=== PATIENT | male | born 1955 | race Two or more races ===

== ENCOUNTER 2017-04-04 12:12 | Inpatient (IN) | payer OTHER ==
[~2017-04-04] VITALS: Ht 177.8 cm; Wt 78.9 kg
[~2017-04-04 12:12] MED LIST: NKM
[2017-04-04] MEDS ORDERED: Morphine Sulfate 2mg/ml Inj IVP ONE (12:15)
[2017-04-04] MEDS ORDERED: Nitroglycerin 2% oint pkt TOPIC ONE (12:15)
[2017-04-04 13:00] LABS: BASOPHILS % (AUTO) 1.5 % (0.0-2.0); EOSINOPHILS % (AUTO) 0.9 % (0.0-3.0); LYMPHOCYTES % (AUTO) 25.6 % (20.0-45.0); MEAN CORPUSCULAR HEMOGLOBIN 25.3 PG (27.0-31.0); MEAN CORPUSCULAR HGB CONC 31.1 G/DL (32.0-36.0); MEAN CORPUSCULAR VOLUME 81 FL (80-99); MEAN PLATELET VOLUME 11.5 FL (6.5-10.1); MONOCYTES % (AUTO) 6.7 % (1.0-10.0); NEUTROPHILS % (AUTO) 65.4 % (45.0-75.0); PLATELET COUNT 225 K/UL (150-450); RED BLOOD COUNT 5.97 M/UL (4.70-6.10); WHITE BLOOD COUNT 7.5 K/UL (4.8-10.8)
[2017-04-04 13:10] LABS: INR 1.3 (0.9-1.1)
[2017-04-04 13:14] LABS: ALANINE AMINOTRANSFERASE 35 U/L (3-41); ANION GAP 23 (5-15); ASPARTATE AMINO TRANSFERASE 44 U/L (5-40); CALCIUM 8.6 mg/dL (8.6-10.2); CARBON DIOXIDE 24 mEQ/L (20-30); CHLORIDE 92 mEQ/L (98-107); CREATININE 1.3 mg/dL (0.7-1.2); GLOMERULAR FILTRATION RATE 55.9 mL/min (>60); HEMOLYSIS 1; POTASSIUM 3.3 mEQ/L (3.4-4.9); SODIUM 139 mEQ/L (135-145); TOTAL PROTEIN 6.2 g/dL (6.6-8.7); TROPONIN I < 0.30 ng/mL (<=0.30)
[2017-04-04 13:35] LABS: BILIRUBIN,DIRECT 0.8 mg/dL (0.1-0.3)
[2017-04-04 13:48] LABS: APPEARANCE,URINE CLEAR; KETONES,URINE NEGATIVE (NEGATIVE); LEUKOCYTE ESTERASE ,URINE NEGATIVE (NEGATIVE); NITRITE,URINE NEGATIVE (NEGATIVE); PH,URINE 6.5 (4.5-8.0); PROTEIN,URINE 3+ (NEGATIVE); UROBILINOGEN,URINE NORMAL MG/DL (0.0-1.0)
--- NOTE | 2017-04-04 13:54 | Diagnostic Imaging Report ---
Indication: Dyspnea Comparison: None A single view chest radiograph was obtained. Findings: Interstitial edema is present. There is a density at the right lung base which may be a subpulmonic effusion or pleural thickening. The heart is enlarged. Bones are osteopenic. Impression: Interstitial edema/CHF. Right basilar pleural thickening versus effusion
[2017-04-04 14:00] LABS: RBC,URINE 0 /HPF (0 - 0); SQUAMOUS EPITHELIAL CELL,UR OCCASIONAL /LPF (NONE/OCC); WBC,URINE 0-2 /HPF (0 - 0)
[2017-04-04 14:20] VITALS: BP 112/77
[2017-04-04 14:37] VITALS: BP 120/80
--- NOTE | 2017-04-04 15:09 | Emergency Room Report ---
History of Present Illness General Chief Complaint: Upper Respiratory Illness Source: Patient, EMS Present Illness HPI Patient is brought in for several complaints. Hx of significant this dyspnea with orthopnea. Also he has increased edema and right upper quadrant pain which is 7/10 pressure, radiating to back and chest. Is not able to eat very well. In the past he is improved with Lasix. He has wounds on his R lower leg which are worsened at this time also. He denies any chest pain but feels pressure and dyspnea when he tries to walk. No fevers, productive cough, sore throat, headache, other joint pain, change in bowels. H/O HTN, DM. Accucheck in field = 141. Frustrated and depressed. NO SI. Allergies: Coded Allergies: No Known Allergies (Unverified , 04/04/17) Patient History Past Medical History: see triage record Social History: Denies: alcohol use, drug use Social History Narrative at home Reviewed Nursing Documentation: PMH: Agreed, PSxH: Agreed Nursing Documentation-PMH Past Medical History: No History, Except For Hx Cardiac Problems: Yes - CHF Review of Systems All Other Systems: negative except mentioned in HPI Physical Exam Vital Signs Date Time Temp Pulse Resp B/P (MAP) Pulse Ox O2 Delivery O2 Flow Rate FiO2 04/04/17 12:02 57 20 110/86 100 04/04/17 14:35 Room Air 04/04/17 14:37 98.0 Sp02 EP Interpretation: reviewed, normal General Appearance: no apparent distress, GCS 15, Chronically Ill Head: normocephalic Eyes: bilateral eye normal inspection, bilateral eye PERRL ENT: moist mucus membranes Neck: supple Respiratory: chest non-tender, rales Cardiovascular #1: regular rate, rhythm, JVD - 2 cm at 45 degrees, edema - bilat 3+, pitting Cardiovascular #2: 2+ radial (R) Gastrointestinal: no guarding, no rebound, abnormal bowel sounds - decreased, distended, tenderness - RUQ, other - possible fluid wave Musculoskeletal: digits/nails normal, normal range of motion, no calf tenderness, swelling Neurologic: alert, oriented x3, motor strength/tone normal, sensory intact, cerebellar normal Psychiatric: depressed affect - frustrated Skin: other - ulcers R LE anteriorly Medical Decision Making Diagnostic Impression: Primary Impression: CHF (congestive heart failure) Qualified Codes: I50.43 - Acute on chronic combined systolic (congestive) and diastolic (congestive) heart failure Additional Impressions: Hepatic congestion Renal insufficiency ER Course Patient presents with dyspnea and edema with abdominal distension. Ddx; AMI, CHF, liver inflammation, cor pulmonale, electrolyte imbalance amongst others. Emergent evaluation for AMI. Exam most c/w CHF with cor pulmonale. EKG, CXR, labs. Treatment with lasix and morphine. EKG with pvc's, no acute injury. CXR CHF with large R effusion. Labs with normal WBC and H/H. Renal insufficiency, some elevated LFTs. Improved with treatment, still feels dyspneic and easy LEMON, feels needs more diuresis. Patient is admitted to telemetry under the care of Dr. Keller. Laboratory Tests Test 04/04/17 12:40 04/04/17 13:10 White Blood Count 7.5 K/UL (4.8-10.8) Red Blood Count 5.97 M/UL (4.70-6.10) Hemoglobin 15.1 G/DL (14.2-18.0) Hematocrit 48.6 % (42.0-52.0) Mean Corpuscular Volume 81 FL (80-99) Mean Corpuscular Hemoglobin 25.3 PG (27.0-31.0) L Mean Corpuscular Hemoglobin Concent 31.1 G/DL (32.0-36.0) L Red Cell Distribution Width 15.0 % (11.6-14.8) H Platelet Count 225 K/UL (150-450) Mean Platelet Volume 11.5 FL (6.5-10.1) H Neutrophils (%) (Auto) 65.4 % (45.0-75.0) Lymphocytes (%) (Auto) 25.6 % (20.0-45.0) Monocytes (%) (Auto) 6.7 % (1.0-10.0) Eosinophils (%) (Auto) 0.9 % (0.0-3.0) Basophils (%) (Auto) 1.5 % (0.0-2.0) Prothrombin Time 14.0 SEC (9.30-11.50) H Prothrombin Time INR 1.3 (0.9-1.1) H PTT 26 SEC (23-33) Sodium Level 139 mEQ/L (135-145) Potassium Level 3.3 mEQ/L (3.4-4.9) L Chloride Level 92 mEQ/L (98-107) L Carbon Dioxide Level 24 mEQ/L (20-30) Anion Gap 23 (5-15) H Blood Urea Nitrogen 25 mg/dL (7-23) H Creatinine 1.3 mg/dL (0.7-1.2) H Estimate Glomerular Filtration Rate 55.9 mL/min (>60) Glucose Level 166 mg/dL (74-106) H Calcium Level 8.6 mg/dL (8.6-10.2) Total Bilirubin 1.3 mg/dL (0.0-1.2) H Direct Bilirubin 0.8 mg/dL (0.1-0.3) H Aspartate Amino Transferase (AST) 44 U/L (5-40) H Alanine Aminotransferase (ALT) 35 U/L (3-41) Alkaline Phosphatase 260 U/L (40-129) H Total Creatine Kinase 196 U/L (38-174) H Troponin I < 0.30 ng/mL (<=0.30) Pro-B-Type Natriuretic Peptide 8526 pg/mL (0-125) H Total Protein 6.2 g/dL (6.6-8.7) L Albumin 3.1 g/dL (3.5-5.2) L Globulin 3.1 g/dL Albumin/Globulin Ratio 1.0 (1.0-2.7) Urine Color Yellow Urine Appearance Clear Urine pH 6.5 (4.5-8.0) Urine Specific [place] 1.010 (1.005-1.035) Urine Protein 3+ (NEGATIVE) H Urine Glucose (UA) Negative (NEGATIVE) Urine Ketones Negative (NEGATIVE) Urine Occult Blood Negative (NEGATIVE) Urine Nitrite Negative (NEGATIVE) Urine Bilirubin Negative (NEGATIVE) Urine Urobilinogen Normal MG/DL (0.0-1.0) Urine Leukocyte Esterase Negative (NEGATIVE) Urine RBC 0 /HPF (0 - 0) Urine WBC 0-2 /HPF (0 - 0) Urine Squamous Epithelial Cells Occasional /LPF Urine Bacteria None /HPF (NONE) Urine Opiates Screen Negative (NEGATIVE) Urine Barbiturates Screen Negative (NEGATIVE) Phencyclidine (PCP) Screen Negative (NEGATIVE) Urine Amphetamines Screen Negative (NEGATIVE) Urine Benzodiazepines Screen Negative (NEGATIVE) Urine Cocaine Screen Negative (NEGATIVE) Urine Marijuana (THC) Screen Negative (NEGATIVE) EKG Diagnostic Results Rate: tachycardiac ST Segments: no acute changes - ST with PVCs Rhythm Strip Diag. Results EP Interpretation: yes Rhythm: other - ST with PVCs, rate 111 Chest X-Ray Diagnostic Results Chest X-Ray Diagnostic Results : Chest X-Ray Ordered: Yes # of Views/Limited/Complete: 1 View Indication: Other EP Interpretation: Yes Interpretation: no pneumothorax, other - Right effusion and congestive heart failure Impression: Other Electronically Signed by: Electronically signed by Maxx Boyd MD Last Vital Signs Date Time Temp Pulse Resp B/P (MAP) Pulse Ox O2 Delivery O2 Flow Rate FiO2 04/04/17 21:00 97.5 100 20 106/65 97 Room Air Status: improved Disposition: ADMITTED INPATIENT Condition: Serious Referrals: [facility],REFERRING (PCP) Maxx Boyd M.D. Apr 04, 2017 15:09
[2017-04-04] MEDS ORDERED: Tetanus/Diptheria/Pertussis Vaccine 0.5ml Syr IM ONE (15:45)
[2017-04-04] MEDS ORDERED: Bacitracin Oint UD TOPIC ONE (15:45)
[2017-04-04 17:20] VITALS: BP 112/77
[2017-04-04 17:41] VITALS: BP 92/49
[2017-04-04] MEDS ORDERED: FUROSEMIDE40 MG/5 ML ORAL (18:15)
[2017-04-04] MEDS ORDERED: HUMULIN R100 UNIT/1 SUBQ (18:15)
[2017-04-04 21:00] VITALS: BP 106/65
[2017-04-04] MEDS: NovoLOG Insulin Flexpen SUBQ SCH (21:00)
[2017-04-04] MEDS: Morphine Sulfate 2mg/ml Inj IVP PRN (23:27)
[2017-04-05] VITALS (7 sets, daily range): BP systolic 94–118; BP diastolic 57–76
[2017-04-05] MEDS: NovoLOG Insulin Flexpen SUBQ SCH ×4 (07:24→20:41)
--- NOTE | 2017-04-05 08:07 | Cardiology Progress Note ---
Assessment/Plan Assessment/Plan The patient is seen and examined, full consult note is dictated. Objective Last 24 Hour Vital Signs Date Time Temp Pulse Resp B/P (MAP) Pulse Ox O2 Delivery O2 Flow Rate FiO2 04/05/17 04:00 97.2 99 20 110/70 96 Room Air 04/05/17 04:00 96 04/05/17 00:00 100 04/05/17 00:00 97.2 62 20 104/70 99 Room Air 04/04/17 21:00 97.5 100 20 106/65 97 Room Air 04/04/17 20:00 105 04/04/17 17:41 97.7 100 20 92/49 95 Room Air 04/04/17 17:20 104 26 112/77 99 Room Air 04/04/17 17:20 97.6 104 26 112/77 99 Room Air 04/04/17 14:37 98.0 98 18 120/80 99 04/04/17 14:35 92 18 Room Air 04/04/17 14:20 98.8 104 26 112/77 99 Room Air 04/04/17 13:26 98.0 04/04/17 12:56 110/86 04/04/17 12:02 57 20 110/86 100 Laboratory Tests Test 04/04/17 12:40 04/04/17 13:10 White Blood Count 7.5 K/UL (4.8-10.8) Red Blood Count 5.97 M/UL (4.70-6.10) Hemoglobin 15.1 G/DL (14.2-18.0) Hematocrit 48.6 % (42.0-52.0) Mean Corpuscular Volume 81 FL (80-99) Mean Corpuscular Hemoglobin 25.3 PG (27.0-31.0) L Mean Corpuscular Hemoglobin Concent 31.1 G/DL (32.0-36.0) L Red Cell Distribution Width 15.0 % (11.6-14.8) H Platelet Count 225 K/UL (150-450) Mean Platelet Volume 11.5 FL (6.5-10.1) H Neutrophils (%) (Auto) 65.4 % (45.0-75.0) Lymphocytes (%) (Auto) 25.6 % (20.0-45.0) Monocytes (%) (Auto) 6.7 % (1.0-10.0) Eosinophils (%) (Auto) 0.9 % (0.0-3.0) Basophils (%) (Auto) 1.5 % (0.0-2.0) Prothrombin Time 14.0 SEC (9.30-11.50) H Prothromb Time International Ratio 1.3 (0.9-1.1) H Activated Partial Thromboplast Time 26 SEC (23-33) Sodium Level 139 mEQ/L (135-145) Potassium Level 3.3 mEQ/L (3.4-4.9) L Chloride Level 92 mEQ/L (98-107) L Carbon Dioxide Level 24 mEQ/L (20-30) Anion Gap 23 (5-15) H Blood Urea Nitrogen 25 mg/dL (7-23) H Creatinine 1.3 mg/dL (0.7-1.2) H Estimat Glomerular Filtration Rate 55.9 mL/min (>60) Glucose Level 166 mg/dL (74-106) H Calcium Level 8.6 mg/dL (8.6-10.2) Total Bilirubin 1.3 mg/dL (0.0-1.2) H Direct Bilirubin 0.8 mg/dL (0.1-0.3) H Aspartate Amino Transf (AST/SGOT) 44 U/L (5-40) H Alanine Aminotransferase (ALT/SGPT) 35 U/L (3-41) Alkaline Phosphatase 260 U/L (40-129) H Total Creatine Kinase 196 U/L (38-174) H Troponin I < 0.30 ng/mL (<=0.30) Pro-B-Type Natriuretic Peptide 8526 pg/mL (0-125) H Total Protein 6.2 g/dL (6.6-8.7) L Albumin 3.1 g/dL (3.5-5.2) L Globulin 3.1 g/dL Albumin/Globulin Ratio 1.0 (1.0-2.7) Urine Color Yellow Urine Appearance Clear Urine pH 6.5 (4.5-8.0) Urine Specific [place] 1.010 (1.005-1.035) Urine Protein 3+ (NEGATIVE) H Urine Glucose (UA) Negative (NEGATIVE) Urine Ketones Negative (NEGATIVE) Urine Occult Blood Negative (NEGATIVE) Urine Nitrite Negative (NEGATIVE) Urine Bilirubin Negative (NEGATIVE) Urine Urobilinogen Normal MG/DL (0.0-1.0) Urine Leukocyte Esterase Negative (NEGATIVE) Urine RBC 0 /HPF (0 - 0) Urine WBC 0-2 /HPF (0 - 0) Urine Squamous Epithelial Cells Occasional /LPF Urine Bacteria None /HPF (NONE) Urine Opiates Screen Negative (NEGATIVE) Urine Barbiturates Screen Negative (NEGATIVE) Phencyclidine (PCP) Screen Negative (NEGATIVE) Urine Amphetamines Screen Negative (NEGATIVE) Urine Benzodiazepines Screen Negative (NEGATIVE) Urine Cocaine Screen Negative (NEGATIVE) Urine Marijuana (THC) Screen Negative (NEGATIVE) EMILY COMBS Apr 05, 2017 08:07
[2017-04-05 08:15] LABS: BASOPHILS % (AUTO) 1.2 % (0.0-2.0); EOSINOPHILS % (AUTO) 0.9 % (0.0-3.0); LYMPHOCYTES % (AUTO) 30.9 % (20.0-45.0); MEAN CORPUSCULAR HEMOGLOBIN 25.6 PG (27.0-31.0); MEAN CORPUSCULAR HGB CONC 31.6 G/DL (32.0-36.0); MEAN CORPUSCULAR VOLUME 81 FL (80-99); MEAN PLATELET VOLUME 10.8 FL (6.5-10.1); MONOCYTES % (AUTO) 8.2 % (1.0-10.0); NEUTROPHILS % (AUTO) 58.8 % (45.0-75.0); PLATELET COUNT 194 K/UL (150-450); RED BLOOD COUNT 5.75 M/UL (4.70-6.10); RED CELL DISTRIBUTION WIDTH 15.1 % (11.6-14.8); WHITE BLOOD COUNT 7.8 K/UL (4.8-10.8)
[2017-04-05 08:32] LABS: CALCIUM 8.7 mg/dL (8.6-10.2); CHOLESTEROL/HDL RATIO 3.6 (3.3-4.4); CREATININE 1.8 mg/dL (0.7-1.2); CRP QUANT 5.3 mg/dL (< 0.5); GLOMERULAR FILTRATION RATE 38.4 mL/min (>60); MAGNESIUM 1.9 mg/dL (1.7-2.5); PHOSPHORUS 4.3 mg/dL (2.5-4.8); POTASSIUM 3.2 mEQ/L (3.4-4.9); TOTAL PROTEIN 5.9 g/dL (6.6-8.7); URIC ACID 15.9 mg/dL (3.0-7.5)
[2017-04-05 08:36] LABS: THYROID STIMULATING HORMONE 1.77 uIU/mL (0.300-4.500)
[2017-04-05] MEDS ORDERED: Furosemide 40mg tab ORAL SCH (09:00)
[2017-04-05 09:12] LABS: HEMOGLOBIN A1C 9.9 % (< 6.0)
--- NOTE | 2017-04-05 10:28 | GI Initial Consult Note ---
History of Present Illness General Date patient seen: Apr 05, 2017 Time patient seen: 10:18 Reason for Hospitalization: Upper Respiratory Illness Referring physician: DELBERT DONG Reason for Consultation: ABNORMAL LFTS Present Illness HPI Patient is brought in for several complaints. Hx of significant this dyspnea with orthopnea. Also he has increased edema and right upper quadrant pain which is 7/10 pressure, radiating to back and chest. Is not able to eat very well. In the past he is improved with Lasix. He has wounds on his R lower leg which are worsened at this time also. He denies any chest pain but feels pressure and dyspnea when he tries to walk. No fevers, productive cough, sore throat, headache, other joint pain, change in bowels. H/O HTN, DM. Accucheck in field = 141. Frustrated and depressed. NO SI. GI Consult. HPI as noted above. GI consulted for abnormal LFTs. Pt c/o of abdominal distention, pain, BLE 3+ edema. He presents today with abnormal LFTs , elevated GGT. Denies any ETOH, tobacco, or IVDA use. Abdominal U/S pending. Denies any history of endoscopic procedures. Home Meds Reported Medications Furosemide (FUROSEMIDE) 40 Mg/5 Ml Solution, 40 MG ORAL DAILY, ML 04/04/17 Insulin Regular, Human (HUMULIN R) 100 Unit/1 Ml Vial, 0 SUBQ, VIAL 04/04/17 No Known Medications* (NKM - No Known Medications*) ., 0 ., 0 Refills 04/04/17 Med list reviewed/reconciled: Yes Allergies: Coded Allergies: No Known Allergies (Unverified , 04/04/17) Patient History History Provided By: Patient, Medical Record PMH Narrative Past Medical History: see triage record Social History: Denies: alcohol use, drug use Social History Narrative at home Reviewed Nursing Documentation: PMH: Agreed, PSxH: Agreed Nursing Documentation-PMH Past Medical History: No History, Except For Hx Cardiac Problems: Yes - CHF Social History: Denies: smoking, alcohol use, drug use, other Review of Systems All Other Systems: negative except mentioned in HPI Physical Exam Vital Signs Date Time Temp Pulse Resp B/P (MAP) Pulse Ox O2 Delivery O2 Flow Rate FiO2 04/04/17 12:02 57 20 110/86 100 04/04/17 13:26 98.0 04/04/17 14:20 Room Air Sp02 EP Interpretation: reviewed Labs Laboratory Tests Test 04/04/17 12:40 04/04/17 13:10 04/05/17 07:20 White Blood Count 7.5 K/UL (4.8-10.8) 7.8 K/UL (4.8-10.8) Red Blood Count 5.97 M/UL (4.70-6.10) 5.75 M/UL (4.70-6.10) Hemoglobin 15.1 G/DL (14.2-18.0) 14.7 G/DL (14.2-18.0) Hematocrit 48.6 % (42.0-52.0) 46.7 % (42.0-52.0) Mean Corpuscular Volume 81 FL (80-99) 81 FL (80-99) Mean Corpuscular Hemoglobin 25.3 PG (27.0-31.0) L 25.6 PG (27.0-31.0) L Mean Corpuscular Hemoglobin Concent 31.1 G/DL (32.0-36.0) L 31.6 G/DL (32.0-36.0) L Red Cell Distribution Width 15.0 % (11.6-14.8) H 15.1 % (11.6-14.8) H Platelet Count 225 K/UL (150-450) 194 K/UL (150-450) Mean Platelet Volume 11.5 FL (6.5-10.1) H 10.8 FL (6.5-10.1) H Neutrophils (%) (Auto) 65.4 % (45.0-75.0) 58.8 % (45.0-75.0) Lymphocytes (%) (Auto) 25.6 % (20.0-45.0) 30.9 % (20.0-45.0) Monocytes (%) (Auto) 6.7 % (1.0-10.0) 8.2 % (1.0-10.0) Eosinophils (%) (Auto) 0.9 % (0.0-3.0) 0.9 % (0.0-3.0) Basophils (%) (Auto) 1.5 % (0.0-2.0) 1.2 % (0.0-2.0) Prothrombin Time 14.0 SEC (9.30-11.50) H Prothromb Time International Ratio 1.3 (0.9-1.1) H Activated Partial Thromboplast Time 26 SEC (23-33) Sodium Level 139 mEQ/L (135-145) 138 mEQ/L (135-145) Potassium Level 3.3 mEQ/L (3.4-4.9) L 3.2 mEQ/L (3.4-4.9) L Chloride Level 92 mEQ/L (98-107) L 91 mEQ/L (98-107) L Carbon Dioxide Level 24 mEQ/L (20-30) 23 mEQ/L (20-30) Anion Gap 23 (5-15) H 24 (5-15) H Blood Urea Nitrogen 25 mg/dL (7-23) H 31 mg/dL (7-23) H Creatinine 1.3 mg/dL (0.7-1.2) H 1.8 mg/dL (0.7-1.2) H Estimat Glomerular Filtration Rate 55.9 mL/min (>60) 38.4 mL/min (>60) Glucose Level 166 mg/dL (74-106) H 117 mg/dL (74-106) H Calcium Level 8.6 mg/dL (8.6-10.2) 8.7 mg/dL (8.6-10.2) Total Bilirubin 1.3 mg/dL (0.0-1.2) H 1.5 mg/dL (0.0-1.2) H Direct Bilirubin 0.8 mg/dL (0.1-0.3) H 1.0 mg/dL (0.1-0.3) H Aspartate Amino Transf (AST/SGOT) 44 U/L (5-40) H 71 U/L (5-40) H Alanine Aminotransferase (ALT/SGPT) 35 U/L (3-41) 56 U/L (3-41) H Alkaline Phosphatase 260 U/L (40-129) H 260 U/L (40-129) H Total Creatine Kinase 196 U/L (38-174) H Troponin I < 0.30 ng/mL (<=0.30) Pro-B-Type Natriuretic Peptide 8526 pg/mL (0-125) H 10416 pg/mL (0-125) H Total Protein 6.2 g/dL (6.6-8.7) L 5.9 g/dL (6.6-8.7) L Albumin 3.1 g/dL (3.5-5.2) L 3.0 g/dL (3.5-5.2) L Globulin 3.1 g/dL 2.9 g/dL Albumin/Globulin Ratio 1.0 (1.0-2.7) 1.0 (1.0-2.7) Urine Color Yellow Urine Appearance Clear Urine pH 6.5 (4.5-8.0) Urine Specific [place] 1.010 (1.005-1.035) Urine Protein 3+ (NEGATIVE) H Urine Glucose (UA) Negative (NEGATIVE) Urine Ketones Negative (NEGATIVE) Urine Occult Blood Negative (NEGATIVE) Urine Nitrite Negative (NEGATIVE) Urine Bilirubin Negative (NEGATIVE) Urine Urobilinogen Normal MG/DL (0.0-1.0) Urine Leukocyte Esterase Negative (NEGATIVE) Urine RBC 0 /HPF (0 - 0) Urine WBC 0-2 /HPF (0 - 0) Urine Squamous Epithelial Cells Occasional /LPF Urine Bacteria None /HPF (NONE) Urine Opiates Screen Negative (NEGATIVE) Urine Barbiturates Screen Negative (NEGATIVE) Phencyclidine (PCP) Screen Negative (NEGATIVE) Urine Amphetamines Screen Negative (NEGATIVE) Urine Benzodiazepines Screen Negative (NEGATIVE) Urine Cocaine Screen Negative (NEGATIVE) Urine Marijuana (THC) Screen Negative (NEGATIVE) Hemoglobin A1c 9.9 % (< 6.0) H Uric Acid 15.9 mg/dL (3.0-7.5) H Phosphorus Level 4.3 mg/dL (2.5-4.8) Magnesium Level 1.9 mg/dL (1.7-2.5) Gamma Glutamyl Transpeptidase 663 U/L (8-61) H Ammonia 47 umol/L (16-60) C-Reactive Protein, Quantitative 5.3 mg/dL (< 0.5) H Triglycerides Level 60 mg/dL (< 150) Cholesterol Level 79 mg/dL (< 200) LDL Cholesterol 45 mg/dL (60-99) L HDL Cholesterol 22 mg/dL (> 60) Cholesterol/HDL Ratio 3.6 (3.3-4.4) Thyroid Stimulating Hormone (TSH) 1.770 uIU/mL (0.300-4.500) General Appearance: well appearing, no apparent distress, alert, thin Head: normocephalic EENT: PERRL/EOMI, normal ENT inspection Neck: supple Respiratory: normal breath sounds, no respiratory distress Cardiovascular: normal rate Gastrointestinal: distended Rectal: deferred Musculoskeletal: back normal Neurologic: normal inspection, alert, oriented x3, responsive Psychiatric: normal inspection, judgement/insight normal, memory normal Skin: normal inspection, normal color, no rash, warm/dry Lymphatic: normal inspection, no adenopathy Current Medications Current Medications Medications (Trade) Dose Ordered Sig/Reuben Route PRN Reason Start Time Stop Time Status Last Admin Dose Admin Carvedilol (Coreg) 3.125 mg BID ONCE ORAL 04/05/17 18:00 04/05/17 18:01 Dextrose (Dextrose 50%) STAT PRN IV Hypoglycemia 04/04/17 18:30 05/04/17 18:29 Furosemide (Lasix) 40 mg EVERY 12 HOURS IV 04/05/17 09:00 05/05/17 08:59 04/05/17 09:18 Insulin Aspart (NovoLOG) BEFORE MEALS AND HS SUBQ 04/04/17 21:00 05/04/17 20:59 04/05/17 07:24 Magnesium Sulfate 100 ml @ 100 mls/hr Q1H IVPB 04/05/17 08:40 04/05/17 10:39 04/05/17 09:17 Morphine Sulfate (Morphine Sulfate) 2 mg Q4H PRN IVP For Pain 04/04/17 23:15 04/11/17 23:14 04/04/17 23:27 Potassium Chloride 100 ml @ 50 mls/hr STAT ONCE IVPB 04/05/17 08:30 04/05/17 10:29 Potassium Chloride (K-Dur) 40 meq TWICE A DAY ORAL 04/04/17 18:00 05/04/17 17:59 04/05/17 09:18 GI: Plan Problems: (1) Abnormal LFTs (2) Elevated serum GGT level (3) Hepatic congestion Plan recommend EGD/colonoscopy >> refused by patient at this time, can be done as outpatient elevated LFTs, GGT >> fu abdominal U/S fu hepatitis panel okay to resume cardiac diet after imaging studies DM mgmt utox negative diuresis fu labs Discussed with Dr. Hinds. Thank you for referring this patient, we will follow. Marissa Schneider N.P. Apr 05, 2017 10:28
--- NOTE | 2017-04-05 11:25 | Consultation ---
Consult Note Consult Note asked to eval for renal failure- Chief Complaint: Upper Respiratory Illness Patient is brought in for several complaints. Hx of significant this dyspnea with orthopnea. Also he has increased edema and right upper quadrant pain which is 7/10 pressure, radiating to back and chest. Is not able to eat very well. In the past he is improved with Lasix. He has wounds on his R lower leg which are worsened at this time also. He denies any chest pain but feels pressure and dyspnea when he tries to walk. No fevers, productive cough, sore throat, headache, other joint pain, change in bowels. H/O HTN, DM. Accucheck in field = 141. Frustrated and depressed. NO SI. No Known Allergies (Unverified , 04/04/17) Past Medical History: No History, Except For Hx Cardiac Problems: Yes - CHF interviewed examined data reviewed Assessment/Plan Renal failure- Acute on Chronic, Cr 1.8 and 3+ Proteinuria Dm, Nephropathy, High A1c HyperUrecemia High LFTs Optimize cardiac status Allopurinol- Echo and Kidney LAZARO K supplement Monitor renal parameters flomax per orders RENNY POWER Apr 05, 2017 11:25
[2017-04-05] MEDS: Allopurinol 100mg Tab ORAL SCH (12:00)
[2017-04-05] MEDS: Morphine Sulfate 2mg/ml Inj IVP PRN ×2 (12:23→20:41)
--- NOTE | 2017-04-05 13:39 | Wound Care Consultation ---
Wound Assessment Wound Assessment : Wound Number: 1 Wound Present on Admission: Yes New Wound: No Status Change of Wound: No Wound Location Body Site Modif: left, right, lower Wound Location Body Site: leg Wound Type: vascular wound - scattered Medardo Test: Does not Medardo Wound Thickness: Full Thickness Percent of Wound Tabor/Red: 100 Wound Drainage Description: Serosanguineous Wound Drainage Amount: Moderate Wound Drainage Odor: None/Absent Tissue Surrounding Wound: Edematous Wound General Appearance: Reddened, Draining Wound Comment #1 Left and right lower legs with open venous stasis ulcers Recommendation -Local wound care as ordered -Keep clean and dry -Turn and reposition -Offload both heels -Elevate both legs -Optimize nutrition -Assess and f/u accordingly for any changes EARLENE MÁRQUEZ RN Apr 05, 2017 13:39
--- NOTE | 2017-04-05 15:04 | Cardiology Report ---
APPROVED REPORT EXAM: Two-dimensional and M-mode echocardiogram with Doppler and color Doppler. INDICATION Congestive Heart Failure M-Mode DIMENSIONS IVSd1.0 (0.7-1.1cm)Left Atrium (MM)5.1 (1.6-4.0cm) LVDd6.3 (3.5-5.6cm)Aortic Root2.5 (2.0-3.7cm) PWd1.3 (0.7-1.1cm)Aortic Cusp Exc.1.8 (1.5-2.0cm) LVDs5.4 (2.5-4.0cm) PWs1.5 cm Severe global left ventricular hypokinesis. Moderate left ventricular enlargement. Left ventricular ejection fraction estimated to be 10-15 %. No evidence of left ventricular hypertrophy. Anterior Echo-free space, may be due to pericardial fat or effusion. Severe bi-atrial enlargement. Severe right ventricular enlargement. Mild focal aortic valve sclerosis with adequate cusp excursion. Mildly thickened mitral valve leaflets with normal excursion. Mild mitral annulus and aortic root calcification. Normal pulmonic valve structure. Normal tricuspid valve structure. IVC dilated at 3.0 cm without physiological collapse, estimated RAP is 20 mmHg. A color flow and spectral Doppler study was performed and revealed: No aortic insufficiency. Severe mitral regurgitation. Left ventricular diastolic function could not be determined due to arrhythmia. Severe tricuspid regurgitation. Tricuspid systolic velocities suggests peak right ventricular systolic pressure of 69 mmHg, consistent with severe pulmonary hypertension. Moderate to severe pulmonic regurgitation present.
[2017-04-05] MEDS: KCl 10% 40mEq/30ml liquid ORAL SCH (17:37)
--- NOTE | 2017-04-05 17:40 | Cardiac Electrophysiology PN ---
Subjective Subjective NSVT up to 12 beats in a patient with EF 10-15%.[id number] Objective Last 24 Hour Vital Signs Date Time Temp Pulse Resp B/P (MAP) Pulse Ox O2 Delivery O2 Flow Rate FiO2 04/05/17 16:00 90 04/05/17 15:40 97.2 96 20 100/69 96 Room Air 04/05/17 12:48 97.0 93 18 107/68 98 Room Air 04/05/17 12:00 97 04/05/17 09:18 98 118/76 04/05/17 08:38 97.0 98 18 118/76 100 Room Air 04/05/17 08:00 100 04/05/17 04:00 97.2 99 20 110/70 96 Room Air 04/05/17 04:00 96 04/05/17 00:00 100 04/05/17 00:00 97.2 62 20 104/70 99 Room Air 04/04/17 21:00 97.5 100 20 106/65 97 Room Air 04/04/17 20:00 105 04/04/17 17:41 97.7 100 20 92/49 95 Room Air Intake and Output 04/05/17 04/06/17 19:00 07:00 Intake Total 120 ml Output Total 150 ml Balance -30 ml Intake Oral 120 ml Output Urine Total 150 ml Laboratory Tests Test 04/05/17 07:20 White Blood Count 7.8 K/UL (4.8-10.8) Red Blood Count 5.75 M/UL (4.70-6.10) Hemoglobin 14.7 G/DL (14.2-18.0) Hematocrit 46.7 % (42.0-52.0) Mean Corpuscular Volume 81 FL (80-99) Mean Corpuscular Hemoglobin 25.6 PG (27.0-31.0) L Mean Corpuscular Hemoglobin Concent 31.6 G/DL (32.0-36.0) L Red Cell Distribution Width 15.1 % (11.6-14.8) H Platelet Count 194 K/UL (150-450) Mean Platelet Volume 10.8 FL (6.5-10.1) H Neutrophils (%) (Auto) 58.8 % (45.0-75.0) Lymphocytes (%) (Auto) 30.9 % (20.0-45.0) Monocytes (%) (Auto) 8.2 % (1.0-10.0) Eosinophils (%) (Auto) 0.9 % (0.0-3.0) Basophils (%) (Auto) 1.2 % (0.0-2.0) Sodium Level 138 mEQ/L (135-145) Potassium Level 3.2 mEQ/L (3.4-4.9) L Chloride Level 91 mEQ/L (98-107) L Carbon Dioxide Level 23 mEQ/L (20-30) Anion Gap 24 (5-15) H Blood Urea Nitrogen 31 mg/dL (7-23) H Creatinine 1.8 mg/dL (0.7-1.2) H Estimat Glomerular Filtration Rate 38.4 mL/min (>60) Glucose Level 117 mg/dL (74-106) H Hemoglobin A1c 9.9 % (< 6.0) H Uric Acid 15.9 mg/dL (3.0-7.5) H Calcium Level 8.7 mg/dL (8.6-10.2) Phosphorus Level 4.3 mg/dL (2.5-4.8) Magnesium Level 1.9 mg/dL (1.7-2.5) Total Bilirubin 1.5 mg/dL (0.0-1.2) H Direct Bilirubin 1.0 mg/dL (0.1-0.3) H Gamma Glutamyl Transpeptidase 663 U/L (8-61) H Aspartate Amino Transf (AST/SGOT) 71 U/L (5-40) H Alanine Aminotransferase (ALT/SGPT) 56 U/L (3-41) H Alkaline Phosphatase 260 U/L (40-129) H Ammonia 47 umol/L (16-60) C-Reactive Protein, Quantitative 5.3 mg/dL (< 0.5) H Pro-B-Type Natriuretic Peptide 77527 pg/mL (0-125) H Total Protein 5.9 g/dL (6.6-8.7) L Albumin 3.0 g/dL (3.5-5.2) L Globulin 2.9 g/dL Albumin/Globulin Ratio 1.0 (1.0-2.7) Triglycerides Level 60 mg/dL (< 150) Cholesterol Level 79 mg/dL (< 200) LDL Cholesterol 45 mg/dL (60-99) L HDL Cholesterol 22 mg/dL (> 60) Cholesterol/HDL Ratio 3.6 (3.3-4.4) Thyroid Stimulating Hormone (TSH) 1.770 uIU/mL (0.300-4.500) MEILY SOLANO Apr 05, 2017 17:40
--- NOTE | 2017-04-05 18:15 | Consultation ---
DATE OF CONSULTATION: 04/05/2017 CARDIOLOGY CONSULTATION REFERRING PHYSICIAN: Joanna Keller M.D. REASON FOR CONSULTATION: Management of heart failure. History Of Present Illness: The patient is a very unfortunate 61-year-old gentleman with a history of cardiomyopathy and heart failure. First time admission to this hospital, brought in by paramedics for dyspnea as well as three to four pillow orthopnea. The patient has also been complaining of increased edema in the lower extremities and increased abdominal girth with associated right upper quadrant pain. The patient states that he has improved with Lasix in the past. His last admission was to [facility]. Cardiology consultation was made at the request of Dr. Keller for management of congestive heart failure as his chest x-ray was concerning for pulmonary edema and cardiomegaly as well as right pleural effusion. PAST MEDICAL HISTORY: 1. History of cardiomyopathy, many hospitalizations in the past, the etiology of which is unknown. 2. Congestive heart failure. 3. A history of diabetes mellitus (presumptive). 4. No other past medical history. PAST SURGICAL HISTORY: None. Review Of Systems: A 12-system review done essentially negative except what mentioned in the history of present illness. ALLERGIES: No known drug allergies. Social History: He denies any tobacco, alcohol, or illicit drug use. He lives at home. Medications: List of medications, furosemide 40 mg p.o. daily, and insulin Humulin subcutaneous. There are some other medications, which are known. PHYSICAL EXAMINATION: Vital Signs: On arrival to emergency department, blood pressure was 110/86, respirations 20, pulse 57, O2 saturation 100% on room air, and temperature 98.0 degrees Fahrenheit. General: The patient is a very unfortunate 61-year-old gentleman, in no apparent respiratory distress. Alert and oriented x4. HEENT: Atraumatic and normocephalic. ENT, pupils are equal, round, and reactive to light and accommodation. Conjunctival pallor is seen. Neck: JVP is elevated at about 15 cm. No carotid bruit. Carotid upstrokes 2+ bilaterally. Cardiovascular: Normal S1, S2. Regular rate and rhythm. A 2/6 mid systolic murmur at the left sternal border. LUNGS: Clear to auscultation bilaterally. Abdomen: Distended. Possible ascites. No hepatosplenomegaly. Positive bowel sounds. Extremities: There is 3+ bilateral lower extremity edema. There is also evidence of right ulceration in the lower extremity in the anterior aspect of the leg. Diagnostic Data: A chest x-ray shows interstitial edema consistent with CHF and right basilar pleural thickening versus effusion. A 12-lead electrocardiogram shows sinus tachycardia at a rate of 111 with single ventricular premature complexes. It appears to be multifocal and there is left atrial enlargement, right atrial enlargement, and nonspecific intraventricular conduction delay. Laboratory Findings: Sodium 139, potassium 3.3, chloride 92, bicarbonate 24, BUN of 25, creatinine 1.3, glucose 166, and calcium is 8.6. Troponin I less than 0.3. ProBNP was 8526. INR is 1.3. WBC 7.5, hemoglobin of 15.1, hematocrit of 48.6, and platelet count is 225,000. Toxicology urine was negative. Assessment And Plan: The patient is a very unfortunate 61-year-old gentleman, was seen in Cardiology consultation at the request of Dr. Keller. 1. Evidence of hypervolemia clinically with chest x-ray suggestive of cardiomegaly and pulmonary edema, right pleural effusion, all in favor of acute heart failure. We will obtain 2D echocardiography for assessment of LV systolic and diastolic function. I will switch to furosemide p.o. to 40 mg intravenous twice daily. We will continue checking creatinine on a daily basis. In view of low potassium, the patient will receive 20 mEq of KCl. I will continue checking potassium on a daily basis as well. 2. It would be better to give him a combination of hydralazine and Isordil until the status of the renal failure is clear. If this appears to be a chronic kidney disease, the patient will be started on YOGESH inhibitors/ARB. 3. Further therapeutic and diagnostic decision will be based on results of the echocardiography. In the meantime, we will obtain a magnesium level as well. 4. Some nonsustained ventricular tachycardia. Dr. Usman Solano to follow in electrophysiology. Magnesium level was checked. Magnesium sulfate has been ordered. 5. History of diabetes mellitus, questionable. The patient requires hemoglobin A1c measurements and insulin sliding scale. Dr. Keller to follow the patient. Possible endocrine consultation. I would like to thank Dr. Keller for the courtesy of this consultation. Usman Clifford M.D. DR: RAMSES JOB#: [id number] CC:
[2017-04-05] MEDS: Tamsulosin 0.4mg cap ORAL SCH (20:40)
--- NOTE | 2017-04-05 21:15 | History and Physical Report ---
DATE OF ADMISSION: 04/04/2017 History Of Present Illness: The patient comes in, admitted for CHF exacerbation. The patient complains of worsening shortness of breath, abdominal pain, and lower extremity weakness, vomiting, difficulty ambulating, and cough nonproductive for the past couple of days. The patient also has poor hygiene of the feet. The patient was admitted for CHF exacerbation and presents with abdominal distension and does complain of abdominal pain. The patient also admitted for low potassium and elevated BNP as well as worsening edema. The patient denies any chest pain and does have worsening orthopnea as well. Denies any wheezing. PAST MEDICAL HISTORY: CHF, NIDDM, and history of hypertension. PAST SURGICAL HISTORY: None. MEDICATIONS: Lasix and insulin. ALLERGIES: No known allergies. Family History: Does have history of diabetes and hypertension in the family. Social History: Smokes. Denies history of drug or alcohol abuse. Lives at home by himself. Review Of Systems: HEENT: Denies headaches. Respiratory: Reports shortness of breath. Reports worsening orthopnea. Reports nonproductive cough for the past couple of days. Cardiovascular: Denies chest pain. Gastrointestinal: Does have vomiting. No diarrhea. Does have worsening abdominal pain and worsening leg edema. Central Nervous System: No change in vision or speech pattern. He feels weak. He has difficulty walking. PHYSICAL EXAMINATION: Vital Signs: Temperature 97.5, pulse 100, and blood pressure is 106/65. HEENT: PERRLA. NECK: Supple. CHEST: Bilateral rales. CARDIOVASCULAR: Regular rate and rhythm. Gastrointestinal: Soft and distended. Positive bowel sounds. Diffuse tenderness, however, no rebound. Extremities: The patient does have pitting edema 1+ in lower extremities. Able to move all four extremities. NEUROLOGIC: Generalized weakness. Reflexes are equal on both sides. Laboratory Data: WBC of 7.5, hemoglobin 15.1, and platelets 225,000. Sodium 139, potassium 3.3, BUN of 25, and creatinine 1.3, glucose of 166. BNP of 8526. ASSESSMENT: 1. Hypokalemia. 2. Congestive heart failure exacerbation. 3. Azotemia. 4. Elevated BNP. Plan: I have asked Dr. Solano, Dr. Clifford, Dr. Solorzano, and Dr. Hinds to see the patient for the vomiting and the CHF exacerbation and fluid management. Ali Cris Keller DR: PRINCESS JOB#: [id number] CC:
--- NOTE | 2017-04-06 02:30 | Consultation ---
DATE OF CONSULTATION: 04/05/2017 CARDIAC ELECTROPHYSIOLOGY CONSULTATION REFERRING PHYSICIAN: Joanna Keller M.D. Reason For Consultation: Recurrent ventricular tachycardia in a patient with ejection fraction of only 10% to 15%. History of Present Illness: The patient is a 61-year-old gentleman with history of severe nonischemic cardiomyopathy confirmed by cardiac catheterization at [facility] per patient. The patient was offered defibrillator implantation at that time, but he refused. The patient was admitted for increasing shortness of breath and orthopnea as well as lower extremity edema as well as abdominal pain. The patient underwent an echocardiogram that showed ejection fraction of 10% to 15% with severe biatrial and right ventricular enlargement as well as severe mitral regurgitation and tricuspid regurgitation. He also has marked severe pulmonic regurgitation and severe pulmonary hypertension with PA pressure of 170. While he was on telemetry, he had multiple runs of ventricular tachycardia up to 12 beats in a row. PAST MEDICAL HISTORY: 1. Hypertension. 2. Diabetes. 3. Congestive heart failure. Social History: He lives at home. Denies smoking, drinking alcohol, or using drugs. FAMILY HISTORY: Noncontributory. Review of Systems: His review of systems was performed and was negative other than what was mentioned in the history of present illness. PHYSICAL EXAMINATION: Vital Signs: Blood pressure is 100/69, pulse is 96, respirations 20, and temperature 97.2 degrees. HEAD AND NECK: Shows positive JVD. LUNGS: Decreased breath sounds. Cardiovascular: Irregular S1 and S2 with no gallop with a 2/6 systolic murmur. ABDOMEN: Distended. EXTREMITIES: There is 2+ pitting edema. Laboratory And Diagnostic Data: Labs show a white count of 7.8, hemoglobin 14.7, hematocrit of 46, and platelet count is 194,000. Sodium 138, potassium 3.2, BUN of 31, creatinine 1.8, and glucose of 117. BNP is 10,171. INR is 1.3. Urine toxicology is negative. ASSESSMENT AND PLAN: 1. Recurrent runs of ventricular tachycardia. This is due to the patient's severe underlying cardiomyopathy, ejection fraction of 10% to 15%. We will try to get a cardiac catheterization report from [facility] where he had it done and see that we can get a prior echo confirmation. In the meantime, the patient will be on Coreg 3.125 mg b.i.d., Lasix 40 mg IV b.i.d., and hold off on lisinopril and Aldactone in view of renal failure, creatinine 1.8. It is confirmed that the patient's cardiomyopathy is more than three months and despite optimized medical therapy he would need prophylactic defibrillator implantation. 2. Nonischemic cardiomyopathy, under heart failure management per Dr. Clifford. 3. Renal failure with creatinine 1.8, under the management of Dr. Solorzano. Thank you very much, Dr. Keller, for allowing me to participate in the care of this patient. Please do not hesitate to contact me if you have any questions regarding my evaluation. Usman Solano M.D. DR: WILDA JOB#: [id number] CC:
[2017-04-06 04:09] VITALS: BP 90/60
[2017-04-06] MEDS: NovoLOG Insulin Flexpen SUBQ SCH ×4 (06:30→21:37)
[2017-04-06 07:14] LABS: BASOPHILS % (AUTO) 1.9 % (0.0-2.0); EOSINOPHILS % (AUTO) 3.3 % (0.0-3.0); LYMPHOCYTES % (AUTO) 31.3 % (20.0-45.0); MEAN CORPUSCULAR HEMOGLOBIN 25.4 PG (27.0-31.0); MEAN CORPUSCULAR HGB CONC 31.2 G/DL (32.0-36.0); MEAN CORPUSCULAR VOLUME 82 FL (80-99); MEAN PLATELET VOLUME 11.7 FL (6.5-10.1); MONOCYTES % (AUTO) 5.9 % (1.0-10.0); NEUTROPHILS % (AUTO) 57.7 % (45.0-75.0); PLATELET COUNT 192 K/UL (150-450); RED BLOOD COUNT 6.13 M/UL (4.70-6.10); RED CELL DISTRIBUTION WIDTH 15.6 % (11.6-14.8); WHITE BLOOD COUNT 6.8 K/UL (4.8-10.8)
[2017-04-06 07:46] LABS: CALCIUM 8.7 mg/dL (8.6-10.2); CREATININE 2.1 mg/dL (0.7-1.2); GLOMERULAR FILTRATION RATE 32.2 mL/min (>60); MAGNESIUM 2.4 mg/dL (1.7-2.5); POTASSIUM 3.9 mEQ/L (3.4-4.9)
[2017-04-06] MEDS: Morphine Sulfate 2mg/ml Inj IVP PRN ×3 (07:51→17:51)
[2017-04-06 08:12] LABS: BILIRUBIN,DIRECT 0.6 mg/dL (0.1-0.3)
[2017-04-06 08:42] VITALS: BP 108/60
--- NOTE | 2017-04-06 09:15 | Consultation ---
DATE OF CONSULTATION: 04/05/2017 HEMATOLOGY/ONCOLOGY CONSULTATION CONSULTING PHYSICIAN: Kevin Benson M.D. REQUESTING PHYSICIAN: Joanna Keller M.D. Reason For Consultation: Evaluation of coagulopathy and failure to thrive. IDENTIFICATION DATA: Dear Dr. Krishna Marshall, The patient is a pleasant 61-year-old male with past medical history significant for cardiomyopathy, history of heart failure, who was brought into the hospital by paramedics for three to four pillow orthopnea, has been complaining of increasing lower extremity swelling . The patient was noted to have coagulopathy, therefore Hematology Service was consulted for further evaluation and treatment. Chest x-ray and BNP are consistent with evidence of CHF overload. Past Medical History: CHF, diabetes mellitus presumptive, history of cardiomyopathy, and many hospitalizations in the past. PAST SURGICAL HISTORY: None known. ALLERGIES: No known drug allergy. MEDICATIONS: Lasix and . SOCIAL HISTORY: No alcohol, tobacco, or illicit drug use. Review Of Systems: A 12-point review of systems is otherwise negative except as noted in the HPI. PHYSICAL EXAMINATION: VITAL SIGNS: Reviewed. GENERAL: No acute distress. Pulmonary: Decreased breath sounds. Some crackles noted at the bilateral bases. CARDIOVASCULAR: Tachycardic. ABDOMEN: Soft, nontender, and nondistended. EXTREMITIES: 2 to 3+ edema. Laboratory Data: BUN 21 and creatinine 1.3. Troponin is less than 0.3. INR is 1.3. WBC 7.5 and hemoglobin 15.1. ASSESSMENT: 1. Coagulopathy, potentially secondary to congestive heart failure overload and hepatic congestion. We will order for an abdominal ultrasound. We will also order a mixing study to see if the patient has deficiency. 2. infection. 3. Acute kidney injury. 4. Nephropathy. 5. Diabetes mellitus. 6. . Management as per primary team. I appreciate the consultation. Kevin Benson M.D. DR: JEANINE JOB#: [id number] CC:
--- NOTE | 2017-04-06 09:51 | Diagnostic Imaging Report ---
Indication: Abdominal pain Technique: Ortiz-scale and duplex images of the upper abdomen were obtained Comparison: None Findings: Gallbladder contains considerable sludge. There are small gallstones. Gallbladder wall is borderline thickened, measuring just over 3 mm in diameter. Sonographic Leary's sign is negative. Common bile duct measures 3 mm in diameter. No intrahepatic biliary ductal dilatation. Liver is enlarged, demonstrates normal echogenicity, no focal abnormality. Portal vein and hepatic veins are patent. Pancreas is unremarkable. Spleen is unremarkable. Left kidney measures 10.9 cm in length. Right kidney measures 10.4 cm length. Both kidneys demonstrate normal echogenicity. There is no hydronephrosis. No focal abnormality . Abdominal aorta is partially obscured by bowel gas, visualized portions are non-aneurysmal . There is a right-sided pleural effusion incidentally noted Impression: Gallbladder sludge and stones. Mildly thickened gallbladder wall, could indicate acute cholecystitis. Correlate with clinical findings, consider nuclear medicine hepatobiliary scan for further evaluation if clinically suspicious Right pleural effusion Hepatomegaly Note inability to visualized portions of the distal abdominal aorta
[2017-04-06] MEDS ORDERED: Tubing IV Secondary IV ONE (10:29)
[2017-04-06] MEDS ORDERED: NS 275ml ONE (10:29)
--- NOTE | 2017-04-06 10:59 | GI Progress Note ---
Assessment/Plan Problems: (1) Elevated serum GGT level ICD Codes: R74.8 - Abnormal levels of other serum enzymes SNOMED: 793800198 (2) Abnormal LFTs ICD Codes: R79.89 - Other specified abnormal findings of blood chemistry SNOMED: 995983868 (3) CHF (congestive heart failure) ICD Codes: I50.9 - Heart failure, unspecified SNOMED: 91953699 Qualifiers: Qualified Codes: I50.43 - Acute on chronic combined systolic (congestive) and diastolic (congestive) heart failure (4) Hepatic congestion ICD Codes: K76.1 - Chronic passive congestion of liver SNOMED: 44990890 Status: unchanged Status Narrative Discussed with Dr. Hinds. Assessment/Plan recommend EGD/colonoscopy >> refused by patient at this time, can be done as outpatient elevated LFTs, GGT >> fu abdominal U/S - Gallbladder sludge and stones. Mildly thickened gallbladder wall, could indicate acute cholecystitis. - Right pleural effusion - Hepatomegaly fu hepatitis panel cardiac diet DM mgmt utox negative fu labs Subjective Gastrointestinal/Abdominal: Reports: no symptoms Subjective abdominal pain Objective Last 24 Hour Vital Signs Date Time Temp Pulse Resp B/P (MAP) Pulse Ox O2 Delivery O2 Flow Rate FiO2 04/06/17 08:42 97.0 83 20 108/60 97 Room Air 04/06/17 04:09 96.3 89 20 90/60 93 Room Air 04/06/17 04:00 96 04/06/17 00:00 89 04/05/17 23:50 96.3 62 20 101/57 100 Room Air 04/05/17 20:07 96.4 97 20 94/70 100 Room Air 04/05/17 19:56 95 04/05/17 17:36 90 100/69 04/05/17 16:00 90 04/05/17 15:40 97.2 96 20 100/69 96 Room Air 04/05/17 12:48 97.0 93 18 107/68 98 Room Air 04/05/17 12:00 97 Laboratory Tests Test 04/06/17 06:30 White Blood Count 6.8 K/UL (4.8-10.8) Red Blood Count 6.13 M/UL (4.70-6.10) H Hemoglobin 15.6 G/DL (14.2-18.0) Hematocrit 50.0 % (42.0-52.0) Mean Corpuscular Volume 82 FL (80-99) Mean Corpuscular Hemoglobin 25.4 PG (27.0-31.0) L Mean Corpuscular Hemoglobin Concent 31.2 G/DL (32.0-36.0) L Red Cell Distribution Width 15.6 % (11.6-14.8) H Platelet Count 192 K/UL (150-450) Mean Platelet Volume 11.7 FL (6.5-10.1) H Neutrophils (%) (Auto) 57.7 % (45.0-75.0) Lymphocytes (%) (Auto) 31.3 % (20.0-45.0) Monocytes (%) (Auto) 5.9 % (1.0-10.0) Eosinophils (%) (Auto) 3.3 % (0.0-3.0) H Basophils (%) (Auto) 1.9 % (0.0-2.0) PT Mixing Study Pending Mix PT Incubation Time Pending Mix PT Patient/Normal 1:1 Pending Sodium Level 134 mEQ/L (135-145) L Potassium Level 3.9 mEQ/L (3.4-4.9) Chloride Level 89 mEQ/L (98-107) L Carbon Dioxide Level 25 mEQ/L (20-30) Anion Gap 20 (5-15) H Blood Urea Nitrogen 42 mg/dL (7-23) H Creatinine 2.1 mg/dL (0.7-1.2) H Estimat Glomerular Filtration Rate 32.2 mL/min (>60) Glucose Level 188 mg/dL (74-106) H Calcium Level 8.7 mg/dL (8.6-10.2) Phosphorus Level 5.0 mg/dL (2.5-4.8) H Magnesium Level 2.4 mg/dL (1.7-2.5) Total Bilirubin 1.2 mg/dL (0.0-1.2) Direct Bilirubin 0.6 mg/dL (0.1-0.3) H Aspartate Amino Transf (AST/SGOT) 90 U/L (5-40) H Alanine Aminotransferase (ALT/SGPT) 81 U/L (3-41) H Alkaline Phosphatase 228 U/L (40-129) H Total Protein 6.0 g/dL (6.6-8.7) L Albumin 3.0 g/dL (3.5-5.2) L Globulin 3.0 g/dL Albumin/Globulin Ratio 1.0 (1.0-2.7) Hepatitis A IgM Antibody Pending Hepatitis B Surface Antigen Pending Hepatitis B Core IgM Antibody Pending Hepatitis C Antibody Pending Height (Feet): 5 Height (Inches): 10.00 Weight (Pounds): 155 General Appearance: no apparent distress, alert Cardiovascular: normal rate Respiratory/Chest: normal breath sounds, no respiratory distress Abdominal Exam: distended Extremities: normal range of motion Marissa Schneider N.P. Apr 06, 2017 10:59
[2017-04-06] MEDS: KCl 10% 40mEq/30ml liquid ORAL SCH ×2 (11:01→17:50)
[2017-04-06] MEDS: Allopurinol 100mg Tab ORAL SCH (11:02)
[2017-04-06 11:58] VITALS: BP 103/56
--- NOTE | 2017-04-06 12:03 | General Progress Note ---
Assessment/Plan Status: unchanged Status Narrative Cr rising Assessment/Plan Renal failure- Acute on Chronic, Cr 1.8 and 3+ Proteinuria, Cr rising Dm, Nephropathy, High A1c HyperUrecemia High LFTs Cardiomyopathy with EjFx of 15% Plan: Optimize cardiac status Allopurinol- Kidney LAZARO; Left kidney measures 10.9 cm in length. Right kidney measures 10.4 cm length. Both kidneys demonstrate normal echogenicity. There is no hydronephrosis. K supplement as needed Monitor renal parameters flomax per orders Subjective ROS Limited/Unobtainable: No Constitutional: Reports: malaise, weakness Allergies: Coded Allergies: No Known Allergies (Unverified , 04/04/17) Objective Last 24 Hour Vital Signs Date Time Temp Pulse Resp B/P (MAP) Pulse Ox O2 Delivery O2 Flow Rate FiO2 04/06/17 08:42 97.0 83 20 108/60 97 Room Air 04/06/17 08:00 87 04/06/17 04:09 96.3 89 20 90/60 93 Room Air 04/06/17 04:00 96 04/06/17 00:00 89 04/05/17 23:50 96.3 62 20 101/57 100 Room Air 04/05/17 20:07 96.4 97 20 94/70 100 Room Air 04/05/17 19:56 95 04/05/17 17:36 90 100/69 04/05/17 16:00 90 04/05/17 15:40 97.2 96 20 100/69 96 Room Air 04/05/17 12:48 97.0 93 18 107/68 98 Room Air Laboratory Tests 04/06/17 06:30: White Blood Count 6.8, Red Blood Count 6.13H, Hemoglobin 15.6, Hematocrit 50.0, Mean Corpuscular Volume 82, Mean Corpuscular Hemoglobin 25.4L, Mean Corpuscular Hemoglobin Concent 31.2L, Red Cell Distribution Width 15.6H, Platelet Count 192 , Mean Platelet Volume 11.7H, Neutrophils (%) (Auto) 57.7, Lymphocytes (%) (Auto ) 31.3, Monocytes (%) (Auto) 5.9, Eosinophils (%) (Auto) 3.3H, Basophils (%) ( Auto) 1.9, PT Mixing Study [Pending], Mix PT Incubation Time [Pending], Mix PT Patient/Normal 1:1 [Pending], Sodium Level 134L, Potassium Level 3.9, Chloride Level 89L, Carbon Dioxide Level 25, Anion Gap 20H, Blood Urea Nitrogen 42H, Creatinine 2.1H, Estimat Glomerular Filtration Rate 32.2, Glucose Level 188H, Calcium Level 8.7, Phosphorus Level 5.0H, Magnesium Level 2.4, Total Bilirubin 1.2, Direct Bilirubin 0.6H, Aspartate Amino Transf (AST/SGOT) 90H, Alanine Aminotransferase (ALT/SGPT) 81H, Alkaline Phosphatase 228H, Total Protein 6.0L, Albumin 3.0L, Globulin 3.0, Albumin/Globulin Ratio 1.0, Hepatitis A IgM Antibody [Pending], Hepatitis B Surface Antigen [Pending], Hepatitis B Core IgM Antibody [Pending], Hepatitis C Antibody [Pending] Height (Feet): 5 Height (Inches): 10.00 Weight (Pounds): 155 General Appearance: lethargic, mild distress Cardiovascular: tachycardia Respiratory/Chest: decreased breath sounds Abdomen: distended Edema: 1+ Arm (L), 1+ Arm (R), 1+ Leg (L), 1+ Leg (R), 1+ Pedal (L), 1+ Pedal ( R), 1+ Generalized Objective symptoms of low perfusion state RENNY POWER Apr 06, 2017 12:03
--- NOTE | 2017-04-06 14:57 | Diagnostic Imaging Report ---
Indication: ABD DIST Technique: Supine and upright views of the abdomen Comparison: none Findings: Bowel gas pattern is unremarkable. No gaseous distention of large small bowel, suspicious air-fluid levels, or evidence of free intraperitoneal air No unusual masses or calcifications. There is suggestion of a right-sided pleural effusion on the upright images. Impression: No acute abdominal process Right pleural effusion
[2017-04-06 16:08] VITALS: BP 100/63
--- NOTE | 2017-04-06 17:30 | Cardiac Electrophysiology PN ---
Assessment/Plan Assessment/Plan 1. Non sustaine ventricular tachycardia. Due to severe underlying cardiomyopathy, ejection fraction of 10% to 15%. Refusing ICD implant. 2. Nonischemic cardiomyopathy, under heart failure management per Dr. Clifford.On Lasix 40 mg IV b.i.d. off lisinopril and Aldactone in view of renal failure 3. Renal failure with creatinine 2.1, under the management of Dr. Solorzano. 4. Abdominal pain and vomiting.Follow up Dr Lizet SCHUSTER RN Subjective Subjective Continues with runs of NSVT. Refusing ICD placement Objective Last 24 Hour Vital Signs Date Time Temp Pulse Resp B/P (MAP) Pulse Ox O2 Delivery O2 Flow Rate FiO2 04/06/17 16:08 97.0 84 18 100/63 98 Room Air 04/06/17 12:00 85 04/06/17 11:58 97.2 84 20 103/56 99 Room Air 04/06/17 08:42 97.0 83 20 108/60 97 Room Air 04/06/17 08:00 87 04/06/17 04:09 96.3 89 20 90/60 93 Room Air 04/06/17 04:00 96 04/06/17 00:00 89 04/05/17 23:50 96.3 62 20 101/57 100 Room Air 04/05/17 20:07 96.4 97 20 94/70 100 Room Air 04/05/17 19:56 95 04/05/17 17:36 90 100/69 Intake and Output 04/06/17 04/07/17 19:00 07:00 Output Total 300 ml Balance -300 ml Output Urine Total 300 ml Laboratory Tests Test 04/06/17 06:30 White Blood Count 6.8 K/UL (4.8-10.8) Red Blood Count 6.13 M/UL (4.70-6.10) H Hemoglobin 15.6 G/DL (14.2-18.0) Hematocrit 50.0 % (42.0-52.0) Mean Corpuscular Volume 82 FL (80-99) Mean Corpuscular Hemoglobin 25.4 PG (27.0-31.0) L Mean Corpuscular Hemoglobin Concent 31.2 G/DL (32.0-36.0) L Red Cell Distribution Width 15.6 % (11.6-14.8) H Platelet Count 192 K/UL (150-450) Mean Platelet Volume 11.7 FL (6.5-10.1) H Neutrophils (%) (Auto) 57.7 % (45.0-75.0) Lymphocytes (%) (Auto) 31.3 % (20.0-45.0) Monocytes (%) (Auto) 5.9 % (1.0-10.0) Eosinophils (%) (Auto) 3.3 % (0.0-3.0) H Basophils (%) (Auto) 1.9 % (0.0-2.0) PT Mixing Study Pending Mix PT Incubation Time Pending Mix PT Patient/Normal 1:1 Pending Sodium Level 134 mEQ/L (135-145) L Potassium Level 3.9 mEQ/L (3.4-4.9) Chloride Level 89 mEQ/L (98-107) L Carbon Dioxide Level 25 mEQ/L (20-30) Anion Gap 20 (5-15) H Blood Urea Nitrogen 42 mg/dL (7-23) H Creatinine 2.1 mg/dL (0.7-1.2) H Estimat Glomerular Filtration Rate 32.2 mL/min (>60) Glucose Level 188 mg/dL (74-106) H Calcium Level 8.7 mg/dL (8.6-10.2) Phosphorus Level 5.0 mg/dL (2.5-4.8) H Magnesium Level 2.4 mg/dL (1.7-2.5) Total Bilirubin 1.2 mg/dL (0.0-1.2) Direct Bilirubin 0.6 mg/dL (0.1-0.3) H Aspartate Amino Transf (AST/SGOT) 90 U/L (5-40) H Alanine Aminotransferase (ALT/SGPT) 81 U/L (3-41) H Alkaline Phosphatase 228 U/L (40-129) H Total Protein 6.0 g/dL (6.6-8.7) L Albumin 3.0 g/dL (3.5-5.2) L Globulin 3.0 g/dL Albumin/Globulin Ratio 1.0 (1.0-2.7) Hepatitis A IgM Antibody Pending Hepatitis B Surface Antigen Pending Hepatitis B Core IgM Antibody Pending Hepatitis C Antibody Pending Objective HEAD AND NECK: Shows positive JVD. LUNGS: Decreased breath sounds. Cardiovascular: Irregular S1 and S2 with no gallop with a 2/6 systolic murmur. ABDOMEN: Distended. EXTREMITIES: There is 2+ pitting edema. EMILY SOLANO Apr 06, 2017 17:30
[2017-04-06 20:00] VITALS: BP 103/64
--- NOTE | 2017-04-06 20:34 | General Progress Note ---
Assessment/Plan Problem List: (1) Renal insufficiency ICD Codes: N28.9 - Disorder of kidney and ureter, unspecified SNOMED: 620045516 (2) Hepatic congestion ICD Codes: K76.1 - Chronic passive congestion of liver SNOMED: 21858061 (3) CHF (congestive heart failure) ICD Codes: I50.9 - Heart failure, unspecified SNOMED: 16230166 Qualifiers: Qualified Codes: I50.43 - Acute on chronic combined systolic (congestive) and diastolic (congestive) heart failure (4) Abnormal LFTs ICD Codes: R79.89 - Other specified abnormal findings of blood chemistry SNOMED: 058428944 Status: progressing Assessment/Plan afebrile azotemia chf afebrile sob is improving reviewed chart and labs clinically improving Subjective ROS Limited/Unobtainable: Yes Allergies: Coded Allergies: No Known Allergies (Unverified , 04/04/17) Objective Last 24 Hour Vital Signs Date Time Temp Pulse Resp B/P (MAP) Pulse Ox O2 Delivery O2 Flow Rate FiO2 04/06/17 16:08 97.0 84 18 100/63 98 Room Air 04/06/17 16:00 85 04/06/17 12:00 85 04/06/17 11:58 97.2 84 20 103/56 99 Room Air 04/06/17 08:42 97.0 83 20 108/60 97 Room Air 04/06/17 08:00 87 04/06/17 04:09 96.3 89 20 90/60 93 Room Air 04/06/17 04:00 96 04/06/17 00:00 89 04/05/17 23:50 96.3 62 20 101/57 100 Room Air Intake and Output 04/06/17 04/07/17 19:00 07:00 Output Total 500 ml Balance -500 ml Output Urine Total 500 ml Laboratory Tests 04/06/17 06:30: White Blood Count 6.8, Red Blood Count 6.13H, Hemoglobin 15.6, Hematocrit 50.0, Mean Corpuscular Volume 82, Mean Corpuscular Hemoglobin 25.4L, Mean Corpuscular Hemoglobin Concent 31.2L, Red Cell Distribution Width 15.6H, Platelet Count 192 , Mean Platelet Volume 11.7H, Neutrophils (%) (Auto) 57.7, Lymphocytes (%) (Auto ) 31.3, Monocytes (%) (Auto) 5.9, Eosinophils (%) (Auto) 3.3H, Basophils (%) ( Auto) 1.9, PT Mixing Study [Pending], Mix PT Incubation Time [Pending], Mix PT Patient/Normal 1:1 [Pending], Sodium Level 134L, Potassium Level 3.9, Chloride Level 89L, Carbon Dioxide Level 25, Anion Gap 20H, Blood Urea Nitrogen 42H, Creatinine 2.1H, Estimat Glomerular Filtration Rate 32.2, Glucose Level 188H, Calcium Level 8.7, Phosphorus Level 5.0H, Magnesium Level 2.4, Total Bilirubin 1.2, Direct Bilirubin 0.6H, Aspartate Amino Transf (AST/SGOT) 90H, Alanine Aminotransferase (ALT/SGPT) 81H, Alkaline Phosphatase 228H, Total Protein 6.0L, Albumin 3.0L, Globulin 3.0, Albumin/Globulin Ratio 1.0, Hepatitis A IgM Antibody [Pending], Hepatitis B Surface Antigen [Pending], Hepatitis B Core IgM Antibody [Pending], Hepatitis C Antibody [Pending] Height (Feet): 5 Height (Inches): 10.00 Weight (Pounds): 174 Respiratory/Chest: lungs clear Abdomen: soft Joanna Keller MD Apr 06, 2017 20:34
--- NOTE | 2017-04-06 20:53 | General Progress Note ---
Assessment/Plan Assessment/Plan ASSESSMENT: 1. Coagulopathy, potentially secondary to congestive heart failure overload and hepatic congestion. We will also order a mixing study to see if the patient has factor deficiency. --> abd US shows hepatomegaly as well as gallbladder sludge and stones --> mixing study pending 2. Cardiomyopathy. Seen be cardiology service. 3. Acute kidney injury. 4. Nephropathy. 5. Diabetes mellitus. Subjective Constitutional: Reports: no symptoms HEENT: Reports: no symptoms Cardiovascular: Reports: no symptoms Respiratory: Reports: no symptoms Gastrointestinal/Abdominal: Reports: abdominal pain Genitourinary: Reports: no symptoms Neurologic/Psychiatric: Reports: no symptoms Endocrine: Reports: no symptoms Allergies: Coded Allergies: No Known Allergies (Unverified , 04/04/17) Subjective having abdominal pain. No f/c Objective Last 24 Hour Vital Signs Date Time Temp Pulse Resp B/P (MAP) Pulse Ox O2 Delivery O2 Flow Rate FiO2 04/06/17 16:08 97.0 84 18 100/63 98 Room Air 04/06/17 16:00 85 04/06/17 12:00 85 04/06/17 11:58 97.2 84 20 103/56 99 Room Air 04/06/17 08:42 97.0 83 20 108/60 97 Room Air 04/06/17 08:00 87 04/06/17 04:09 96.3 89 20 90/60 93 Room Air 04/06/17 04:00 96 04/06/17 00:00 89 04/05/17 23:50 96.3 62 20 101/57 100 Room Air Intake and Output 04/06/17 04/07/17 19:00 07:00 Output Total 500 ml Balance -500 ml Output Urine Total 500 ml Laboratory Tests 04/06/17 06:30: White Blood Count 6.8, Red Blood Count 6.13H, Hemoglobin 15.6, Hematocrit 50.0, Mean Corpuscular Volume 82, Mean Corpuscular Hemoglobin 25.4L, Mean Corpuscular Hemoglobin Concent 31.2L, Red Cell Distribution Width 15.6H, Platelet Count 192 , Mean Platelet Volume 11.7H, Neutrophils (%) (Auto) 57.7, Lymphocytes (%) (Auto ) 31.3, Monocytes (%) (Auto) 5.9, Eosinophils (%) (Auto) 3.3H, Basophils (%) ( Auto) 1.9, PT Mixing Study [Pending], Mix PT Incubation Time [Pending], Mix PT Patient/Normal 1:1 [Pending], Sodium Level 134L, Potassium Level 3.9, Chloride Level 89L, Carbon Dioxide Level 25, Anion Gap 20H, Blood Urea Nitrogen 42H, Creatinine 2.1H, Estimat Glomerular Filtration Rate 32.2, Glucose Level 188H, Calcium Level 8.7, Phosphorus Level 5.0H, Magnesium Level 2.4, Total Bilirubin 1.2, Direct Bilirubin 0.6H, Aspartate Amino Transf (AST/SGOT) 90H, Alanine Aminotransferase (ALT/SGPT) 81H, Alkaline Phosphatase 228H, Total Protein 6.0L, Albumin 3.0L, Globulin 3.0, Albumin/Globulin Ratio 1.0, Hepatitis A IgM Antibody [Pending], Hepatitis B Surface Antigen [Pending], Hepatitis B Core IgM Antibody [Pending], Hepatitis C Antibody [Pending] Height (Feet): 5 Height (Inches): 10.00 Weight (Pounds): 174 General Appearance: no apparent distress EENT: PERRL/EOMI Neck: normal alignment Cardiovascular: normal peripheral pulses Extremities: normal range of motion Edema: mild edema Skin: normal pigmentation, warm/dry Kevin Benson Apr 06, 2017 20:53
[2017-04-06] MEDS: Tamsulosin 0.4mg cap ORAL SCH (21:36)
--- NOTE | 2017-04-06 23:55 | Cardiology Progress Note ---
Assessment/Plan Assessment/Plan 1. Four chamber dilated cardiomyopathy with increased intra-cardiac filling pressure, continue furosemide daily. Will check daily K and Mg and creat. 2. It would be better to give him a combination of hydralazine and Isordil in view of KHURRAM, will hold off on ACEI/ARBs 3. Severe pulmonary HTN due to the left CHF. 4. Nonsustained ventricular tachycardia. Magnesium level at 1.9. 5. History of diabetes mellitus, questionable. Subjective Subjective Sinus rhythm at 86. No complaints about chest pain or SOB. Objective Last 24 Hour Vital Signs Date Time Temp Pulse Resp B/P (MAP) Pulse Ox O2 Delivery O2 Flow Rate FiO2 04/06/17 20:00 78 04/06/17 20:00 97.0 86 20 103/64 100 Room Air 04/06/17 16:08 97.0 84 18 100/63 98 Room Air 04/06/17 16:00 85 04/06/17 12:00 85 04/06/17 11:58 97.2 84 20 103/56 99 Room Air 04/06/17 08:42 97.0 83 20 108/60 97 Room Air 04/06/17 08:00 87 04/06/17 04:09 96.3 89 20 90/60 93 Room Air 04/06/17 04:00 96 04/06/17 00:00 89 04/05/17 23:50 96.3 62 20 101/57 100 Room Air Intake and Output 04/06/17 04/07/17 19:00 07:00 Output Total 500 ml Balance -500 ml Output Urine Total 500 ml 2D Echo: Four chamber DCM, Global LV hypokinesia, LVEF ~10%, Sev MR, RVSP 69 mmHg Laboratory Tests Test 04/06/17 06:30 White Blood Count 6.8 K/UL (4.8-10.8) Red Blood Count 6.13 M/UL (4.70-6.10) H Hemoglobin 15.6 G/DL (14.2-18.0) Hematocrit 50.0 % (42.0-52.0) Mean Corpuscular Volume 82 FL (80-99) Mean Corpuscular Hemoglobin 25.4 PG (27.0-31.0) L Mean Corpuscular Hemoglobin Concent 31.2 G/DL (32.0-36.0) L Red Cell Distribution Width 15.6 % (11.6-14.8) H Platelet Count 192 K/UL (150-450) Mean Platelet Volume 11.7 FL (6.5-10.1) H Neutrophils (%) (Auto) 57.7 % (45.0-75.0) Lymphocytes (%) (Auto) 31.3 % (20.0-45.0) Monocytes (%) (Auto) 5.9 % (1.0-10.0) Eosinophils (%) (Auto) 3.3 % (0.0-3.0) H Basophils (%) (Auto) 1.9 % (0.0-2.0) PT Mixing Study Pending Mix PT Incubation Time Pending Mix PT Patient/Normal 1:1 Pending Sodium Level 134 mEQ/L (135-145) L Potassium Level 3.9 mEQ/L (3.4-4.9) Chloride Level 89 mEQ/L (98-107) L Carbon Dioxide Level 25 mEQ/L (20-30) Anion Gap 20 (5-15) H Blood Urea Nitrogen 42 mg/dL (7-23) H Creatinine 2.1 mg/dL (0.7-1.2) H Estimat Glomerular Filtration Rate 32.2 mL/min (>60) Glucose Level 188 mg/dL (74-106) H Calcium Level 8.7 mg/dL (8.6-10.2) Phosphorus Level 5.0 mg/dL (2.5-4.8) H Magnesium Level 2.4 mg/dL (1.7-2.5) Total Bilirubin 1.2 mg/dL (0.0-1.2) Direct Bilirubin 0.6 mg/dL (0.1-0.3) H Aspartate Amino Transf (AST/SGOT) 90 U/L (5-40) H Alanine Aminotransferase (ALT/SGPT) 81 U/L (3-41) H Alkaline Phosphatase 228 U/L (40-129) H Total Protein 6.0 g/dL (6.6-8.7) L Albumin 3.0 g/dL (3.5-5.2) L Globulin 3.0 g/dL Albumin/Globulin Ratio 1.0 (1.0-2.7) Hepatitis A IgM Antibody Pending Hepatitis B Surface Antigen Pending Hepatitis B Core IgM Antibody Pending Hepatitis C Antibody Pending Objective HEENT: Atraumatic and normocephalic. ENT, pupils are equal, round, and reactive to light and accommodation. Conjunctival pallor is seen. Neck: JVP is elevated at about 15 cm. No carotid bruit. Carotid upstrokes 2+ bilaterally. Cardiovascular: Normal S1, S2. Regular rate and rhythm. A 2/6 mid systolic murmur at the left sternal border. LUNGS: Clear to auscultation bilaterally. Abdomen: Distended. Possible ascites. No hepatosplenomegaly. Positive bowel sounds. Extremities: There is 3+ bilateral lower extremity edema. There is also evidence of right ulceration in the lower extremity in the anterior aspect of the leg. EMILY COMBS Apr 06, 2017 23:55
[2017-04-07 00:31] VITALS: BP 104/62
[2017-04-07 04:00] VITALS: BP 97/47
[2017-04-07] MEDS: NovoLOG Insulin Flexpen SUBQ SCH ×4 (06:29→21:25)
[2017-04-07 07:33] LABS: BASOPHILS % (AUTO) 1.1 % (0.0-2.0); EOSINOPHILS % (AUTO) 1.3 % (0.0-3.0); LYMPHOCYTES % (AUTO) 23.7 % (20.0-45.0); MEAN CORPUSCULAR HEMOGLOBIN 25.6 PG (27.0-31.0); MEAN CORPUSCULAR HGB CONC 31.8 G/DL (32.0-36.0); MEAN CORPUSCULAR VOLUME 81 FL (80-99); MONOCYTES % (AUTO) 7.6 % (1.0-10.0); NEUTROPHILS % (AUTO) 66.3 % (45.0-75.0); PLATELET COUNT 227 K/UL (150-450); RED BLOOD COUNT 5.82 M/UL (4.70-6.10); RED CELL DISTRIBUTION WIDTH 15.3 % (11.6-14.8)
[2017-04-07 07:53] LABS: ALBUMIN/GLOBULIN RATIO 1.1 (1.0-2.7); CALCIUM 8.4 mg/dL (8.6-10.2); CREATININE 1.8 mg/dL (0.7-1.2); GLOMERULAR FILTRATION RATE 38.4 mL/min (>60); POTASSIUM 3.4 mEQ/L (3.4-4.9); TOTAL PROTEIN 5.9 g/dL (6.6-8.7)
[2017-04-07 08:00] VITALS: BP 106/51
[2017-04-07 08:09] LABS: BILIRUBIN,DIRECT 0.7 mg/dL (0.1-0.3)
[2017-04-07] MEDS: KCl 10% 40mEq/30ml liquid ORAL SCH ×2 (08:31→17:23)
[2017-04-07] MEDS: Morphine Sulfate 2mg/ml Inj IVP PRN (08:32)
[2017-04-07] MEDS: Allopurinol 100mg Tab ORAL SCH (08:32)
--- NOTE | 2017-04-07 10:24 | GI Progress Note ---
Assessment/Plan Problems: (1) Elevated serum GGT level ICD Codes: R74.8 - Abnormal levels of other serum enzymes SNOMED: 356900863 (2) Abnormal LFTs ICD Codes: R79.89 - Other specified abnormal findings of blood chemistry SNOMED: 622244061 (3) CHF (congestive heart failure) ICD Codes: I50.9 - Heart failure, unspecified SNOMED: 65871600 Qualifiers: Qualified Codes: I50.43 - Acute on chronic combined systolic (congestive) and diastolic (congestive) heart failure (4) Hepatic congestion ICD Codes: K76.1 - Chronic passive congestion of liver SNOMED: 00233493 Status: unchanged Status Narrative Discussed with Dr. Hinds. Assessment/Plan recommend EGD/colonoscopy >> refused by patient at this time, can be done as outpatient elevated LFTs, GGT >> fu abdominal U/S - Gallbladder sludge and stones. Mildly thickened gallbladder wall, could indicate acute cholecystitis. >> patient refused HIDA scan, will order CTAP. - Right pleural effusion - Hepatomegaly fu hepatitis panel >> negative cardiac diet DM mgmt utox negative fu labs The patient was seen and examined at bedside and all new and available data was reviewed in the patients chart. I agree with the above findings, impression and plan. (Patient seen earlier today. Signature stamp does not reflect patient encounter time.). -Carroll Hinds MD Subjective Subjective abdominal pain, epigastric Objective Last 24 Hour Vital Signs Date Time Temp Pulse Resp B/P (MAP) Pulse Ox O2 Delivery O2 Flow Rate FiO2 04/07/17 08:00 87 04/07/17 08:00 97.0 93 20 106/51 98 Room Air 04/07/17 04:00 97.0 81 22 97/47 99 Room Air 04/07/17 04:00 87 04/07/17 00:31 97.0 88 20 104/62 98 Room Air 04/07/17 00:00 84 04/06/17 20:00 78 04/06/17 20:00 97.0 86 20 103/64 100 Room Air 04/06/17 16:08 97.0 84 18 100/63 98 Room Air 04/06/17 16:00 85 04/06/17 12:00 85 04/06/17 11:58 97.2 84 20 103/56 99 Room Air Laboratory Tests Test 04/07/17 06:20 White Blood Count 7.0 K/UL (4.8-10.8) Red Blood Count 5.82 M/UL (4.70-6.10) Hemoglobin 14.9 G/DL (14.2-18.0) Hematocrit 47.0 % (42.0-52.0) Mean Corpuscular Volume 81 FL (80-99) Mean Corpuscular Hemoglobin 25.6 PG (27.0-31.0) L Mean Corpuscular Hemoglobin Concent 31.8 G/DL (32.0-36.0) L Red Cell Distribution Width 15.3 % (11.6-14.8) H Platelet Count 227 K/UL (150-450) Mean Platelet Volume 12.0 FL (6.5-10.1) H Neutrophils (%) (Auto) 66.3 % (45.0-75.0) Lymphocytes (%) (Auto) 23.7 % (20.0-45.0) Monocytes (%) (Auto) 7.6 % (1.0-10.0) Eosinophils (%) (Auto) 1.3 % (0.0-3.0) Basophils (%) (Auto) 1.1 % (0.0-2.0) Sodium Level 134 mEQ/L (135-145) L Potassium Level 3.4 mEQ/L (3.4-4.9) Chloride Level 91 mEQ/L (98-107) L Carbon Dioxide Level 25 mEQ/L (20-30) Anion Gap 18 (5-15) H Blood Urea Nitrogen 48 mg/dL (7-23) H Creatinine 1.8 mg/dL (0.7-1.2) H Estimat Glomerular Filtration Rate 38.4 mL/min (>60) Glucose Level 182 mg/dL (74-106) H Calcium Level 8.4 mg/dL (8.6-10.2) L Total Bilirubin 1.2 mg/dL (0.0-1.2) Direct Bilirubin 0.7 mg/dL (0.1-0.3) H Aspartate Amino Transf (AST/SGOT) 165 U/L (5-40) H Alanine Aminotransferase (ALT/SGPT) 146 U/L (3-41) H Alkaline Phosphatase 243 U/L (40-129) H Total Protein 5.9 g/dL (6.6-8.7) L Albumin 3.1 g/dL (3.5-5.2) L Globulin 2.8 g/dL Albumin/Globulin Ratio 1.1 (1.0-2.7) Height (Feet): 5 Height (Inches): 10.00 Weight (Pounds): 170 General Appearance: no apparent distress, alert, thin Cardiovascular: normal rate Respiratory/Chest: normal breath sounds, no respiratory distress Abdominal Exam: normal bowel sounds, non tender, soft, distended Extremities: normal range of motion Marissa Schneider N.P. Apr 07, 2017 10:24 CARROLL HINDS Apr 13, 2017 14:39
--- NOTE | 2017-04-07 11:06 | General Progress Note ---
Assessment/Plan Status: unchanged Status Narrative Cr 1.8 Assessment/Plan Renal failure- Acute on Chronic, Cr 1.8 and 3+ Proteinuria, Cr rising Dm, Nephropathy, High A1c HyperUrecemia High LFTs Cardiomyopathy with EjFx of 15% Plan: Optimize cardiac status Allopurinol- add digoxin PO Kidney LAZARO; Left kidney measures 10.9 cm in length. Right kidney measures 10.4 cm length. Both kidneys demonstrate normal echogenicity. There is no hydronephrosis. K supplement as needed Monitor renal parameters flomax per orders Subjective ROS Limited/Unobtainable: No Constitutional: Reports: malaise, weakness Allergies: Coded Allergies: No Known Allergies (Unverified , 04/04/17) Objective Last 24 Hour Vital Signs Date Time Temp Pulse Resp B/P (MAP) Pulse Ox O2 Delivery O2 Flow Rate FiO2 04/07/17 08:00 87 04/07/17 08:00 97.0 93 20 106/51 98 Room Air 04/07/17 04:00 97.0 81 22 97/47 99 Room Air 04/07/17 04:00 87 04/07/17 00:31 97.0 88 20 104/62 98 Room Air 04/07/17 00:00 84 04/06/17 20:00 78 04/06/17 20:00 97.0 86 20 103/64 100 Room Air 04/06/17 16:08 97.0 84 18 100/63 98 Room Air 04/06/17 16:00 85 04/06/17 12:00 85 04/06/17 11:58 97.2 84 20 103/56 99 Room Air Laboratory Tests 04/07/17 06:20: White Blood Count 7.0, Red Blood Count 5.82, Hemoglobin 14.9, Hematocrit 47.0, Mean Corpuscular Volume 81, Mean Corpuscular Hemoglobin 25.6L, Mean Corpuscular Hemoglobin Concent 31.8L, Red Cell Distribution Width 15.3H, Platelet Count 227 , Mean Platelet Volume 12.0H, Neutrophils (%) (Auto) 66.3, Lymphocytes (%) (Auto ) 23.7, Monocytes (%) (Auto) 7.6, Eosinophils (%) (Auto) 1.3, Basophils (%) ( Auto) 1.1, Sodium Level 134L, Potassium Level 3.4, Chloride Level 91L, Carbon Dioxide Level 25, Anion Gap 18H, Blood Urea Nitrogen 48H, Creatinine 1.8H, Estimat Glomerular Filtration Rate 38.4, Glucose Level 182H, Calcium Level 8.4L , Total Bilirubin 1.2, Direct Bilirubin 0.7H, Aspartate Amino Transf (AST/SGOT) 165H, Alanine Aminotransferase (ALT/SGPT) 146H, Alkaline Phosphatase 243H, Total Protein 5.9L, Albumin 3.1L, Globulin 2.8, Albumin/Globulin Ratio 1.1 Height (Feet): 5 Height (Inches): 10.00 Weight (Pounds): 170 General Appearance: no apparent distress, lethargic Cardiovascular: normal rate Respiratory/Chest: decreased breath sounds Abdomen: soft, distended Objective symptoms of low perfusion state RENNY POWER Apr 07, 2017 11:06
[2017-04-07 12:00] VITALS: BP 101/63
--- NOTE | 2017-04-07 15:22 | General Progress Note ---
Assessment/Plan Problem List: (1) Renal insufficiency ICD Codes: N28.9 - Disorder of kidney and ureter, unspecified SNOMED: 244897432 (2) Hepatic congestion ICD Codes: K76.1 - Chronic passive congestion of liver SNOMED: 07433119 (3) CHF (congestive heart failure) ICD Codes: I50.9 - Heart failure, unspecified SNOMED: 87199023 Qualifiers: Qualified Codes: I50.43 - Acute on chronic combined systolic (congestive) and diastolic (congestive) heart failure (4) Abnormal LFTs ICD Codes: R79.89 - Other specified abnormal findings of blood chemistry SNOMED: 057190355 Status: progressing Assessment/Plan azotemia chf improving reviewed meds sob is improving reviewed chart and labs clinically improving Subjective ROS Limited/Unobtainable: Yes Constitutional: Reports: no symptoms Allergies: Coded Allergies: No Known Allergies (Unverified , 04/04/17) Objective Last 24 Hour Vital Signs Date Time Temp Pulse Resp B/P (MAP) Pulse Ox O2 Delivery O2 Flow Rate FiO2 04/07/17 12:43 87 04/07/17 12:00 97.0 80 20 101/63 98 Room Air 04/07/17 08:00 87 04/07/17 08:00 97.0 93 20 106/51 98 Room Air 04/07/17 04:00 97.0 81 22 97/47 99 Room Air 04/07/17 04:00 87 04/07/17 00:31 97.0 88 20 104/62 98 Room Air 04/07/17 00:00 84 04/06/17 20:00 78 04/06/17 20:00 97.0 86 20 103/64 100 Room Air 04/06/17 16:08 97.0 84 18 100/63 98 Room Air 04/06/17 16:00 85 Laboratory Tests 04/07/17 06:20: White Blood Count 7.0, Red Blood Count 5.82, Hemoglobin 14.9, Hematocrit 47.0, Mean Corpuscular Volume 81, Mean Corpuscular Hemoglobin 25.6L, Mean Corpuscular Hemoglobin Concent 31.8L, Red Cell Distribution Width 15.3H, Platelet Count 227 , Mean Platelet Volume 12.0H, Neutrophils (%) (Auto) 66.3, Lymphocytes (%) (Auto ) 23.7, Monocytes (%) (Auto) 7.6, Eosinophils (%) (Auto) 1.3, Basophils (%) ( Auto) 1.1, Sodium Level 134L, Potassium Level 3.4, Chloride Level 91L, Carbon Dioxide Level 25, Anion Gap 18H, Blood Urea Nitrogen 48H, Creatinine 1.8H, Estimat Glomerular Filtration Rate 38.4, Glucose Level 182H, Calcium Level 8.4L , Total Bilirubin 1.2, Direct Bilirubin 0.7H, Aspartate Amino Transf (AST/SGOT) 165H, Alanine Aminotransferase (ALT/SGPT) 146H, Alkaline Phosphatase 243H, Total Protein 5.9L, Albumin 3.1L, Globulin 2.8, Albumin/Globulin Ratio 1.1 Height (Feet): 5 Height (Inches): 10.00 Weight (Pounds): 170 Neck: supple Cardiovascular: normal rate Respiratory/Chest: lungs clear Abdomen: soft Joanna Keller MD Apr 07, 2017 15:22
--- NOTE | 2017-04-07 15:27 | Cardiac Electrophysiology PN ---
Assessment/Plan Assessment/Plan 1. Non sustained ventricular tachycardia. Due to severe underlying cardiomyopathy, ejection fraction of 10%. Refusing ICD implant. 2. Nonischemic cardiomyopathy, under heart failure management per Dr. Clifford.On Lasix 40 mg IV b.i.d. off lisinopril and Aldactone in view of renal failure 3. Renal failure with creatinine 2.1, under the management of Dr. Solorzano. 4. Abdominal pain and vomiting.Follow up Dr Hinds. Refused Ct abdomen DW RN Subjective Subjective Continues with recurrent runs of NSVT longest 11 beats.Still efusing ICD placement Objective Last 24 Hour Vital Signs Date Time Temp Pulse Resp B/P (MAP) Pulse Ox O2 Delivery O2 Flow Rate FiO2 04/07/17 12:43 87 04/07/17 12:00 97.0 80 20 101/63 98 Room Air 04/07/17 08:00 87 04/07/17 08:00 97.0 93 20 106/51 98 Room Air 04/07/17 04:00 97.0 81 22 97/47 99 Room Air 04/07/17 04:00 87 04/07/17 00:31 97.0 88 20 104/62 98 Room Air 04/07/17 00:00 84 04/06/17 20:00 78 04/06/17 20:00 97.0 86 20 103/64 100 Room Air 04/06/17 16:08 97.0 84 18 100/63 98 Room Air 04/06/17 16:00 85 Laboratory Tests Test 04/07/17 06:20 White Blood Count 7.0 K/UL (4.8-10.8) Red Blood Count 5.82 M/UL (4.70-6.10) Hemoglobin 14.9 G/DL (14.2-18.0) Hematocrit 47.0 % (42.0-52.0) Mean Corpuscular Volume 81 FL (80-99) Mean Corpuscular Hemoglobin 25.6 PG (27.0-31.0) L Mean Corpuscular Hemoglobin Concent 31.8 G/DL (32.0-36.0) L Red Cell Distribution Width 15.3 % (11.6-14.8) H Platelet Count 227 K/UL (150-450) Mean Platelet Volume 12.0 FL (6.5-10.1) H Neutrophils (%) (Auto) 66.3 % (45.0-75.0) Lymphocytes (%) (Auto) 23.7 % (20.0-45.0) Monocytes (%) (Auto) 7.6 % (1.0-10.0) Eosinophils (%) (Auto) 1.3 % (0.0-3.0) Basophils (%) (Auto) 1.1 % (0.0-2.0) Sodium Level 134 mEQ/L (135-145) L Potassium Level 3.4 mEQ/L (3.4-4.9) Chloride Level 91 mEQ/L (98-107) L Carbon Dioxide Level 25 mEQ/L (20-30) Anion Gap 18 (5-15) H Blood Urea Nitrogen 48 mg/dL (7-23) H Creatinine 1.8 mg/dL (0.7-1.2) H Estimat Glomerular Filtration Rate 38.4 mL/min (>60) Glucose Level 182 mg/dL (74-106) H Calcium Level 8.4 mg/dL (8.6-10.2) L Total Bilirubin 1.2 mg/dL (0.0-1.2) Direct Bilirubin 0.7 mg/dL (0.1-0.3) H Aspartate Amino Transf (AST/SGOT) 165 U/L (5-40) H Alanine Aminotransferase (ALT/SGPT) 146 U/L (3-41) H Alkaline Phosphatase 243 U/L (40-129) H Total Protein 5.9 g/dL (6.6-8.7) L Albumin 3.1 g/dL (3.5-5.2) L Globulin 2.8 g/dL Albumin/Globulin Ratio 1.1 (1.0-2.7) Objective HEAD AND NECK: Shows positive JVD. LUNGS: Decreased breath sounds. Cardiovascular: RegularS1 and S2 with 2/6 systolic murmur. ABDOMEN: Distended. EXTREMITIES: 2+ pitting edema. EMILY SOLANO Apr 07, 2017 15:27
--- NOTE | 2017-04-07 15:37 | Cardiology Report ---
APPROVED REPORT EKG Measurement Heart [id number] Sinus rhythm with PVCs Abnormal ECG
[2017-04-07 16:00] VITALS: BP 90/56
[2017-04-07] MEDS: Morphine Sulfate 4mg/ml Inj IVP PRN (17:17)
--- NOTE | 2017-04-07 19:26 | General Progress Note ---
Assessment/Plan Assessment/Plan ASSESSMENT: 1. Coagulopathy, potentially secondary to congestive heart failure overload and hepatic congestion. We will also order a mixing study to see if the patient has factor deficiency. --> abd US shows hepatomegaly as well as gallbladder sludge and stones. pt refused hida scan as well as ct abdomen/pelvis --> mixing study pending 2. Cardiomyopathy. Seen be cardiology service. 3. Acute kidney injury. 4. Nephropathy. 5. Diabetes mellitus. Subjective Constitutional: Reports: no symptoms HEENT: Reports: no symptoms Cardiovascular: Reports: no symptoms Respiratory: Reports: no symptoms Gastrointestinal/Abdominal: Reports: no symptoms Genitourinary: Reports: no symptoms Neurologic/Psychiatric: Reports: no symptoms Endocrine: Reports: no symptoms Hematologic/Lymphatic: Reports: no symptoms Allergies: Coded Allergies: No Known Allergies (Unverified , 04/04/17) Subjective no fever/chills, refusing procedures Objective Last 24 Hour Vital Signs Date Time Temp Pulse Resp B/P (MAP) Pulse Ox O2 Delivery O2 Flow Rate FiO2 04/07/17 16:00 73 04/07/17 16:00 97.2 95 21 90/56 95 Room Air 04/07/17 12:43 87 04/07/17 12:00 97.0 80 20 101/63 98 Room Air 04/07/17 12:00 72 04/07/17 08:00 87 04/07/17 08:00 97.0 93 20 106/51 98 Room Air 04/07/17 04:00 97.0 81 22 97/47 99 Room Air 04/07/17 04:00 87 04/07/17 00:31 97.0 88 20 104/62 98 Room Air 04/07/17 00:00 84 04/06/17 20:00 78 04/06/17 20:00 97.0 86 20 103/64 100 Room Air Intake and Output 04/07/17 04/08/17 19:00 07:00 Intake Total 500 ml Output Total 600 ml Balance -100 ml Intake Oral 500 ml Output Urine Total 600 ml Laboratory Tests 04/07/17 06:20: White Blood Count 7.0, Red Blood Count 5.82, Hemoglobin 14.9, Hematocrit 47.0, Mean Corpuscular Volume 81, Mean Corpuscular Hemoglobin 25.6L, Mean Corpuscular Hemoglobin Concent 31.8L, Red Cell Distribution Width 15.3H, Platelet Count 227 , Mean Platelet Volume 12.0H, Neutrophils (%) (Auto) 66.3, Lymphocytes (%) (Auto ) 23.7, Monocytes (%) (Auto) 7.6, Eosinophils (%) (Auto) 1.3, Basophils (%) ( Auto) 1.1, Sodium Level 134L, Potassium Level 3.4, Chloride Level 91L, Carbon Dioxide Level 25, Anion Gap 18H, Blood Urea Nitrogen 48H, Creatinine 1.8H, Estimat Glomerular Filtration Rate 38.4, Glucose Level 182H, Calcium Level 8.4L , Total Bilirubin 1.2, Direct Bilirubin 0.7H, Aspartate Amino Transf (AST/SGOT) 165H, Alanine Aminotransferase (ALT/SGPT) 146H, Alkaline Phosphatase 243H, Total Protein 5.9L, Albumin 3.1L, Globulin 2.8, Albumin/Globulin Ratio 1.1 Height (Feet): 5 Height (Inches): 10.00 Weight (Pounds): 170 General Appearance: no apparent distress EENT: normal ENT inspection Neck: normal alignment Cardiovascular: no gallop/murmur Neurologic: redeye gunner II-XII grossly normal Skin: warm/dry Kevin Benson Apr 07, 2017 19:26
[2017-04-07 20:00] VITALS: BP 104/58
[2017-04-07] MEDS: Tamsulosin 0.4mg cap ORAL SCH (21:19)
--- NOTE | 2017-04-07 21:59 | Cardiology Progress Note ---
Assessment/Plan Assessment/Plan 1. Four chamber dilated cardiomyopathy with increased intra-cardiac filling pressure, continue furosemide and digoxin daily. Not on guideline directed medical therapy for heart failure. Will check daily K and Mg and creat. 2. It would be better to give him a combination of hydralazine and Isordil in view of KHURRAM, will hold off on ACEI/ARBs 3. Severe pulmonary HTN due to the left CHF. 4. Nonsustained ventricular tachycardia. Magnesium level at 2.4. 5. Diabetes mellitus with extremely high HbA1C. 6. KHURRAM on CKD, switch to every other day digoxin, dig level in 3 days Subjective Subjective Sinus rhythm at 84. Denies chest pain or SOB. Objective Last 24 Hour Vital Signs Date Time Temp Pulse Resp B/P (MAP) Pulse Ox O2 Delivery O2 Flow Rate FiO2 04/07/17 20:00 97.0 84 21 104/58 93 Room Air 04/07/17 16:00 73 04/07/17 16:00 97.2 95 21 90/56 95 Room Air 04/07/17 12:43 87 04/07/17 12:00 97.0 80 20 101/63 98 Room Air 04/07/17 12:00 72 04/07/17 08:00 87 04/07/17 08:00 97.0 93 20 106/51 98 Room Air 04/07/17 04:00 97.0 81 22 97/47 99 Room Air 04/07/17 04:00 87 04/07/17 00:31 97.0 88 20 104/62 98 Room Air 04/07/17 00:00 84 Intake and Output 04/07/17 04/08/17 19:00 07:00 Intake Total 500 ml Output Total 600 ml Balance -100 ml Intake Oral 500 ml Output Urine Total 600 ml 2D Echo: Four chamber DCM, Global LV hypokinesia, LVEF ~10%, Sev MR, RVSP 69 mmHg Laboratory Tests Test 04/07/17 06:20 White Blood Count 7.0 K/UL (4.8-10.8) Red Blood Count 5.82 M/UL (4.70-6.10) Hemoglobin 14.9 G/DL (14.2-18.0) Hematocrit 47.0 % (42.0-52.0) Mean Corpuscular Volume 81 FL (80-99) Mean Corpuscular Hemoglobin 25.6 PG (27.0-31.0) L Mean Corpuscular Hemoglobin Concent 31.8 G/DL (32.0-36.0) L Red Cell Distribution Width 15.3 % (11.6-14.8) H Platelet Count 227 K/UL (150-450) Mean Platelet Volume 12.0 FL (6.5-10.1) H Neutrophils (%) (Auto) 66.3 % (45.0-75.0) Lymphocytes (%) (Auto) 23.7 % (20.0-45.0) Monocytes (%) (Auto) 7.6 % (1.0-10.0) Eosinophils (%) (Auto) 1.3 % (0.0-3.0) Basophils (%) (Auto) 1.1 % (0.0-2.0) Sodium Level 134 mEQ/L (135-145) L Potassium Level 3.4 mEQ/L (3.4-4.9) Chloride Level 91 mEQ/L (98-107) L Carbon Dioxide Level 25 mEQ/L (20-30) Anion Gap 18 (5-15) H Blood Urea Nitrogen 48 mg/dL (7-23) H Creatinine 1.8 mg/dL (0.7-1.2) H Estimat Glomerular Filtration Rate 38.4 mL/min (>60) Glucose Level 182 mg/dL (74-106) H Calcium Level 8.4 mg/dL (8.6-10.2) L Total Bilirubin 1.2 mg/dL (0.0-1.2) Direct Bilirubin 0.7 mg/dL (0.1-0.3) H Aspartate Amino Transf (AST/SGOT) 165 U/L (5-40) H Alanine Aminotransferase (ALT/SGPT) 146 U/L (3-41) H Alkaline Phosphatase 243 U/L (40-129) H Total Protein 5.9 g/dL (6.6-8.7) L Albumin 3.1 g/dL (3.5-5.2) L Globulin 2.8 g/dL Albumin/Globulin Ratio 1.1 (1.0-2.7) Objective HEENT: Atraumatic and normocephalic. ENT, pupils are equal, round, and reactive to light and accommodation. Conjunctival pallor is seen. Neck: JVP is elevated at about 15 cm. No carotid bruit. Carotid upstrokes 2+ bilaterally. Cardiovascular: Normal S1, S2. Regular rate and rhythm. A 2/6 mid systolic murmur at the left sternal border. LUNGS: Clear to auscultation bilaterally. Abdomen: Distended. Possible ascites. No hepatosplenomegaly. Positive bowel sounds. Extremities: There is 2+ bilateral lower extremity edema. There is also evidence of right ulceration in the lower extremity in the anterior aspect of the leg. EMILY COMBS Apr 07, 2017 21:59
[2017-04-08] VITALS: BP 96/46
[2017-04-08 04:00] VITALS: BP 96/70
[2017-04-08] MEDS: NovoLOG Insulin Flexpen SUBQ SCH ×4 (05:02→21:56)
[2017-04-08 08:00] VITALS: BP 113/81
--- NOTE | 2017-04-08 08:56 | General Progress Note ---
Assessment/Plan Problem List: (1) Renal insufficiency ICD Codes: N28.9 - Disorder of kidney and ureter, unspecified SNOMED: 320024120 (2) Hepatic congestion ICD Codes: K76.1 - Chronic passive congestion of liver SNOMED: 18166452 (3) CHF (congestive heart failure) ICD Codes: I50.9 - Heart failure, unspecified SNOMED: 30270754 Qualifiers: Qualified Codes: I50.43 - Acute on chronic combined systolic (congestive) and diastolic (congestive) heart failure (4) Abnormal LFTs ICD Codes: R79.89 - Other specified abnormal findings of blood chemistry SNOMED: 642774786 Status: progressing Assessment/Plan azotemia is improving elev lft most likely from chf/liver congestion chf improving borderline k.treatment per renal Subjective HEENT: Reports: no symptoms Cardiovascular: Reports: no symptoms Respiratory: Reports: shortness of breath Allergies: Coded Allergies: No Known Allergies (Unverified , 04/04/17) Objective Last 24 Hour Vital Signs Date Time Temp Pulse Resp B/P (MAP) Pulse Ox O2 Delivery O2 Flow Rate FiO2 04/08/17 04:00 75 04/08/17 04:00 97.0 89 21 96/70 100 Room Air 04/08/17 00:00 84 04/08/17 00:00 97.0 69 23 96/46 100 Room Air 04/07/17 20:00 97.0 84 21 104/58 93 Room Air 04/07/17 20:00 87 04/07/17 16:00 73 04/07/17 16:00 97.2 95 21 90/56 95 Room Air 04/07/17 12:43 87 04/07/17 12:00 97.0 80 20 101/63 98 Room Air 04/07/17 12:00 72 Height (Feet): 5 Height (Inches): 10.00 Weight (Pounds): 170 Respiratory/Chest: lungs clear Abdomen: soft Joanna Keller MD Apr 08, 2017 08:56
--- NOTE | 2017-04-08 08:59 | General Progress Note ---
Assessment/Plan Status: stable Assessment/Plan Renal failure- Acute on Chronic, Cr 1.8 and 3+ Proteinuria, Cr rising Dm, Nephropathy, High A1c HyperUrecemia High LFTs Cardiomyopathy with EjFx of 15% Plan: no labs today Optimize cardiac status Allopurinol- add digoxin PO K supplement as needed Monitor renal parameters flomax per orders Kidney LAZARO; Left kidney measures 10.9 cm in length. Right kidney measures 10.4 cm length. Both kidneys demonstrate normal echogenicity. There is no hydronephrosis. Subjective ROS Limited/Unobtainable: No Constitutional: Reports: malaise, weakness Allergies: Coded Allergies: No Known Allergies (Unverified , 04/04/17) Objective Last 24 Hour Vital Signs Date Time Temp Pulse Resp B/P (MAP) Pulse Ox O2 Delivery O2 Flow Rate FiO2 04/08/17 04:00 75 04/08/17 04:00 97.0 89 21 96/70 100 Room Air 04/08/17 00:00 84 04/08/17 00:00 97.0 69 23 96/46 100 Room Air 04/07/17 20:00 97.0 84 21 104/58 93 Room Air 04/07/17 20:00 87 04/07/17 16:00 73 04/07/17 16:00 97.2 95 21 90/56 95 Room Air 04/07/17 12:43 87 04/07/17 12:00 97.0 80 20 101/63 98 Room Air 04/07/17 12:00 72 Height (Feet): 5 Height (Inches): 10.00 Weight (Pounds): 170 General Appearance: no apparent distress Objective symptoms of low perfusion state RENNY POWER Apr 08, 2017 08:59
[2017-04-08] MEDS ORDERED: Allopurinol 100mg Tab ORAL SCH (09:00)
[2017-04-08] MEDS: Morphine Sulfate 4mg/ml Inj IVP PRN ×2 (09:22→22:15)
[2017-04-08] MEDS: KCl 10% 40mEq/30ml liquid ORAL SCH ×2 (09:22→18:00)
[2017-04-08] MEDS: Digoxin 0.125mg tab ORAL SCH (09:26)
[2017-04-08 10:06] LABS: BASOPHILS % (AUTO) 0.9 % (0.0-2.0); EOSINOPHILS % (AUTO) 1.2 % (0.0-3.0); LYMPHOCYTES % (AUTO) 19.6 % (20.0-45.0); MEAN CORPUSCULAR HEMOGLOBIN 25.5 PG (27.0-31.0); MEAN CORPUSCULAR HGB CONC 31.5 G/DL (32.0-36.0); MEAN CORPUSCULAR VOLUME 81 FL (80-99); MEAN PLATELET VOLUME 11.3 FL (6.5-10.1); MONOCYTES % (AUTO) 7.5 % (1.0-10.0); NEUTROPHILS % (AUTO) 70.9 % (45.0-75.0); PLATELET COUNT 226 K/UL (150-450); RED BLOOD COUNT 5.85 M/UL (4.70-6.10); RED CELL DISTRIBUTION WIDTH 15.5 % (11.6-14.8); WHITE BLOOD COUNT 7.9 K/UL (4.8-10.8)
[2017-04-08 10:21] LABS: PHOSPHORUS 3.1 mg/dL (2.5-4.8); URIC ACID 18.8 mg/dL (3.0-7.5)
[2017-04-08 10:23] LABS: ALBUMIN/GLOBULIN RATIO 0.9 (1.0-2.7); CALCIUM 8.6 mg/dL (8.6-10.2); CREATININE 1.5 mg/dL (0.7-1.2); GLOMERULAR FILTRATION RATE 47.4 mL/min (>60); TOTAL PROTEIN 6.2 g/dL (6.6-8.7)
[2017-04-08 10:53] LABS: BILIRUBIN,DIRECT 0.7 mg/dL (0.1-0.3)
[2017-04-08] MEDS ORDERED: KCl 10% 40mEq/30ml liquid ORAL ONE (13:00)
--- NOTE | 2017-04-08 15:04 | Cardiac Electrophysiology PN ---
Assessment/Plan Assessment/Plan 1. Non sustained ventricular tachycardia up to 14 beats. Due to severe underlying cardiomyopathy, ejection fraction of 10%. Refusing ICD implant. 2. Nonischemic cardiomyopathy, under heart failure management per Dr. Clifford. On Lasix 40 mg IV b.i.d. off lisinopril and Aldactone in view of renal failure 3. Renal failure with creatinine 2.1, under the management of Dr. Solorzano. 4. Abdominal pain and vomiting.Follow up Dr Hinds. Refused Ct abdomen DW RN Subjective Subjective Continues with recurrent runs of NSVT 5-11 beats. No events overnight. Objective Last 24 Hour Vital Signs Date Time Temp Pulse Resp B/P (MAP) Pulse Ox O2 Delivery O2 Flow Rate FiO2 04/08/17 09:26 92 04/08/17 08:00 97.2 79 18 113/81 95 Room Air 04/08/17 08:00 84 04/08/17 04:00 75 04/08/17 04:00 97.0 89 21 96/70 100 Room Air 04/08/17 00:00 84 04/08/17 00:00 97.0 69 23 96/46 100 Room Air 04/07/17 20:00 97.0 84 21 104/58 93 Room Air 04/07/17 20:00 87 04/07/17 16:00 73 04/07/17 16:00 97.2 95 21 90/56 95 Room Air Intake and Output 04/08/17 04/09/17 19:00 07:00 Intake Total 3960 ml Output Total 1000 ml Balance 2960 ml Intake Oral 3960 ml Output Urine Total 1000 ml Laboratory Tests Test 04/08/17 09:25 White Blood Count 7.9 K/UL (4.8-10.8) Red Blood Count 5.85 M/UL (4.70-6.10) Hemoglobin 14.9 G/DL (14.2-18.0) Hematocrit 47.3 % (42.0-52.0) Mean Corpuscular Volume 81 FL (80-99) Mean Corpuscular Hemoglobin 25.5 PG (27.0-31.0) L Mean Corpuscular Hemoglobin Concent 31.5 G/DL (32.0-36.0) L Red Cell Distribution Width 15.5 % (11.6-14.8) H Platelet Count 226 K/UL (150-450) Mean Platelet Volume 11.3 FL (6.5-10.1) H Neutrophils (%) (Auto) 70.9 % (45.0-75.0) Lymphocytes (%) (Auto) 19.6 % (20.0-45.0) L Monocytes (%) (Auto) 7.5 % (1.0-10.0) Eosinophils (%) (Auto) 1.2 % (0.0-3.0) Basophils (%) (Auto) 0.9 % (0.0-2.0) Sodium Level 136 mEQ/L (135-145) Potassium Level 3.0 mEQ/L (3.4-4.9) L Chloride Level 88 mEQ/L (98-107) L Carbon Dioxide Level 32 mEQ/L (20-30) H Anion Gap 16 (5-15) H Blood Urea Nitrogen 43 mg/dL (7-23) H Creatinine 1.5 mg/dL (0.7-1.2) H Estimat Glomerular Filtration Rate 47.4 mL/min (>60) Glucose Level 153 mg/dL (74-106) H Uric Acid 18.8 mg/dL (3.0-7.5) H Calcium Level 8.6 mg/dL (8.6-10.2) Phosphorus Level 3.1 mg/dL (2.5-4.8) Magnesium Level 2.0 mg/dL (1.7-2.5) Total Bilirubin 1.4 mg/dL (0.0-1.2) H Direct Bilirubin 0.7 mg/dL (0.1-0.3) H Aspartate Amino Transf (AST/SGOT) 174 U/L (5-40) H Alanine Aminotransferase (ALT/SGPT) 183 U/L (3-41) H Alkaline Phosphatase 267 U/L (40-129) H Total Protein 6.2 g/dL (6.6-8.7) L Albumin 3.0 g/dL (3.5-5.2) L Globulin 3.2 g/dL Albumin/Globulin Ratio 0.9 (1.0-2.7) L Objective HEAD AND NECK: Shows positive JVD. LUNGS: Decreased breath sounds. Cardiovascular: RegularS1 and S2 with 2/6 systolic murmur. ABDOMEN: Distended. EXTREMITIES: 2+ pitting edema. EMILY SOLANO Apr 08, 2017 15:04
[2017-04-08 16:46] VITALS: BP 96/68
--- NOTE | 2017-04-08 17:19 | General Progress Note ---
Assessment/Plan Assessment/Plan ASSESSMENT: 1. Coagulopathy, potentially secondary to congestive heart failure overload and hepatic congestion. We will also order a mixing study to see if the patient has factor deficiency. --> abd US shows hepatomegaly as well as gallbladder sludge and stones. pt refused hida scan as well as ct abdomen/pelvis --> mixing study pending 2. Cardiomyopathy. Seen be cardiology service. 3. Acute kidney injury. 4. Nephropathy. 5. Diabetes mellitus. Subjective Constitutional: Reports: no symptoms HEENT: Reports: no symptoms Cardiovascular: Reports: no symptoms Respiratory: Reports: no symptoms Gastrointestinal/Abdominal: Reports: no symptoms Genitourinary: Reports: no symptoms Neurologic/Psychiatric: Reports: no symptoms Endocrine: Reports: no symptoms Hematologic/Lymphatic: Reports: no symptoms Allergies: Coded Allergies: No Known Allergies (Unverified , 04/04/17) Subjective no events overnight Objective Last 24 Hour Vital Signs Date Time Temp Pulse Resp B/P (MAP) Pulse Ox O2 Delivery O2 Flow Rate FiO2 04/08/17 16:46 97.9 90 18 96/68 92 Room Air 04/08/17 09:26 92 04/08/17 08:00 97.2 79 18 113/81 95 Room Air 04/08/17 08:00 84 04/08/17 04:00 75 04/08/17 04:00 97.0 89 21 96/70 100 Room Air 04/08/17 00:00 84 04/08/17 00:00 97.0 69 23 96/46 100 Room Air 04/07/17 20:00 97.0 84 21 104/58 93 Room Air 04/07/17 20:00 87 Intake and Output 04/08/17 04/09/17 19:00 07:00 Intake Total 3960 ml Output Total 1200 ml Balance 2760 ml Intake Oral 3960 ml Output Urine Total 1200 ml Laboratory Tests 04/08/17 09:25: White Blood Count 7.9, Red Blood Count 5.85, Hemoglobin 14.9, Hematocrit 47.3, Mean Corpuscular Volume 81, Mean Corpuscular Hemoglobin 25.5L, Mean Corpuscular Hemoglobin Concent 31.5L, Red Cell Distribution Width 15.5H, Platelet Count 226 , Mean Platelet Volume 11.3H, Neutrophils (%) (Auto) 70.9, Lymphocytes (%) (Auto ) 19.6L, Monocytes (%) (Auto) 7.5, Eosinophils (%) (Auto) 1.2, Basophils (%) ( Auto) 0.9, Sodium Level 136, Potassium Level 3.0L, Chloride Level 88L, Carbon Dioxide Level 32H, Anion Gap 16H, Blood Urea Nitrogen 43H, Creatinine 1.5H, Estimat Glomerular Filtration Rate 47.4, Glucose Level 153H, Uric Acid 18.8H, Calcium Level 8.6, Phosphorus Level 3.1, Magnesium Level 2.0, Total Bilirubin 1.4H, Direct Bilirubin 0.7H, Aspartate Amino Transf (AST/SGOT) 174H, Alanine Aminotransferase (ALT/SGPT) 183H, Alkaline Phosphatase 267H, Total Protein 6.2L , Albumin 3.0L, Globulin 3.2, Albumin/Globulin Ratio 0.9L Height (Feet): 5 Height (Inches): 10.00 Weight (Pounds): 170 General Appearance: no apparent distress EENT: normal ENT inspection, TMs normal Neck: normal alignment, supple Cardiovascular: regularly irregular Respiratory/Chest: normal breath sounds Abdomen: no organomegaly Neurologic: alert Skin: warm/dry Kevin Benson Apr 08, 2017 17:19
[2017-04-08 20:00] VITALS: BP 117/65
[2017-04-08] MEDS: Tamsulosin 0.4mg cap ORAL SCH (20:32)
--- NOTE | 2017-04-08 20:41 | General Progress Note ---
Assessment/Plan Assessment/Plan Assessment - abnormal LFT - CHF - hepatic congestion - Edema - gallstones with thickened GB wall Recommendations - continue current Rx - follow labs - consider HIDA when patient agreeable Subjective Allergies: Coded Allergies: No Known Allergies (Unverified , 04/04/17) Subjective Feels well no abdominal pain tolerating PO Objective Last 24 Hour Vital Signs Date Time Temp Pulse Resp B/P (MAP) Pulse Ox O2 Delivery O2 Flow Rate FiO2 04/08/17 16:46 97.9 90 18 96/68 92 Room Air 04/08/17 16:00 91 04/08/17 12:00 80 04/08/17 09:26 92 04/08/17 08:00 97.2 79 18 113/81 95 Room Air 04/08/17 08:00 84 04/08/17 04:00 75 04/08/17 04:00 97.0 89 21 96/70 100 Room Air 04/08/17 00:00 84 04/08/17 00:00 97.0 69 23 96/46 100 Room Air Intake and Output 04/08/17 04/09/17 19:00 07:00 Intake Total 4320 ml Output Total 1500 ml Balance 2820 ml Intake Oral 4320 ml Output Urine Total 1500 ml Laboratory Tests 04/08/17 09:25: White Blood Count 7.9, Red Blood Count 5.85, Hemoglobin 14.9, Hematocrit 47.3, Mean Corpuscular Volume 81, Mean Corpuscular Hemoglobin 25.5L, Mean Corpuscular Hemoglobin Concent 31.5L, Red Cell Distribution Width 15.5H, Platelet Count 226 , Mean Platelet Volume 11.3H, Neutrophils (%) (Auto) 70.9, Lymphocytes (%) (Auto ) 19.6L, Monocytes (%) (Auto) 7.5, Eosinophils (%) (Auto) 1.2, Basophils (%) ( Auto) 0.9, Sodium Level 136, Potassium Level 3.0L, Chloride Level 88L, Carbon Dioxide Level 32H, Anion Gap 16H, Blood Urea Nitrogen 43H, Creatinine 1.5H, Estimat Glomerular Filtration Rate 47.4, Glucose Level 153H, Uric Acid 18.8H, Calcium Level 8.6, Phosphorus Level 3.1, Magnesium Level 2.0, Total Bilirubin 1.4H, Direct Bilirubin 0.7H, Aspartate Amino Transf (AST/SGOT) 174H, Alanine Aminotransferase (ALT/SGPT) 183H, Alkaline Phosphatase 267H, Total Protein 6.2L , Albumin 3.0L, Globulin 3.2, Albumin/Globulin Ratio 0.9L Height (Feet): 5 Height (Inches): 10.00 Weight (Pounds): 170 Objective WDWN AA man NCAT supple CTA RRR Soft NT ND (+) b/l venous stasis non focal FITZ RIVAS Apr 08, 2017 20:41
--- NOTE | 2017-04-08 20:50 | Cardiology Progress Note ---
Assessment/Plan Assessment/Plan 1. Four chamber dilated cardiomyopathy with increased intra-cardiac filling pressure, decrease furosemide dose so we can add small dose of ACEI, continue digoxin daily. 2. Acute systolic and diastolic CHF, decrease furosemide and start low dose ACEI , will check creat closely. 3. Severe pulmonary HTN due to the left CHF. 4. Nonsustained ventricular tachycardia. Magnesium level at 2.4. 5. Diabetes mellitus with extremely high HbA1C. 6. KHURRAM on CKD, creat better. Subjective Subjective Sinus rhythm at 91. I/Os: - 900 Objective Last 24 Hour Vital Signs Date Time Temp Pulse Resp B/P (MAP) Pulse Ox O2 Delivery O2 Flow Rate FiO2 04/08/17 20:00 97.7 97 20 117/65 98 Room Air 04/08/17 16:46 97.9 90 18 96/68 92 Room Air 04/08/17 16:00 91 04/08/17 12:00 80 04/08/17 09:26 92 04/08/17 08:00 97.2 79 18 113/81 95 Room Air 04/08/17 08:00 84 04/08/17 04:00 75 04/08/17 04:00 97.0 89 21 96/70 100 Room Air 04/08/17 00:00 84 04/08/17 00:00 97.0 69 23 96/46 100 Room Air Intake and Output 04/08/17 04/09/17 19:00 07:00 Intake Total 4320 ml Output Total 1500 ml Balance 2820 ml Intake Oral 4320 ml Output Urine Total 1500 ml 2D Echo: Four chamber DCM, Global LV hypokinesia, LVEF ~10%, Sev MR, RVSP 69 mmHg Laboratory Tests Test 04/08/17 09:25 White Blood Count 7.9 K/UL (4.8-10.8) Red Blood Count 5.85 M/UL (4.70-6.10) Hemoglobin 14.9 G/DL (14.2-18.0) Hematocrit 47.3 % (42.0-52.0) Mean Corpuscular Volume 81 FL (80-99) Mean Corpuscular Hemoglobin 25.5 PG (27.0-31.0) L Mean Corpuscular Hemoglobin Concent 31.5 G/DL (32.0-36.0) L Red Cell Distribution Width 15.5 % (11.6-14.8) H Platelet Count 226 K/UL (150-450) Mean Platelet Volume 11.3 FL (6.5-10.1) H Neutrophils (%) (Auto) 70.9 % (45.0-75.0) Lymphocytes (%) (Auto) 19.6 % (20.0-45.0) L Monocytes (%) (Auto) 7.5 % (1.0-10.0) Eosinophils (%) (Auto) 1.2 % (0.0-3.0) Basophils (%) (Auto) 0.9 % (0.0-2.0) Sodium Level 136 mEQ/L (135-145) Potassium Level 3.0 mEQ/L (3.4-4.9) L Chloride Level 88 mEQ/L (98-107) L Carbon Dioxide Level 32 mEQ/L (20-30) H Anion Gap 16 (5-15) H Blood Urea Nitrogen 43 mg/dL (7-23) H Creatinine 1.5 mg/dL (0.7-1.2) H Estimat Glomerular Filtration Rate 47.4 mL/min (>60) Glucose Level 153 mg/dL (74-106) H Uric Acid 18.8 mg/dL (3.0-7.5) H Calcium Level 8.6 mg/dL (8.6-10.2) Phosphorus Level 3.1 mg/dL (2.5-4.8) Magnesium Level 2.0 mg/dL (1.7-2.5) Total Bilirubin 1.4 mg/dL (0.0-1.2) H Direct Bilirubin 0.7 mg/dL (0.1-0.3) H Aspartate Amino Transf (AST/SGOT) 174 U/L (5-40) H Alanine Aminotransferase (ALT/SGPT) 183 U/L (3-41) H Alkaline Phosphatase 267 U/L (40-129) H Total Protein 6.2 g/dL (6.6-8.7) L Albumin 3.0 g/dL (3.5-5.2) L Globulin 3.2 g/dL Albumin/Globulin Ratio 0.9 (1.0-2.7) L Objective HEENT: Atraumatic and normocephalic. ENT, pupils are equal, round, and reactive to light and accommodation. Conjunctival pallor is seen. Neck: JVP is elevated at about 15 cm. No carotid bruit. Carotid upstrokes 2+ bilaterally. Cardiovascular: Normal S1, S2. Regular rate and rhythm. A 2/6 mid systolic murmur at the left sternal border. LUNGS: Clear to auscultation bilaterally. Abdomen: Distended. Possible ascites. No hepatosplenomegaly. Positive bowel sounds. Extremities: There is 2+ bilateral lower extremity edema. There is also evidence of right ulceration in the lower extremity in the anterior aspect of the leg. EMILY COMBS Apr 08, 2017 20:50
[2017-04-09] VITALS (7 sets, daily range): BP systolic 92–142; BP diastolic 50–75
[2017-04-09] MEDS: NovoLOG Insulin Flexpen SUBQ SCH ×4 (06:30→21:33)
[2017-04-09 08:12] LABS: BASOPHILS % (AUTO) 0.8 % (0.0-2.0); EOSINOPHILS % (AUTO) 2.3 % (0.0-3.0); LYMPHOCYTES % (AUTO) 19.1 % (20.0-45.0); MEAN CORPUSCULAR HEMOGLOBIN 25.4 PG (27.0-31.0); MEAN CORPUSCULAR HGB CONC 31.2 G/DL (32.0-36.0); MEAN CORPUSCULAR VOLUME 81 FL (80-99); MEAN PLATELET VOLUME 11.1 FL (6.5-10.1); MONOCYTES % (AUTO) 7.9 % (1.0-10.0); NEUTROPHILS % (AUTO) 69.8 % (45.0-75.0); PLATELET COUNT 175 K/UL (150-450); RED BLOOD COUNT 5.78 M/UL (4.70-6.10); RED CELL DISTRIBUTION WIDTH 15.7 % (11.6-14.8); WHITE BLOOD COUNT 6.9 K/UL (4.8-10.8)
[2017-04-09 08:53] LABS: ALANINE AMINOTRANSFERASE 126 U/L (3-41); ALBUMIN/GLOBULIN RATIO 0.8 (1.0-2.7); ANION GAP 14 (5-15); ASPARTATE AMINO TRANSFERASE 89 U/L (5-40); CALCIUM 8.5 mg/dL (8.6-10.2); CARBON DIOXIDE 30 mEQ/L (20-30); CHLORIDE 92 mEQ/L (98-107); CREATININE 1.2 mg/dL (0.7-1.2); CRP QUANT 2.6 mg/dL (< 0.5); GLOMERULAR FILTRATION RATE > 60 mL/min (>60); HEMOLYSIS 23; MAGNESIUM 1.8 mg/dL (1.7-2.5); PHOSPHORUS 2.5 mg/dL (2.5-4.8); POTASSIUM 3.9 mEQ/L (3.4-4.9); SODIUM 136 mEQ/L (135-145); TOTAL PROTEIN 5.5 g/dL (6.6-8.7); URIC ACID 15.8 mg/dL (3.0-7.5)
[2017-04-09 09:14] LABS: BILIRUBIN,DIRECT 0.4 mg/dL (0.1-0.3)
[2017-04-09] MEDS: KCl 10% 40mEq/30ml liquid ORAL SCH ×2 (09:34→18:27)
[2017-04-09] MEDS: Lisinopril 2.5mg tab ORAL SCH (09:35)
[2017-04-09] MEDS: Morphine Sulfate 4mg/ml Inj IVP PRN ×2 (09:37→20:27)
[2017-04-09] MEDS: Digoxin 0.125mg tab ORAL SCH (09:38)
--- NOTE | 2017-04-09 13:09 | General Progress Note ---
Assessment/Plan Status: stable Assessment/Plan Renal failure- Acute on Chronic, Cr 1.8 and 3+ Proteinuria, Cr rising Dm, Nephropathy, High A1c HyperUrecemia High LFTs Cardiomyopathy with EjFx of 15% Plan: added vasotec Optimize cardiac status Allopurinol- add digoxin PO K supplement as needed Monitor renal parameters flomax per orders Kidney LAZARO; Left kidney measures 10.9 cm in length. Right kidney measures 10.4 cm length. Both kidneys demonstrate normal echogenicity. There is no hydronephrosis. Subjective ROS Limited/Unobtainable: Yes Allergies: Coded Allergies: No Known Allergies (Unverified , 04/04/17) Objective Last 24 Hour Vital Signs Date Time Temp Pulse Resp B/P (MAP) Pulse Ox O2 Delivery O2 Flow Rate FiO2 04/09/17 12:00 97.0 91 20 124/74 95 Room Air 04/09/17 09:38 101 04/09/17 09:35 101/75 04/09/17 08:00 90 04/09/17 08:00 97.8 101 21 101/75 93 Room Air 04/09/17 04:00 97.1 76 20 121/75 96 Room Air 04/09/17 03:48 78 04/09/17 00:00 96.3 66 20 92/50 97 04/08/17 23:51 86 04/08/17 20:00 97.7 97 20 117/65 98 Room Air 04/08/17 19:05 89 04/08/17 16:46 97.9 90 18 96/68 92 Room Air 04/08/17 16:00 91 Laboratory Tests 04/09/17 06:30: White Blood Count 6.9, Red Blood Count 5.78, Hemoglobin 14.7, Hematocrit 47.0, Mean Corpuscular Volume 81, Mean Corpuscular Hemoglobin 25.4L, Mean Corpuscular Hemoglobin Concent 31.2L, Red Cell Distribution Width 15.7H, Platelet Count 175 , Mean Platelet Volume 11.1H, Neutrophils (%) (Auto) 69.8, Lymphocytes (%) (Auto ) 19.1L, Monocytes (%) (Auto) 7.9, Eosinophils (%) (Auto) 2.3, Basophils (%) ( Auto) 0.8, Sodium Level 136, Potassium Level 3.9, Chloride Level 92L, Carbon Dioxide Level 30, Anion Gap 14, Blood Urea Nitrogen 31H, Creatinine 1.2, Estimat Glomerular Filtration Rate > 60, Glucose Level 97, Uric Acid 15.8H, Calcium Level 8.5L, Phosphorus Level 2.5, Magnesium Level 1.8, Total Bilirubin 1.3H, Direct Bilirubin 0.4H, Aspartate Amino Transf (AST/SGOT) 89H, Alanine Aminotransferase (ALT/SGPT) 126H, Alkaline Phosphatase 219H, C-Reactive Protein , Quantitative 2.6H, Pro-B-Type Natriuretic Peptide 5467H, Total Protein 5.5L, Albumin 2.6L, Globulin 2.9, Albumin/Globulin Ratio 0.8L, Digoxin Level [Pending] Height (Feet): 5 Height (Inches): 10.00 Weight (Pounds): 163 General Appearance: no apparent distress, lethargic Cardiovascular: tachycardia Respiratory/Chest: decreased breath sounds Abdomen: distended Objective symptoms of low perfusion state RENNY POWER Apr 09, 2017 13:09
[2017-04-09 16:07] LABS: DIGOXIN 0.6 ng/mL (0.5-2.0)
--- NOTE | 2017-04-09 20:05 | General Progress Note ---
Assessment/Plan Assessment/Plan ASSESSMENT: 1. Coagulopathy, potentially secondary to congestive heart failure overload and hepatic congestion. We will also order a mixing study to see if the patient has factor deficiency. --> abd US shows hepatomegaly as well as gallbladder sludge and stones. pt refused hida scan as well as ct abdomen/pelvis. --> mixing study pending 2. Cardiomyopathy. Seen be cardiology service. 3. Acute kidney injury on CKD. --> Cr improving 4. Nephropathy. 5. Diabetes mellitus. Continue to monitor blood glucose. Subjective Constitutional: Reports: no symptoms HEENT: Reports: no symptoms Cardiovascular: Reports: no symptoms Respiratory: Reports: no symptoms Gastrointestinal/Abdominal: Reports: no symptoms Genitourinary: Reports: no symptoms Neurologic/Psychiatric: Reports: no symptoms Endocrine: Reports: no symptoms Hematologic/Lymphatic: Reports: no symptoms Allergies: Coded Allergies: No Known Allergies (Unverified , 04/04/17) Subjective NAD Objective Last 24 Hour Vital Signs Date Time Temp Pulse Resp B/P (MAP) Pulse Ox O2 Delivery O2 Flow Rate FiO2 04/09/17 16:00 93 04/09/17 16:00 97.6 96 20 142/60 96 Room Air 04/09/17 12:00 92 04/09/17 12:00 97.0 91 20 124/74 95 Room Air 04/09/17 09:38 101 04/09/17 09:35 101/75 04/09/17 08:00 90 04/09/17 08:00 97.8 101 21 101/75 93 Room Air 04/09/17 04:00 97.1 76 20 121/75 96 Room Air 04/09/17 03:48 78 04/09/17 00:00 96.3 66 20 92/50 97 04/08/17 23:51 86 Intake and Output 04/09/17 04/10/17 19:00 07:00 Intake Total 600 ml Output Total 800 ml Balance -200 ml Intake Oral 600 ml Output Urine Total 800 ml Laboratory Tests 04/09/17 06:30: White Blood Count 6.9, Red Blood Count 5.78, Hemoglobin 14.7, Hematocrit 47.0, Mean Corpuscular Volume 81, Mean Corpuscular Hemoglobin 25.4L, Mean Corpuscular Hemoglobin Concent 31.2L, Red Cell Distribution Width 15.7H, Platelet Count 175 , Mean Platelet Volume 11.1H, Neutrophils (%) (Auto) 69.8, Lymphocytes (%) (Auto ) 19.1L, Monocytes (%) (Auto) 7.9, Eosinophils (%) (Auto) 2.3, Basophils (%) ( Auto) 0.8, Sodium Level 136, Potassium Level 3.9, Chloride Level 92L, Carbon Dioxide Level 30, Anion Gap 14, Blood Urea Nitrogen 31H, Creatinine 1.2, Estimat Glomerular Filtration Rate > 60, Glucose Level 97, Uric Acid 15.8H, Calcium Level 8.5L, Phosphorus Level 2.5, Magnesium Level 1.8, Total Bilirubin 1.3H, Direct Bilirubin 0.4H, Aspartate Amino Transf (AST/SGOT) 89H, Alanine Aminotransferase (ALT/SGPT) 126H, Alkaline Phosphatase 219H, C-Reactive Protein , Quantitative 2.6H, Pro-B-Type Natriuretic Peptide 5467H, Total Protein 5.5L, Albumin 2.6L, Globulin 2.9, Albumin/Globulin Ratio 0.8L, Digoxin Level 0.6 Height (Feet): 5 Height (Inches): 10.00 Weight (Pounds): 163 General Appearance: no apparent distress EENT: normal ENT inspection Neck: normal alignment Cardiovascular: no JVD Respiratory/Chest: no accessory muscle use Skin: normal pigmentation, warm/dry Kevin Benson Apr 09, 2017 20:05
[2017-04-09] MEDS: Tamsulosin 0.4mg cap ORAL SCH (20:18)
--- NOTE | 2017-04-09 20:32 | General Progress Note ---
Assessment/Plan Problem List: (1) Renal insufficiency ICD Codes: N28.9 - Disorder of kidney and ureter, unspecified SNOMED: 661316567 (2) Hepatic congestion ICD Codes: K76.1 - Chronic passive congestion of liver SNOMED: 75025888 (3) CHF (congestive heart failure) ICD Codes: I50.9 - Heart failure, unspecified SNOMED: 94240862 Qualifiers: Qualified Codes: I50.43 - Acute on chronic combined systolic (congestive) and diastolic (congestive) heart failure (4) Abnormal LFTs ICD Codes: R79.89 - Other specified abnormal findings of blood chemistry SNOMED: 509660990 Status: progressing Assessment/Plan azotemia is improving chf improving afebrile reviewed chart and labs lft improving Subjective ROS Limited/Unobtainable: Yes Constitutional: Reports: no symptoms Allergies: Coded Allergies: No Known Allergies (Unverified , 04/04/17) Objective Last 24 Hour Vital Signs Date Time Temp Pulse Resp B/P (MAP) Pulse Ox O2 Delivery O2 Flow Rate FiO2 04/09/17 16:00 93 04/09/17 16:00 97.6 96 20 142/60 96 Room Air 04/09/17 12:00 92 04/09/17 12:00 97.0 91 20 124/74 95 Room Air 04/09/17 09:38 101 04/09/17 09:35 101/75 04/09/17 08:00 90 04/09/17 08:00 97.8 101 21 101/75 93 Room Air 04/09/17 04:00 97.1 76 20 121/75 96 Room Air 04/09/17 03:48 78 04/09/17 00:00 96.3 66 20 92/50 97 04/08/17 23:51 86 Intake and Output 04/09/17 04/10/17 19:00 07:00 Intake Total 600 ml Output Total 800 ml Balance -200 ml Intake Oral 600 ml Output Urine Total 800 ml Laboratory Tests 04/09/17 06:30: White Blood Count 6.9, Red Blood Count 5.78, Hemoglobin 14.7, Hematocrit 47.0, Mean Corpuscular Volume 81, Mean Corpuscular Hemoglobin 25.4L, Mean Corpuscular Hemoglobin Concent 31.2L, Red Cell Distribution Width 15.7H, Platelet Count 175 , Mean Platelet Volume 11.1H, Neutrophils (%) (Auto) 69.8, Lymphocytes (%) (Auto ) 19.1L, Monocytes (%) (Auto) 7.9, Eosinophils (%) (Auto) 2.3, Basophils (%) ( Auto) 0.8, Sodium Level 136, Potassium Level 3.9, Chloride Level 92L, Carbon Dioxide Level 30, Anion Gap 14, Blood Urea Nitrogen 31H, Creatinine 1.2, Estimat Glomerular Filtration Rate > 60, Glucose Level 97, Uric Acid 15.8H, Calcium Level 8.5L, Phosphorus Level 2.5, Magnesium Level 1.8, Total Bilirubin 1.3H, Direct Bilirubin 0.4H, Aspartate Amino Transf (AST/SGOT) 89H, Alanine Aminotransferase (ALT/SGPT) 126H, Alkaline Phosphatase 219H, C-Reactive Protein , Quantitative 2.6H, Pro-B-Type Natriuretic Peptide 5467H, Total Protein 5.5L, Albumin 2.6L, Globulin 2.9, Albumin/Globulin Ratio 0.8L, Digoxin Level 0.6 Height (Feet): 5 Height (Inches): 10.00 Weight (Pounds): 163 Neck: supple Cardiovascular: normal rate Respiratory/Chest: lungs clear Joanna Keller MD Apr 09, 2017 20:31
[2017-04-10 04:30] VITALS: BP 112/66
[2017-04-10] MEDS: Morphine Sulfate 4mg/ml Inj IVP PRN (05:58)
[2017-04-10] MEDS: NovoLOG Insulin Flexpen SUBQ SCH ×2 (06:18→11:41)
--- NOTE | 2017-04-10 06:33 | General Progress Note ---
Assessment/Plan Assessment/Plan Assessment - abnormal LFT - CHF - hepatic congestion - Edema - gallstones with thickened GB wall Recommendations - continue current Rx - follow labs - consider HIDA when patient agreeable (Delayed entry - patient seen 04/09/17) Subjective Allergies: Coded Allergies: No Known Allergies (Unverified , 04/04/17) Subjective Feels well no abdominal pain tolerating PO Objective Last 24 Hour Vital Signs Date Time Temp Pulse Resp B/P (MAP) Pulse Ox O2 Delivery O2 Flow Rate FiO2 04/10/17 04:30 96.7 65 20 112/66 99 Room Air 04/10/17 04:13 85 04/09/17 23:39 93 04/09/17 23:10 97.7 91 20 95/60 97 Room Air 04/09/17 20:00 97.9 64 20 103/74 97 Room Air 04/09/17 19:25 102 04/09/17 16:00 93 04/09/17 16:00 97.6 96 20 142/60 96 Room Air 04/09/17 12:00 92 04/09/17 12:00 97.0 91 20 124/74 95 Room Air 04/09/17 09:38 101 04/09/17 09:35 101/75 04/09/17 08:00 90 04/09/17 08:00 97.8 101 21 101/75 93 Room Air Height (Feet): 5 Height (Inches): 10.00 Weight (Pounds): 163 Objective WDWN AA man NCAT supple CTA RRR Soft NT ND (+) b/l venous stasis non focal FITZ RIVAS Apr 10, 2017 06:33
[2017-04-10 08:00] VITALS: BP 101/72
[2017-04-10] MEDS: KCl 10% 40mEq/30ml liquid ORAL SCH (08:52)
[2017-04-10] MEDS: Lisinopril 2.5mg tab ORAL SCH (08:53)
[2017-04-10] MEDS ORDERED: Digoxin 0.125mg tab ORAL SCH (09:00)
[2017-04-10] MEDS ORDERED: NS Irrig 1000ml ONE (10:13)
--- NOTE | 2017-04-10 10:44 | General Progress Note ---
Assessment/Plan Status: stable Assessment/Plan Renal failure- Acute on Chronic, Cr 1.8 and 3+ Proteinuria, Cr rising Dm, Nephropathy, High A1c HyperUrecemia High LFTs Cardiomyopathy with EjFx of 15% Plan: change lasix to po added zestril Optimize cardiac status Allopurinol- add digoxin PO K supplement as needed Monitor renal parameters flomax per orders Kidney LAZARO; Left kidney measures 10.9 cm in length. Right kidney measures 10.4 cm length. Both kidneys demonstrate normal echogenicity. There is no hydronephrosis. Subjective ROS Limited/Unobtainable: No Constitutional: Reports: malaise, weakness Allergies: Coded Allergies: No Known Allergies (Unverified , 04/04/17) Objective Last 24 Hour Vital Signs Date Time Temp Pulse Resp B/P (MAP) Pulse Ox O2 Delivery O2 Flow Rate FiO2 04/10/17 08:58 99 04/10/17 08:53 101/72 04/10/17 08:00 98.9 56 19 101/72 98 Room Air 04/10/17 08:00 88 04/10/17 04:30 96.7 65 20 112/66 99 Room Air 04/10/17 04:13 85 04/09/17 23:39 93 04/09/17 23:10 97.7 91 20 95/60 97 Room Air 04/09/17 20:00 97.9 64 20 103/74 97 Room Air 04/09/17 19:25 102 04/09/17 16:00 93 04/09/17 16:00 97.6 96 20 142/60 96 Room Air 04/09/17 12:00 92 04/09/17 12:00 97.0 91 20 124/74 95 Room Air Height (Feet): 5 Height (Inches): 10.00 Weight (Pounds): 174 General Appearance: no apparent distress Cardiovascular: normal rate Respiratory/Chest: decreased breath sounds Abdomen: soft, distended Objective symptoms of low perfusion state RENNY POWER Apr 10, 2017 10:44
--- NOTE | 2017-04-10 10:50 | GI Progress Note ---
Assessment/Plan Problems: (1) Elevated serum GGT level ICD Codes: R74.8 - Abnormal levels of other serum enzymes SNOMED: 457297064 (2) Abnormal LFTs ICD Codes: R79.89 - Other specified abnormal findings of blood chemistry SNOMED: 526568210 (3) CHF (congestive heart failure) ICD Codes: I50.9 - Heart failure, unspecified SNOMED: 89723589 Qualifiers: Qualified Codes: I50.43 - Acute on chronic combined systolic (congestive) and diastolic (congestive) heart failure (4) Hepatic congestion ICD Codes: K76.1 - Chronic passive congestion of liver SNOMED: 30974411 Status: stable Status Narrative Discussed with Dr. Hinds. Assessment/Plan recommend EGD/colonoscopy >> refused, can be done as outpatient fu hepatitis panel >> negative patient refused HIDA scan patient refused CT AP utox negative elevated LFTs, GGT >> fu abdominal U/S - Gallbladder sludge and stones. Mildly thickened gallbladder wall, could indicate acute cholecystitis. >> - Right pleural effusion - Hepatomegaly ok for DC per GI standpoint cardiac diet DM mgmt monitor LFTs fu labs Subjective Subjective abdominal pain improved Objective Last 24 Hour Vital Signs Date Time Temp Pulse Resp B/P (MAP) Pulse Ox O2 Delivery O2 Flow Rate FiO2 04/10/17 08:58 99 04/10/17 08:53 101/72 04/10/17 08:00 98.9 56 19 101/72 98 Room Air 04/10/17 08:00 88 04/10/17 04:30 96.7 65 20 112/66 99 Room Air 04/10/17 04:13 85 04/09/17 23:39 93 04/09/17 23:10 97.7 91 20 95/60 97 Room Air 04/09/17 20:00 97.9 64 20 103/74 97 Room Air 04/09/17 19:25 102 04/09/17 16:00 93 04/09/17 16:00 97.6 96 20 142/60 96 Room Air 04/09/17 12:00 92 04/09/17 12:00 97.0 91 20 124/74 95 Room Air Height (Feet): 5 Height (Inches): 10.00 Weight (Pounds): 174 General Appearance: no apparent distress, alert, thin Cardiovascular: normal rate Respiratory/Chest: normal breath sounds, no respiratory distress Abdominal Exam: normal bowel sounds, non tender, soft, distended Extremities: normal range of motion Marissa Schneider N.P. Apr 10, 2017 10:50
[2017-04-10 12:00] VITALS: BP 102/64
--- NOTE | 2017-04-10 13:29 | Cardiac Electrophysiology PN ---
Assessment/Plan Assessment/Plan 1. Non sustained ventricular tachycardia up to 14 beats. Due to severe underlying cardiomyopathy, ejection fraction of 10%. Still refusing ICD implant. 2. Nonischemic cardiomyopathy, under heart failure management per Dr. Clifford. On Lasix 40 mg IV b.i.d. off lisinopril and Aldactone in view of renal failure 3. Renal failure with creatinine 2.1, under the management of Dr. Solorzano. 4. Abdominal pain and vomiting.Resolved Follow up Dr Hinds. MARIELY RN and Dr Keller Subjective Subjective Again had runs of NSVT 11 beats today. Objective Last 24 Hour Vital Signs Date Time Temp Pulse Resp B/P (MAP) Pulse Ox O2 Delivery O2 Flow Rate FiO2 04/10/17 12:00 93 04/10/17 12:00 97.2 93 19 102/64 98 Room Air 04/10/17 08:58 99 04/10/17 08:53 101/72 04/10/17 08:00 98.9 56 19 101/72 98 Room Air 04/10/17 08:00 88 04/10/17 04:30 96.7 65 20 112/66 99 Room Air 04/10/17 04:13 85 04/09/17 23:39 93 04/09/17 23:10 97.7 91 20 95/60 97 Room Air 04/09/17 20:00 97.9 64 20 103/74 97 Room Air 04/09/17 19:25 102 04/09/17 16:00 93 04/09/17 16:00 97.6 96 20 142/60 96 Room Air Intake and Output 04/10/17 04/11/17 19:00 07:00 Intake Total 240 ml Balance 240 ml Intake Oral 240 ml # Voids 1 Current Medications Medications (Trade) Dose Ordered Sig/Reuben Route PRN Reason Start Time Stop Time Status Last Admin Dose Admin Allopurinol (Allopurinol) 300 mg DAILY ORAL 04/09/17 09:00 05/09/17 08:59 04/10/17 08:52 Dextrose (Dextrose 50%) STAT PRN IV Hypoglycemia 04/04/17 18:30 05/04/17 18:29 Digoxin (Lanoxin) 0.25 mg DAILY ORAL 04/10/17 09:00 05/10/17 08:59 04/10/17 08:58 Furosemide (Lasix) 40 mg DAILY ORAL 04/11/17 09:00 05/11/17 08:59 Insulin Aspart (NovoLOG) BEFORE MEALS AND HS SUBQ 04/04/17 21:00 05/04/17 20:59 04/10/17 11:41 Lisinopril (Zestril) 2.5 mg DAILY ORAL 04/09/17 09:00 05/09/17 08:59 04/10/17 08:53 Morphine Sulfate (Morphine Sulfate) 3 mg Q4H PRN IVP For Pain 04/07/17 11:00 04/14/17 10:59 04/10/17 05:58 Ondansetron HCl (Zofran) 4 mg Q6H PRN IVP Nausea & Vomiting 04/05/17 11:00 05/05/17 10:59 04/06/17 21:35 Pantoprazole (Protonix) 40 mg EVERY 12 HOURS ORAL 04/05/17 12:00 05/05/17 11:59 04/10/17 08:58 Potassium Chloride (KCl 10% 40mEq Oral solution) 40 meq DAILY ORAL 04/11/17 09:00 05/05/17 17:59 Tamsulosin HCl (Flomax) 0.4 mg BEDTIME ORAL 04/05/17 21:00 05/05/17 20:59 04/09/17 20:18 Objective HEAD AND NECK: Shows positive JVD. LUNGS: Decreased breath sounds. Cardiovascular: RegularS1 and S2 with 2/6 systolic murmur. ABDOMEN: Distended. EXTREMITIES: 2+ pitting edema. EMILY SOLANO Apr 10, 2017 13:29
--- NOTE | 2017-04-10 14:20 | Cardiology Progress Note ---
Assessment/Plan Assessment/Plan 1. Four chamber dilated cardiomyopathy with increased intra-cardiac filling pressure. Continue low dose diuretics. Afterload treatment with ACEI is ongoing and should be optimized. 2. Acute systolic and diastolic CHF, continue furosemide, increase lisinopril to 5mg daily, creat is better. Will continue with heart failure medication optimization. 3. Severe pulmonary HTN due to the left CHF. 4. Nonsustained ventricular tachycardia. Magnesium level at 2.4. 5. Diabetes mellitus with extremely high HbA1C. Subjective Subjective Sinus rhythm at 93. Refusing the sole leveling machine operator. I/Os: - 650 Objective Last 24 Hour Vital Signs Date Time Temp Pulse Resp B/P (MAP) Pulse Ox O2 Delivery O2 Flow Rate FiO2 04/10/17 12:00 93 04/10/17 12:00 97.2 93 19 102/64 98 Room Air 04/10/17 08:58 99 04/10/17 08:53 101/72 04/10/17 08:00 98.9 56 19 101/72 98 Room Air 04/10/17 08:00 88 04/10/17 04:30 96.7 65 20 112/66 99 Room Air 04/10/17 04:13 85 04/09/17 23:39 93 04/09/17 23:10 97.7 91 20 95/60 97 Room Air 04/09/17 20:00 97.9 64 20 103/74 97 Room Air 04/09/17 19:25 102 04/09/17 16:00 93 04/09/17 16:00 97.6 96 20 142/60 96 Room Air Intake and Output 04/10/17 04/11/17 19:00 07:00 Intake Total 240 ml Balance 240 ml Intake Oral 240 ml # Voids 1 2D Echo: Four chamber DCM, Global LV hypokinesia, LVEF ~10%, Sev MR, RVSP 69 mmHg Objective HEENT: Atraumatic and normocephalic. ENT, pupils are equal, round, and reactive to light and accommodation. Conjunctival pallor is seen. Neck: JVP is elevated at about 15 cm. No carotid bruit. Carotid upstrokes 2+ bilaterally. Cardiovascular: Normal S1, S2. Regular rate and rhythm. A 2/6 mid systolic murmur at the left sternal border. LUNGS: Clear to auscultation bilaterally. Abdomen: Distended. Possible ascites. No hepatosplenomegaly. Positive bowel sounds. Extremities: There is 2+ bilateral lower extremity edema. There is also evidence of right ulceration in the lower extremity in the anterior aspect of the leg. EMILY COMBS Apr 10, 2017 14:19
[2017-04-10 15:01] VITALS: BP 102/64
--- NOTE | 2017-04-11 08:54 | General Progress Note ---
Assessment/Plan Assessment/Plan ASSESSMENT: 1. Coagulopathy, potentially secondary to congestive heart failure overload and hepatic congestion. We will also order a mixing study to see if the patient has factor deficiency. --> abd US shows hepatomegaly as well as gallbladder sludge and stones. pt refused hida scan as well as ct abdomen/pelvis. Refused egd/colo as well. --> mixing study pending, followup as op 2. Cardiomyopathy. Seen be cardiology service. 3. Acute kidney injury on CKD. --> Cr improving 4. Nephropathy. 5. Diabetes mellitus. Continue to monitor blood glucose. Subjective Date patient seen: Apr 10, 2017 Allergies: Coded Allergies: No Known Allergies (Unverified , 04/04/17) All Systems: reviewed and negative except above Subjective no fevers, no bleeding Objective Last 24 Hour Vital Signs Date Time Temp Pulse Resp B/P (MAP) Pulse Ox O2 Delivery O2 Flow Rate FiO2 04/10/17 15:01 93 102/64 04/10/17 12:00 93 04/10/17 12:00 97.2 93 19 102/64 98 Room Air 04/10/17 08:58 99 04/10/17 08:53 101/72 Height (Feet): 5 Height (Inches): 10.00 Weight (Pounds): 174 General Appearance: no apparent distress EENT: normal ENT inspection Neck: normal alignment Cardiovascular: normal rate Respiratory/Chest: normal breath sounds Extremities: non-tender Edema: mild edema Skin: warm/dry Kevin Benson Apr 11, 2017 08:54
[2017-04-11] MEDS ORDERED: Furosemide 40mg tab ORAL SCH (09:00)
[2017-04-11] MEDS ORDERED: KCl 10% 40mEq/30ml liquid ORAL SCH (09:00)
[2017-04-11] MEDS ORDERED: Lisinopril 2.5mg tab ORAL SCH (09:00)
[2017-04-11] MEDS ORDERED: Digoxin 0.125mg tab ORAL SCH (09:00)
[2017-04-11] MEDS ORDERED: DIGOXIN125 MCG ORAL (10:19)
[2017-04-11] MEDS ORDERED: ALLOPURINOL300 M1 ORAL (10:19)
[2017-04-11] MEDS ORDERED: COREG3.125 MG ORAL (10:20)
[2017-04-11] MEDS ORDERED: LISINOPRIL2.5 MG ORAL (10:20)
[2017-04-11] MEDS ORDERED: FUROSEMIDE40 MG ORAL (10:20)
[2017-04-11] MEDS ORDERED: POTASSIUM CHLO20 ME3 PO (10:20)
--- NOTE | 2017-04-11 10:21 | Discharge Summary ---
Discharge Summary Hospital Course Date of Admission Apr 04, 2017 at 14:32 Date of Discharge Apr 10, 2017 at 15:27 Admitting Diagnosis CHF HPI Mansih Baker is a 61 year old male who was admitted on Apr 04, 2017 at 14:32 for Congestive Heart Failure Hospital Course dc summary #[id number] Discharge Medications New Medications: Allopurinol* (Allopurinol*) 300 Mg Tablet 300 MG ORAL DAILY, #30 TAB Carvedilol (Coreg) 3.125 Mg Tablet 3.125 MG ORAL EVERY 12 HOURS, #60 TAB Digoxin* (Digoxin*) 125 Mcg Tablet 125 MCG ORAL DAILY, #30 TAB Furosemide* (Lasix*) 40 Mg Tablet 40 MG ORAL DAILY, #30 TAB Lisinopril* (Lisinopril*) 2.5 Mg Tablet 5 MG ORAL DAILY, #30 TAB 0 Refills Potassium Chloride (Potassium Chloride) 20 Meq Tablet.er 20 MEQ PO DAILY, #30 TAB Continued Medications: Insulin Regular, Human (Humulin R) 100 Unit/1 Ml Vial 0 SUBQ, VIAL No Known Medications* (NKM - No Known Medications*) . 0 ., 0 Refills Discharge Condition Upon Discharge: stable Discharge Disposition Patient was discharged to Home (01) Discharge Diagnoses: Discharge Instructions Discharge Instructions Special Instructions I have been assigned to complete a D/C Summary on this account. I was not involved in the patient management Wendy Mott NP (Vanchtein) Apr 11, 2017 10:21
--- NOTE | 2017-04-12 02:15 | Discharge Summary ---
DATE OF ADMISSION: 04/04/2017 DATE OF DISCHARGE: 04/10/2017 Reason For Admission: 61-year-old male with history of hypertension, diabetes, and congestive heart failure, presented with dyspnea and orthopnea. He also reported increased edema of bilateral lower extremities and right upper quadrant pain 7/10 with radiation to the back and chest. The patient stated that in the past he had similar symptoms, which improved with Lasix. He had a wound on the right lower extremity which worsened at this time. He denied chest pain, but felt chest pressure and dyspnea when he tried to walk. Accu-Chek at the field was 141. Denied fever, chills, productive cough, sore throat, headache, joint pain, and change in bowels. The patient was frustrated and depressed, but no suicidal ideation. Workup in the emergency room revealed potassium-3.2, BUN -25, creatinine-1.3. AST -44. Total bilirubin -1.3. Direct bilirubin - 0.8. Ammonia was within normal limits. Troponin was negative. Pro BNP-8526. Urine toxicology screen was negative. Chest x-ray revealed interstitial edema consistent with congestive heart failure and right base pleural effusion. The patient was admitted for further management. ADMITTING DIAGNOSES: 1. Congestive heart failure. 2. Hepatic congestion. 3. Renal insufficiency. Hospital Stay: The patient was admitted to telemetry floor. Cardiology, nephrology, GI, and hematology consults were requested. Cardiac Cath Technologist had seen and evaluated the patient and optimized cardiac status. Echocardiogram revealed ejection fraction of 10% to 15%, right ventricular systolic pressure of 69 consistent with severe pulmonary hypertension. ECHO also revealed evidence of severe mitral and tricuspid regurgitation. The patient was on the low dose of diuretic. Afterload treatment with YOGESH was initiated, and dose of YOGESH inhibitor was gradually increased. The patient was continued on beta-nicky. The patient needs to follow up with motor vehicle operator road supervisor as an outpatient and recheck echocardiogram. Medical management of congestive heart failure was optimized with beta-nicky, YOGESH inhibitor, and diuretic. Renal parameters were closely monitored. Management Lecturer followed. Per principal systems architect, the patient was started on allopurinol due to elevated uric acid and Flomax. Abdominal ultrasound revealed normal echogenicity of bilateral kidneys and no hydronephrosis. Renal parameters and electrolytes were closely monitored. Electrolyte imbalance was addressed. Nephrotoxics were avoided. Prior to discharge, creatinine- 1.2, BUN- 31. The patient also noted to have abnormal LFT with high elevation on 04/08/2017, AST -174, ALT -183, and GGT -663. Abdominal ultrasound subsequently was done and GI followed closely. Abdominal ultrasound revealed gallbladder sludge and stones, mildly thickened gallbladder wall which could indicate acute cholecystitis, hepatomegaly, and right pleural effusion. Hepatitis panel was negative. The patient declined HIDA scan. The patient declined CT of the abdomen and pelvis. The patient was recommended to have EGD and colonoscopy which he declined as well. The patient can follow up with GI for GI workup as an outpatient. Diabetes was managed with sliding scale of insulin. Hemoglobin A1c -9.9, not at goal. The patient needs to follow up with primary medical doctor with further optimization of anti-glycemic regimen. Per nephrology, the patient has diabetic nephropathy and blood sugar control is crucial in management of renal insufficiency. The patient with evidence of the venous stasis in the right lower extremity, present on admission. Wound care nurse had seen and evaluated the patient. Wound care provided as per wound care nurse recommendation. The patient was noted to have nonsustained ventricular tachycardia. Magnesium level was stable, 1.9 and 2.4. The patient was stable for discharge home since he declined all tests LFTs started to trend down. Prior to discharge, AST down to 89 from initial 174 and ALT down to 126 from initial 183. Pro BNP was trending down from 8526 to 5467. The patient was afebrile. No leukocytosis. The patient was stable for discharge. FINAL DIAGNOSES: 1. Acute systolic and diastolic congestive heart failure. 2. Dilated cardiomyopathy. 3. Severe pulmonary hypertension. 4. Nonsustained ventricular tachycardia. 5. Severe mitral regurgitation and severe tricuspid regurgitation. 6. Diabetes mellitus, out of control. 7. Acute on chronic renal failure. 8. Diabetic nephropathy. 9. Hyperuricemia. 10. Venous stasis ulcer of right lower extremity, present on admission. DISCHARGE MEDICATIONS: See medication reconciliation list. Discharge Instructions: The patient was discharged home. Follow up with primary medical doctor. Reinforced compliance with medication regimen. Joanna Keller M.D. I have been assigned to dictate discharge summary on this account and I was not involved in the patient's management. Wendy Mott N.P. (Vanchtein) DR: Stefano JOB#: [id number] CC: [id number]
[2017-04-17 00:39] LABS: 1HR INCUBATION PT 1:1NP 11.9 sec (9.6-11.5); PROTHROMBIN TIME MIXING STUDY 16.3 sec (9.6-11.5); PT 1:1NP 11.3 sec (9.6-11.5)
== END 2017-04-10 15:27 | disposition home or self-care (01) | DRG 194 ==
LOC: EDBD 12:12 → EDBEDREQ 13:37 → EMR 14:05 → 2E 14:32 → EDBEDREQ 14:58
DX: I50.43 Acute on chronic combined systolic (congestive) and diastolic (congestive) heart failure (principal); I47.2 Ventricular tachycardia; N17.9 Acute kidney failure, unspecified; E11.21 Type 2 diabetes mellitus with diabetic nephropathy; D68.9 Coagulation defect, unspecified; E11.65 Type 2 diabetes mellitus with hyperglycemia; E11.22 Type 2 diabetes mellitus with diabetic chronic kidney disease; I42.0 Dilated cardiomyopathy; N18.9 Chronic kidney disease, unspecified; E87.6 Hypokalemia; I27.20 Pulmonary hypertension, unspecified; I34.0 Nonrheumatic mitral (valve) insufficiency; I36.1 Nonrheumatic tricuspid (valve) insufficiency; I87.8 Other specified disorders of veins; I12.9 Hypertensive chronic kidney disease with stage 1 through stage 4 chronic kidney disease, or unspecified chronic kidney disease; Z72.0 Tobacco use; E79.0 Hyperuricemia without signs of inflammatory arthritis and tophaceous disease; K76.1 Chronic passive congestion of liver; K80.10 Calculus of gallbladder with chronic cholecystitis without obstruction
CPT/HCPCS: 36415; 71010; 74000; 76700; 80053; 80061; 80162; 80300; 81003; 82140; 82248; 82550; 82962; 82977; 83036; 83735; 83880; 84100; 84443; 84484; 84550; 85025; 85610; 85611; 85730; 86140; 86705; 86709; 86803; 87340; 90471; 90715; 93005; 93306; 99284; 99285; J1815; J2405; J8499

== ENCOUNTER 2017-04-11 23:56 | Inpatient (IN) | payer OTHER ==
[~2017-04-11] VITALS: Ht 170.2 cm; Wt 82.6 kg
[~2017-04-11 23:56] MED LIST changes: +ALLOPURINOL300 M1 ORAL; +COREG3.125 MG ORAL; +DIGOXIN125 MCG ORAL; +FUROSEMIDE40 MG ORAL; +FUROSEMIDE40 MG/5 ML ORAL; +HUMULIN R100 UNIT/1 SUBQ; +LISINOPRIL2.5 MG ORAL; +POTASSIUM CHLO20 ME3 PO
[2017-04-12] VITALS (9 sets, daily range): BP systolic 104–122; BP diastolic 59–88
[2017-04-12 01:06] LABS: BASOPHILS % (AUTO) 0.4 % (0.0-2.0); EOSINOPHILS % (AUTO) 1.9 % (0.0-3.0); LYMPHOCYTES % (AUTO) 17.1 % (20.0-45.0); MEAN CORPUSCULAR HGB CONC 31.5 G/DL (32.0-36.0); MEAN CORPUSCULAR VOLUME 80 FL (80-99); MEAN PLATELET VOLUME 10.5 FL (6.5-10.1); MONOCYTES % (AUTO) 7.5 % (1.0-10.0); NEUTROPHILS % (AUTO) 73.1 % (45.0-75.0); PLATELET COUNT 209 K/UL (150-450); RED BLOOD COUNT 5.78 M/UL (4.70-6.10); RED CELL DISTRIBUTION WIDTH 15.6 % (11.6-14.8); WHITE BLOOD COUNT 9.6 K/UL (4.8-10.8)
[2017-04-12 01:20] LABS: TROPONIN I < 0.30 ng/mL (<=0.30)
[2017-04-12 01:23] LABS: CALCIUM 8.3 mg/dL (8.6-10.2); CREATININE 1.3 mg/dL (0.7-1.2); GLOMERULAR FILTRATION RATE 55.9 mL/min (>60); POTASSIUM 2.9 mEQ/L (3.4-4.9); TOTAL PROTEIN 5.7 g/dL (6.6-8.7)
[2017-04-12 01:34] LABS: CKMB 2.2 ng/mL (< 6.7)
[2017-04-12 03:11] LABS: APPEARANCE,URINE CLEAR; KETONES,URINE NEGATIVE (NEGATIVE); LEUKOCYTE ESTERASE ,URINE 2+ (NEGATIVE); NITRITE,URINE NEGATIVE (NEGATIVE); PH,URINE 7 (4.5-8.0); PROTEIN,URINE 3+ (NEGATIVE); UROBILINOGEN,URINE 4 MG/DL (0.0-1.0)
[2017-04-12 03:25] LABS: BACTERIA,URINE OCCASIONAL /HPF; RBC,URINE 0-2 /HPF (0 - 0); SQUAMOUS EPITHELIAL CELL,UR OCCASIONAL /LPF (NONE/OCC)
--- NOTE | 2017-04-12 04:16 | Emergency Room Report ---
History of Present Illness General Chief Complaint: Dyspnea/Respdistress Source: Patient, Medical Record Present Illness HPI Is a 61-year-old male with a history of severe cardiomyopathy with ejection fraction around 10-15%. He was just admitted and discharged home on it 2 days ago. Patient came back because he said he felt weak with pain. No nausea no vomiting. No fever or chills. Worse with exertion. Said he has no energy. Denies any chest pain. Has not been taking his medication. No other complaint. Allergies: Coded Allergies: No Known Allergies (Unverified , 04/04/17) Patient History Past Medical History: see triage record, old chart reviewed, HTN, CHF Past Surgical History: other Pertinent Family History: none Social History: Denies: smoking Immunizations: other Reviewed Nursing Documentation: PMH: Agreed, PSxH: Agreed Nursing Documentation-PMH Hx Cardiac Problems: Yes - CHF Hx Hypertension: Yes Hx Diabetes: Yes Hx Gastrointestinal Problems: Yes - stomach pain Review of Systems Eye: Denies: eye pain, blurred vision ENT: Denies: ear pain, nose congestion, throat swelling Respiratory: Reports: shortness of breath, Denies: cough Cardiovascular: Denies: chest pain, palpitations Gastrointestinal: Denies: abdominal pain, diarrhea, nausea, vomiting Musculoskeletal: Denies: back pain, joint pain Skin: Denies: rash Neurological: Denies: headache, numbness Endocrine: Denies: increased thirst, increased urine Hematologic/Lymphatic: Denies: easy bruising All Other Systems: negative except mentioned in HPI Physical Exam Vital Signs Date Time Temp Pulse Resp B/P (MAP) Pulse Ox O2 Delivery O2 Flow Rate FiO2 04/12/17 00:16 98.2 100 26 118/82 97 Room Air vitals unremarkable Sp02 EP Interpretation: reviewed, normal General Appearance: mild distress, Chronically Ill Head: normocephalic, atraumatic Eyes: bilateral eye PERRL, bilateral eye EOMI ENT: hearing grossly normal, normal pharynx Neck: full range of motion, supple, no meningismus Respiratory: chest non-tender, rales Cardiovascular #1: regular rate, rhythm, no murmur Gastrointestinal: normal bowel sounds, non tender, no mass, no organomegaly, no bruit, non-distended Musculoskeletal: back normal, normal range of motion, swelling - 1+ edema Neurologic: alert, oriented x3 Psychiatric: mood/affect normal Skin: warm/dry Medical Decision Making Diagnostic Impression: Primary Impression: Cardiomyopathy Qualified Codes: I42.9 - Cardiomyopathy, unspecified Additional Impressions: CHF exacerbation Qualified Codes: I50.9 - Heart failure, unspecified Failure to thrive in adult Hypokalemia Proteinuria Qualified Codes: R80.9 - Proteinuria, unspecified ER Course Patient presents with severe cardiomyopathy and CHF. I suspect that he is very noncompliant with his medication and also very educated about his disease process. Is unable to care for himself as an outpatient. Will admit for probable senior care placement. No evidence of ACS, PE, dissection to name a few. Laboratory Tests Test 04/12/17 00:45 04/12/17 02:45 White Blood Count 9.6 K/UL (4.8-10.8) Red Blood Count 5.78 M/UL (4.70-6.10) Hemoglobin 14.5 G/DL (14.2-18.0) Hematocrit 46.0 % (42.0-52.0) Mean Corpuscular Volume 80 FL (80-99) Mean Corpuscular Hemoglobin 25.0 PG (27.0-31.0) L Mean Corpuscular Hemoglobin Concent 31.5 G/DL (32.0-36.0) L Red Cell Distribution Width 15.6 % (11.6-14.8) H Platelet Count 209 K/UL (150-450) Mean Platelet Volume 10.5 FL (6.5-10.1) H Neutrophils (%) (Auto) 73.1 % (45.0-75.0) Lymphocytes (%) (Auto) 17.1 % (20.0-45.0) L Monocytes (%) (Auto) 7.5 % (1.0-10.0) Eosinophils (%) (Auto) 1.9 % (0.0-3.0) Basophils (%) (Auto) 0.4 % (0.0-2.0) Sodium Level 136 mEQ/L (135-145) Potassium Level 2.9 mEQ/L (3.4-4.9) L Chloride Level 93 mEQ/L (98-107) L Carbon Dioxide Level 32 mEQ/L (20-30) H Anion Gap 11 (5-15) Blood Urea Nitrogen 17 mg/dL (7-23) Creatinine 1.3 mg/dL (0.7-1.2) H Estimat Glomerular Filtration Rate 55.9 mL/min (>60) Glucose Level 212 mg/dL (74-106) H Calcium Level 8.3 mg/dL (8.6-10.2) L Total Bilirubin 0.9 mg/dL (0.0-1.2) Aspartate Amino Transf (AST/SGOT) 34 U/L (5-40) Alanine Aminotransferase (ALT/SGPT) 69 U/L (3-41) H Alkaline Phosphatase 172 U/L (40-129) H Total Creatine Kinase 146 U/L (38-174) Creatine Kinase MB 2.2 ng/mL (< 6.7) Creatine Kinase MB Relative Index 1.5 Troponin I < 0.30 ng/mL (<=0.30) Pro-B-Type Natriuretic Peptide 37407 pg/mL (0-125) H Total Protein 5.7 g/dL (6.6-8.7) L Albumin 2.9 g/dL (3.5-5.2) L Globulin 2.8 g/dL Albumin/Globulin Ratio 1.0 (1.0-2.7) Urine Color Yellow Urine Appearance Clear Urine pH 7 (4.5-8.0) Urine Specific [place] 1.005 (1.005-1.035) Urine Protein 3+ (NEGATIVE) H Urine Glucose (UA) 2+ (NEGATIVE) H Urine Ketones Negative (NEGATIVE) Urine Occult Blood Negative (NEGATIVE) Urine Nitrite Negative (NEGATIVE) Urine Bilirubin Negative (NEGATIVE) Urine Urobilinogen 4 MG/DL (0.0-1.0) H Urine Leukocyte Esterase 2+ (NEGATIVE) H Urine RBC 0-2 /HPF (0 - 0) H Urine WBC 2-4 /HPF (0 - 0) Urine Squamous Epithelial Cells Occasional /LPF Urine Bacteria Occasional /HPF (NONE) Lab Results Impression labs with elevated BNP EKG Diagnostic Results Rate: normal Rhythm: NSR ST Segments: other - NSST changes Rhythm Strip Diag. Results Rhythm Strip Time: 04:15 EP Interpretation: yes Rate: 98 Rhythm: NSR, no PVC's, no ectopy Chest X-Ray Diagnostic Results Chest X-Ray Diagnostic Results : Chest X-Ray Ordered: Yes # of Views/Limited/Complete: 1 View Indication: Shortness of Breath EP Interpretation: Yes Interpretation: no consolidation, no pneumothorax, other - CM with vasc congestion Impression: Other - CM with chf Electronically Signed by: Electronically signed by Santos Schneider MD Last Vital Signs Date Time Temp Pulse Resp B/P (MAP) Pulse Ox O2 Delivery O2 Flow Rate FiO2 04/12/17 02:39 98.2 92 24 105/74 98 Room Air Status: improved Disposition: ADMITTED INPATIENT Condition: Serious Referrals: [facility],REFERRING (PCP) SANTOS SCHNEIDER M.D. Apr 12, 2017 04:16
[2017-04-12] MEDS: Furosemide 40mg tab ORAL SCH (09:34)
[2017-04-12] MEDS: Digoxin 0.125mg tab ORAL SCH (09:35)
--- NOTE | 2017-04-12 10:16 | Consultation ---
Consult Note Consult Note discharged yesterday readmitted with weakness Assessment/Plan Renal failure- Acute on Chronic, Cr 1.3 now 3+ Proteinuria, Cr rising K low Dm, Nephropathy, High A1c HyperUrecemia High LFTs Cardiomyopathy with EjFx of 15% Plan: lasix to po zestril Optimize cardiac status Allopurinol- add digoxin PO K supplement as needed Monitor renal parameters flomax per orders Kidney LAZARO; Left kidney measures 10.9 cm in length. Right kidney measures 10.4 cm length. Both kidneys demonstrate normal echogenicity. There is no hydronephrosis. RENNY POWER Apr 12, 2017 10:16
--- NOTE | 2017-04-12 10:47 | Diagnostic Imaging Report ---
Indication: Dyspnea Comparison: 04/04/70 A single view chest radiograph was obtained. Findings: Heart is enlarged. There is a right pleural effusion blunting of the costophrenic angle. Mild interstitial edema suspected. Impression: Mild interstitial edema suspected. This appears slightly better than on the prior occasion
[2017-04-12] MEDS: NovoLOG Insulin Flexpen SUBQ SCH ×3 (11:54→22:43)
[2017-04-12] MEDS: Morphine Sulfate 4mg/ml Inj IVP PRN ×2 (12:49→17:31)
--- NOTE | 2017-04-12 14:41 | GI Initial Consult Note ---
JennieMarissa Zeng N.P. 04/12/17 1441: History of Present Illness General Date patient seen: Apr 12, 2017 Time patient seen: 14:39 Reason for Hospitalization: Dyspnea/Respdistress Referring physician: MINDI MCKEON Reason for Consultation: ABDOMINAL PAIN Present Illness HPI Patient is a 61-year-old male with a history of severe cardiomyopathy with ejection fraction around 10-15%. He was just admitted and discharged home on it 2 days ago. Patient came back because he said he felt weak with pain. No nausea no vomiting. No fever or chills. Worse with exertion. Said he has no energy. Denies any chest pain. Has not been taking his medication. No other complaint. GI consulted for abdominal pain. HPI as noted above. Pt seen on floor, awake A&Ox4 NAD with no active s/sx of N/V/D. Abdomen distended and soft. During the prior admission, the patient presented with elevated LFTs raising concerns of possible cholecystitis in which he had refused to have a HIDA scan and CT AP performed at the time. However, he presents today with normal total bilirubin levels. In addition labs show patient normal H&H levels with microcytic hypochromic RBCs, elevated alkaline phosphatase and hypoalbuminemia. No known history of endoscopic procedures. Home Meds Active Scripts Potassium Chloride (Potassium Chloride) 20 Meq Tablet.er, 20 MEQ PO DAILY, #30 TAB Prov:Pantera (Aretha)Wendy NP 04/11/17 Furosemide* (LASIX*) 40 Mg Tablet, 40 MG ORAL DAILY, #30 TAB Prov:Pantera ([facility])Wendy NP 04/11/17 Lisinopril* (LISINOPRIL*) 2.5 Mg Tablet, 5 MG ORAL DAILY, #30 TAB 0 Refills Prov:[facility] [place]Wendy NP 04/11/17 Carvedilol (Coreg) 3.125 Mg Tablet, 3.125 MG ORAL EVERY 12 HOURS, #60 TAB Prov:Pantera ([facility])Wendy NP 04/11/17 Allopurinol* (ALLOPURINOL*) 300 Mg Tablet, 300 MG ORAL DAILY, #30 TAB [facility]Pantera [facility] Jean-Baptiste NP 04/11/17 Digoxin* (DIGOXIN*) 125 Mcg Tablet, 125 MCG ORAL DAILY, #30 TAB Prov:Mott (KristenWendy hewitt MECHANICAL ENGINEERING DIRECTOR 04/11/17 Reported Medications Insulin Regular, Human (HUMULIN R) 100 Unit/1 Ml Vial, 0 SUBQ, VIAL 04/04/17 No Known Medications* (NKM - No Known Medications*) ., 0 ., 0 Refills 04/04/17 Med list reviewed/reconciled: Yes Allergies: Coded Allergies: No Known Allergies (Unverified , 04/04/17) Patient History PMH Narrative Past Medical History: see triage record, old chart reviewed, HTN, CHF Past Surgical History: other Pertinent Family History: none Social History: Denies: smoking Immunizations: other Reviewed Nursing Documentation: PMH: Agreed, PSxH: Agreed Nursing Documentation-PMH Hx Cardiac Problems: Yes - CHF Hx Hypertension: Yes Hx Diabetes: Yes Hx Gastrointestinal Problems: Yes - stomach pain Social History: Denies: smoking, alcohol use, drug use, other Review of Systems All Other Systems: negative except mentioned in HPI Physical Exam Vital Signs Date Time Temp Pulse Resp B/P (MAP) Pulse Ox O2 Delivery O2 Flow Rate FiO2 04/12/17 00:16 98.2 100 26 118/82 97 Room Air 04/12/17 06:15 2.0 Sp02 EP Interpretation: reviewed Labs Laboratory Tests Test 04/12/17 00:45 04/12/17 02:45 White Blood Count 9.6 K/UL (4.8-10.8) Red Blood Count 5.78 M/UL (4.70-6.10) Hemoglobin 14.5 G/DL (14.2-18.0) Hematocrit 46.0 % (42.0-52.0) Mean Corpuscular Volume 80 FL (80-99) Mean Corpuscular Hemoglobin 25.0 PG (27.0-31.0) L Mean Corpuscular Hemoglobin Concent 31.5 G/DL (32.0-36.0) L Red Cell Distribution Width 15.6 % (11.6-14.8) H Platelet Count 209 K/UL (150-450) Mean Platelet Volume 10.5 FL (6.5-10.1) H Neutrophils (%) (Auto) 73.1 % (45.0-75.0) Lymphocytes (%) (Auto) 17.1 % (20.0-45.0) L Monocytes (%) (Auto) 7.5 % (1.0-10.0) Eosinophils (%) (Auto) 1.9 % (0.0-3.0) Basophils (%) (Auto) 0.4 % (0.0-2.0) Sodium Level 136 mEQ/L (135-145) Potassium Level 2.9 mEQ/L (3.4-4.9) L Chloride Level 93 mEQ/L (98-107) L Carbon Dioxide Level 32 mEQ/L (20-30) H Anion Gap 11 (5-15) Blood Urea Nitrogen 17 mg/dL (7-23) Creatinine 1.3 mg/dL (0.7-1.2) H Estimat Glomerular Filtration Rate 55.9 mL/min (>60) Glucose Level 212 mg/dL (74-106) H Calcium Level 8.3 mg/dL (8.6-10.2) L Total Bilirubin 0.9 mg/dL (0.0-1.2) Aspartate Amino Transf (AST/SGOT) 34 U/L (5-40) Alanine Aminotransferase (ALT/SGPT) 69 U/L (3-41) H Alkaline Phosphatase 172 U/L (40-129) H Total Creatine Kinase 146 U/L (38-174) Creatine Kinase MB 2.2 ng/mL (< 6.7) Creatine Kinase MB Relative Index 1.5 Troponin I < 0.30 ng/mL (<=0.30) Pro-B-Type Natriuretic Peptide 28182 pg/mL (0-125) H Total Protein 5.7 g/dL (6.6-8.7) L Albumin 2.9 g/dL (3.5-5.2) L Globulin 2.8 g/dL Albumin/Globulin Ratio 1.0 (1.0-2.7) Urine Color Yellow Urine Appearance Clear Urine pH 7 (4.5-8.0) Urine Specific [place] 1.005 (1.005-1.035) Urine Protein 3+ (NEGATIVE) H Urine Glucose (UA) 2+ (NEGATIVE) H Urine Ketones Negative (NEGATIVE) Urine Occult Blood Negative (NEGATIVE) Urine Nitrite Negative (NEGATIVE) Urine Bilirubin Negative (NEGATIVE) Urine Urobilinogen 4 MG/DL (0.0-1.0) H Urine Leukocyte Esterase 2+ (NEGATIVE) H Urine RBC 0-2 /HPF (0 - 0) H Urine WBC 2-4 /HPF (0 - 0) Urine Squamous Epithelial Cells Occasional /LPF Urine Bacteria Occasional /HPF (NONE) General Appearance: no apparent distress Head: normocephalic EENT: normal ENT inspection Neck: full range of motion, supple Respiratory: no respiratory distress Cardiovascular: normal rate Gastrointestinal: soft, distended Rectal: deferred Musculoskeletal: back normal Neurologic: normal inspection, alert, oriented x3, responsive Psychiatric: normal inspection, judgement/insight normal, memory normal Skin: normal inspection, normal color, no rash, warm/dry Lymphatic: normal inspection, no adenopathy Current Medications Current Medications Medications (Trade) Dose Ordered Sig/Reuben Route PRN Reason Start Time Stop Time Status Last Admin Dose Admin Allopurinol (Allopurinol) 300 mg DAILY ORAL 04/12/17 09:30 05/12/17 09:29 04/12/17 09:35 Carvedilol (Coreg) 3.125 mg DAILY ORAL 04/12/17 09:30 05/12/17 09:29 04/12/17 09:39 Dextrose (Dextrose 50%) STAT PRN IV Hypoglycemia 04/12/17 09:30 05/12/17 09:29 Digoxin (Lanoxin) 0.125 mg DAILY ORAL 04/12/17 09:30 05/12/17 09:29 04/12/17 09:35 Furosemide (Lasix) 40 mg DAILY ORAL 04/12/17 09:30 05/12/17 09:29 04/12/17 09:34 Insulin Aspart (NovoLOG) BEFORE MEALS AND HS SUBQ 04/12/17 11:30 05/12/17 11:29 04/12/17 11:54 Morphine Sulfate (Morphine Sulfate) 3 mg Q4H PRN IVP For Pain 04/12/17 12:45 04/19/17 12:44 04/12/17 12:49 Ondansetron HCl (Zofran) 4 mg Q6H PRN IVP Nausea & Vomiting 04/12/17 09:30 05/12/17 09:29 04/12/17 11:22 Pantoprazole (Protonix) 40 mg ACBREAKFAST ORAL 04/12/17 09:30 05/12/17 09:29 04/12/17 09:35 GI: Plan Problems: (1) Hypoalbuminemia (2) Abnormal LFTs (3) Elevated serum GGT level (4) Failure to thrive in adult (5) CHF exacerbation Plan recommend EGD/colonoscopy >> refused, can be done as outpatient hepatitis panel >> negative abdominal U/S reviewed - Gallbladder sludge and stones. Mildly thickened gallbladder wall, could indicate acute cholecystitis. >> patient refused HIDA scan and CT AP - Right pleural effusion - Hepatomegaly fu CT AP symptomatic treatment ordered iron panel, CEA cardiac diet DM mgmt pain mgmt monitor LFTs electrolyte correction fu labs Discussed with Dr. Hanna. Thank you for referring this patient, we will follow. YUDI HANNA 04/13/17 1452: History of Present Illness General Reason for Hospitalization: Dyspnea/Respdistress Present Illness Home Meds Active Scripts Potassium Chloride (Potassium Chloride) 20 Meq Tablet.er, 20 MEQ PO DAILY, #30 TAB Prov:Mott (Vanchtein),Wendy MECHANICAL ENGINEERING DIRECTOR 04/11/17 Furosemide* (LASIX*) 40 Mg Tablet, 40 MG ORAL DAILY, #30 TAB Prov:Mott ([facility]),Wendy MECHANICAL ENGINEERING DIRECTOR 04/11/17 Lisinopril* (LISINOPRIL*) 2.5 Mg Tablet, 5 MG ORAL DAILY, #30 TAB 0 Refills Prov:Mott (Vanchtein),Wendy MECHANICAL ENGINEERING DIRECTOR 04/11/17 Carvedilol (Coreg) 3.125 Mg Tablet, 3.125 MG ORAL EVERY 12 HOURS, #60 TAB Prov:Mott (Vancein),Wendy MECHANICAL ENGINEERING DIRECTOR 04/11/17 Allopurinol* (ALLOPURINOL*) 300 Mg Tablet, 300 MG ORAL DAILY, #30 TAB Prov:Mott ([facility]),Wendy MECHANICAL ENGINEERING DIRECTOR 04/11/17 Digoxin* (DIGOXIN*) 125 Mcg Tablet, 125 MCG ORAL DAILY, #30 TAB Prov:Mott ([facility]),Wendy MECHANICAL ENGINEERING DIRECTOR 04/11/17 Reported Medications Insulin Regular, Human (HUMULIN R) 100 Unit/1 Ml Vial, 0 SUBQ, VIAL 04/04/17 No Known Medications* (NKM - No Known Medications*) ., 0 ., 0 Refills 04/04/17 Allergies: Coded Allergies: No Known Allergies (Unverified , 04/04/17) Patient History Social History Narrative The patient was seen and examined at bedside and all new and available data was reviewed in the patients chart. I agree with the above findings, impression and plan. (Patient seen earlier today. Signature stamp does not reflect patient encounter time.). -Marissa Rosa MD, N.P. Apr 12, 2017 14:41 YUDI HANNA Apr 13, 2017 14:52
--- NOTE | 2017-04-12 20:00 | Cardiology Progress Note ---
Assessment/Plan Assessment/Plan The patient is seen and examined, full consult note will be dictated. Objective Last 24 Hour Vital Signs Date Time Temp Pulse Resp B/P (MAP) Pulse Ox O2 Delivery O2 Flow Rate FiO2 04/12/17 19:55 97.5 87 24 122/74 98 Nasal Cannula 2.0 04/12/17 16:00 97.9 73 20 104/59 95 Room Air 04/12/17 15:47 89 04/12/17 12:00 97.6 93 20 120/65 92 04/12/17 11:39 96 04/12/17 09:39 98 114/66 04/12/17 09:35 96 04/12/17 08:41 97.4 50 20 111/81 100 Room Air 04/12/17 08:00 96 04/12/17 06:15 97.1 94 20 110/80 95 2.0 04/12/17 06:05 97.0 99 21 110/88 97 Room Air 04/12/17 05:33 99 21 110/88 97 Room Air 04/12/17 04:13 97.0 100 24 117/80 96 Room Air 04/12/17 02:39 98.2 92 24 105/74 98 Room Air 04/12/17 00:35 100 26 Room Air 04/12/17 00:16 98.2 100 26 118/82 97 Room Air Intake and Output 04/12/17 04/13/17 19:00 07:00 Intake Total 350 ml Balance 350 ml Intake Oral 350 ml # Voids 3 # Bowel Movements 3 Laboratory Tests Test 04/12/17 00:45 04/12/17 02:45 White Blood Count 9.6 K/UL (4.8-10.8) Red Blood Count 5.78 M/UL (4.70-6.10) Hemoglobin 14.5 G/DL (14.2-18.0) Hematocrit 46.0 % (42.0-52.0) Mean Corpuscular Volume 80 FL (80-99) Mean Corpuscular Hemoglobin 25.0 PG (27.0-31.0) L Mean Corpuscular Hemoglobin Concent 31.5 G/DL (32.0-36.0) L Red Cell Distribution Width 15.6 % (11.6-14.8) H Platelet Count 209 K/UL (150-450) Mean Platelet Volume 10.5 FL (6.5-10.1) H Neutrophils (%) (Auto) 73.1 % (45.0-75.0) Lymphocytes (%) (Auto) 17.1 % (20.0-45.0) L Monocytes (%) (Auto) 7.5 % (1.0-10.0) Eosinophils (%) (Auto) 1.9 % (0.0-3.0) Basophils (%) (Auto) 0.4 % (0.0-2.0) Sodium Level 136 mEQ/L (135-145) Potassium Level 2.9 mEQ/L (3.4-4.9) L Chloride Level 93 mEQ/L (98-107) L Carbon Dioxide Level 32 mEQ/L (20-30) H Anion Gap 11 (5-15) Blood Urea Nitrogen 17 mg/dL (7-23) Creatinine 1.3 mg/dL (0.7-1.2) H Estimat Glomerular Filtration Rate 55.9 mL/min (>60) Glucose Level 212 mg/dL (74-106) H Calcium Level 8.3 mg/dL (8.6-10.2) L Total Bilirubin 0.9 mg/dL (0.0-1.2) Aspartate Amino Transf (AST/SGOT) 34 U/L (5-40) Alanine Aminotransferase (ALT/SGPT) 69 U/L (3-41) H Alkaline Phosphatase 172 U/L (40-129) H Total Creatine Kinase 146 U/L (38-174) Creatine Kinase MB 2.2 ng/mL (< 6.7) Creatine Kinase MB Relative Index 1.5 Troponin I < 0.30 ng/mL (<=0.30) Pro-B-Type Natriuretic Peptide 90386 pg/mL (0-125) H Total Protein 5.7 g/dL (6.6-8.7) L Albumin 2.9 g/dL (3.5-5.2) L Globulin 2.8 g/dL Albumin/Globulin Ratio 1.0 (1.0-2.7) Urine Color Yellow Urine Appearance Clear Urine pH 7 (4.5-8.0) Urine Specific [place] 1.005 (1.005-1.035) Urine Protein 3+ (NEGATIVE) H Urine Glucose (UA) 2+ (NEGATIVE) H Urine Ketones Negative (NEGATIVE) Urine Occult Blood Negative (NEGATIVE) Urine Nitrite Negative (NEGATIVE) Urine Bilirubin Negative (NEGATIVE) Urine Urobilinogen 4 MG/DL (0.0-1.0) H Urine Leukocyte Esterase 2+ (NEGATIVE) H Urine RBC 0-2 /HPF (0 - 0) H Urine WBC 2-4 /HPF (0 - 0) Urine Squamous Epithelial Cells Occasional /LPF Urine Bacteria Occasional /HPF (NONE) EMILY COMBS Apr 12, 2017 20:00
[2017-04-13] VITALS: BP 119/71
--- NOTE | 2017-04-13 02:00 | History and Physical Report ---
DATE OF ADMISSION: 04/12/2017 History Of Present Illness: The patient comes in, was recently discharged, came back with same symptoms of abdominal pain and shortness of breath. The patient also has a poor hygiene of the lower extremity. The patient complained of leg pain and difficulty walking status post fall yesterday and the patient has abdominal pain, does have shortness of breath. Denies cough. Denies chest pain. Denies palpitations. Denies nausea, vomiting, or diarrhea. Denies rectal bleeding. Past Medical History: CHF, NIDDM, hypertension, arrhythmia, history of gout, and syncope. PAST SURGICAL HISTORY: None. MEDICATIONS: Digoxin, Coreg, lisinopril, and potassium. ALLERGIES: No known allergies. Social History: The patient has history of smoking. Denies drugs or alcohol abuse. Review Of Systems: HEENT: Denies headaches. Respiratory: Denies shortness of breath. Denies cough. Cardiovascular: Denies chest pain. Denies orthopnea. Gastrointestinal: Denies nausea, vomiting, or diarrhea. Extremities: Does have leg pain. Central Nervous System: No change in vision or speech pattern. PHYSICAL EXAMINATION: Vital Signs: Temperature is 97.4 degrees, pulse 96, and blood pressure 111/81. HEENT: PERRLA. NECK: Supple. No lymphadenopathy. CHEST: Clear to auscultation. CARDIOVASCULAR: Regular rate and rhythm. Abdomen: Distended. No significant tenderness. Abdomen is soft. No organomegaly. Extremities: There is 1+ edema. Reflexes are equal on both sides. Able to move his all four extremities. NEUROLOGIC: Oriented x2. Laboratory Data: WBC of 9.6, hemoglobin of 14.5, and platelets of 209,000. Sodium 136, potassium 2.9, BUN of 17, creatinine 1.3, and glucose of 212. BNP of 11,487. ASSESSMENT: 1. Congestive heart failure exacerbation. 2. Hypokalemia. 3. Elevated BNP. 4. Shortness of breath. 5. Abdominal pain. Plan: I have asked Dr. Clifford, Dr. Solorzano, as well as Dr. Hinds to see the patient for the above-mentioned diagnoses and treatment. Joanna Keller M.D. DR: PRINCESS JOB#: [id number] CC:
[2017-04-13 04:00] VITALS: BP 126/93
[2017-04-13 06:22] LABS: EOSINOPHILS % (AUTO) 1.9 % (0.0-3.0); LYMPHOCYTES % (AUTO) 24.6 % (20.0-45.0); MEAN CORPUSCULAR HEMOGLOBIN 24.9 PG (27.0-31.0); MEAN CORPUSCULAR HGB CONC 31.1 G/DL (32.0-36.0); MEAN CORPUSCULAR VOLUME 80 FL (80-99); MEAN PLATELET VOLUME 10.2 FL (6.5-10.1); MONOCYTES % (AUTO) 7.1 % (1.0-10.0); NEUTROPHILS % (AUTO) 65.3 % (45.0-75.0); PLATELET COUNT 189 K/UL (150-450); RED BLOOD COUNT 5.93 M/UL (4.70-6.10); RED CELL DISTRIBUTION WIDTH 15.8 % (11.6-14.8); WHITE BLOOD COUNT 8.5 K/UL (4.8-10.8)
[2017-04-13] MEDS: NovoLOG Insulin Flexpen SUBQ SCH ×4 (06:22→21:18)
[2017-04-13 06:51] LABS: ALANINE AMINOTRANSFERASE 59 U/L (3-41); ALBUMIN/GLOBULIN RATIO 0.9 (1.0-2.7); ANION GAP 14 (5-15); ASPARTATE AMINO TRANSFERASE 30 U/L (5-40); CALCIUM 8.5 mg/dL (8.6-10.2); CARBON DIOXIDE 29 mEQ/L (20-30); CHLORIDE 93 mEQ/L (98-107); CHOLESTEROL 78 mg/dL (< 200); CHOLESTEROL/HDL RATIO 2.6 (3.3-4.4); CREATININE 1.3 mg/dL (0.7-1.2); CRP QUANT 2.9 mg/dL (< 0.5); GLOMERULAR FILTRATION RATE 55.9 mL/min (>60); HEMOLYSIS 6; LDL CHOLESTEROL CALC 34 mg/dL (60-99); MAGNESIUM 2.3 mg/dL (1.7-2.5); PHOSPHORUS 2.8 mg/dL (2.5-4.8); POTASSIUM 3.4 mEQ/L (3.4-4.9); SODIUM 136 mEQ/L (135-145); TOTAL PROTEIN 5.8 g/dL (6.6-8.7); URIC ACID 8.6 mg/dL (3.0-7.5)
--- NOTE | 2017-04-13 07:22 | Wound Care Consultation ---
Wound Assessment Wound Assessment : Wound Number: 1 Wound Present on Admission: Yes New Wound: No Status Change of Wound: No Wound Location Body Site Modif: left, right, lower Wound Location Body Site: leg Wound Type: vascular wound - scattered Medardo Test: Does not Medardo Wound Thickness: Full Thickness Percent of Wound [place]/Red: 100 Wound Drainage Description: Serosanguineous Wound Drainage Amount: Moderate Wound Drainage Odor: None/Absent Tissue Surrounding Wound: Denuded - and dry Wound General Appearance: Reddened, Draining Wound Comment #1 Left and right lower legs with scattered open venous stasis ulcers Recommendation -Cleanse with saline, pat dry, apply Adaptic, cover with 4x4, wrap with Kerlix daily and PRN soiled/dislodged -Keep clean and dry -Turn and reposition -Offload both heels -Elevate both legs -Optimize nutrition -Assess and f/u accordingly for any changes EARLENE MÁRQUEZ RN Apr 13, 2017 07:22
[2017-04-13 07:35] LABS: BILIRUBIN,DIRECT 0.6 mg/dL (0.1-0.3); HEMOLYSIS 72; IRON 40 ug/dL (59-158); TOTAL IRON BINDING CAPACITY 305 ug/dL (250-400)
[2017-04-13 08:06] VITALS: BP 125/74
[2017-04-13] MEDS: Furosemide 40mg tab ORAL SCH (08:55)
[2017-04-13] MEDS ORDERED: Digoxin 0.125mg tab ORAL SCH (09:00)
[2017-04-13] MEDS: Morphine Sulfate 4mg/ml Inj IVP PRN ×2 (09:41→17:15)
--- NOTE | 2017-04-13 10:31 | GI Progress Note ---
Assessment/Plan Problems: (1) Elevated serum GGT level ICD Codes: R74.8 - Abnormal levels of other serum enzymes SNOMED: 630373418 (2) CHF exacerbation ICD Codes: I50.9 - Heart failure, unspecified SNOMED: 28962566 Qualifiers: Qualified Codes: I50.9 - Heart failure, unspecified (3) Failure to thrive in adult ICD Codes: R62.7 - Adult failure to thrive SNOMED: 828612165 (4) Hypoalbuminemia ICD Codes: E88.09 - Other disorders of plasma-protein metabolism, not elsewhere classified SNOMED: 067159868 Status: stable Status Narrative Discussed with Dr. Hinds. Assessment/Plan recommend EGD/colonoscopy >> refused, can be done as outpatient hepatitis panel >> negative abdominal U/S reviewed - Gallbladder sludge and stones. Mildly thickened gallbladder wall, could indicate acute cholecystitis. >> patient refused HIDA scan and CT AP - Right pleural effusion - Hepatomegaly fu CT AP >> refusing symptomatic treatment iron deficiency >> venofer x 1 cardiac diet DM mgmt pain mgmt monitor LFTs electrolyte correction fu labs Subjective Subjective abdominal pain Objective Last 24 Hour Vital Signs Date Time Temp Pulse Resp B/P (MAP) Pulse Ox O2 Delivery O2 Flow Rate FiO2 04/13/17 08:55 76 132/74 04/13/17 08:06 97.1 86 20 125/74 96 Room Air 04/13/17 08:00 85 04/13/17 04:00 97.3 93 24 126/93 96 Room Air 04/13/17 04:00 92 04/13/17 00:00 87 04/13/17 00:00 96.3 93 24 119/71 98 Room Air 04/12/17 20:00 90 04/12/17 19:55 97.5 87 24 122/74 98 Nasal Cannula 2.0 04/12/17 16:00 97.9 73 20 104/59 95 Room Air 04/12/17 15:47 89 04/12/17 12:00 97.6 93 20 120/65 92 04/12/17 11:39 96 Intake and Output 04/13/17 04/14/17 18:59 06:59 Intake Total 120 ml Balance 120 ml Intake Oral 120 ml # Bowel Movements 1 Laboratory Tests Test 04/13/17 06:00 White Blood Count 8.5 K/UL (4.8-10.8) Red Blood Count 5.93 M/UL (4.70-6.10) Hemoglobin 14.8 G/DL (14.2-18.0) Hematocrit 47.5 % (42.0-52.0) Mean Corpuscular Volume 80 FL (80-99) Mean Corpuscular Hemoglobin 24.9 PG (27.0-31.0) L Mean Corpuscular Hemoglobin Concent 31.1 G/DL (32.0-36.0) L Red Cell Distribution Width 15.8 % (11.6-14.8) H Platelet Count 189 K/UL (150-450) Mean Platelet Volume 10.2 FL (6.5-10.1) H Neutrophils (%) (Auto) 65.3 % (45.0-75.0) Lymphocytes (%) (Auto) 24.6 % (20.0-45.0) Monocytes (%) (Auto) 7.1 % (1.0-10.0) Eosinophils (%) (Auto) 1.9 % (0.0-3.0) Basophils (%) (Auto) 1.0 % (0.0-2.0) Sodium Level 136 mEQ/L (135-145) Potassium Level 3.4 mEQ/L (3.4-4.9) Chloride Level 93 mEQ/L (98-107) L Carbon Dioxide Level 29 mEQ/L (20-30) Anion Gap 14 (5-15) Blood Urea Nitrogen 22 mg/dL (7-23) Creatinine 1.3 mg/dL (0.7-1.2) H Estimat Glomerular Filtration Rate 55.9 mL/min (>60) Glucose Level 124 mg/dL (74-106) H Uric Acid 8.6 mg/dL (3.0-7.5) H Calcium Level 8.5 mg/dL (8.6-10.2) L Phosphorus Level 2.8 mg/dL (2.5-4.8) Magnesium Level 2.3 mg/dL (1.7-2.5) Iron Level 40 ug/dL (59-158) L Total Iron Binding Capacity 305 ug/dL (250-400) Percent Iron Saturation 13 % (15-50) L Unsaturated Iron Binding 265 ug/dL (112-346) Total Bilirubin 1.1 mg/dL (0.0-1.2) Direct Bilirubin 0.6 mg/dL (0.1-0.3) H Gamma Glutamyl Transpeptidase 427 U/L (8-61) H Aspartate Amino Transf (AST/SGOT) 30 U/L (5-40) Alanine Aminotransferase (ALT/SGPT) 59 U/L (3-41) H Alkaline Phosphatase 158 U/L (40-129) H Total Creatine Kinase 85 U/L (38-174) C-Reactive Protein, Quantitative 2.9 mg/dL (< 0.5) H Pro-B-Type Natriuretic Peptide 19120 pg/mL (0-125) H Total Protein 5.8 g/dL (6.6-8.7) L Albumin 2.8 g/dL (3.5-5.2) L Globulin 3.0 g/dL Albumin/Globulin Ratio 0.9 (1.0-2.7) L Triglycerides Level 68 mg/dL (< 150) Cholesterol Level 78 mg/dL (< 200) LDL Cholesterol 34 mg/dL (60-99) L HDL Cholesterol 30 mg/dL (> 60) Cholesterol/HDL Ratio 2.6 (3.3-4.4) L Carcinoembryonic Antigen 1.8 ng/mL Thyroid Stimulating Hormone (TSH) 3.270 uIU/mL (0.300-4.500) Digoxin Level Pending Height (Feet): 5 Height (Inches): 7.00 Weight (Pounds): 178 General Appearance: no apparent distress, alert, thin Cardiovascular: normal rate Respiratory/Chest: lungs clear Abdominal Exam: soft, distended Extremities: normal range of motion Marissa Schneider N.P. Apr 13, 2017 10:31
[2017-04-13 11:46] VITALS: BP 116/75
--- NOTE | 2017-04-13 11:48 | General Progress Note ---
Assessment/Plan Assessment/Plan status; Renal failure- Acute on Chronic, Cr 1.3 now 3+ Proteinuria, Cr rising K low Dm, Nephropathy, High A1c HyperUrecemia High LFTs Cardiomyopathy with EjFx of 15% Plan: lasix to po zestril Optimize cardiac status Allopurinol- add digoxin PO K supplement as needed Monitor renal parameters flomax per orders Kidney LAZARO; Left kidney measures 10.9 cm in length. Right kidney measures 10.4 cm length. Both kidneys demonstrate normal echogenicity. There is no hydronephrosis. Subjective ROS Limited/Unobtainable: No Constitutional: Reports: malaise, weakness Allergies: Coded Allergies: No Known Allergies (Unverified , 04/04/17) Objective Last 24 Hour Vital Signs Date Time Temp Pulse Resp B/P (MAP) Pulse Ox O2 Delivery O2 Flow Rate FiO2 04/13/17 08:55 76 132/74 04/13/17 08:06 97.1 86 20 125/74 96 Room Air 04/13/17 08:00 85 04/13/17 04:00 97.3 93 24 126/93 96 Room Air 04/13/17 04:00 92 04/13/17 00:00 87 04/13/17 00:00 96.3 93 24 119/71 98 Room Air 04/12/17 20:00 90 04/12/17 19:55 97.5 87 24 122/74 98 Nasal Cannula 2.0 04/12/17 16:00 97.9 73 20 104/59 95 Room Air 04/12/17 15:47 89 04/12/17 12:00 97.6 93 20 120/65 92 Intake and Output 04/13/17 04/14/17 19:00 07:00 Intake Total 120 ml Balance 120 ml Intake Oral 120 ml # Bowel Movements 1 Laboratory Tests 04/13/17 06:00: White Blood Count 8.5, Red Blood Count 5.93, Hemoglobin 14.8, Hematocrit 47.5, Mean Corpuscular Volume 80, Mean Corpuscular Hemoglobin 24.9L, Mean Corpuscular Hemoglobin Concent 31.1L, Red Cell Distribution Width 15.8H, Platelet Count 189 , Mean Platelet Volume 10.2H, Neutrophils (%) (Auto) 65.3, Lymphocytes (%) (Auto ) 24.6, Monocytes (%) (Auto) 7.1, Eosinophils (%) (Auto) 1.9, Basophils (%) ( Auto) 1.0, Sodium Level 136, Potassium Level 3.4, Chloride Level 93L, Carbon Dioxide Level 29, Anion Gap 14, Blood Urea Nitrogen 22, Creatinine 1.3H, Estimat Glomerular Filtration Rate 55.9, Glucose Level 124H, Uric Acid 8.6H, Calcium Level 8.5L, Phosphorus Level 2.8, Magnesium Level 2.3, Iron Level 40L, Total Iron Binding Capacity 305, Percent Iron Saturation 13L, Unsaturated Iron Binding 265, Total Bilirubin 1.1, Direct Bilirubin 0.6H, Gamma Glutamyl Transpeptidase 427H, Aspartate Amino Transf (AST/SGOT) 30, Alanine Aminotransferase (ALT/SGPT) 59H, Alkaline Phosphatase 158H, Total Creatine Kinase 85, C-Reactive Protein, Quantitative 2.9H, Pro-B-Type Natriuretic Peptide 32797R, Total Protein 5.8L, Albumin 2.8L, Globulin 3.0, Albumin/ Globulin Ratio 0.9L, Triglycerides Level 68, Cholesterol Level 78, LDL Cholesterol 34L, HDL Cholesterol 30, Cholesterol/HDL Ratio 2.6L, Carcinoembryonic Antigen 1.8, Thyroid Stimulating Hormone (TSH) 3.270, Digoxin Level [Pending] Height (Feet): 5 Height (Inches): 7.00 Weight (Pounds): 178 General Appearance: no apparent distress Objective no signs of overt CHF RENNY POWER Apr 13, 2017 11:48
[2017-04-13] MEDS ORDERED: Iron Sucrose 100 MG in NS 55 ML IV ONE (12:00)
[2017-04-13] MEDS: Digoxin 0.125mg tab ORAL SCH (14:31)
[2017-04-13] MEDS ORDERED: Tubing IV Secondary IV ONE (15:19)
[2017-04-13] MEDS ORDERED: NS 275ml ONE (15:19)
[2017-04-13 15:47] VITALS: BP 113/53
--- NOTE | 2017-04-13 18:11 | General Progress Note ---
Assessment/Plan Problem List: (1) Cardiomyopathy ICD Codes: I42.9 - Cardiomyopathy, unspecified SNOMED: 54250382 Qualifiers: Qualified Codes: I42.9 - Cardiomyopathy, unspecified (2) Hypoalbuminemia ICD Codes: E88.09 - Other disorders of plasma-protein metabolism, not elsewhere classified SNOMED: 202630631 (3) CHF exacerbation ICD Codes: I50.9 - Heart failure, unspecified SNOMED: 32419998 Qualifiers: Qualified Codes: I50.9 - Heart failure, unspecified (4) Abnormal LFTs ICD Codes: R79.89 - Other specified abnormal findings of blood chemistry SNOMED: 834843365 (5) Proteinuria ICD Codes: R80.9 - Proteinuria, unspecified SNOMED: 62911031 Qualifiers: Qualified Codes: R80.9 - Proteinuria, unspecified Status: progressing Assessment/Plan need pt/ot weak s/p fall le weakness ataxia needs snf for pt/ot chf exacerbation no sob Subjective ROS Limited/Unobtainable: Yes Constitutional: Reports: no symptoms Allergies: Coded Allergies: No Known Allergies (Unverified , 04/04/17) Objective Last 24 Hour Vital Signs Date Time Temp Pulse Resp B/P (MAP) Pulse Ox O2 Delivery O2 Flow Rate FiO2 04/13/17 15:47 96.8 90 20 113/53 99 Room Air 04/13/17 14:31 88 04/13/17 12:00 86 04/13/17 11:46 96.9 91 20 116/75 94 Room Air 04/13/17 08:55 76 132/74 04/13/17 08:06 97.1 86 20 125/74 96 Room Air 04/13/17 08:00 85 04/13/17 04:00 97.3 93 24 126/93 96 Room Air 04/13/17 04:00 92 04/13/17 00:00 87 04/13/17 00:00 96.3 93 24 119/71 98 Room Air 04/12/17 20:00 90 04/12/17 19:55 97.5 87 24 122/74 98 Nasal Cannula 2.0 Intake and Output 04/13/17 04/14/17 19:00 07:00 Intake Total 390 ml Balance 390 ml Intake Oral 390 ml # Bowel Movements 1 Laboratory Tests 04/13/17 06:00: White Blood Count 8.5, Red Blood Count 5.93, Hemoglobin 14.8, Hematocrit 47.5, Mean Corpuscular Volume 80, Mean Corpuscular Hemoglobin 24.9L, Mean Corpuscular Hemoglobin Concent 31.1L, Red Cell Distribution Width 15.8H, Platelet Count 189 , Mean Platelet Volume 10.2H, Neutrophils (%) (Auto) 65.3, Lymphocytes (%) (Auto ) 24.6, Monocytes (%) (Auto) 7.1, Eosinophils (%) (Auto) 1.9, Basophils (%) ( Auto) 1.0, Sodium Level 136, Potassium Level 3.4, Chloride Level 93L, Carbon Dioxide Level 29, Anion Gap 14, Blood Urea Nitrogen 22, Creatinine 1.3H, Estimat Glomerular Filtration Rate 55.9, Glucose Level 124H, Uric Acid 8.6H, Calcium Level 8.5L, Phosphorus Level 2.8, Magnesium Level 2.3, Iron Level 40L, Total Iron Binding Capacity 305, Percent Iron Saturation 13L, Unsaturated Iron Binding 265, Total Bilirubin 1.1, Direct Bilirubin 0.6H, Gamma Glutamyl Transpeptidase 427H, Aspartate Amino Transf (AST/SGOT) 30, Alanine Aminotransferase (ALT/SGPT) 59H, Alkaline Phosphatase 158H, Total Creatine Kinase 85, C-Reactive Protein, Quantitative 2.9H, Pro-B-Type Natriuretic Peptide 01574N, Total Protein 5.8L, Albumin 2.8L, Globulin 3.0, Albumin/ Globulin Ratio 0.9L, Triglycerides Level 68, Cholesterol Level 78, LDL Cholesterol 34L, HDL Cholesterol 30, Cholesterol/HDL Ratio 2.6L, Carcinoembryonic Antigen 1.8, Thyroid Stimulating Hormone (TSH) 3.270, Digoxin Level 1.0 Height (Feet): 5 Height (Inches): 7.00 Weight (Pounds): 178 Cardiovascular: normal rate Respiratory/Chest: lungs clear Abdomen: non tender Joanna Keller MD Apr 13, 2017 18:11
[2017-04-13 20:43] VITALS: BP 117/48
[2017-04-13] MEDS: Carvedilol 6.25mg Tab ORAL SCH (21:14)
--- NOTE | 2017-04-13 21:26 | Cardiology Progress Note ---
Assessment/Plan Assessment/Plan 1. Four chamber dilated cardiomyopathy, resume lisinopril 5mg daily and coreg 6.25mg, will up-titrate slowly. 2. Acute systolic and diastolic CHF, continue furosemide. 3. Severe pulmonary HTN due to the left CHF. 4. Nonsustained ventricular tachycardia. Keep K >4.0 5. Diabetes mellitus with extremely high HbA1C. Subjective Subjective Sinus rhythm at 84. Objective Last 24 Hour Vital Signs Date Time Temp Pulse Resp B/P (MAP) Pulse Ox O2 Delivery O2 Flow Rate FiO2 04/13/17 20:43 96.8 84 20 117/48 98 Room Air 04/13/17 17:45 96.8 04/13/17 16:00 84 04/13/17 15:47 96.8 90 20 113/53 99 Room Air 04/13/17 14:31 88 04/13/17 12:00 86 04/13/17 11:46 96.9 91 20 116/75 94 Room Air 04/13/17 08:55 76 132/74 04/13/17 08:06 97.1 86 20 125/74 96 Room Air 04/13/17 08:00 85 04/13/17 04:00 97.3 93 24 126/93 96 Room Air 04/13/17 04:00 92 04/13/17 00:00 87 04/13/17 00:00 96.3 93 24 119/71 98 Room Air Intake and Output 04/13/17 04/14/17 19:00 07:00 Intake Total 630 ml Output Total 200 ml Balance 430 ml Intake Oral 630 ml Output Urine Total 200 ml # Bowel Movements 1 2D Echo: Four chamber DCM, Global LV hypokinesia, LVEF ~10%, Sev MR, RVSP 69 mmHg Laboratory Tests Test 04/13/17 06:00 White Blood Count 8.5 K/UL (4.8-10.8) Red Blood Count 5.93 M/UL (4.70-6.10) Hemoglobin 14.8 G/DL (14.2-18.0) Hematocrit 47.5 % (42.0-52.0) Mean Corpuscular Volume 80 FL (80-99) Mean Corpuscular Hemoglobin 24.9 PG (27.0-31.0) L Mean Corpuscular Hemoglobin Concent 31.1 G/DL (32.0-36.0) L Red Cell Distribution Width 15.8 % (11.6-14.8) H Platelet Count 189 K/UL (150-450) Mean Platelet Volume 10.2 FL (6.5-10.1) H Neutrophils (%) (Auto) 65.3 % (45.0-75.0) Lymphocytes (%) (Auto) 24.6 % (20.0-45.0) Monocytes (%) (Auto) 7.1 % (1.0-10.0) Eosinophils (%) (Auto) 1.9 % (0.0-3.0) Basophils (%) (Auto) 1.0 % (0.0-2.0) Sodium Level 136 mEQ/L (135-145) Potassium Level 3.4 mEQ/L (3.4-4.9) Chloride Level 93 mEQ/L (98-107) L Carbon Dioxide Level 29 mEQ/L (20-30) Anion Gap 14 (5-15) Blood Urea Nitrogen 22 mg/dL (7-23) Creatinine 1.3 mg/dL (0.7-1.2) H Estimat Glomerular Filtration Rate 55.9 mL/min (>60) Glucose Level 124 mg/dL (74-106) H Uric Acid 8.6 mg/dL (3.0-7.5) H Calcium Level 8.5 mg/dL (8.6-10.2) L Phosphorus Level 2.8 mg/dL (2.5-4.8) Magnesium Level 2.3 mg/dL (1.7-2.5) Iron Level 40 ug/dL (59-158) L Total Iron Binding Capacity 305 ug/dL (250-400) Percent Iron Saturation 13 % (15-50) L Unsaturated Iron Binding 265 ug/dL (112-346) Total Bilirubin 1.1 mg/dL (0.0-1.2) Direct Bilirubin 0.6 mg/dL (0.1-0.3) H Gamma Glutamyl Transpeptidase 427 U/L (8-61) H Aspartate Amino Transf (AST/SGOT) 30 U/L (5-40) Alanine Aminotransferase (ALT/SGPT) 59 U/L (3-41) H Alkaline Phosphatase 158 U/L (40-129) H Total Creatine Kinase 85 U/L (38-174) C-Reactive Protein, Quantitative 2.9 mg/dL (< 0.5) H Pro-B-Type Natriuretic Peptide 99686 pg/mL (0-125) H Total Protein 5.8 g/dL (6.6-8.7) L Albumin 2.8 g/dL (3.5-5.2) L Globulin 3.0 g/dL Albumin/Globulin Ratio 0.9 (1.0-2.7) L Triglycerides Level 68 mg/dL (< 150) Cholesterol Level 78 mg/dL (< 200) LDL Cholesterol 34 mg/dL (60-99) L HDL Cholesterol 30 mg/dL (> 60) Cholesterol/HDL Ratio 2.6 (3.3-4.4) L Carcinoembryonic Antigen 1.8 ng/mL Thyroid Stimulating Hormone (TSH) 3.270 uIU/mL (0.300-4.500) Digoxin Level 1.0 ng/mL (0.5-2.0) Objective HEENT: Atraumatic and normocephalic. ENT, pupils are equal, round, and reactive to light and accommodation. Conjunctival pallor is seen. Neck: JVP is elevated at about 15 cm. No carotid bruit. Carotid upstrokes 2+ bilaterally. Cardiovascular: Normal S1, S2. Regular rate and rhythm. A 2/6 midsystolic murmur at the left sternal border. LUNGS: Clear to auscultation bilaterally. Abdomen: Distended. Possible ascites. No hepatosplenomegaly. Positive bowel sounds. Extremities: 2+ bilateral lower extremity edema. EMILY COMBS Apr 13, 2017 21:26
[2017-04-14] VITALS (8 sets, daily range): BP systolic 90–114; BP diastolic 50–57
[2017-04-14] MEDS: Morphine Sulfate 4mg/ml Inj IVP PRN ×3 (01:34→21:47)
[2017-04-14] MEDS: NovoLOG Insulin Flexpen SUBQ SCH ×4 (06:15→21:25)
[2017-04-14 08:29] LABS: BASOPHILS % (AUTO) 2.1 % (0.0-2.0); EOSINOPHILS % (AUTO) 2.8 % (0.0-3.0); MEAN CORPUSCULAR HEMOGLOBIN 24.5 PG (27.0-31.0); MEAN CORPUSCULAR HGB CONC 30.4 G/DL (32.0-36.0); MEAN CORPUSCULAR VOLUME 81 FL (80-99); MEAN PLATELET VOLUME 11.4 FL (6.5-10.1); MONOCYTES % (AUTO) 5.7 % (1.0-10.0); NEUTROPHILS % (AUTO) 62.4 % (45.0-75.0); PLATELET COUNT 208 K/UL (150-450); RED BLOOD COUNT 5.99 M/UL (4.70-6.10); RED CELL DISTRIBUTION WIDTH 15.7 % (11.6-14.8)
[2017-04-14 08:31] LABS: CREATININE 1.4 mg/dL (0.7-1.2); GLOMERULAR FILTRATION RATE 51.4 mL/min (>60); POTASSIUM 3.8 mEQ/L (3.4-4.9)
[2017-04-14] MEDS: Lisinopril 2.5mg tab ORAL SCH (09:13)
[2017-04-14] MEDS: Furosemide 40mg tab ORAL SCH (09:14)
[2017-04-14] MEDS: Carvedilol 6.25mg Tab ORAL SCH ×2 (09:14→21:26)
[2017-04-14] MEDS: Digoxin 0.125mg tab ORAL SCH (09:18)
--- NOTE | 2017-04-14 10:38 | GI Progress Note ---
Assessment/Plan Problems: (1) Elevated serum GGT level ICD Codes: R74.8 - Abnormal levels of other serum enzymes SNOMED: 882511800 (2) CHF exacerbation ICD Codes: I50.9 - Heart failure, unspecified SNOMED: 19942023 Qualifiers: Qualified Codes: I50.9 - Heart failure, unspecified (3) Failure to thrive in adult ICD Codes: R62.7 - Adult failure to thrive SNOMED: 578943519 (4) Hypoalbuminemia ICD Codes: E88.09 - Other disorders of plasma-protein metabolism, not elsewhere classified SNOMED: 889259736 Status: unchanged Status Narrative Discussed with Dr. Hinds. Assessment/Plan recommend EGD/colonoscopy >> refused, can be done as outpatient hepatitis panel >> negative abdominal U/S reviewed - Gallbladder sludge and stones. Mildly thickened gallbladder wall, could indicate acute cholecystitis. >> patient refused HIDA scan and CT AP - Right pleural effusion - Hepatomegaly iron deficiency fu CT AP noncon >> patient refused symptomatic treatment cardiac diet DM mgmt pain mgmt monitor LFTs electrolyte correction fu labs The patient was seen and examined at bedside and all new and available data was reviewed in the patients chart. I agree with the above findings, impression and plan. (Patient seen earlier today. Signature stamp does not reflect patient encounter time.). Subjective Subjective abdominal pain Objective Last 24 Hour Vital Signs Date Time Temp Pulse Resp B/P (MAP) Pulse Ox O2 Delivery O2 Flow Rate FiO2 04/14/17 09:18 82 04/14/17 09:14 90 103/48 04/14/17 09:13 103/48 04/14/17 08:39 96.1 82 20 94/55 95 Room Air 04/14/17 04:41 96.1 75 20 94/51 100 Room Air 04/14/17 04:00 70 04/14/17 00:44 96.3 78 20 108/53 97 Room Air 04/14/17 00:00 80 04/13/17 21:14 84 117/48 04/13/17 20:43 96.8 84 20 117/48 98 Room Air 04/13/17 20:00 82 04/13/17 17:45 96.8 04/13/17 16:00 84 04/13/17 15:47 96.8 90 20 113/53 99 Room Air 04/13/17 14:31 88 04/13/17 12:00 86 04/13/17 11:46 96.9 91 20 116/75 94 Room Air Intake and Output 04/14/17 04/15/17 19:00 07:00 Intake Total 240 ml Output Total 200 ml Balance 40 ml Intake Oral 240 ml Output Urine Total 200 ml Laboratory Tests Test 04/14/17 07:35 White Blood Count 8.0 K/UL (4.8-10.8) Red Blood Count 5.99 M/UL (4.70-6.10) Hemoglobin 14.6 G/DL (14.2-18.0) Hematocrit 48.2 % (42.0-52.0) Mean Corpuscular Volume 81 FL (80-99) Mean Corpuscular Hemoglobin 24.5 PG (27.0-31.0) L Mean Corpuscular Hemoglobin Concent 30.4 G/DL (32.0-36.0) L Red Cell Distribution Width 15.7 % (11.6-14.8) H Platelet Count 208 K/UL (150-450) Mean Platelet Volume 11.4 FL (6.5-10.1) H Neutrophils (%) (Auto) 62.4 % (45.0-75.0) Lymphocytes (%) (Auto) 27.0 % (20.0-45.0) Monocytes (%) (Auto) 5.7 % (1.0-10.0) Eosinophils (%) (Auto) 2.8 % (0.0-3.0) Basophils (%) (Auto) 2.1 % (0.0-2.0) H Sodium Level 136 mEQ/L (135-145) Potassium Level 3.8 mEQ/L (3.4-4.9) Chloride Level 94 mEQ/L (98-107) L Carbon Dioxide Level 33 mEQ/L (20-30) H Anion Gap 9 (5-15) Blood Urea Nitrogen 28 mg/dL (7-23) H Creatinine 1.4 mg/dL (0.7-1.2) H Estimat Glomerular Filtration Rate 51.4 mL/min (>60) Glucose Level 147 mg/dL (74-106) H Calcium Level 9.0 mg/dL (8.6-10.2) Height (Feet): 5 Height (Inches): 7.00 Weight (Pounds): 174 General Appearance: no apparent distress, alert, thin Cardiovascular: normal rate Respiratory/Chest: normal breath sounds, no respiratory distress Abdominal Exam: distended Extremities: normal range of motion Marissa Schneider N.P. Apr 14, 2017 10:38 YUDI HINDS Apr 17, 2017 10:58
--- NOTE | 2017-04-14 13:24 | General Progress Note ---
Assessment/Plan Problem List: (1) Cardiomyopathy ICD Codes: I42.9 - Cardiomyopathy, unspecified SNOMED: 55778498 Qualifiers: Qualified Codes: I42.9 - Cardiomyopathy, unspecified (2) Hypoalbuminemia ICD Codes: E88.09 - Other disorders of plasma-protein metabolism, not elsewhere classified SNOMED: 035207697 (3) CHF exacerbation ICD Codes: I50.9 - Heart failure, unspecified SNOMED: 58937621 Qualifiers: Qualified Codes: I50.9 - Heart failure, unspecified (4) Abnormal LFTs ICD Codes: R79.89 - Other specified abnormal findings of blood chemistry SNOMED: 916875163 (5) Proteinuria ICD Codes: R80.9 - Proteinuria, unspecified SNOMED: 10709595 Qualifiers: Qualified Codes: R80.9 - Proteinuria, unspecified Status: progressing Assessment/Plan need pt/ot weak s/p fall nsvt.consulted dr gibbons for that once cleared by dr gibbons can go to snf Subjective ROS Limited/Unobtainable: Yes Constitutional: Reports: no symptoms Allergies: Coded Allergies: No Known Allergies (Unverified , 04/04/17) Objective Last 24 Hour Vital Signs Date Time Temp Pulse Resp B/P (MAP) Pulse Ox O2 Delivery O2 Flow Rate FiO2 04/14/17 11:55 96.6 81 20 105/57 94 Room Air 04/14/17 09:18 82 04/14/17 09:14 90 103/48 04/14/17 09:13 103/48 04/14/17 08:39 96.1 82 20 94/55 95 Room Air 04/14/17 08:00 85 04/14/17 04:41 96.1 75 20 94/51 100 Room Air 04/14/17 04:00 70 04/14/17 00:44 96.3 78 20 108/53 97 Room Air 04/14/17 00:00 80 04/13/17 21:14 84 117/48 04/13/17 20:43 96.8 84 20 117/48 98 Room Air 04/13/17 20:00 82 04/13/17 17:45 96.8 04/13/17 16:00 84 04/13/17 15:47 96.8 90 20 113/53 99 Room Air 04/13/17 14:31 88 Intake and Output 04/14/17 04/15/17 19:00 07:00 Intake Total 240 ml Output Total 200 ml Balance 40 ml Intake Oral 240 ml Output Urine Total 200 ml Laboratory Tests 04/14/17 07:35: White Blood Count 8.0, Red Blood Count 5.99, Hemoglobin 14.6, Hematocrit 48.2, Mean Corpuscular Volume 81, Mean Corpuscular Hemoglobin 24.5L, Mean Corpuscular Hemoglobin Concent 30.4L, Red Cell Distribution Width 15.7H, Platelet Count 208 , Mean Platelet Volume 11.4H, Neutrophils (%) (Auto) 62.4, Lymphocytes (%) (Auto ) 27.0, Monocytes (%) (Auto) 5.7, Eosinophils (%) (Auto) 2.8, Basophils (%) ( Auto) 2.1H, Sodium Level 136, Potassium Level 3.8, Chloride Level 94L, Carbon Dioxide Level 33H, Anion Gap 9, Blood Urea Nitrogen 28H, Creatinine 1.4H, Estimat Glomerular Filtration Rate 51.4, Glucose Level 147H, Calcium Level 9.0 Height (Feet): 5 Height (Inches): 7.00 Weight (Pounds): 174 Neck: supple Cardiovascular: normal rate Respiratory/Chest: lungs clear Abdomen: soft Joanna Keller MD Apr 14, 2017 13:24
--- NOTE | 2017-04-14 13:41 | General Progress Note ---
Assessment/Plan Status: stable Status Narrative stable- Assessment/Plan status; Renal failure- Acute on Chronic, Cr 1.3 now 3+ Proteinuria, Cr rising K low Dm, Nephropathy, High A1c HyperUrecemia High LFTs Cardiomyopathy with EjFx of 15% Plan: lasix to po zestril Optimize cardiac status Allopurinol- add digoxin PO K supplement as needed Monitor renal parameters flomax per orders Kidney LAZARO; Left kidney measures 10.9 cm in length. Right kidney measures 10.4 cm length. Both kidneys demonstrate normal echogenicity. There is no hydronephrosis. Subjective ROS Limited/Unobtainable: No Constitutional: Reports: malaise Allergies: Coded Allergies: No Known Allergies (Unverified , 04/04/17) Objective Last 24 Hour Vital Signs Date Time Temp Pulse Resp B/P (MAP) Pulse Ox O2 Delivery O2 Flow Rate FiO2 04/14/17 11:55 96.6 81 20 105/57 94 Room Air 04/14/17 09:18 82 04/14/17 09:14 90 103/48 04/14/17 09:13 103/48 04/14/17 08:39 96.1 82 20 94/55 95 Room Air 04/14/17 08:00 85 04/14/17 04:41 96.1 75 20 94/51 100 Room Air 04/14/17 04:00 70 04/14/17 00:44 96.3 78 20 108/53 97 Room Air 04/14/17 00:00 80 04/13/17 21:14 84 117/48 04/13/17 20:43 96.8 84 20 117/48 98 Room Air 04/13/17 20:00 82 04/13/17 17:45 96.8 04/13/17 16:00 84 04/13/17 15:47 96.8 90 20 113/53 99 Room Air 04/13/17 14:31 88 Intake and Output 04/14/17 04/15/17 19:00 07:00 Intake Total 240 ml Output Total 200 ml Balance 40 ml Intake Oral 240 ml Output Urine Total 200 ml Laboratory Tests 04/14/17 07:35: White Blood Count 8.0, Red Blood Count 5.99, Hemoglobin 14.6, Hematocrit 48.2, Mean Corpuscular Volume 81, Mean Corpuscular Hemoglobin 24.5L, Mean Corpuscular Hemoglobin Concent 30.4L, Red Cell Distribution Width 15.7H, Platelet Count 208 , Mean Platelet Volume 11.4H, Neutrophils (%) (Auto) 62.4, Lymphocytes (%) (Auto ) 27.0, Monocytes (%) (Auto) 5.7, Eosinophils (%) (Auto) 2.8, Basophils (%) ( Auto) 2.1H, Sodium Level 136, Potassium Level 3.8, Chloride Level 94L, Carbon Dioxide Level 33H, Anion Gap 9, Blood Urea Nitrogen 28H, Creatinine 1.4H, Estimat Glomerular Filtration Rate 51.4, Glucose Level 147H, Calcium Level 9.0 Height (Feet): 5 Height (Inches): 7.00 Weight (Pounds): 174 General Appearance: no apparent distress Objective no signs of overt CHF RENNY POWER Apr 14, 2017 13:41
--- NOTE | 2017-04-14 14:43 | Cardiac Electrophysiology PN ---
Assessment/Plan Assessment/Plan 1. Recurrent long non sustained ventricular tachycardia up to 20 beats. Due to severe underlying cardiomyopathy, ejection fraction of 10%. Still refusing ICD implant. 2. Nonischemic cardiomyopathy, under heart failure management of Dr. Clifford. On Dig,Coreg, Lisinopril and Lasix 3. Renal failure with creatinine 2.1, under the management of Dr. Solorzano. 4. Abdominal pain and vomiting.Resolved Subjective Subjective The patient was recently discharged and came back with same symptoms of abdominal pain and shortness of breath. Denies chest pain. Denies palpitations. Denies nausea, vomiting or diarrhea. On telemetry had recurrent runs of up to 20 beats of VT. Denies syncope. Offered ICD prior admission and refused. Objective Last 24 Hour Vital Signs Date Time Temp Pulse Resp B/P (MAP) Pulse Ox O2 Delivery O2 Flow Rate FiO2 04/14/17 11:55 96.6 81 20 105/57 94 Room Air 04/14/17 09:18 82 04/14/17 09:14 90 103/48 04/14/17 09:13 103/48 04/14/17 08:39 96.1 82 20 94/55 95 Room Air 04/14/17 08:00 85 04/14/17 04:41 96.1 75 20 94/51 100 Room Air 04/14/17 04:00 70 04/14/17 00:44 96.3 78 20 108/53 97 Room Air 04/14/17 00:00 80 04/13/17 21:14 84 117/48 04/13/17 20:43 96.8 84 20 117/48 98 Room Air 04/13/17 20:00 82 04/13/17 17:45 96.8 04/13/17 16:00 84 04/13/17 15:47 96.8 90 20 113/53 99 Room Air Intake and Output 04/14/17 04/15/17 19:00 07:00 Intake Total 480 ml Output Total 200 ml Balance 280 ml Intake Oral 480 ml Output Urine Total 200 ml Laboratory Tests Test 04/14/17 07:35 White Blood Count 8.0 K/UL (4.8-10.8) Red Blood Count 5.99 M/UL (4.70-6.10) Hemoglobin 14.6 G/DL (14.2-18.0) Hematocrit 48.2 % (42.0-52.0) Mean Corpuscular Volume 81 FL (80-99) Mean Corpuscular Hemoglobin 24.5 PG (27.0-31.0) L Mean Corpuscular Hemoglobin Concent 30.4 G/DL (32.0-36.0) L Red Cell Distribution Width 15.7 % (11.6-14.8) H Platelet Count 208 K/UL (150-450) Mean Platelet Volume 11.4 FL (6.5-10.1) H Neutrophils (%) (Auto) 62.4 % (45.0-75.0) Lymphocytes (%) (Auto) 27.0 % (20.0-45.0) Monocytes (%) (Auto) 5.7 % (1.0-10.0) Eosinophils (%) (Auto) 2.8 % (0.0-3.0) Basophils (%) (Auto) 2.1 % (0.0-2.0) H Sodium Level 136 mEQ/L (135-145) Potassium Level 3.8 mEQ/L (3.4-4.9) Chloride Level 94 mEQ/L (98-107) L Carbon Dioxide Level 33 mEQ/L (20-30) H Anion Gap 9 (5-15) Blood Urea Nitrogen 28 mg/dL (7-23) H Creatinine 1.4 mg/dL (0.7-1.2) H Estimat Glomerular Filtration Rate 51.4 mL/min (>60) Glucose Level 147 mg/dL (74-106) H Calcium Level 9.0 mg/dL (8.6-10.2) Microbiology Date/Time Source Procedure Growth Status 04/12/17 05:50 Rectum VRE Culture - Final NO VANCOMYCIN RESISTANT ENTEROCOCCUS ... Complete Objective HEAD AND NECK: Shows positive JVD. LUNGS: Decreased breath sounds. Cardiovascular: RegularS1 and S2 with 2/6 systolic murmur. ABDOMEN: Distended. EXTREMITIES: 2+ pitting edema. EMILY SOLANO Apr 14, 2017 14:43
--- NOTE | 2017-04-14 23:59 | Cardiology Progress Note ---
Assessment/Plan Assessment/Plan 1. Four chamber dilated cardiomyopathy, continue lisinopril and coreg. 2. Acute systolic and diastolic CHF, continue furosemide. 3. Severe pulmonary HTN due to the left CHF. 4. Nonsustained ventricular tachycardia. Keep K >4.0 5. Diabetes mellitus with extremely high HbA1C. Subjective Subjective Sinus rhythm at 74. Objective Last 24 Hour Vital Signs Date Time Temp Pulse Resp B/P (MAP) Pulse Ox O2 Delivery O2 Flow Rate FiO2 04/14/17 21:26 74 99/47 04/14/17 20:00 97.2 78 16 90/50 99 Room Air 04/14/17 16:00 82 04/14/17 15:33 96.3 73 20 114/52 94 Room Air 04/14/17 12:00 81 04/14/17 11:55 96.6 81 20 105/57 94 Room Air 04/14/17 09:18 82 04/14/17 09:14 90 103/48 04/14/17 09:13 103/48 04/14/17 08:39 96.1 82 20 94/55 95 Room Air 04/14/17 08:00 85 04/14/17 04:41 96.1 75 20 94/51 100 Room Air 04/14/17 04:00 70 04/14/17 00:44 96.3 78 20 108/53 97 Room Air 04/14/17 00:00 80 Intake and Output 04/14/17 04/15/17 19:00 07:00 Intake Total 730 ml Output Total 500 ml Balance 230 ml Intake Oral 730 ml Output Urine Total 500 ml 2D Echo: Four chamber DCM, Global LV hypokinesia, LVEF ~10%, Sev MR, RVSP 69 mmHg Laboratory Tests Test 04/14/17 07:35 White Blood Count 8.0 K/UL (4.8-10.8) Red Blood Count 5.99 M/UL (4.70-6.10) Hemoglobin 14.6 G/DL (14.2-18.0) Hematocrit 48.2 % (42.0-52.0) Mean Corpuscular Volume 81 FL (80-99) Mean Corpuscular Hemoglobin 24.5 PG (27.0-31.0) L Mean Corpuscular Hemoglobin Concent 30.4 G/DL (32.0-36.0) L Red Cell Distribution Width 15.7 % (11.6-14.8) H Platelet Count 208 K/UL (150-450) Mean Platelet Volume 11.4 FL (6.5-10.1) H Neutrophils (%) (Auto) 62.4 % (45.0-75.0) Lymphocytes (%) (Auto) 27.0 % (20.0-45.0) Monocytes (%) (Auto) 5.7 % (1.0-10.0) Eosinophils (%) (Auto) 2.8 % (0.0-3.0) Basophils (%) (Auto) 2.1 % (0.0-2.0) H Sodium Level 136 mEQ/L (135-145) Potassium Level 3.8 mEQ/L (3.4-4.9) Chloride Level 94 mEQ/L (98-107) L Carbon Dioxide Level 33 mEQ/L (20-30) H Anion Gap 9 (5-15) Blood Urea Nitrogen 28 mg/dL (7-23) H Creatinine 1.4 mg/dL (0.7-1.2) H Estimat Glomerular Filtration Rate 51.4 mL/min (>60) Glucose Level 147 mg/dL (74-106) H Calcium Level 9.0 mg/dL (8.6-10.2) Microbiology Date/Time Source Procedure Growth Status 04/12/17 05:50 Rectum VRE Culture - Final NO VANCOMYCIN RESISTANT ENTEROCOCCUS ... Complete Objective HEENT: Atraumatic and normocephalic. ENT, pupils are equal, round, and reactive to light and accommodation. Conjunctival pallor is seen. Neck: JVP is elevated at about 15 cm. No carotid bruit. Carotid upstrokes 2+ bilaterally. Cardiovascular: Normal S1, S2. Regular rate and rhythm. A 2/6 midsystolic murmur at the left sternal border. LUNGS: Clear to auscultation bilaterally. Abdomen: Distended. Possible ascites. No hepatosplenomegaly. Positive bowel sounds. Extremities: 2+ bilateral lower extremity edema. EMILY COMBS Apr 14, 2017 23:59
[2017-04-15 00:44] VITALS: BP 85/50
[2017-04-15 04:00] VITALS: BP 87/57
[2017-04-15 06:25] LABS: BASOPHILS % (AUTO) 2.3 % (0.0-2.0); LYMPHOCYTES % (AUTO) 20.4 % (20.0-45.0); MEAN CORPUSCULAR HEMOGLOBIN 25.7 PG (27.0-31.0); MEAN CORPUSCULAR HGB CONC 31.9 G/DL (32.0-36.0); MEAN CORPUSCULAR VOLUME 81 FL (80-99); MONOCYTES % (AUTO) 6.8 % (1.0-10.0); NEUTROPHILS % (AUTO) 67.6 % (45.0-75.0); PLATELET COUNT 205 K/UL (150-450); RED BLOOD COUNT 5.53 M/UL (4.70-6.10); RED CELL DISTRIBUTION WIDTH 16.2 % (11.6-14.8); WHITE BLOOD COUNT 8.1 K/UL (4.8-10.8)
[2017-04-15] MEDS: NovoLOG Insulin Flexpen SUBQ SCH ×4 (06:38→22:15)
[2017-04-15 06:41] LABS: ALBUMIN/GLOBULIN RATIO 0.9 (1.0-2.7); CALCIUM 8.6 mg/dL (8.6-10.2); CREATININE 1.3 mg/dL (0.7-1.2); GLOMERULAR FILTRATION RATE 55.9 mL/min (>60); TOTAL PROTEIN 5.9 g/dL (6.6-8.7)
[2017-04-15 08:06] VITALS: BP 97/59
[2017-04-15] MEDS: Digoxin 0.125mg tab ORAL SCH (08:31)
[2017-04-15] MEDS: Furosemide 40mg tab ORAL SCH (08:31)
[2017-04-15] MEDS: Carvedilol 6.25mg Tab ORAL SCH ×2 (09:00→21:00)
[2017-04-15] MEDS: Lisinopril 2.5mg tab ORAL SCH (09:00)
--- NOTE | 2017-04-15 10:06 | General Progress Note ---
Assessment/Plan Status: stable - from renal stand Assessment/Plan status; Renal failure- Acute on Chronic, Cr 1.3 now 3+ Proteinuria, Cr rising K low Dm, Nephropathy, High A1c HyperUrecemia High LFTs Cardiomyopathy with EjFx of 15% Plan: lasix to po zestril Optimize cardiac status Allopurinol- add digoxin PO K supplement as needed Monitor renal parameters flomax per orders Kidney LAZARO; Left kidney measures 10.9 cm in length. Right kidney measures 10.4 cm length. Both kidneys demonstrate normal echogenicity. There is no hydronephrosis. Subjective ROS Limited/Unobtainable: No Constitutional: Reports: malaise Allergies: Coded Allergies: No Known Allergies (Unverified , 04/04/17) Objective Last 24 Hour Vital Signs Date Time Temp Pulse Resp B/P (MAP) Pulse Ox O2 Delivery O2 Flow Rate FiO2 04/15/17 09:00 92/70 04/15/17 09:00 82 92/70 04/15/17 08:31 71 04/15/17 08:06 96.6 71 20 97/59 97 Room Air 04/15/17 08:00 77 04/15/17 04:00 70 04/15/17 04:00 96.8 68 20 87/57 99 Room Air 2.0 04/15/17 00:44 96.8 67 16 85/50 95 Room Air 04/15/17 00:00 71 04/14/17 21:26 74 99/47 04/14/17 20:00 97.2 78 16 90/50 99 Room Air 04/14/17 20:00 78 04/14/17 16:00 82 04/14/17 15:33 96.3 73 20 114/52 94 Room Air 04/14/17 12:00 81 04/14/17 11:55 96.6 81 20 105/57 94 Room Air Intake and Output 04/15/17 04/16/17 19:00 07:00 Intake Total 240 ml Balance 240 ml Intake Oral 240 ml # Voids 1 Laboratory Tests 04/15/17 05:10: White Blood Count 8.1, Red Blood Count 5.53, Hemoglobin 14.2, Hematocrit 44.6, Mean Corpuscular Volume 81, Mean Corpuscular Hemoglobin 25.7L, Mean Corpuscular Hemoglobin Concent 31.9L, Red Cell Distribution Width 16.2H, Platelet Count 205 , Mean Platelet Volume 10.0, Neutrophils (%) (Auto) 67.6, Lymphocytes (%) (Auto ) 20.4, Monocytes (%) (Auto) 6.8, Eosinophils (%) (Auto) 3.0, Basophils (%) ( Auto) 2.3H, Sodium Level 140, Potassium Level 4.0, Chloride Level 97L, Carbon Dioxide Level 30, Anion Gap 13, Blood Urea Nitrogen 36H, Creatinine 1.3H, Estimat Glomerular Filtration Rate 55.9, Glucose Level 164H, Calcium Level 8.6, Total Bilirubin 0.8, Aspartate Amino Transf (AST/SGOT) 24, Alanine Aminotransferase (ALT/SGPT) 46H, Alkaline Phosphatase 168H, Total Protein 5.9L, Albumin 2.9L, Globulin 3.0, Albumin/Globulin Ratio 0.9L Height (Feet): 5 Height (Inches): 7.00 Weight (Pounds): 179 General Appearance: no apparent distress Objective no signs of overt CHF RENNY POWER Apr 15, 2017 10:06
[2017-04-15] MEDS: KCl 10% 20 mEq/15ml liquid ORAL SCH ×2 (10:09→17:25)
[2017-04-15 11:54] VITALS: BP 129/92
--- NOTE | 2017-04-15 15:03 | Cardiac Electrophysiology PN ---
Assessment/Plan Assessment/Plan 1. Recurrent long non sustained ventricular tachycardia up to 20 beats in a patient with ejection fraction of 10%. Still refusing ICD implant. 2. Nonischemic cardiomyopathy, under heart failure management of Dr. Clifford. On Dig,Coreg, Lisinopril and Lasix 3. Renal failure with creatinine 2.1, under the management of Dr. Solorzano. 4. Abdominal pain and vomiting. Resolved DC planning Subjective Subjective Continues with runs of VT. Denies chest pain. Denies palpitations. Denies nausea, vomiting or diarrhea. Denies syncope. Still refusing ICD or repeat cardiac cath. Objective Last 24 Hour Vital Signs Date Time Temp Pulse Resp B/P (MAP) Pulse Ox O2 Delivery O2 Flow Rate FiO2 04/15/17 12:00 81 04/15/17 11:54 96.9 76 20 129/92 100 Room Air 04/15/17 09:00 92/70 04/15/17 09:00 82 92/70 04/15/17 08:31 71 04/15/17 08:06 96.6 71 20 97/59 97 Room Air 04/15/17 08:00 77 04/15/17 04:00 70 04/15/17 04:00 96.8 68 20 87/57 99 Room Air 2.0 04/15/17 00:44 96.8 67 16 85/50 95 Room Air 04/15/17 00:00 71 04/14/17 21:26 74 99/47 04/14/17 20:00 97.2 78 16 90/50 99 Room Air 04/14/17 20:00 78 04/14/17 16:00 82 04/14/17 15:33 96.3 73 20 114/52 94 Room Air Intake and Output 04/15/17 04/16/17 19:00 07:00 Intake Total 490 ml Balance 490 ml Intake Oral 490 ml # Voids 2 Laboratory Tests Test 04/15/17 05:10 White Blood Count 8.1 K/UL (4.8-10.8) Red Blood Count 5.53 M/UL (4.70-6.10) Hemoglobin 14.2 G/DL (14.2-18.0) Hematocrit 44.6 % (42.0-52.0) Mean Corpuscular Volume 81 FL (80-99) Mean Corpuscular Hemoglobin 25.7 PG (27.0-31.0) L Mean Corpuscular Hemoglobin Concent 31.9 G/DL (32.0-36.0) L Red Cell Distribution Width 16.2 % (11.6-14.8) H Platelet Count 205 K/UL (150-450) Mean Platelet Volume 10.0 FL (6.5-10.1) Neutrophils (%) (Auto) 67.6 % (45.0-75.0) Lymphocytes (%) (Auto) 20.4 % (20.0-45.0) Monocytes (%) (Auto) 6.8 % (1.0-10.0) Eosinophils (%) (Auto) 3.0 % (0.0-3.0) Basophils (%) (Auto) 2.3 % (0.0-2.0) H Sodium Level 140 mEQ/L (135-145) Potassium Level 4.0 mEQ/L (3.4-4.9) Chloride Level 97 mEQ/L (98-107) L Carbon Dioxide Level 30 mEQ/L (20-30) Anion Gap 13 (5-15) Blood Urea Nitrogen 36 mg/dL (7-23) H Creatinine 1.3 mg/dL (0.7-1.2) H Estimat Glomerular Filtration Rate 55.9 mL/min (>60) Glucose Level 164 mg/dL (74-106) H Calcium Level 8.6 mg/dL (8.6-10.2) Total Bilirubin 0.8 mg/dL (0.0-1.2) Aspartate Amino Transf (AST/SGOT) 24 U/L (5-40) Alanine Aminotransferase (ALT/SGPT) 46 U/L (3-41) H Alkaline Phosphatase 168 U/L (40-129) H Total Protein 5.9 g/dL (6.6-8.7) L Albumin 2.9 g/dL (3.5-5.2) L Globulin 3.0 g/dL Albumin/Globulin Ratio 0.9 (1.0-2.7) L Objective HEAD AND NECK: Mild JVD. LUNGS: Decreased breath sounds. Cardiovascular: RegularS1 and S2 with 2/6 systolic murmur. ABDOMEN: Distended. EXTREMITIES: 1+ pitting edema. EMILY SOLANO Apr 15, 2017 15:03
[2017-04-15] MEDS: Morphine Sulfate 4mg/ml Inj IVP PRN ×2 (15:05→22:48)
[2017-04-15 15:47] VITALS: BP 108/54
[2017-04-15] MEDS ORDERED: 1/2 NS 1000ml IV ONE (18:40)
--- NOTE | 2017-04-15 19:31 | General Progress Note ---
Assessment/Plan Problem List: (1) Elevated serum GGT level ICD Codes: R74.8 - Abnormal levels of other serum enzymes SNOMED: 476130403 (2) Abnormal LFTs ICD Codes: R79.89 - Other specified abnormal findings of blood chemistry SNOMED: 121221087 (3) CHF exacerbation ICD Codes: I50.9 - Heart failure, unspecified SNOMED: 81231008 Qualifiers: Qualified Codes: I50.9 - Heart failure, unspecified (4) Failure to thrive in adult ICD Codes: R62.7 - Adult failure to thrive SNOMED: 693281303 (5) Hypoalbuminemia ICD Codes: E88.09 - Other disorders of plasma-protein metabolism, not elsewhere classified SNOMED: 869557004 (6) Cardiomyopathy ICD Codes: I42.9 - Cardiomyopathy, unspecified SNOMED: 13756171 Qualifiers: Qualified Codes: I42.9 - Cardiomyopathy, unspecified Assessment/Plan recommend EGD/colonoscopy >> refused, can be done as outpatient hepatitis panel >> negative abdominal U/S reviewed - Gallbladder sludge and stones. Mildly thickened gallbladder wall, could indicate acute cholecystitis. >> patient refused HIDA scan and CT AP - Right pleural effusion - Hepatomegaly iron deficiency fu CT AP noncon >> patient refused symptomatic treatment cardiac diet DM mgmt pain mgmt monitor LFTs electrolyte correction fu labs Subjective ROS Limited/Unobtainable: Yes Allergies: Coded Allergies: No Known Allergies (Unverified , 04/04/17) Subjective no event Objective Last 24 Hour Vital Signs Date Time Temp Pulse Resp B/P (MAP) Pulse Ox O2 Delivery O2 Flow Rate FiO2 04/15/17 16:00 81 04/15/17 15:47 96.3 86 20 108/54 96 Room Air 04/15/17 12:00 81 04/15/17 11:54 96.9 76 20 129/92 100 Room Air 04/15/17 09:00 92/70 04/15/17 09:00 82 92/70 04/15/17 08:31 71 04/15/17 08:06 96.6 71 20 97/59 97 Room Air 04/15/17 08:00 77 04/15/17 04:00 70 04/15/17 04:00 96.8 68 20 87/57 99 Room Air 2.0 04/15/17 00:44 96.8 67 16 85/50 95 Room Air 04/15/17 00:00 71 04/14/17 21:26 74 99/47 04/14/17 20:00 97.2 78 16 90/50 99 Room Air 04/14/17 20:00 78 Intake and Output 04/15/17 04/16/17 19:00 07:00 Intake Total 810 ml Balance 810 ml Intake Oral 810 ml # Voids 3 Laboratory Tests 04/15/17 05:10: White Blood Count 8.1, Red Blood Count 5.53, Hemoglobin 14.2, Hematocrit 44.6, Mean Corpuscular Volume 81, Mean Corpuscular Hemoglobin 25.7L, Mean Corpuscular Hemoglobin Concent 31.9L, Red Cell Distribution Width 16.2H, Platelet Count 205 , Mean Platelet Volume 10.0, Neutrophils (%) (Auto) 67.6, Lymphocytes (%) (Auto ) 20.4, Monocytes (%) (Auto) 6.8, Eosinophils (%) (Auto) 3.0, Basophils (%) ( Auto) 2.3H, Sodium Level 140, Potassium Level 4.0, Chloride Level 97L, Carbon Dioxide Level 30, Anion Gap 13, Blood Urea Nitrogen 36H, Creatinine 1.3H, Estimat Glomerular Filtration Rate 55.9, Glucose Level 164H, Calcium Level 8.6, Total Bilirubin 0.8, Aspartate Amino Transf (AST/SGOT) 24, Alanine Aminotransferase (ALT/SGPT) 46H, Alkaline Phosphatase 168H, Total Protein 5.9L, Albumin 2.9L, Globulin 3.0, Albumin/Globulin Ratio 0.9L Height (Feet): 5 Height (Inches): 7.00 Weight (Pounds): 179 General Appearance: no apparent distress EENT: normal ENT inspection Neck: supple Cardiovascular: normal rate Respiratory/Chest: decreased breath sounds Abdomen: normal bowel sounds, non tender, soft Extremities: non-tender YUDI HANNA Apr 15, 2017 19:31
[2017-04-15 20:00] VITALS: BP 109/75
[2017-04-16] VITALS (7 sets, daily range): BP systolic 90–128; BP diastolic 49–77
[2017-04-16] MEDS: NovoLOG Insulin Flexpen SUBQ SCH ×4 (06:30→21:00)
--- NOTE | 2017-04-16 07:35 | General Progress Note ---
Assessment/Plan Problem List: (1) Acute kidney injury Assessment & Plan: Cr still trending up. Renal follow-up. ICD Codes: N17.9 - Acute kidney failure, unspecified SNOMED: 54305281 (2) Cardiomyopathy Assessment & Plan: Has long NSVT. ICD indicated but refusing so far. Cardiology and Electrophysiology follow-up. ICD Codes: I42.9 - Cardiomyopathy, unspecified SNOMED: 32517801 Qualifiers: Qualified Codes: I42.9 - Cardiomyopathy, unspecified Subjective Allergies: Coded Allergies: No Known Allergies (Unverified , 04/04/17) Objective Last 24 Hour Vital Signs Date Time Temp Pulse Resp B/P (MAP) Pulse Ox O2 Delivery O2 Flow Rate FiO2 04/16/17 04:00 97.0 74 22 90/64 100 Room Air 04/16/17 03:53 72 04/16/17 01:12 88 04/16/17 00:00 97.0 78 18 117/66 96 Room Air 2.0 04/15/17 23:35 80 04/15/17 21:00 109/75 04/15/17 20:05 85 04/15/17 20:00 97.0 84 18 109/75 96 Room Air 2.0 04/15/17 16:00 81 04/15/17 15:47 96.3 86 20 108/54 96 Room Air 04/15/17 12:00 81 04/15/17 11:54 96.9 76 20 129/92 100 Room Air 04/15/17 09:00 92/70 04/15/17 09:00 82 92/70 04/15/17 08:31 71 04/15/17 08:06 96.6 71 20 97/59 97 Room Air 04/15/17 08:00 77 Height (Feet): 5 Height (Inches): 7.00 Weight (Pounds): 179 JAQUELINEKEIRADINHSAM Apr 16, 2017 07:35
--- NOTE | 2017-04-16 09:45 | General Progress Note ---
Assessment/Plan Status: stable Status Narrative last Cr 1.3 Assessment/Plan status; Renal failure- Acute on Chronic, Cr 1.3 now 3+ Proteinuria, Cr rising K low Dm, Nephropathy, High A1c HyperUrecemia High LFTs Cardiomyopathy with EjFx of 15% Plan: lasix to po zestril Optimize cardiac status Allopurinol- add digoxin PO K supplement as needed Monitor renal parameters flomax per orders ? DC Kidney LAZARO; Left kidney measures 10.9 cm in length. Right kidney measures 10.4 cm length. Both kidneys demonstrate normal echogenicity. There is no hydronephrosis. Subjective ROS Limited/Unobtainable: No Allergies: Coded Allergies: No Known Allergies (Unverified , 04/04/17) Objective Last 24 Hour Vital Signs Date Time Temp Pulse Resp B/P (MAP) Pulse Ox O2 Delivery O2 Flow Rate FiO2 04/16/17 07:53 96.3 83 20 106/49 100 Room Air 04/16/17 04:00 97.0 74 22 90/64 100 Room Air 04/16/17 03:53 72 04/16/17 01:12 88 04/16/17 00:00 97.0 78 18 117/66 96 Room Air 2.0 04/15/17 23:35 80 04/15/17 21:00 109/75 04/15/17 20:05 85 04/15/17 20:00 97.0 84 18 109/75 96 Room Air 2.0 04/15/17 16:00 81 04/15/17 15:47 96.3 86 20 108/54 96 Room Air 04/15/17 12:00 81 04/15/17 11:54 96.9 76 20 129/92 100 Room Air Intake and Output 04/16/17 04/17/17 19:00 07:00 Intake Total 240 ml Balance 240 ml Intake Oral 240 ml # Voids 1 Height (Feet): 5 Height (Inches): 7.00 Weight (Pounds): 179 General Appearance: no apparent distress Objective no signs of overt CHF RENNY POWER Apr 16, 2017 09:45
[2017-04-16] MEDS: KCl 10% 20 mEq/15ml liquid ORAL SCH ×2 (10:10→17:28)
[2017-04-16] MEDS: Carvedilol 6.25mg Tab ORAL SCH ×2 (10:10→21:00)
[2017-04-16] MEDS: Furosemide 40mg tab ORAL SCH (10:11)
[2017-04-16] MEDS: Digoxin 0.125mg tab ORAL SCH (10:11)
[2017-04-16] MEDS: Lisinopril 2.5mg tab ORAL SCH (10:12)
--- NOTE | 2017-04-16 13:40 | General Progress Note ---
Assessment/Plan Problem List: (1) Elevated serum GGT level ICD Codes: R74.8 - Abnormal levels of other serum enzymes SNOMED: 001790203 (2) Abnormal LFTs ICD Codes: R79.89 - Other specified abnormal findings of blood chemistry SNOMED: 796403479 (3) CHF exacerbation ICD Codes: I50.9 - Heart failure, unspecified SNOMED: 07966310 Qualifiers: Qualified Codes: I50.9 - Heart failure, unspecified (4) Failure to thrive in adult ICD Codes: R62.7 - Adult failure to thrive SNOMED: 724913167 (5) Hypoalbuminemia ICD Codes: E88.09 - Other disorders of plasma-protein metabolism, not elsewhere classified SNOMED: 562632222 (6) Cardiomyopathy ICD Codes: I42.9 - Cardiomyopathy, unspecified SNOMED: 16677156 Qualifiers: Qualified Codes: I42.9 - Cardiomyopathy, unspecified Assessment/Plan recommend EGD/colonoscopy >> refused, can be done as outpatient hepatitis panel >> negative abdominal U/S reviewed - Gallbladder sludge and stones. Mildly thickened gallbladder wall, could indicate acute cholecystitis. >> patient refused HIDA scan and CT AP - Right pleural effusion - Hepatomegaly iron deficiency fu CT AP noncon >> patient refused symptomatic treatment cardiac diet DM mgmt pain mgmt monitor LFTs electrolyte correction fu labs Subjective ROS Limited/Unobtainable: Yes Allergies: Coded Allergies: No Known Allergies (Unverified , 04/04/17) Subjective no event Objective Last 24 Hour Vital Signs Date Time Temp Pulse Resp B/P (MAP) Pulse Ox O2 Delivery O2 Flow Rate FiO2 04/16/17 11:26 96.8 78 20 128/77 96 Room Air 04/16/17 10:12 106/49 04/16/17 10:11 83 04/16/17 10:10 83 106/49 04/16/17 07:53 96.3 83 20 106/49 100 Room Air 04/16/17 04:00 97.0 74 22 90/64 100 Room Air 04/16/17 03:53 72 04/16/17 01:12 88 04/16/17 00:00 97.0 78 18 117/66 96 Room Air 2.0 04/15/17 23:35 80 04/15/17 21:00 109/75 04/15/17 20:05 85 04/15/17 20:00 97.0 84 18 109/75 96 Room Air 2.0 04/15/17 16:00 81 04/15/17 15:47 96.3 86 20 108/54 96 Room Air Intake and Output 04/16/17 04/17/17 19:00 07:00 Intake Total 490 ml Balance 490 ml Intake Oral 490 ml # Voids 2 Height (Feet): 5 Height (Inches): 7.00 Weight (Pounds): 179 General Appearance: no apparent distress EENT: normal ENT inspection Neck: supple Cardiovascular: normal rate Respiratory/Chest: decreased breath sounds Abdomen: normal bowel sounds, non tender, soft Extremities: non-tender YUDI HANNA Apr 16, 2017 13:40
[2017-04-16] MEDS: Morphine Sulfate 4mg/ml Inj IVP PRN (16:03)
--- NOTE | 2017-04-16 23:15 | Cardiology Progress Note ---
Assessment/Plan Assessment/Plan 1. Four chamber dilated cardiomyopathy, continue lisinopril and coreg. Creatinine stable. 2. Acute systolic and diastolic CHF, continue furosemide, BNP in am. 3. Severe pulmonary HTN due to the left CHF. 4. Nonsustained ventricular tachycardia. Keep K >4.0. 5. Diabetes mellitus, consider ASA and statins. Subjective Subjective Sinus rhythm at 80. Objective Last 24 Hour Vital Signs Date Time Temp Pulse Resp B/P (MAP) Pulse Ox O2 Delivery O2 Flow Rate FiO2 04/16/17 21:00 108/68 04/16/17 20:20 96.6 59 20 108/68 96 Room Air 04/16/17 20:11 80 04/16/17 16:00 89 04/16/17 15:26 96.6 3 20 114/70 98 Room Air 04/16/17 12:00 93 04/16/17 11:26 96.8 78 20 128/77 96 Room Air 04/16/17 10:12 106/49 04/16/17 10:11 83 04/16/17 10:10 83 106/49 04/16/17 08:00 80 04/16/17 07:53 96.3 83 20 106/49 100 Room Air 04/16/17 04:00 97.0 74 22 90/64 100 Room Air 04/16/17 03:53 72 04/16/17 01:12 88 04/16/17 00:00 97.0 78 18 117/66 96 Room Air 2.0 04/15/17 23:35 80 Intake and Output 04/16/17 04/17/17 19:00 07:00 Intake Total 850 ml Balance 850 ml Intake Oral 850 ml # Voids 3 2D Echo: Four chamber DCM, Global LV hypokinesia, LVEF ~10%, Sev MR, RVSP 69 mmHg Objective HEENT: Atraumatic and normocephalic. ENT, pupils are equal, round, and reactive to light and accommodation. Conjunctival pallor is seen. Neck: JVP is elevated at about 15 cm. No carotid bruit. Carotid upstrokes 2+ bilaterally. Cardiovascular: Normal S1, S2. Regular rate and rhythm. A 2/6 midsystolic murmur at the left sternal border. LUNGS: Clear to auscultation bilaterally. Abdomen: Distended. Possible ascites. No hepatosplenomegaly. Positive bowel sounds. Extremities: 2+ bilateral lower extremity edema. EMILY COMBS Apr 16, 2017 23:15
[2017-04-17 04:00] VITALS: BP 115/71
[2017-04-17] MEDS: NovoLOG Insulin Flexpen SUBQ SCH ×2 (06:28→11:30)
[2017-04-17] MEDS: Morphine Sulfate 4mg/ml Inj IVP PRN ×2 (06:38→10:16)
[2017-04-17 08:01] VITALS: BP 121/77
[2017-04-17] MEDS: KCl 10% 20 mEq/15ml liquid ORAL SCH (09:19)
[2017-04-17] MEDS: Lisinopril 2.5mg tab ORAL SCH (09:20)
[2017-04-17] MEDS: Digoxin 0.125mg tab ORAL SCH (09:21)
[2017-04-17] MEDS: Carvedilol 6.25mg Tab ORAL SCH (09:21)
[2017-04-17] MEDS: Furosemide 40mg tab ORAL SCH (09:22)
--- NOTE | 2017-04-17 10:55 | GI Progress Note ---
Assessment/Plan Problems: (1) Elevated serum GGT level ICD Codes: R74.8 - Abnormal levels of other serum enzymes SNOMED: 714835266 (2) CHF exacerbation ICD Codes: I50.9 - Heart failure, unspecified SNOMED: 55336258 Qualifiers: Qualified Codes: I50.9 - Heart failure, unspecified (3) Failure to thrive in adult ICD Codes: R62.7 - Adult failure to thrive SNOMED: 864029128 (4) Hypoalbuminemia ICD Codes: E88.09 - Other disorders of plasma-protein metabolism, not elsewhere classified SNOMED: 523333889 Status: unchanged Status Narrative Discussed with Dr. Hinds. Assessment/Plan recommend EGD/colonoscopy >> refused, can be done as outpatient hepatitis panel >> negative abdominal U/S reviewed - Gallbladder sludge and stones. Mildly thickened gallbladder wall, could indicate acute cholecystitis. >> patient refused HIDA scan and CT AP - Right pleural effusion - Hepatomegaly iron deficiency ok for DC per GI standpoint symptomatic treatment cardiac diet DM mgmt pain mgmt monitor LFTs electrolyte correction fu labs Subjective Subjective abdominal pain Objective Last 24 Hour Vital Signs Date Time Temp Pulse Resp B/P (MAP) Pulse Ox O2 Delivery O2 Flow Rate FiO2 04/17/17 09:21 88 121/77 04/17/17 09:21 88 04/17/17 09:20 121/77 04/17/17 08:01 97.2 58 20 121/77 96 Room Air 04/17/17 04:00 98.1 89 20 115/71 98 Room Air 04/17/17 03:42 107 04/16/17 23:50 94 04/16/17 23:34 96.7 90 20 103/69 96 Room Air 04/16/17 21:00 108/68 04/16/17 20:20 96.6 59 20 108/68 96 Room Air 04/16/17 20:11 80 04/16/17 16:00 89 04/16/17 15:26 96.6 3 20 114/70 98 Room Air 04/16/17 12:00 93 04/16/17 11:26 96.8 78 20 128/77 96 Room Air Intake and Output 04/17/17 04/18/17 19:00 07:00 Intake Total 360 ml Balance 360 ml Intake Oral 360 ml # Voids 1 Laboratory Tests Test 04/17/17 06:50 Pro-B-Type Natriuretic Peptide 6182 (0-125) H Height (Feet): 5 Height (Inches): 7.00 Weight (Pounds): 182 General Appearance: no apparent distress, alert Cardiovascular: normal rate Respiratory/Chest: normal breath sounds, no respiratory distress Abdominal Exam: normal bowel sounds, non tender, soft, distended Extremities: normal range of motion Marissa Schneider N.P. Apr 17, 2017 10:55
[2017-04-17 11:49] VITALS: BP 119/91
--- NOTE | 2017-04-17 12:18 | General Progress Note ---
Assessment/Plan Status: stable Assessment/Plan status; Renal failure- Acute on Chronic, Cr 1.3 now 3+ Proteinuria, Cr rising K low Dm, Nephropathy, High A1c HyperUrecemia High LFTs Cardiomyopathy with EjFx of 15% Plan: lasix to po zestril Optimize cardiac status Allopurinol- add digoxin PO K supplement as needed Monitor renal parameters flomax per orders ? DC Kidney LAZARO; Left kidney measures 10.9 cm in length. Right kidney measures 10.4 cm length. Both kidneys demonstrate normal echogenicity. There is no hydronephrosis. Subjective ROS Limited/Unobtainable: No Allergies: Coded Allergies: No Known Allergies (Unverified , 04/04/17) Objective Last 24 Hour Vital Signs Date Time Temp Pulse Resp B/P (MAP) Pulse Ox O2 Delivery O2 Flow Rate FiO2 04/17/17 11:49 96.8 97 20 119/91 95 Room Air 04/17/17 09:21 88 121/77 04/17/17 09:21 88 04/17/17 09:20 121/77 04/17/17 08:01 97.2 58 20 121/77 96 Room Air 04/17/17 04:00 98.1 89 20 115/71 98 Room Air 04/17/17 03:42 107 04/16/17 23:50 94 04/16/17 23:34 96.7 90 20 103/69 96 Room Air 04/16/17 21:00 108/68 04/16/17 20:20 96.6 59 20 108/68 96 Room Air 04/16/17 20:11 80 04/16/17 16:00 89 04/16/17 15:26 96.6 3 20 114/70 98 Room Air Intake and Output 04/17/17 04/18/17 19:00 07:00 Intake Total 360 ml Balance 360 ml Intake Oral 360 ml # Voids 1 Laboratory Tests 04/17/17 06:50: Pro-B-Type Natriuretic Peptide 6182H Height (Feet): 5 Height (Inches): 7.00 Weight (Pounds): 182 General Appearance: no apparent distress, lethargic Objective no signs of overt CHF RENNY POWER Apr 17, 2017 12:18
--- NOTE | 2017-04-17 15:49 | Cardiac Electrophysiology PN ---
Assessment/Plan Assessment/Plan 1. Recurrent long non sustained ventricular tachycardia up to 20 beats in a patient with ejection fraction of 10%. Still refusing ICD implant. 2. Nonischemic cardiomyopathy, under heart failure management of Dr. Clifford. On Dig,Coreg, Lisinopril and Lasix 3. Renal failure with creatinine 2.1, under the management of Dr. Solorzano. 4. Abdominal pain and vomiting. Resolved DC planning today MARIELY RN Subjective Subjective Continues with runs of asymptomatic VT. Denies chest pain, shortness of breath or palpitations. Denies nausea, vomiting or diarrhea. Denies syncope. Still refusing ICD or repeat cardiac cath. Objective Last 24 Hour Vital Signs Date Time Temp Pulse Resp B/P (MAP) Pulse Ox O2 Delivery O2 Flow Rate FiO2 04/17/17 12:00 89 04/17/17 11:49 96.8 97 20 119/91 95 Room Air 04/17/17 09:21 88 121/77 04/17/17 09:21 88 04/17/17 09:20 121/77 04/17/17 08:01 97.2 58 20 121/77 96 Room Air 04/17/17 08:00 94 04/17/17 04:00 98.1 89 20 115/71 98 Room Air 04/17/17 03:42 107 04/16/17 23:50 94 04/16/17 23:34 96.7 90 20 103/69 96 Room Air 04/16/17 21:00 108/68 04/16/17 20:20 96.6 59 20 108/68 96 Room Air 04/16/17 20:11 80 04/16/17 16:00 89 Intake and Output 04/17/17 04/18/17 19:00 07:00 Intake Total 960 ml Balance 960 ml Intake Oral 960 ml # Voids 3 Laboratory Tests Test 04/17/17 06:50 Pro-B-Type Natriuretic Peptide 6182 (0-125) H Objective HEAD AND NECK: Mild JVD. LUNGS: Decreased breath sounds. Cardiovascular: RegularS1 and S2 with 2/6 systolic murmur. ABDOMEN: Distended. EXTREMITIES: 1+ pitting edema. EMILY SOLANO Apr 17, 2017 15:49
[2017-04-17 16:00] VITALS: BP 119/70
[2017-04-17] MEDS ORDERED: KCl 10% 40mEq/30ml liquid ORAL SCH (18:00)
--- NOTE | 2017-04-19 07:52 | Discharge Summary ---
Discharge Summary Hospital Course Date of Admission Apr 12, 2017 at 01:10 Date of Discharge Apr 17, 2017 at 16:30 Admitting Diagnosis failure to thrive, chf HPI Manish Baker is a 61 year old male who was admitted on Apr 12, 2017 at 01:10 for Failure To Thrive,Congestive Heart Failure Hospital Course dc summary #[id number] Discharge Condition Upon Discharge: stable Discharge Disposition Patient was discharged to SNF/Subacute Facility(03) Discharge Diagnoses: Discharge Instructions Discharge Instructions Special Instructions I have been assigned to complete a D/C Summary on this account. I was not involved in the patient management Wendy Mott NP ([place]) Apr 19, 2017 07:52
--- NOTE | 2017-04-19 23:46 | Discharge Summary ---
DATE OF ADMISSION: 04/12/2017 DATE OF DISCHARGE: 04/17/2017 REASON FOR ADMISSION: 61-year-old male with history of severe cardiomyopathy, congestive heart failure, diabetes mellitus, chronic kidney disease, hypertension, pulmonary hypertension, presented with generalized weakness and abdominal pain . He denied chest pain, fever, or chills. He was not taking his medication as prescribed. His symptoms were worse with exertion. The patient was unable to care for himself and was noncompliant with medication regimen. Potassium -2.9. No leukocytosis. Troponin negative. Pro BNP- 11,487. The patient was admitted for further management and placement to the senior living facility. ADMITTING DIAGNOSES: 1. Congestive heart failure exacerbation. 2. Severe cardiomyopathy. 3. Failure to thrive. 4. Hypokalemia. HOSPITAL STAY: The patient was admitted to telemetry floor. Cardiology consult was requested. Echocardiogram done on previous admission revealed ejection fraction 10% to 15%. The patient had a severe 4-chamber dilated nonischemic cardiomyopathy, but was still refusing AICD. Eeg Tech was involved in the care of this patient . Medical management of severe cardiomyopathy consisted of digoxin, beta-nicky, YOGESH inhibitor, and Lasix was continued at the hospital. Digoxin level was stable. Lipid panel was within normal limits. The patient with a history of chronic kidney disease. Art Editor followed. Creatinine without change. Chest x-ray revealed mild interstitial edema. Pr oBNP was trending down from initial 11,487 down to 6182. Blood sugar was managed with sliding scale of insulin. Last hemoglobin A1c high. The patient will need optimization of anti-glycemic regimen as outpatient. GI specialist followed the patient due to abdominal pain. The patient was seen by GI specialist on previous admission. At that time he was recommended EGD and colonoscopy, which the patient declined. It could be done as outpatient as per GI recommendations. Hepatitis panel was negative. The patient had abnormal LFT. Abdominal ultrasound on previous admission revealed hepatomegaly, gallbladder sludge and stones, mildly thickened gallbladder wall. The patient refused HIDA at that time as well as a CT of the abdomen and pelvis. LFTs were closely monitored, trending down, possibly congested liver due to the CHF exacerbation. Symptomatic treatment was provided. Antiemetic administered as needed. Pain management was addressed. Cardiac diet provided. Creatinine remained at the baseline. Continue medical management of congestive heart failure. Wound care nurse seen and evaluated the patient. Wound care for venous stasis ulcers bilateral lower extremities provided as per wound care nurse recommendation. Transfer was arranged to senior living facility. The patient was stable for transfer. FINAL DIAGNOSES: 1. Acute systolic and diastolic congestive heart failure. 2. Fourth-chamber dilated cardiomyopathy. 3. Severe pulmonary hypertension secondary to left congestive heart failure. 4. Recurrent long nonsustained ventricular tachycardia up to 20 beats. 5. Diabetes mellitus out of control. 6. Diabetic nephropathy. 7. Acute on chronic renal failure. 8. Noncompliance. 9. Proteinuria. 10. Venous stasis ulcers of bilateral lower extremities. 11. Abdominal pain. 12. Abnormal liver function test. 13. Hypoalbuminemia. 14. Elevated serum GGT. DISCHARGE MEDICATIONS: List of medication was sent with the patient to admitting facility. DISCHARGE INSTRUCTIONS: The patient was discharged to senior living facility. FOLLOWUP: Follow up with medical doctor at the facility. Joanna Keller M.D. Wendy DrakeMadison Avenue Hospitalmarcelina N.PAsa K[facility] JOB#: [id number] CC: ANAHY
--- NOTE | 2017-04-20 23:23 | Cardiology Report ---
APPROVED REPORT EKG Measurement Heart [id number] Sinus arrhythmia with frequent PAC's and with occasional premature ventricular complexes Anterior infarct, age undetermined Abnormal ECG
--- NOTE | 2017-04-20 23:30 | Cardiology Report ---
APPROVED REPORT EKG Measurement Heart [id number] ID [id number] Poor data quality, interpretation may be adversely affected Sinus rhythm with frequent, and consecutive premature ventricular complexes Pulmonary disease pattern Septal infarct, age undetermined Abnormal ECG
== END 2017-04-17 16:30 | DRG 194 ==
LOC: EMR 04-12 00:30 → 2W 04-12 01:10 → EDBEDREQ 04-12 02:01 → EDBEDREQSVC 04-12 02:01 → EDBEDREQTM 04-12 02:01 → EDBEDREQ 04-12 04:39 → 2W 04-12 06:20 → 2E 04-13 07:52
DX: I50.43 Acute on chronic combined systolic (congestive) and diastolic (congestive) heart failure (principal); I47.2 Ventricular tachycardia; N17.9 Acute kidney failure, unspecified; E11.21 Type 2 diabetes mellitus with diabetic nephropathy; E88.09 Other disorders of plasma-protein metabolism, not elsewhere classified; I27.22 Pulmonary hypertension due to left heart disease; I42.0 Dilated cardiomyopathy; E11.65 Type 2 diabetes mellitus with hyperglycemia; N18.9 Chronic kidney disease, unspecified; R62.7 Adult failure to thrive; E87.6 Hypokalemia; E11.22 Type 2 diabetes mellitus with diabetic chronic kidney disease; Z91.19 Patient's noncompliance with other medical treatment and regimen; R10.9 Unspecified abdominal pain; R79.89 Other specified abnormal findings of blood chemistry; Z79.4 Long term (current) use of insulin; I83.018 Varicose veins of right lower extremity with ulcer other part of lower leg; I83.028 Varicose veins of left lower extremity with ulcer other part of lower leg
CPT/HCPCS: 36415; 71010; 80048; 80053; 80061; 80162; 81003; 82248; 82378; 82550; 82553; 82962; 82977; 83540; 83550; 83735; 83880; 84100; 84443; 84484; 84550; 85025; 86140; 87081; 93005; 99285; J1815; J2405; J8499

== ENCOUNTER 2017-05-01 11:29 | Emergency (ER) | payer OTHER ==
[~2017-05-01] VITALS: Ht 175.3 cm; Wt 86.2 kg
[2017-05-01] MEDS ORDERED: NORCO 5-325 TA1 EAC1 ORAL (11:40)
[2017-05-01] MEDS ORDERED: PANTOPRAZOLE SO40 MG ORAL (11:40)
[2017-05-01] MEDS ORDERED: NOVOLOG100 UNIT/3 SUBQ (11:40)
[2017-05-01] MEDS ORDERED: GABAPENTIN100 MG ORAL (11:40)
[2017-05-01] MEDS ORDERED: POTASSIUM20 MEQ/15 PO (11:40)
[2017-05-01] MEDS ORDERED: ZOFRAN4 M3 ORAL (11:40)
[2017-05-01 11:45] VITALS: BP 114/82
--- NOTE | 2017-05-01 12:02 | Emergency Room Report ---
History of Present Illness General Chief Complaint: Abdominal Pain Source: Patient Present Illness HPI 61-year-old male with history of severe cardiomyopathy, congestive heart failure EF ~10% (refused AICD), diabetes mellitus, chronic kidney disease, hypertension, pulmonary hypertension, presenting with abdominal distention. Patient states that he takes Lasix, has been compliant, states that the 60 mg is not working for him and wants 80 mg. Denies any fever or chills. Increasing abdominal distention and bilateral lower extremity edema. Has chronic shortness of breath. Patient last admitted and discharged April 18 for abdominal distention, CHF exacerbation Allergies: Coded Allergies: No Known Allergies (Unverified , 04/04/17) Patient History Past Medical History: see triage record Past Surgical History: none Pertinent Family History: none Reviewed Nursing Documentation: PMH: Agreed, PSxH: Agreed Nursing Documentation-PMH Hx Cardiac Problems: Yes - chf, ckd Hx Hypertension: Yes Hx Diabetes: Yes Hx Cancer: No Hx Gastrointestinal Problems: Yes - stomach pain Hx Neurological Problems: No Review of Systems All Other Systems: negative except mentioned in HPI Physical Exam Vital Signs Date Time Temp Pulse Resp B/P (MAP) Pulse Ox O2 Delivery O2 Flow Rate FiO2 05/01/17 11:21 103 18 113/82 97 Room Air 05/01/17 11:45 97.9 Sp02 EP Interpretation: reviewed, normal General Appearance: alert, GCS 15, non-toxic, other - Mildly short of breath however speaking complete sentences not in pain Head: normocephalic, atraumatic Eyes: bilateral eye normal inspection, bilateral eye PERRL, bilateral eye EOMI ENT: normal ENT inspection, normal pharynx, normal voice, moist mucus membranes Neck: normal inspection, full range of motion, supple Respiratory: normal inspection, lungs clear, normal breath sounds, no respiratory distress, no retraction, no wheezing, speaking full sentences, chest symmetrical Cardiovascular #1: normal inspection, regular rate, rhythm, no edema, normal capillary refill Cardiovascular #2: 2+ radial (R), 2+ radial (L) Gastrointestinal: soft, no guarding, other - Ascites and abdominal distention, nontender throughout, no guarding or rigidity Genitourinary: no CVA tenderness Musculoskeletal: back normal, normal range of motion, other - 2+ pitting edema bilateral lower extremity, chronic venous stasis ulcers Neurologic: normal inspection, alert, oriented x3, responsive, motor strength/ tone normal, sensory intact, normal gait, speech normal Psychiatric: normal inspection, judgement/insight normal, memory normal Skin: warm/dry, well hydrated, normal turgor Medical Decision Making Diagnostic Impression: Primary Impression: Ascites Additional Impressions: CHF (congestive heart failure) Edema ER Course 61-year-old male with history of cardiomyopathy, CHF, ascites, presenting with weight gain, abdominal distention DDX: Fluid overload from CHF/CHF exacerbation At this time I am not concerned with spontaneous bacterial peritonitis patient' s abdomen is soft nontender Plan: IV access, diagnostic cardiac sonographer, obtain labs including BNP Consider Lasix ER course: Patient has remained stable during ED stay. Not hypoxic not tachypnea Lasix given 60mg Disposition: Patient is to be discharged to retirement Patient is instructed to follow up with their primary care doctor within 5 days. Strict return precautions discussed with patient such as fever, chills, worsening/severe pain, nausea, vomiting, which may indicate severe illness. Patient verbalizes understanding and agrees with plan. Please note that this Emergency Department Report was dictated using [employer] loader technology software, occasionally this can lead to erroneous entry secondary to interpretation by the dictation equipment Rhythm Strip EP Interpretation: Yes Rate: 99 Rhythm: NSR, no PVCs, no ectopy Laboratory Tests Test 05/01/17 12:30 White Blood Count 8.1 K/UL (4.8-10.8) Red Blood Count 5.52 M/UL (4.70-6.10) Hemoglobin 13.5 G/DL (14.2-18.0) L Hematocrit 44.2 % (42.0-52.0) Mean Corpuscular Volume 80 FL (80-99) Mean Corpuscular Hemoglobin 24.5 PG (27.0-31.0) L Mean Corpuscular Hemoglobin Concent 30.6 G/DL (32.0-36.0) L Red Cell Distribution Width 16.7 % (11.6-14.8) H Platelet Count 219 K/UL (150-450) Mean Platelet Volume 11.2 FL (6.5-10.1) H Neutrophils (%) (Auto) 68.1 % (45.0-75.0) Lymphocytes (%) (Auto) 26.3 % (20.0-45.0) Monocytes (%) (Auto) 2.9 % (1.0-10.0) Eosinophils (%) (Auto) 1.9 % (0.0-3.0) Basophils (%) (Auto) 0.8 % (0.0-2.0) Prothrombin Time 11.2 SEC (9.30-11.50) Prothrombin Time INR 1.1 (0.9-1.1) PTT 24 SEC (23-33) Sodium Level 141 MMOL/L (136-145) Potassium Level 4.6 MMOL/L (3.5-5.1) Chloride Level 107 MMOL/L (98-107) Carbon Dioxide Level 24 MMOL/L (21-32) Anion Gap 10 mmol/L (5-15) Blood Urea Nitrogen 16 mg/dL (7-18) Creatinine 1.1 MG/DL (0.55-1.30) Estimate Glomerular Filtration Rate > 60 mL/min (>60) Glucose Level 173 MG/DL (74-106) H Calcium Level 8.7 MG/DL (8.5-10.1) Total Bilirubin 0.8 MG/DL (0.2-1.0) Aspartate Amino Transferase (AST) 19 U/L (15-37) Alanine Aminotransferase (ALT) 18 U/L (12-78) Alkaline Phosphatase 109 U/L (46-116) Pro-B-Type Natriuretic Peptide 6450 pg/mL (0-125) H Total Protein 6.3 G/DL (6.4-8.2) L Albumin 2.6 G/DL (3.4-5.0) L Globulin 3.7 g/dL Albumin/Globulin Ratio 0.7 (1.0-2.7) L Last Vital Signs Date Time Temp Pulse Resp B/P (MAP) Pulse Ox O2 Delivery O2 Flow Rate FiO2 05/01/17 11:45 97.9 100 22 114/82 100 Room Air Disposition: XFER SNF Condition: Improved Referrals: Joanna Keller MD (PCP) Thomas Mariee M.D. May 01, 2017 12:02
[2017-05-01 12:58] LABS: BASOPHILS % (AUTO) 0.8 % (0.0-2.0); EOSINOPHILS % (AUTO) 1.9 % (0.0-3.0); LYMPHOCYTES % (AUTO) 26.3 % (20.0-45.0); MEAN CORPUSCULAR HEMOGLOBIN 24.5 PG (27.0-31.0); MEAN CORPUSCULAR HGB CONC 30.6 G/DL (32.0-36.0); MEAN CORPUSCULAR VOLUME 80 FL (80-99); MEAN PLATELET VOLUME 11.2 FL (6.5-10.1); MONOCYTES % (AUTO) 2.9 % (1.0-10.0); NEUTROPHILS % (AUTO) 68.1 % (45.0-75.0); PLATELET COUNT 219 K/UL (150-450); RED BLOOD COUNT 5.52 M/UL (4.70-6.10); RED CELL DISTRIBUTION WIDTH 16.7 % (11.6-14.8); WHITE BLOOD COUNT 8.1 K/UL (4.8-10.8)
[2017-05-01 13:08] LABS: INR 1.1 (0.9-1.1); PROTHROMBIN TIME 11.2 SEC (9.30-11.50)
[2017-05-01 13:19] LABS: ALANINE AMINOTRANSFERASE 18 U/L (12-78); ALBUMIN/GLOBULIN RATIO 0.7 (1.0-2.7); ANION GAP 10 mmol/L (5-15); ASPARTATE AMINO TRANSFERASE 19 U/L (15-37); CALCIUM 8.7 MG/DL (8.5-10.1); CARBON DIOXIDE 24 MMOL/L (21-32); CHLORIDE 107 MMOL/L (98-107); CREATININE 1.1 MG/DL (0.55-1.30); GLOMERULAR FILTRATION RATE > 60 mL/min (>60); POTASSIUM 4.6 MMOL/L (3.5-5.1); SODIUM 141 MMOL/L (136-145); TOTAL PROTEIN 6.3 G/DL (6.4-8.2)
[2017-05-01 14:01] VITALS: BP 117/83
[2017-05-01 14:46] VITALS: BP 115/82
== END 2017-05-01 16:36 ==
LOC: EDBD 11:29 → EMR 13:17
DX: R18.8 Other ascites (principal); I50.9 Heart failure, unspecified; E11.9 Type 2 diabetes mellitus without complications; I12.9 Hypertensive chronic kidney disease with stage 1 through stage 4 chronic kidney disease, or unspecified chronic kidney disease; N18.9 Chronic kidney disease, unspecified
CPT/HCPCS: 36415; 80053; 83880; 85025; 85610; 85730; 96374; 99284; J1940

== ENCOUNTER 2017-06-11 12:18 | Inpatient (IN) | payer OTHER ==
[~2017-06-11] VITALS: Ht 170.2 cm; Wt 79.4 kg
[~2017-06-11 12:18] MED LIST changes: +GABAPENTIN100 MG ORAL; +NORCO 5-325 TA1 EAC1 ORAL; +NOVOLOG100 UNIT/3 SUBQ; +PANTOPRAZOLE SO40 MG ORAL; +POTASSIUM20 MEQ/15 PO; +ZOFRAN4 M3 ORAL
--- NOTE | 2017-06-11 12:52 | Emergency Room Report ---
History of Present Illness General Chief Complaint: Dyspnea/Respdistress Source: Patient Present Illness HPI 61YOM Brought in from home by EMS with complaint of unable to walk due to lack of strength. was discharged from outside facility last night, states hasn't had any of his medications including Lasix and [place] Complaining of increased scrotal swelling Denies chest pain, shortness of breath, fever or chills PMHX: severe cardiomyopathy, congestive heart failure EF ~10% (refused AICD), diabetes mellitus, chronic kidney disease, hypertension, pulmonary hypertension , hypoalbuminemia, abnormal LFTs Allergies: Coded Allergies: No Known Allergies (Unverified , 04/04/17) Patient History Past Medical History: other - the history of present illness Past Surgical History: none Pertinent Family History: none Social History: Denies: smoking, alcohol use, drug use Immunizations: UTD Reviewed Nursing Documentation: PMH: Agreed, PSxH: Agreed Nursing Documentation-PMH Hx Cardiac Problems: Yes - CHF Hx Hypertension: Yes Hx Diabetes: Yes Hx Cancer: No Hx Gastrointestinal Problems: Yes - stomach pain Hx Dialysis: No - CKD Hx Neurological Problems: No Review of Systems All Other Systems: negative except mentioned in HPI Physical Exam Vital Signs Date Time Temp Pulse Resp B/P (MAP) Pulse Ox O2 Delivery O2 Flow Rate FiO2 06/11/17 12:34 97.2 99 28 109/73 98 Room Air Sp02 EP Interpretation: reviewed, normal General Appearance: normal inspection, well appearing, no apparent distress, alert, GCS 15, non-toxic Head: normocephalic, atraumatic Eyes: bilateral eye PERRL, bilateral eye EOMI ENT: normal ENT inspection, hearing grossly normal, normal voice Neck: normal inspection, full range of motion, supple, no bony tend Respiratory: normal inspection, lungs clear, normal breath sounds, no respiratory distress, no retraction, no wheezing Cardiovascular #1: regular rate, rhythm, no edema Gastrointestinal: normal inspection, normal bowel sounds, non tender, soft, no guarding, no hernia, other - Ascitic abdomen. Non-focal. Genitourinary: no CVA tenderness, other - Mild scrotal swelling. No fourniers. No ttp Musculoskeletal: normal inspection, back normal, normal range of motion, Lane' s Sign negative Neurologic: normal inspection, alert, oriented x3, responsive, spring inspector III-XII nml as tested, speech normal Psychiatric: normal inspection, judgement/insight normal, mood/affect normal Skin: normal inspection, normal color, no rash Medical Decision Making Diagnostic Impression: Primary Impression: Weakness Additional Impressions: Hypokalemia Elevated troponin CHF (congestive heart failure) Qualified Codes: I50.9 - Heart failure, unspecified ER Course 61-year-old male with weakness to lower extremities Patient able to ambulate next a stretcher, is not unsteady on feet, however walks with wide gait No focal neurological deficits on neurologic exam Unlikely CVA or TIA Was given a dose of Lasix IV in ER however lungs are clear to auscultation O2 sat 98% on room air and patient not tachypneic Unlikely in acute pulmonary heart failure elevated troponin 0.2 however his EKG is unchanged from previous one in April- shows sinus rhythm with PACs versus PVCs. No acute ischemia noted. Gave aspirin in er. However low suspicion for ACS at this point mild hypokalemia 3.2 repleted in the ER elevated BNP, 10,000, setting of normal kidney function, possibly acute on chronic CHF Issue will need admission for rule out ACS, serial troponins Remains stable on room air, not require BiPAP for additional intervention for hypoxia, tachypnea Endorse to Dr. Bonilla at 1:53 PM for telemetry admission as the doctor/ hospitalist who previously admitted patient last 2 times. EKG Diagnostic Results Rate: normal, other - PVCs Rhythm: NSR ST Segments: no acute changes ASA given to the pt in ED: Yes Rhythm Strip Diag. Results EP Interpretation: yes Rate: 97 Rhythm: NSR, no PVC's, no ectopy Chest X-Ray Diagnostic Results Chest X-Ray Diagnostic Results : Chest X-Ray Ordered: Yes # of Views/Limited/Complete: 1 View Indication: Other - Admit EP Interpretation: Yes Interpretation: no effusion, no pneumothorax, no acute cardiopulmonary disease Impression: Other - Cardiomegaly, unchanged from previous April study, mild pulm congestion Electronically Signed by: Dr Owen Bowman MD Last Vital Signs Date Time Temp Pulse Resp B/P (MAP) Pulse Ox O2 Delivery O2 Flow Rate FiO2 06/11/17 12:34 97.2 99 28 109/73 98 Room Air Status: improved Disposition: ADMITTED INPATIENT Condition: Serious OWEN BOWMAN M.D. Jun 11, 2017 12:52
[2017-06-11 12:55] VITALS: BP 116/92
[2017-06-11 13:15] LABS: APPEARANCE,URINE CLEAR; BASOPHILS % (AUTO) 1.2 % (0.0-2.0); KETONES,URINE NEGATIVE (NEGATIVE); LEUKOCYTE ESTERASE ,URINE 1+ (NEGATIVE); LYMPHOCYTES % (AUTO) 25.5 % (20.0-45.0); MEAN CORPUSCULAR HEMOGLOBIN 23.9 PG (27.0-31.0); MEAN CORPUSCULAR HGB CONC 30.2 G/DL (32.0-36.0); MEAN CORPUSCULAR VOLUME 79 FL (80-99); MEAN PLATELET VOLUME 10.4 FL (6.5-10.1); MONOCYTES % (AUTO) 8.2 % (1.0-10.0); NEUTROPHILS % (AUTO) 64.2 % (45.0-75.0); NITRITE,URINE NEGATIVE (NEGATIVE); PH,URINE 7 (4.5-8.0); PLATELET COUNT 254 K/UL (150-450); PROTEIN,URINE 3+ (NEGATIVE); RED BLOOD COUNT 6.23 M/UL (4.70-6.10); RED CELL DISTRIBUTION WIDTH 20.8 % (11.6-14.8); UROBILINOGEN,URINE 12 MG/DL (0.0-1.0); WHITE BLOOD COUNT 6.8 K/UL (4.8-10.8)
[2017-06-11 13:27] LABS: ANION GAP 7 mmol/L (5-15); CALCIUM 8.4 MG/DL (8.5-10.1); CARBON DIOXIDE 30 MMOL/L (21-32); CHLORIDE 107 MMOL/L (98-107); CREATININE 1.2 MG/DL (0.55-1.30); GLOMERULAR FILTRATION RATE > 60 mL/min (>60); POTASSIUM 3.2 MMOL/L (3.5-5.1); SODIUM 144 MMOL/L (136-145)
[2017-06-11 13:31] LABS: BACTERIA,URINE OCCASIONAL /HPF; ICTOTEST NEGATIVE; RBC,URINE 0-2 /HPF (0 - 0); SQUAMOUS EPITHELIAL CELL,UR OCCASIONAL /LPF (NONE/OCC); WBC,URINE 0-2 /HPF (0 - 0)
[2017-06-11 13:40] LABS: ALANINE AMINOTRANSFERASE 12 U/L (12-78); ALBUMIN/GLOBULIN RATIO 0.6 (1.0-2.7); ASPARTATE AMINO TRANSFERASE 19 U/L (15-37); CKMB 1.7 NG/ML (0.0-3.6); TOTAL PROTEIN 6.6 G/DL (6.4-8.2)
[2017-06-11 13:53] LABS: BILIRUBIN,DIRECT 1.3 MG/DL (0.0-0.3)
[2017-06-11 14:00] VITALS: BP 116/92
[2017-06-11 15:00] VITALS: BP 123/99
[2017-06-11 15:45] VITALS: BP 119/87
[2017-06-11 16:27] VITALS: BP 137/108
[2017-06-11] MEDS ORDERED: Norco 5mg/325mg tab ORAL ONE (18:00)
[2017-06-11] MEDS: KCl 10% 20 mEq/15ml liquid ORAL SCH ×2 (18:29→21:04)
[2017-06-11] MEDS: Digoxin 0.125mg tab ORAL SCH (18:30)
[2017-06-11] MEDS: Lisinopril 2.5mg tab ORAL SCH (18:30)
[2017-06-11 20:14] VITALS: BP 121/78
[2017-06-11] MEDS: Norco 5mg/325mg tab ORAL PRN (20:34)
[2017-06-11] MEDS: NovoLOG Insulin Flexpen SUBQ SCH (21:05)
[2017-06-12] VITALS: BP 126/82
[2017-06-12] MEDS: Norco 5mg/325mg tab ORAL PRN ×3 (03:42→16:00)
[2017-06-12 04:00] VITALS: BP 122/84
[2017-06-12] MEDS: NovoLOG Insulin Flexpen SUBQ SCH ×4 (06:30→20:59)
[2017-06-12 08:04] VITALS: BP 119/74
--- NOTE | 2017-06-12 08:31 | Diagnostic Imaging Report ---
Indication: SOB Technique: One view of the chest Comparison: 04/12/2017 Findings: There is a moderate right-sided pleural effusion, which appears similar in size to the previous study. Bilateral interstitial congestive changes persists, appearing similar to the previous exam. There is some airspace consolidation at the right lung base which was not evident previously. The heart is markedly enlarged Impression: Interstitial congestion, right-sided pleural effusion, right basilar airspace consolidation, as described. Findings most likely represent congestive heart failure, right-sided pneumonia also a possibility
[2017-06-12] MEDS ORDERED: Furosemide 40mg tab ORAL SCH (09:00)
[2017-06-12] MEDS: Digoxin 0.125mg tab ORAL SCH (09:08)
[2017-06-12] MEDS: Lisinopril 2.5mg tab ORAL SCH (09:08)
[2017-06-12] MEDS: ceFAZolin sod 1 GM in D5W 55 ML IVPB SCH ×2 (10:30→19:00)
--- NOTE | 2017-06-12 11:22 | Consultation ---
Consult Note Consult Note Chief Complaint: Dyspnea/Respdistress 61YOM Brought in from home by EMS with complaint of unable to walk due to lack of strength. was discharged from outside facility last night, states hasn't had any of his medications including Lasix and [place] Complaining of increased scrotal swelling Denies chest pain, shortness of breath, fever or chills PMHX: severe cardiomyopathy, congestive heart failure EF ~10% (refused AICD), diabetes mellitus, chronic kidney disease, hypertension, pulmonary hypertension , hypoalbuminemia, abnormal LFTs Hx Cardiac Problems: Yes - CHF Hx Hypertension: Yes Hx Diabetes: Yes Hx Gastrointestinal Problems: Yes - stomach pain Hx Dialysis: No - CKD interviewed examined- data reviewed Assessment/Plan Nephropathy 3+ Proteinuria, K low Dm, Nephropathy, High A1c h/o HyperUrecemia h/o High LFTs Cardiomyopathy with EjFx of 15% Plan: Optimize cardiac status Allopurinol- dig , [place] I , Lasix as needed K supplement as needed Monitor renal parameters flomax per orders RENNY POWER Jun 12, 2017 11:22
[2017-06-12 11:31] VITALS: BP 124/74
--- NOTE | 2017-06-12 12:10 | GI Initial Consult Note ---
History of Present Illness General Date patient seen: Jun 12, 2017 Time patient seen: 12:03 Reason for Hospitalization: Dyspnea/Respdistress Referring physician: MINDI MCKEON Reason for Consultation: ABDOMINAL DISTENTION Present Illness HPI [id number] Brought in from home by EMS with complaint of unable to walk due to lack of strength. was discharged from outside facility last night, states hasn't had any of his medications including Lasix and [place] Complaining of increased scrotal swelling Denies chest pain, shortness of breath, fever or chills GI consulted for abdominal pain. HPI as noted above. Pt seen on floor, awake A&Ox4 NAD with no active s/sx of N/V/D. C/o of abdominal pain, distended and soft. During a prior admission, the patient presented with elevated LFTs raising concerns of possible cholecystitis in which he had refused to have a HIDA scan and CT AP performed at the time. He presents today elevated total bilirubin and elevated troponin levels. No leukocytosis. Unknown history of endoscopic / colonoscopies. Home Meds Active Scripts Potassium Chloride (Potassium Chloride) 20 Meq Tablet.er, 20 MEQ PO DAILY, #30 TAB Prov:Pantera DrakeUniversity [facility] CenterWendy Jean-Baptiste NP 04/11/17 Furosemide* (LASIX*) 40 Mg Tablet, 40 MG ORAL DAILY, #30 TAB Prov:Pantera DrakeUniversity [facility] CenterWendy Jean-Baptiste NP 04/11/17 Lisinopril* (LISINOPRIL*) 2.5 Mg Tablet, 5 MG ORAL DAILY, #30 TAB 0 Refills Prov:Pantera DrakeUniversity [facility] CenterWendy Jean-Baptiste NP 04/11/17 Carvedilol (Coreg) 3.125 Mg Tablet, 3.125 MG ORAL EVERY 12 HOURS, #60 TAB Prov:Pantera DrakeUniversity [facility] CenterWendy Jean-Baptiste NP 04/11/17 Allopurinol* (ALLOPURINOL*) 300 Mg Tablet, 300 MG ORAL DAILY, #30 TAB Prov:Pantera DrakeUniversity [facility] CenterWendy Jean-Baptiste NP 04/11/17 Digoxin* (DIGOXIN*) 125 Mcg Tablet, 125 MCG ORAL DAILY, #30 TAB Prov:Pantera DrakeUniversity [facility] CenterWendy Jean-Baptiste NP 04/11/17 Reported Medications Ondansetron* (ZOFRAN*) 4 Mg Tablet, 4 MG ORAL Q8HR Y for Nausea & Vomiting, TAB 05/01/17 Potassium Chloride (Potassium Chloride) 20 Meq/15 Ml Liquid, 40 MEQ PO BID, ML 05/01/17 Pantoprazole* (PANTOPRAZOLE*) 40 Mg Tablet.dr, 40 MG ORAL DAILY, TAB 05/01/17 Insulin Aspart* (NOVOLOG*) 100 Unit/1 Ml Insuln.pen, 0 SUBQ, #1 EA 0 Refills 05/01/17 Hydrocodone Bit/Acetaminophen 5-325* (NORCO 5-325 TABLET*) 1 Each Tablet, 1 TAB ORAL Q6H Y for Severe Pain (Pain Scale 7-10), TAB 05/01/17 Gabapentin* (GABAPENTIN*) 100 Mg Capsule, 100 MG ORAL BID, CAP 05/01/17 Insulin Regular, Human (HUMULIN R) 100 Unit/1 Ml Vial, 0 SUBQ, VIAL 04/04/17 No Known Medications* (NKM - No Known Medications*) ., 0 ., 0 Refills 04/04/17 Allergies: Coded Allergies: No Known Allergies (Unverified , 04/04/17) Patient History PMH Narrative PMHX: severe cardiomyopathy, congestive heart failure EF ~10% (refused AICD), diabetes mellitus, chronic kidney disease, hypertension, pulmonary hypertension , hypoalbuminemia, abnormal LFTs Hx Cardiac Problems: Yes - CHF Hx Hypertension: Yes Hx Diabetes: Yes Hx Cancer: No Hx Gastrointestinal Problems: Yes - stomach pain Hx Dialysis: No - CKD Hx Neurological Problems: No Review of Systems All Other Systems: negative except mentioned in HPI Physical Exam Vital Signs Date Time Temp Pulse Resp B/P (MAP) Pulse Ox O2 Delivery O2 Flow Rate FiO2 06/11/17 12:34 97.2 99 28 109/73 98 Room Air 06/11/17 12:55 94 06/11/17 15:00 2.0 Sp02 EP Interpretation: reviewed, normal Labs Laboratory Tests Test 06/11/17 12:50 White Blood Count 6.8 K/UL (4.8-10.8) Red Blood Count 6.23 M/UL (4.70-6.10) H Hemoglobin 14.9 G/DL (14.2-18.0) Hematocrit 49.5 % (42.0-52.0) Mean Corpuscular Volume 79 FL (80-99) L Mean Corpuscular Hemoglobin 23.9 PG (27.0-31.0) L Mean Corpuscular Hemoglobin Concent 30.2 G/DL (32.0-36.0) L Red Cell Distribution Width 20.8 % (11.6-14.8) H Platelet Count 254 K/UL (150-450) Mean Platelet Volume 10.4 FL (6.5-10.1) H Neutrophils (%) (Auto) 64.2 % (45.0-75.0) Lymphocytes (%) (Auto) 25.5 % (20.0-45.0) Monocytes (%) (Auto) 8.2 % (1.0-10.0) Eosinophils (%) (Auto) 1.0 % (0.0-3.0) Basophils (%) (Auto) 1.2 % (0.0-2.0) Urine Color Yellow Urine Appearance Clear Urine pH 7 (4.5-8.0) Urine Specific [place] 1.015 (1.005-1.035) Urine Protein 3+ (NEGATIVE) H Urine Glucose (UA) Negative (NEGATIVE) Urine Ketones Negative (NEGATIVE) Urine Occult Blood Negative (NEGATIVE) Urine Nitrite Negative (NEGATIVE) Urine Bilirubin 1+ (NEGATIVE) H Urine Ictotest Negative Urine Urobilinogen 12 MG/DL (0.0-1.0) H Urine Leukocyte Esterase 1+ (NEGATIVE) H Urine RBC 0-2 /HPF (0 - 0) H Urine WBC 0-2 /HPF (0 - 0) Urine Squamous Epithelial Cells Occasional /LPF Urine Bacteria Occasional /HPF (NONE) Sodium Level 144 MMOL/L (136-145) Potassium Level 3.2 MMOL/L (3.5-5.1) L Chloride Level 107 MMOL/L (98-107) Carbon Dioxide Level 30 MMOL/L (21-32) Anion Gap 7 mmol/L (5-15) Blood Urea Nitrogen 12 mg/dL (7-18) Creatinine 1.2 MG/DL (0.55-1.30) Estimat Glomerular Filtration Rate > 60 mL/min (>60) Glucose Level 140 MG/DL (74-106) H Calcium Level 8.4 MG/DL (8.5-10.1) L Total Bilirubin 2.0 MG/DL (0.2-1.0) H Direct Bilirubin 1.3 MG/DL (0.0-0.3) H Aspartate Amino Transf (AST/SGOT) 19 U/L (15-37) Alanine Aminotransferase (ALT/SGPT) 12 U/L (12-78) Alkaline Phosphatase 129 U/L (46-116) H Total Creatine Kinase 71 U/L (26-308) Creatine Kinase MB 1.7 NG/ML (0.0-3.6) Creatine Kinase MB Relative Index 2.3 Troponin I 0.243 ng/mL (0.000-0.056) Pro-B-Type Natriuretic Peptide 69237 pg/mL (0-125) H Total Protein 6.6 G/DL (6.4-8.2) Albumin 2.6 G/DL (3.4-5.0) L Globulin 4.0 g/dL Albumin/Globulin Ratio 0.6 (1.0-2.7) L Urine Opiates Screen Positive (NEGATIVE) H Urine Barbiturates Screen Negative (NEGATIVE) Phencyclidine (PCP) Screen Negative (NEGATIVE) Urine Amphetamines Screen Negative (NEGATIVE) Urine Benzodiazepines Screen Negative (NEGATIVE) Urine Cocaine Screen Negative (NEGATIVE) Urine Marijuana (THC) Screen Negative (NEGATIVE) General Appearance: well appearing, no apparent distress, alert Head: normocephalic EENT: PERRL/EOMI, normal ENT inspection Neck: supple Respiratory: normal breath sounds, no respiratory distress Cardiovascular: normal rate Gastrointestinal: normal inspection, non tender, soft, normal bowel sounds, distended Rectal: deferred Genitourinary: deferred Musculoskeletal: normal inspection, back normal Neurologic: normal inspection, alert, oriented x3, responsive Psychiatric: normal inspection, judgement/insight normal, memory normal Skin: normal inspection, normal color, no rash, warm/dry, palpation normal, well hydrated Lymphatic: normal inspection, no adenopathy Current Medications Current Medications Medications (Trade) Dose Ordered Sig/Reuben Route PRN Reason Start Time Stop Time Status Last Admin Dose Admin Acetaminophen/ Hydrocodone Bitart ([place] 5/325) 1 tab Q6H PRN ORAL For Pain 06/11/17 17:45 06/18/17 17:44 06/12/17 09:53 Allopurinol (Allopurinol) 300 mg DAILY ORAL 06/12/17 09:00 07/12/17 08:59 06/12/17 09:10 Carvedilol (Coreg) 3.125 mg EVERY 12 HOURS ORAL 06/11/17 21:00 07/11/17 20:59 06/12/17 09:09 Cefazolin Sodium 1 gm/Dextrose 55 ml @ 110 mls/hr Q8H IVPB 06/12/17 10:30 06/19/17 10:29 Dextrose (Dextrose 50%) STAT PRN IV Hypoglycemia 06/11/17 17:00 07/11/17 16:59 Digoxin (Lanoxin) 0.125 mg DAILY ORAL 06/11/17 18:00 07/11/17 17:59 06/12/17 09:08 Furosemide (Lasix) 40 mg DAILY ORAL 06/12/17 09:00 07/12/17 08:59 06/12/17 09:07 Gabapentin (Neurontin) 100 mg BID ORAL 06/11/17 18:00 07/11/17 17:59 06/12/17 09:09 Insulin Aspart (NovoLOG) BEFORE MEALS AND HS SUBQ 06/11/17 21:00 07/11/17 20:59 06/11/17 21:05 Lisinopril (Zestril) 5 mg DAILY ORAL 06/11/17 18:00 07/11/17 17:59 06/12/17 09:08 Ondansetron HCl (Zofran) 4 mg Q6H PRN IVP Nausea & Vomiting 06/11/17 17:00 07/11/17 16:59 Pantoprazole (Protonix) 40 mg DAILY ORAL 06/12/17 09:00 07/12/17 08:59 06/12/17 09:07 Potassium Chloride (KCl 10% 20 mEq oral solution) 40 meq TWICE A DAY ORAL 06/11/17 18:00 07/11/17 17:59 06/11/17 21:04 GI: Plan Problems: (1) Elevated troponin (2) Edema (3) Ascites (4) Abnormal LFTs (5) Hypoalbuminemia (6) CHF (congestive heart failure) (7) Weakness (8) Non-compliance with treatment Plan defer GI procedures given elevated troponin levels >> patient refuses EGD/ colonoscopy hepatitis panel >> negative fu abdominal U/S >> ok to adv cardiac diet after imaging study symptomatic treatment DM mgmt pain mgmt monitor LFTs electrolyte correction fu labs, iron panel given hx of deficiency Discussed with Dr. Hinds. Thank you for this patient referral, we will follow. Marissa Schneider N.P. Jun 12, 2017 12:10
--- NOTE | 2017-06-12 13:01 | Consultation ---
Consult Note Assessment/Plan dict will follow OWEN MCDANIEL Jun 12, 2017 13:01
--- NOTE | 2017-06-12 13:16 | Wound Care Consultation ---
Wound Assessment Wound Assessment #1: Wound Number: 1 Wound Present on Admission: Yes New Wound: No Status Change of Wound: No Wound Location Body Site Modif: left, right, lower Wound Location Body Site: leg Wound Type: lesion-etiology unknown Medardo Test: Does not Medardo Wound Thickness: Full Thickness Percent of Wound [place]/Red: 100 Wound Drainage Description: Serosanguineous Wound Drainage Amount: Scant Wound Drainage Odor: None/Absent Tissue Surrounding Wound: Denuded Wound General Appearance: Reddened, Draining Wound Assessment #2: Wound Number: 2 Wound Present on Admission: Yes New Wound: No Status Change of Wound: No Wound Location Body Site: perineal area Wound Type: lesion-etiology unknown Medardo Test: Does not Medardo Wound Thickness: Full Thickness Wound Length: 0.5 Wound Width: 3.0 Wound Depth: utd Percent of Wound Bed Yellow/Wh: 100 Wound Drainage Description: Serosanguineous Wound Drainage Amount: Moderate Wound Drainage Odor: None/Absent Tissue Surrounding Wound: Intact Wound General Appearance: Draining Wound Comment #1 Left and right lower legs with full and partial thickness open scattered wounds. etiology unknown #2 Perineal open wound etiology unknown -Recommendation -Local wound care per protocol -Keep clean and dry -Turn and reposition -Optimize nutrition -Low air loss SPR mattress -Offload both heels -Heel protector on both heels -Assess and f/u accordingly for any changes EARLENE MÁRQUEZ RN Jun 12, 2017 13:16
--- NOTE | 2017-06-12 13:55 | Cardiology Progress Note ---
Assessment/Plan Assessment/Plan The patient is seen and examined, full consult note will be dictated. Objective Last 24 Hour Vital Signs Date Time Temp Pulse Resp B/P (MAP) Pulse Ox O2 Delivery O2 Flow Rate FiO2 06/12/17 11:31 96.7 85 20 124/74 100 06/12/17 10:52 96.7 06/12/17 09:09 65 119/74 06/12/17 09:08 119/74 06/12/17 09:08 65 06/12/17 08:04 96.6 65 20 119/74 98 06/12/17 07:50 90 06/12/17 04:00 98.0 83 22 122/84 100 Nasal Cannula 2.0 83 06/12/17 03:41 88 06/12/17 00:10 85 06/12/17 00:00 97.2 85 20 126/82 100 Room Air 85 06/11/17 20:51 94 121/78 06/11/17 20:14 97.3 94 20 121/78 99 Nasal Cannula 1.0 94 06/11/17 18:30 137/108 06/11/17 18:30 95 06/11/17 16:30 96 Nasal Cannula 2.0 06/11/17 16:27 97.7 95 22 137/108 96 06/11/17 16:00 96 06/11/17 15:45 98.0 90 23 119/87 100 Nasal Cannula 2.0 94 06/11/17 15:45 97.6 90 23 119/87 100 Nasal Cannula 2.0 94 06/11/17 15:00 88 22 123/99 100 Nasal Cannula 2.0 06/11/17 14:00 91 23 116/92 98 Room Air 94 Intake and Output 06/12/17 06/13/17 19:00 07:00 Intake Total 200 ml Balance 200 ml Intake Oral 200 ml Microbiology Date/Time Source Procedure Growth Status 06/11/17 19:00 Leg Left Gram Stain - Final Resulted 06/11/17 19:00 Leg Left Wound Culture Pending Resulted EMILY COMBS Jun 12, 2017 13:55
[2017-06-12] MEDS: Spironolactone 25mg tab ORAL SCH (14:37)
--- NOTE | 2017-06-12 16:00 | Consultation ---
DATE OF CONSULTATION: 06/12/2017 INFECTIOUS DISEASE CONSULTATION CONSULTING PHYSICIAN: Jarad Sandoval M.D. PRIMARY ATTENDING PHYSICIAN: Joanna Keller M.D. REASON FOR CONSULT: Leg wound cellulitis. HISTORY OF PRESENT ILLNESS: This is a 61-year-old male, admitted yesterday from home. The patient has history of CHF, cardiomyopathy, and [facility] a [facility]. [facility] the night before admission complaining of increased swelling. The patient denies any fever or chills. He has wounds in the form of open superficial blisters in the lower extremity and has a wound in the scrotum area. PAST MEDICAL HISTORY: Diabetes mellitus, on insulin; hypertension; CHF secondary to nonischemic cardiomyopathy; chronic kidney disease; and pulmonary hypertension. ALLERGIES: No known drug allergy. MEDICATIONS: Lasix, Protonix, allopurinol, carvedilol, insulin, gabapentin, lisinopril, [place], and Zofran. SOCIAL HISTORY: Single. Has a history of smoking in young age. Denies alcohol or drug abuse. REVIEW OF SYSTEMS: No fever. No chills. Has shortness of breath on exertion. The belly became bigger. Has swelling of the legs and has ulcers on legs that are painful. PHYSICAL EXAMINATION: VITAL SIGNS: Temperature 96.6, pulse 65, and blood pressure is 119/74. GENERAL APPEARANCE: No acute distress. HEAD AND NECK: [place] conjunctivae. The patient has no teeth, has no oral lesion. HEART: S1, S2. Normal rate. Regular. LUNGS: Clear bilaterally. ABDOMEN: Distended with ascites. EXTREMITIES: Severe edema of lower extremities. SKIN: Couple of ulcers that seems as open blisters in the lower extremity more on the left side. There is also a scrotal ulcer. GENITOURINARY: Has edema of the genital area and scrotum. LABORATORY AND DIAGNOSTIC DATA: WBC 6.8, hemoglobin 14.9, hematocrit 49.5, and platelets 254,000. Sodium 144, potassium 3.2, BUN 12, creatinine 1.2, glucose 140, and bilirubin is 2. AST and ALT are normal, alkaline phosphatase is 129. BNP is 1849. Chest x-ray, interstitial congestion, right pleural effusion, right basilar airspace consolidation, right-sided pneumonia also is possibility. IMPRESSION: Superficial ulcer on the lower extremity, more on the left side, may have cellulitis. The patient has congestive heart failure and less likely pneumonia in chest x-ray. He has exacerbation of congestive heart failure because of noncompliance with medication. He has diabetes mellitus. He has elevated bilirubin. Previous test for hepatitis was negative. The patient likely has ascites. Also had hepatomegaly in the previous abdominal ultrasound. Has elevated troponin. RECOMMENDATION: We will start the patient on Ancef for cellulitis. We will repeat chest x-ray in one to two days. We will follow up clinically. At the end of my exam, I thank Dr. Keller for involving me in the care of this patient. Jarad Sandoval M.D. DR: CASSIE JOB#: [id number] CC:
[2017-06-12 16:15] VITALS: BP 124/76
--- NOTE | 2017-06-12 16:45 | Consultation ---
DATE OF CONSULTATION: 06/12/2017 PULMONARY CONSULTATION CONSULTING PHYSICIAN: Rajinder Chan M.D. CHIEF COMPLAINT: Short of breath. HISTORY OF PRESENT ILLNESS: This 61-year-old man was brought into the emergency room by paramedics because of shortness of breath and weakness. He states he was unable to walk. He was recently discharged from another hospital, but stated that he did not have any of his medications. He is complaining of abdominal pain and wants to see a pain specialist. The patient was found to have pulmonary interstitial edema and possible pneumonia. He is known to have congestive heart failure. He has been a past cigarette smoker. He does not have any history of chronic lung disease to his knowledge. PAST MEDICAL HISTORY: Congestive heart failure with ejection fraction about 10%, diabetes, chronic kidney disease, hypertension, pulmonary hypertension, hypoalbuminemia, significant proteinuria, morbid obesity, and chronic abdominal pain. MEDICATIONS: Reviewed. HABITS: Past smoker. He denies alcohol or drug use. Toxicology screen is positive for narcotics. REVIEW OF SYSTEMS: He has ulcers on his legs. He has abdominal pain, but no nausea, vomiting, or diarrhea. PHYSICAL EXAMINATION: GENERAL: The patient is alert, demanding pain medication. He is obese. VITAL SIGNS: Stable. HEENT: Head is normocephalic. NECK: No jugular vein distention. CHEST: Clear. CARDIAC: Rhythm is regular. ABDOMEN: Soft, obese, and nontender. There is no liver or spleen enlargement. No mass. EXTREMITIES: No clubbing, cyanosis, or edema. LABORATORY AND DIAGNOSTIC STUDIES: Laboratory studies reviewed. Troponin is slightly elevated. X-rays show congestive heart failure. Potassium is low. IMPRESSIONS: 1. Congestive heart failure with pulmonary interstitial edema. 2. Morbid obesity. 3. Diabetes. 4. Hypertension. 5. Pulmonary hypertension. 6. Consider sleep apnea in view of his morbid obesity and pulmonary hypertension. 7. Gout. 8. Pneumonia. PLAN: The patient will be seen by Cardiology and appropriate management will be undertaken. I note that he had an echo about 3 months ago that showed severe global left ventricular hypokinesis and ejection fraction of 10% to 15%. There was severe right ventricular enlargement as well and pulmonary artery pressure of 69 mmHg. I will be happy to follow him with you in the hospital. Rajinder Chan M.D. DR: RAVEN JOB#: [id number] CC: Joanna Keller M.D.; Fax#: [phone]
[2017-06-12] MEDS: Morphine Sulfate 2mg/ml Inj IVP PRN (18:03)
[2017-06-12] MEDS: KCl 10% 20 mEq/15ml liquid ORAL SCH (18:03)
--- NOTE | 2017-06-12 18:37 | Cardiology Report ---
APPROVED REPORT EKG Measurement Heart [id number] Sinus rhythm with premature supraventricular complexes and with occasional premature ventricular complexes Low voltage QRS Cannot rule out Anterior infarct, age undetermined Abnormal ECG
[2017-06-12 20:00] VITALS: BP 126/87
[2017-06-12] MEDS: Carvedilol 6.25mg Tab ORAL SCH (20:56)
[2017-06-12] MEDS ORDERED: Norco 5mg/325mg tab ORAL PRN (22:00)
--- NOTE | 2017-06-12 22:15 | History and Physical Report ---
DATE OF ADMISSION: 06/11/2017 HISTORY OF PRESENT ILLNESS: The patient is being admitted for weakness and shortness of breath. The patient does have some dementia. Also comes with exertional dyspnea. Has history of ascites and CHF. The patient also has mildly elevated troponin. EKG did not show any ischemia. The patient admitted also for hypokalemia. The patient also has abdominal pain and chronic pain syndrome. The patient does have some orthopnea. Denies cough. Denies fever or chills. PAST MEDICAL HISTORY: Significant for CHF, significant for weakness, ho ascites, history of anemia, history of NIDDM, hypertension, history of gout, and . ALLERGIES: No known allergies. MEDICATIONS: 1. Coreg. 2. Digoxin. 3. Furosemide. 4. Gabapentin. 5. Insulin. 6. Lisinopril. 7. Protonix. SOCIAL HISTORY: Does have history of smoking history. FAMILY HISTORY: Noncontributory. REVIEW OF SYSTEMS: HEENT: Denies headaches. RESPIRATORY: Denies shortness of breath. Does have orthopnea. Denies cough. CARDIOVASCULAR: Denies chest pain. GASTROINTESTINAL: Does have abdominal pain. Denies any vomiting or diarrhea. EXTREMITIES: Denies pain in the lower extremities. CENTRAL NERVOUS SYSTEM: No change in vision or speech pattern, feels weak. PHYSICAL EXAMINATION: VITAL SIGNS: Temperature is 96.3, pulse 83, and blood pressure 124/76. HEENT: PERRLA. NECK: Supple. No lymphadenopathy. CHEST: Clear to auscultation. GASTROINTESTINAL: Soft and nontender. Abdomen is distended. Positive bowel sounds. Mild epigastric tenderness. No rebound. No organomegaly. EXTREMITIES: 1+ edema. Reflexes are equal on both sides. Able to moves all four extremities, has generalized weakness. LABORATORY DATA: WBC 6.8, hemoglobin 14.9, platelets 254. Sodium 142, potassium 3.3, BUN of 12, creatinine 1.2. of 2. Troponin of 0.243. ASSESSMENT: 1. Elevated troponin. 2. Possible congestive heart failure and dyspnea. 3. Ascites. The patient needs diuresis. 4. Also has chronic pain syndrome. 5. Also has hypokalemia. 6. For those reasons, Dr. Garrido, Dr. Wei, Dr. Solorzano, Dr. Clifford, Dr. Hinds, and Dr. Chan have been consulted for the above-mentioned diagnoses and treatment Joanna Keller M.D. DR: Kia JOB#: [id number] CC:
--- NOTE | 2017-06-12 23:30 | Consultation ---
DATE OF CONSULTATION: 06/12/2017 HEMATOLOGY/ONCOLOGY CONSULTATION CONSULTING PHYSICIAN: Kevin Benson M.D. REQUESTING PHYSICIAN: Joanna Keller M.D. REASON FOR CONSULTATION: Evaluation of protein-albumin dissociation. IDENTIFICATION DATA: Dear Dr. Keller: The patient is a pleasant 61-year-old male with past medical history significant for hypokalemia, hypertension, nausea, vomiting, and due to loss of strength. He was discharged from an outside facility. States he has not been on his medications of Lasix and [place], otherwise denies any fevers, chills, or night sweats. He is without any other distention or abdominal pain. He had in the past transaminitis, possible cholecystitis, refused to have HIDA scan, and a CAT scan was performed at that time of the abdomen and pelvis. He had elevated total bilirubin and noted to have protein-albumin dissociation. Hematology Service was consulted. PAST MEDICAL HISTORY: As noted above. PAST SURGICAL HISTORY: None noted. MEDICATIONS: Digoxin, allopurinol, Coreg, lisinopril, insulin, and Neurontin. ALLERGIES: There are no known drug allergies. REVIEW OF SYSTEMS: A 12-point review of systems is otherwise negative.CONSTITUTIONAL: No fevers, chills, or night sweats. SKIN: No rashes, bumps, or itching. HEENT: No headache, hearing or vision changes. BREASTS: No lumps, pain, or discharge. PULMONARY: No cough, sputum, or shortness of breath. GASTROINTESTINAL: No nausea, vomiting, or diarrhea. GENITOURINARY: No dysuria, frequency, or urgency. MUSCULOSKELETAL: No joint swelling, muscle pain, or trauma. PHYSICAL EXAMINATION: VITAL SIGNS: Reviewed. GENERAL: No acute distress. PULMONARY: Decreased breath sounds. CARDIOVASCULAR: Regular rate. No S3, S4. ABDOMEN: Soft, nontender, and nondistended. EXTREMITIES: He has 1+ edema. LABORATORY DATA: WBC 6.8, hemoglobin 14.9, hematocrit 50, and platelet count 254,000. BUN of 12 and creatinine 1.2. ASSESSMENT AND RECOMMENDATIONS: 1. Failure to thrive, likely secondary to decreased p.o. intake. Gastrointestinal Service evaluated the patient. Continue to closely monitor. No evidence of malignancy. Prior imaging has been reviewed. 2. Protein-albumin dissociation. Obtain serum protein electrophoresis as well as urine protein electrophoresis and evaluate for multiple myeloma. 3. Shortness of breath, potentially secondary to congestive heart failure and pulmonary congestion. 4. Morbid obesity. 5. Pulmonary hypertension. 6. Pneumonia, on antibiotics as needed. A 2D echo is pending. 7. Gout. I appreciate the consultation. Kevin Benson M.D. DR: ARABELLA JOB#: [id number] CC:
[2017-06-13] VITALS: BP 121/59
[2017-06-13] MEDS: ceFAZolin sod 1 GM in D5W 55 ML IVPB SCH ×2 (02:24→10:27)
[2017-06-13] MEDS: Morphine Sulfate 2mg/ml Inj IVP PRN ×4 (03:00→19:47)
[2017-06-13 04:00] VITALS: BP 125/106
[2017-06-13] MEDS: NovoLOG Insulin Flexpen SUBQ SCH ×4 (06:29→21:28)
[2017-06-13] MEDS: Lisinopril 2.5mg tab ORAL SCH (08:10)
[2017-06-13] MEDS: Digoxin 0.125mg tab ORAL SCH (08:11)
[2017-06-13] MEDS: Spironolactone 25mg tab ORAL SCH (08:11)
[2017-06-13] MEDS: Carvedilol 6.25mg Tab ORAL SCH ×2 (08:12→21:30)
[2017-06-13 08:20] VITALS: BP 121/86
--- NOTE | 2017-06-13 08:42 | Consultation ---
History of Present Illness General Date patient seen: Jun 13, 2017 Referring physician: MINDI MCKEON Present Illness Allergies: Coded Allergies: No Known Allergies (Unverified , 04/04/17) Medication History Scheduled Allopurinol* (Allopurinol*), 300 MG ORAL DAILY Carvedilol (Coreg), 3.125 MG ORAL EVERY 12 HOURS Digoxin* (Digoxin*), 125 MCG ORAL DAILY Furosemide* (Lasix*), 40 MG ORAL DAILY Gabapentin* (Gabapentin*), 100 MG ORAL BID, (Reported) Lisinopril* (Lisinopril*), 5 MG ORAL DAILY No Known Medications* (NKM - No Known Medications*), 0 ., (Reported) Pantoprazole* (Pantoprazole*), 40 MG ORAL DAILY, (Reported) Potassium Chloride (Potassium Chloride), 20 MEQ PO DAILY Potassium Chloride (Potassium Chloride), 40 MEQ PO BID, (Reported) Scheduled PRN Hydrocodone Bit/Acetaminophen 5-325* ([place] 5-325 Tablet*), 1 TAB ORAL Q6H PRN for Severe Pain (Pain Scale 7-10), (Reported) Ondansetron* (Zofran*), 4 MG ORAL Q8HR PRN for Nausea & Vomiting, (Reported) Miscellaneous Medications Insulin Aspart* (Novolog*), 0 SUBQ, (Reported) Insulin Regular, Human (Humulin R), 0 SUBQ, (Reported) Patient History Healthcare decision maker Resuscitation status Full Code Advanced Directive on File Physical Exam Last 24 Hour Vital Signs Date Time Temp Pulse Resp B/P (MAP) Pulse Ox O2 Delivery O2 Flow Rate FiO2 06/13/17 08:20 98.2 96 20 121/86 93 06/13/17 08:12 94 121/86 06/13/17 08:11 94 06/13/17 08:10 121/86 06/13/17 04:00 84 06/13/17 04:00 97.0 87 21 125/106 95 Room Air 06/13/17 00:00 85 06/13/17 00:00 97.3 70 21 121/59 96 Room Air 06/12/17 20:56 92 119/89 06/12/17 20:00 97.0 87 20 126/87 99 Room Air 2.0 94 20 06/12/17 20:00 97.0 87 20 126/87 Room Air 20 06/12/17 20:00 84 06/12/17 18:33 96.3 06/12/17 16:15 96.3 94 20 124/76 99 06/12/17 16:03 150 06/12/17 15:51 99 06/12/17 11:37 87 06/12/17 11:31 96.7 85 20 124/74 100 06/12/17 10:52 96.7 06/12/17 09:09 65 119/74 06/12/17 09:08 119/74 06/12/17 09:08 65 Intake and Output 06/13/17 06/14/17 19:00 07:00 Intake Total 120 ml Balance 120 ml Intake Oral 120 ml Laboratory Tests Test 06/12/17 14:20 06/12/17 14:50 06/13/17 01:15 06/13/17 07:30 Troponin I 0.222 ng/mL (0.000-0.056) Pending Total Protein (PEP) Pending Albumin (PEP) Pending Globulin (PEP) Pending Albumin/Globulin Ratio Pending Dldnx-3-Plhrjhyrq Pending Cazrk-1-Qsawjhnkk Pending Beta Globulins Pending Beta Gamma Globulin Pending PEP Abnormal Protein Bands Pending Protein Electrophoresis Interpret Pending Urine Total Protein Pending Urine Albumin (%) Pending Urine Yupha-0-Uravvbouk (%) Pending Urine Huomp-3-Gxtgahnno (%) Pending Urine Beta-Globulin (%) Pending Urine Gamma Globulin (%) Pending Ur Protein Electrophoresis M-Mono Pending Urine Protein Electrophoresis Intrp Pending White Blood Count Pending Red Blood Count Pending Hemoglobin Pending Hematocrit Pending Mean Corpuscular Volume Pending Mean Corpuscular Hemoglobin Pending Mean Corpuscular Hemoglobin Concent Pending Red Cell Distribution Width Pending Platelet Count Pending Mean Platelet Volume Pending Neutrophils (%) (Auto) Pending Lymphocytes (%) (Auto) Pending Monocytes (%) (Auto) Pending Eosinophils (%) (Auto) Pending Basophils (%) (Auto) Pending Sodium Level Pending Potassium Level Pending Chloride Level Pending Carbon Dioxide Level Pending Blood Urea Nitrogen Pending Creatinine Pending Estimat Glomerular Filtration Rate Pending Glucose Level Pending Hemoglobin A1c Pending Uric Acid Pending Calcium Level Pending Phosphorus Level Pending Magnesium Level Pending Iron Level Pending Unsaturated Iron Binding Pending Ferritin Pending Total Bilirubin Pending Gamma Glutamyl Transpeptidase Pending Aspartate Amino Transf (AST/SGOT) Pending Alanine Aminotransferase (ALT/SGPT) Pending Alkaline Phosphatase Pending Ammonia Pending C-Reactive Protein, Quantitative Pending Pro-B-Type Natriuretic Peptide Pending Total Protein Pending Albumin Pending Globulin Pending Triglycerides Level Pending Cholesterol Level Pending LDL Cholesterol Pending HDL Cholesterol Pending Cholesterol/HDL Ratio Pending Vitamin B12 Level Pending Folate Pending Height (Feet): 5 Height (Inches): 7.00 Weight (Pounds): 198 Medications Current Medications Medications (Trade) Dose Ordered Sig/Reuben Route PRN Reason Start Time Stop Time Status Last Admin Dose Admin Acetaminophen/ Hydrocodone Bitart ([place] 5/325) 1 tab Q6H PRN ORAL for pain 1-5 06/12/17 22:00 06/19/17 21:59 Allopurinol (Allopurinol) 300 mg DAILY ORAL 06/12/17 09:00 07/12/17 08:59 06/13/17 08:12 Carvedilol (Coreg) 6.25 mg EVERY 12 HOURS ORAL 06/12/17 21:00 07/12/17 20:59 06/13/17 08:12 Cefazolin Sodium 1 gm/Dextrose 55 ml @ 110 mls/hr Q8H IVPB 06/12/17 10:30 06/19/17 10:29 06/13/17 02:24 Dextrose (Dextrose 50%) STAT PRN IV Hypoglycemia 06/11/17 17:00 07/11/17 16:59 Digoxin (Lanoxin) 0.125 mg DAILY ORAL 06/11/17 18:00 07/11/17 17:59 06/13/17 08:11 Furosemide (Lasix) 40 mg EVERY 12 HOURS IV 06/12/17 14:45 07/12/17 14:44 06/13/17 08:12 Gabapentin (Neurontin) 100 mg BID ORAL 06/11/17 18:00 07/11/17 17:59 06/13/17 08:11 Insulin Aspart (NovoLOG) BEFORE MEALS AND HS SUBQ 06/11/17 21:00 07/11/17 20:59 06/11/17 21:05 Lisinopril (Zestril) 5 mg DAILY ORAL 06/11/17 18:00 07/11/17 17:59 06/13/17 08:10 Morphine Sulfate (Morphine Sulfate) 1 mg Q4H PRN IVP For Pain 6-10 06/12/17 17:00 06/19/17 16:59 06/13/17 03:00 Ondansetron HCl (Zofran) 4 mg Q6H PRN IVP Nausea & Vomiting 06/11/17 17:00 07/11/17 16:59 Pantoprazole (Protonix) 40 mg DAILY ORAL 06/12/17 09:00 07/12/17 08:59 06/13/17 08:12 Potassium Chloride (KCl 10% 40mEq Oral solution) 40 meq TWICE A DAY ORAL 06/13/17 09:00 07/11/17 17:59 Quetiapine Fumarate (SEROquel) 50 mg Q6H PRN ORAL Agitation 06/12/17 12:15 07/12/17 12:14 Spironolactone (Aldactone) 25 mg DAILY ORAL 06/12/17 14:45 07/12/17 14:44 06/13/17 08:11 Assessment/Plan Assessment/Plan (1) Abdominal pain (2) Ascites (3) B/L LE pain (4) B/L LE ulcers seen dictated. KAREN WIN Jun 13, 2017 08:42
[2017-06-13 08:50] LABS: BASOPHILS % (AUTO) 1.1 % (0.0-2.0); EOSINOPHILS % (AUTO) 1.5 % (0.0-3.0); LYMPHOCYTES % (AUTO) 25.7 % (20.0-45.0); MEAN CORPUSCULAR HEMOGLOBIN 24.6 PG (27.0-31.0); MEAN CORPUSCULAR HGB CONC 30.3 G/DL (32.0-36.0); MEAN CORPUSCULAR VOLUME 81 FL (80-99); MEAN PLATELET VOLUME 9.5 FL (6.5-10.1); MONOCYTES % (AUTO) 6.9 % (1.0-10.0); NEUTROPHILS % (AUTO) 64.9 % (45.0-75.0); PLATELET COUNT 227 K/UL (150-450); RED BLOOD COUNT 5.48 M/UL (4.70-6.10); RED CELL DISTRIBUTION WIDTH 20.9 % (11.6-14.8)
[2017-06-13 08:53] LABS: AMMONIA 30 umol/L (11-32)
[2017-06-13 08:55] LABS: IRON 51 ug/dL (50-175); TOTAL IRON BINDING CAPACITY 275 ug/dL (250-450)
[2017-06-13] MEDS ORDERED: KCl 10% 40mEq/30ml liquid ORAL SCH (09:00)
[2017-06-13 09:11] LABS: ALANINE AMINOTRANSFERASE 9 U/L (12-78); ALBUMIN/GLOBULIN RATIO 0.6 (1.0-2.7); ANION GAP 9 mmol/L (5-15); ASPARTATE AMINO TRANSFERASE 18 U/L (15-37); CALCIUM 8.2 MG/DL (8.5-10.1); CARBON DIOXIDE 30 MMOL/L (21-32); CHLORIDE 107 MMOL/L (98-107); CHOLESTEROL 110 MG/DL (< 200); CHOLESTEROL/HDL RATIO 4.8 (3.3-4.4); CREATININE 1.2 MG/DL (0.55-1.30); CRP QUANT 4.3 mg/dL (0.00-0.90); FERRITIN 48 NG/ML (8-388); GLOMERULAR FILTRATION RATE > 60 mL/min (>60); PHOSPHORUS 2.8 MG/DL (2.5-4.9); POTASSIUM 3.4 MMOL/L (3.5-5.1); SODIUM 145 MMOL/L (136-145); TOTAL PROTEIN 6.4 G/DL (6.4-8.2); URIC ACID 6.4 MG/DL (2.6-7.2)
[2017-06-13 09:16] LABS: BILIRUBIN,DIRECT 1.5 MG/DL (0.0-0.3)
[2017-06-13 09:28] LABS: FOLIC ACID 19.2 NG/ML (8.6-58.9)
--- NOTE | 2017-06-13 09:51 | General Progress Note ---
Assessment/Plan Assessment/Plan ASSESSMENT AND RECOMMENDATIONS: 1. Failure to thrive, likely secondary to decreased p.o. intake. Gastrointestinal Service evaluated the patient. Continue to closely monitor. No evidence of malignancy. Prior imaging has been reviewed. --> has declined egd/colonoscopies before 2. Protein-albumin dissociation. Obtain serum protein electrophoresis as well as urine protein electrophoresis and evaluate for multiple myeloma. --> results are pending of the Spep and Upep 3. Shortness of breath, potentially secondary to congestive heart failure and pulmonary congestion. 4. Morbid obesity. 5. Pulmonary hypertension. 6. Pneumonia, on antibiotics as needed --> ID eval as needed 7. Gout. I appreciate the consultation. Subjective Constitutional: Reports: no symptoms HEENT: Reports: no symptoms Cardiovascular: Reports: no symptoms Respiratory: Reports: no symptoms Gastrointestinal/Abdominal: Reports: poor appetite Genitourinary: Reports: no symptoms Neurologic/Psychiatric: Reports: no symptoms Endocrine: Reports: no symptoms Hematologic/Lymphatic: Reports: anemia Allergies: Coded Allergies: No Known Allergies (Unverified , 04/04/17) Subjective stable, no events to report Objective Last 24 Hour Vital Signs Date Time Temp Pulse Resp B/P (MAP) Pulse Ox O2 Delivery O2 Flow Rate FiO2 06/13/17 08:20 98.2 96 20 121/86 93 06/13/17 08:12 94 121/86 06/13/17 08:11 94 06/13/17 08:10 121/86 06/13/17 07:44 99 06/13/17 04:00 84 06/13/17 04:00 97.0 87 21 125/106 95 Room Air 06/13/17 00:00 85 06/13/17 00:00 97.3 70 21 121/59 96 Room Air 06/12/17 20:56 92 119/89 06/12/17 20:00 97.0 87 20 126/87 99 Room Air 2.0 94 20 06/12/17 20:00 97.0 87 20 126/87 Room Air 20 06/12/17 20:00 84 06/12/17 18:33 96.3 06/12/17 16:15 96.3 94 20 124/76 99 06/12/17 16:03 150 06/12/17 15:51 99 06/12/17 11:37 87 06/12/17 11:31 96.7 85 20 124/74 100 06/12/17 10:52 96.7 Intake and Output 06/13/17 06/14/17 19:00 07:00 Intake Total 120 ml Balance 120 ml Intake Oral 120 ml Laboratory Tests 06/12/17 14:20: Troponin I 0.222H 06/12/17 14:50: Total Protein (PEP) [Pending], Albumin (PEP) [Pending], Globulin (PEP) [Pending] , Albumin/Globulin Ratio [Pending], Cccus-0-Ybqtapxwc [Pending], Alpha-2- Globulins [Pending], Beta Globulins [Pending], Beta Gamma Globulin [Pending], PEP Abnormal Protein Bands [Pending], Protein Electrophoresis Interpret [Pending ] 06/13/17 01:15: Urine Total Protein [Pending], Urine Albumin (%) [Pending], Urine Alpha-1- Globulins (%) [Pending], Urine Snuiv-5-Nkeqbkdzk (%) [Pending], Urine Beta- Globulin (%) [Pending], Urine Gamma Globulin (%) [Pending], Ur Protein Electrophoresis M-Mono [Pending], Urine Protein Electrophoresis Intrp [Pending] 06/13/17 07:30: Troponin I [Pending], Albumin/Globulin Ratio 0.6L, White Blood Count 7.0, Red Blood Count 5.48, Hemoglobin 13.5L, Hematocrit 44.5, Mean Corpuscular Volume 81 , Mean Corpuscular Hemoglobin 24.6L, Mean Corpuscular Hemoglobin Concent 30.3L, Red Cell Distribution Width 20.9H, Platelet Count 227, Mean Platelet Volume 9.5 , Neutrophils (%) (Auto) 64.9, Lymphocytes (%) (Auto) 25.7, Monocytes (%) (Auto ) 6.9, Eosinophils (%) (Auto) 1.5, Basophils (%) (Auto) 1.1, Sodium Level 145, Potassium Level 3.4L, Chloride Level 107, Carbon Dioxide Level 30, Anion Gap 9, Blood Urea Nitrogen 9, Creatinine 1.2, Estimat Glomerular Filtration Rate > 60, Glucose Level 93, Hemoglobin A1c 8.0H, Uric Acid 6.4, Calcium Level 8.2L, Phosphorus Level 2.8, Magnesium Level 2.0, Iron Level 51, Total Iron Binding Capacity 275, Percent Iron Saturation 19, Unsaturated Iron Binding 224, Ferritin 48, Total Bilirubin 2.3H, Direct Bilirubin 1.5H, Gamma Glutamyl Transpeptidase 294H, Aspartate Amino Transf (AST/SGOT) 18, Alanine Aminotransferase (ALT/SGPT) 9L, Alkaline Phosphatase 119H, Ammonia 30, C- Reactive Protein, Quantitative 4.3H, Pro-B-Type Natriuretic Peptide 7099H, Total Protein 6.4, Albumin 2.5L, Globulin 3.9, Triglycerides Level 84, Cholesterol Level 110, LDL Cholesterol 77, HDL Cholesterol 23L, Cholesterol/HDL Ratio 4.8H, Vitamin B12 Level 1473H, Folate 19.2 Height (Feet): 5 Height (Inches): 7.00 Weight (Pounds): 198 General Appearance: alert Neck: supple Cardiovascular: regular rhythm Respiratory/Chest: no respiratory distress Abdomen: soft Extremities: non-tender Edema: no edema noted Leg (L), no edema noted Leg (R) Edema: mild edema Neurologic: alert Skin: warm/dry Kevin Benson Jun 13, 2017 09:51
--- NOTE | 2017-06-13 10:40 | Diagnostic Imaging Report ---
APPROVED REPORT CPT Code: 80654 Present Symptoms Lower Extremity Pain: Comments: Hx CHF, diabetes. Bilateral calf ulcers. BILATERAL: Imaging reveals a patent deep venous system bilaterally. There is no evidence of thrombus within the femoral, popliteal or tibial segments. The greater saphenous veins are also within normal limits. Doppler indicates normal spontaneous flow within these segments.
[2017-06-13 11:25] VITALS: BP 122/84
--- NOTE | 2017-06-13 13:32 | Infectious Diseases Prog Note ---
Assessment/Plan Assessment/Plan A; Cellulitis/ ulcers of legs CHF, cardiomyopathy Ascites DM MRSA colonization P: Change Ancef to Vancomycin Abdominal US for ascites Subjective ROS Limited/Unobtainable: No Constitutional: Reports: other - dosen't feel good Respiratory: Reports: no symptoms Cardiovascular: Reports: dyspnea on exertion Gastrointestinal/Abdominal: Reports: bloating Musculoskeletal: Reports: pain, other - in legs Allergies: Coded Allergies: No Known Allergies (Unverified , 04/04/17) Objective Vital Signs Last 24 Hour Vital Signs Date Time Temp Pulse Resp B/P (MAP) Pulse Ox O2 Delivery O2 Flow Rate FiO2 06/13/17 11:25 97.9 85 20 122/84 96 06/13/17 09:28 98.2 06/13/17 08:20 98.2 96 20 121/86 93 06/13/17 08:12 94 121/86 06/13/17 08:11 94 06/13/17 08:10 121/86 06/13/17 07:44 99 06/13/17 04:00 84 06/13/17 04:00 97.0 87 21 125/106 95 Room Air 06/13/17 00:00 85 06/13/17 00:00 97.3 70 21 121/59 96 Room Air 06/12/17 20:56 92 119/89 06/12/17 20:00 97.0 87 20 126/87 99 Room Air 2.0 94 20 06/12/17 20:00 97.0 87 20 126/87 Room Air 20 06/12/17 20:00 84 06/12/17 16:15 96.3 94 20 124/76 99 06/12/17 16:03 150 06/12/17 15:51 99 Height (Feet): 5 Height (Inches): 7.00 Weight (Pounds): 198 General Appearance: no acute distress HEENT: mucous membranes moist Respiratory/Chest: lungs clear Cardiovascular: normal rate Abdomen: distended, other - ascites Extremities: other - edema of legs Skin: ulcers, other - legs Neurologic/Psychiatric: alert, oriented x 3, responsive Microbiology Date/Time Source Procedure Growth Status 06/11/17 19:00 Nasal Nares MRSA Culture - Final Staphylococcus Aureus - Mrsa Complete 06/11/17 19:00 Leg Left Gram Stain - Final Resulted 06/11/17 19:00 Wound Culture - Preliminary Staphylococcus Aureus Resulted Laboratory Tests Test 06/12/17 14:20 06/12/17 14:50 06/13/17 01:15 06/13/17 07:30 Troponin I 0.222 ng/mL (0.000-0.056) 0.227 ng/mL (0.000-0.056) Total Protein (PEP) Pending Albumin (PEP) Pending Globulin (PEP) Pending Albumin/Globulin Ratio Pending 0.6 (1.0-2.7) L Nuoif-4-Gtmrgkpqi Pending Bqazo-1-Lmhdvkwyb Pending Beta Globulins Pending Beta Gamma Globulin Pending PEP Abnormal Protein Bands Pending Protein Electrophoresis Interpret Pending Urine Total Protein Pending Urine Albumin (%) Pending Urine Wbtrf-2-Ugtbsmktn (%) Pending Urine Uvxmw-8-Xyprxgavn (%) Pending Urine Beta-Globulin (%) Pending Urine Gamma Globulin (%) Pending Ur Protein Electrophoresis M-Mono Pending Urine Protein Electrophoresis Intrp Pending White Blood Count 7.0 K/UL (4.8-10.8) Red Blood Count 5.48 M/UL (4.70-6.10) Hemoglobin 13.5 G/DL (14.2-18.0) L Hematocrit 44.5 % (42.0-52.0) Mean Corpuscular Volume 81 FL (80-99) Mean Corpuscular Hemoglobin 24.6 PG (27.0-31.0) L Mean Corpuscular Hemoglobin Concent 30.3 G/DL (32.0-36.0) L Red Cell Distribution Width 20.9 % (11.6-14.8) H Platelet Count 227 K/UL (150-450) Mean Platelet Volume 9.5 FL (6.5-10.1) Neutrophils (%) (Auto) 64.9 % (45.0-75.0) Lymphocytes (%) (Auto) 25.7 % (20.0-45.0) Monocytes (%) (Auto) 6.9 % (1.0-10.0) Eosinophils (%) (Auto) 1.5 % (0.0-3.0) Basophils (%) (Auto) 1.1 % (0.0-2.0) Sodium Level 145 MMOL/L (136-145) Potassium Level 3.4 MMOL/L (3.5-5.1) L Chloride Level 107 MMOL/L (98-107) Carbon Dioxide Level 30 MMOL/L (21-32) Anion Gap 9 mmol/L (5-15) Blood Urea Nitrogen 9 mg/dL (7-18) Creatinine 1.2 MG/DL (0.55-1.30) Estimat Glomerular Filtration Rate > 60 mL/min (>60) Glucose Level 93 MG/DL (74-106) Hemoglobin A1c 8.0 % (4.3-6.0) H Uric Acid 6.4 MG/DL (2.6-7.2) Calcium Level 8.2 MG/DL (8.5-10.1) L Phosphorus Level 2.8 MG/DL (2.5-4.9) Magnesium Level 2.0 MG/DL (1.8-2.4) Iron Level 51 ug/dL (50-175) Total Iron Binding Capacity 275 ug/dL (250-450) Percent Iron Saturation 19 % (15-50) Unsaturated Iron Binding 224 ug/dL (112-346) Ferritin 48 NG/ML (8-388) Total Bilirubin 2.3 MG/DL (0.2-1.0) H Direct Bilirubin 1.5 MG/DL (0.0-0.3) H Gamma Glutamyl Transpeptidase 294 U/L (5-85) H Aspartate Amino Transf (AST/SGOT) 18 U/L (15-37) Alanine Aminotransferase (ALT/SGPT) 9 U/L (12-78) L Alkaline Phosphatase 119 U/L (46-116) H Ammonia 30 umol/L (11-32) C-Reactive Protein, Quantitative 4.3 mg/dL (0.00-0.90) H Pro-B-Type Natriuretic Peptide 7099 pg/mL (0-125) H Total Protein 6.4 G/DL (6.4-8.2) Albumin 2.5 G/DL (3.4-5.0) L Globulin 3.9 g/dL Triglycerides Level 84 MG/DL (30-150) Cholesterol Level 110 MG/DL (< 200) LDL Cholesterol 77 mg/dL (<100) HDL Cholesterol 23 MG/DL (40-60) L Cholesterol/HDL Ratio 4.8 (3.3-4.4) H Vitamin B12 Level 1473 PG/ML (193-986) H Folate 19.2 NG/ML (8.6-58.9) Current Medications Medications (Trade) Dose Ordered Sig/Reuben Route PRN Reason Start Time Stop Time Status Last Admin Dose Admin Acetaminophen/ Hydrocodone Bitart ([place] 5/325) 1 tab Q6H PRN ORAL for pain 1-5 06/12/17 22:00 06/19/17 21:59 Allopurinol (Allopurinol) 300 mg DAILY ORAL 06/12/17 09:00 07/12/17 08:59 06/13/17 08:12 Carvedilol (Coreg) 6.25 mg EVERY 12 HOURS ORAL 06/12/17 21:00 07/12/17 20:59 06/13/17 08:12 Cefazolin Sodium 1 gm/Dextrose 55 ml @ 110 mls/hr Q8H IVPB 06/12/17 10:30 06/19/17 10:29 06/13/17 10:27 Dextrose (Dextrose 50%) STAT PRN IV Hypoglycemia 06/11/17 17:00 07/11/17 16:59 Digoxin (Lanoxin) 0.125 mg DAILY ORAL 06/11/17 18:00 07/11/17 17:59 06/13/17 08:11 Furosemide (Lasix) 40 mg EVERY 12 HOURS IV 06/12/17 14:45 07/12/17 14:44 06/13/17 08:12 Gabapentin (Neurontin) 100 mg BID ORAL 06/11/17 18:00 07/11/17 17:59 06/13/17 08:11 Insulin Aspart (NovoLOG) BEFORE MEALS AND HS SUBQ 06/11/17 21:00 07/11/17 20:59 06/11/17 21:05 Iron Sucrose 100 mg/Sodium Chloride 60 ml @ 240 mls/hr BEDTIME IV 06/13/17 21:00 06/17/17 21:14 Lisinopril (Zestril) 5 mg DAILY ORAL 06/11/17 18:00 07/11/17 17:59 06/13/17 08:10 Morphine Sulfate (Morphine Sulfate) 1 mg Q4H PRN IVP For Pain 6-10 06/12/17 17:00 06/19/17 16:59 06/13/17 08:58 Ondansetron HCl (Zofran) 4 mg Q6H PRN IVP Nausea & Vomiting 06/11/17 17:00 07/11/17 16:59 Pantoprazole (Protonix) 40 mg DAILY ORAL 06/12/17 09:00 07/12/17 08:59 06/13/17 08:12 Potassium Chloride (K-Dur) 40 meq BID ORAL 06/13/17 18:00 07/13/17 17:59 Quetiapine Fumarate (SEROquel) 50 mg Q6H PRN ORAL Agitation 06/12/17 12:15 07/12/17 12:14 Spironolactone (Aldactone) 25 mg DAILY ORAL 06/12/17 14:45 07/12/17 14:44 06/13/17 08:11 RETA OROZCO Jun 13, 2017 13:32
--- NOTE | 2017-06-13 14:13 | Pulmonology Progress Note ---
Assessment/Plan Assessment/Plan 1. Congestive heart failure with pulmonary interstitial edema. 2. Morbid obesity. 3. Diabetes. 4. Hypertension. 5. Pulmonary hypertension. 6. Consider sleep apnea in view of his morbid obesity and pulmonary hypertension. 7. Gout. 8. Pneumonia. ? ascites PT for mobility cont rx CHF CXR AM Subjective Respiratory: Denies: shortness of breath Allergies: Coded Allergies: No Known Allergies (Unverified , 04/04/17) Objective Last 24 Hour Vital Signs Date Time Temp Pulse Resp B/P (MAP) Pulse Ox O2 Delivery O2 Flow Rate FiO2 06/13/17 11:39 85 06/13/17 11:25 97.9 85 20 122/84 96 06/13/17 09:28 98.2 06/13/17 08:20 98.2 96 20 121/86 93 06/13/17 08:12 94 121/86 06/13/17 08:11 94 06/13/17 08:10 121/86 06/13/17 07:44 99 06/13/17 04:00 84 06/13/17 04:00 97.0 87 21 125/106 95 Room Air 06/13/17 00:00 85 06/13/17 00:00 97.3 70 21 121/59 96 Room Air 06/12/17 20:56 92 119/89 06/12/17 20:00 97.0 87 20 126/87 99 Room Air 2.0 94 20 06/12/17 20:00 97.0 87 20 126/87 Room Air 20 06/12/17 20:00 84 06/12/17 16:15 96.3 94 20 124/76 99 06/12/17 16:03 150 06/12/17 15:51 99 Intake and Output 06/13/17 06/14/17 19:00 07:00 Intake Total 230 ml Output Total 1000 ml Balance -770 ml Intake Oral 120 ml IV Total 110 ml Output Urine Total 1000 ml General Appearance: no acute distress Respiratory/Chest: lungs clear Cardiovascular: normal rate Abdomen: soft, non tender, no organomegaly, distended Microbiology Date/Time Source Procedure Growth Status 06/11/17 19:00 Nasal Nares MRSA Culture - Final Staphylococcus Aureus - Mrsa Complete 06/11/17 19:00 Leg Left Gram Stain - Final Resulted 06/11/17 19:00 Wound Culture - Preliminary Staphylococcus Aureus Resulted Laboratory Tests 06/12/17 14:20: Troponin I 0.222H 06/12/17 14:50: Total Protein (PEP) [Pending], Albumin (PEP) [Pending], Globulin (PEP) [Pending] , Albumin/Globulin Ratio [Pending], Eyrhj-6-Oxcvspsrm [Pending], Alpha-2- Globulins [Pending], Beta Globulins [Pending], Beta Gamma Globulin [Pending], PEP Abnormal Protein Bands [Pending], Protein Electrophoresis Interpret [Pending ] 06/13/17 01:15: Urine Total Protein [Pending], Urine Albumin (%) [Pending], Urine Alpha-1- Globulins (%) [Pending], Urine Bhqda-0-Nwkveyppy (%) [Pending], Urine Beta- Globulin (%) [Pending], Urine Gamma Globulin (%) [Pending], Ur Protein Electrophoresis M-Mono [Pending], Urine Protein Electrophoresis Intrp [Pending] 06/13/17 07:30: Troponin I 0.227H, Albumin/Globulin Ratio 0.6L, White Blood Count 7.0, Red Blood Count 5.48, Hemoglobin 13.5L, Hematocrit 44.5, Mean Corpuscular Volume 81 , Mean Corpuscular Hemoglobin 24.6L, Mean Corpuscular Hemoglobin Concent 30.3L, Red Cell Distribution Width 20.9H, Platelet Count 227, Mean Platelet Volume 9.5 , Neutrophils (%) (Auto) 64.9, Lymphocytes (%) (Auto) 25.7, Monocytes (%) (Auto ) 6.9, Eosinophils (%) (Auto) 1.5, Basophils (%) (Auto) 1.1, Sodium Level 145, Potassium Level 3.4L, Chloride Level 107, Carbon Dioxide Level 30, Anion Gap 9, Blood Urea Nitrogen 9, Creatinine 1.2, Estimat Glomerular Filtration Rate > 60, Glucose Level 93, Hemoglobin A1c 8.0H, Uric Acid 6.4, Calcium Level 8.2L, Phosphorus Level 2.8, Magnesium Level 2.0, Iron Level 51, Total Iron Binding Capacity 275, Percent Iron Saturation 19, Unsaturated Iron Binding 224, Ferritin 48, Total Bilirubin 2.3H, Direct Bilirubin 1.5H, Gamma Glutamyl Transpeptidase 294H, Aspartate Amino Transf (AST/SGOT) 18, Alanine Aminotransferase (ALT/SGPT) 9L, Alkaline Phosphatase 119H, Ammonia 30, C- Reactive Protein, Quantitative 4.3H, Pro-B-Type Natriuretic Peptide 7099H, Total Protein 6.4, Albumin 2.5L, Globulin 3.9, Triglycerides Level 84, Cholesterol Level 110, LDL Cholesterol 77, HDL Cholesterol 23L, Cholesterol/HDL Ratio 4.8H, Vitamin B12 Level 1473H, Folate 19.2 Current Medications Medications (Trade) Dose Ordered Sig/Reuben Route PRN Reason Start Time Stop Time Status Last Admin Dose Admin Acetaminophen/ Hydrocodone Bitart ([place] 5/325) 1 tab Q6H PRN ORAL for pain 1-5 06/12/17 22:00 06/19/17 21:59 Allopurinol (Allopurinol) 300 mg DAILY ORAL 06/12/17 09:00 07/12/17 08:59 06/13/17 08:12 Carvedilol (Coreg) 6.25 mg EVERY 12 HOURS ORAL 06/12/17 21:00 07/12/17 20:59 06/13/17 08:12 Dextrose (Dextrose 50%) STAT PRN IV Hypoglycemia 06/11/17 17:00 07/11/17 16:59 Digoxin (Lanoxin) 0.125 mg DAILY ORAL 06/11/17 18:00 07/11/17 17:59 06/13/17 08:11 Furosemide (Lasix) 40 mg EVERY 12 HOURS IV 06/12/17 14:45 07/12/17 14:44 06/13/17 08:12 Gabapentin (Neurontin) 100 mg BID ORAL 06/11/17 18:00 07/11/17 17:59 06/13/17 08:11 Insulin Aspart (NovoLOG) BEFORE MEALS AND HS SUBQ 06/11/17 21:00 07/11/17 20:59 06/11/17 21:05 Iron Sucrose 100 mg/Sodium Chloride 60 ml @ 240 mls/hr BEDTIME IV 06/13/17 21:00 06/17/17 21:14 Lisinopril (Zestril) 5 mg DAILY ORAL 06/11/17 18:00 07/11/17 17:59 06/13/17 08:10 Morphine Sulfate (Morphine Sulfate) 1 mg Q4H PRN IVP For Pain 6-10 06/12/17 17:00 06/19/17 16:59 06/13/17 08:58 Ondansetron HCl (Zofran) 4 mg Q6H PRN IVP Nausea & Vomiting 06/11/17 17:00 07/11/17 16:59 Pantoprazole (Protonix) 40 mg DAILY ORAL 06/12/17 09:00 07/12/17 08:59 06/13/17 08:12 Potassium Chloride (K-Dur) 40 meq BID ORAL 06/13/17 18:00 07/13/17 17:59 Quetiapine Fumarate (SEROquel) 50 mg Q6H PRN ORAL Agitation 06/12/17 12:15 07/12/17 12:14 Spironolactone (Aldactone) 25 mg DAILY ORAL 06/12/17 14:45 07/12/17 14:44 06/13/17 08:11 Vancomycin HCl (Vanco rx to dose) 1 ea DAILY PRN MISC Per rx protocol 06/13/17 13:45 07/13/17 13:44 Vancomycin HCl/ Dextrose 250 ml @ 125 mls/hr Q24H IVPB 06/13/17 14:00 06/18/17 13:59 OWEN MCDANIEL Jun 13, 2017 14:13
--- NOTE | 2017-06-13 14:37 | Nephrology Progress Note ---
Assessment/Plan Problem List: (1) Diabetic nephropathy (2) Hypokalemia (3) CHF (congestive heart failure) (4) Hypoalbuminemia Assessment Nephropathy 3+ Proteinuria, K low Dm, Nephropathy, High A1c h/o HyperUrecemia h/o High LFTs Cardiomyopathy with EjFx of 15% Plan Plan: Optimize cardiac status Allopurinol- dig , Uche I , Lasix as needed K supplement as needed Monitor renal parameters flomax per orders Subjective ROS Limited/Unobtainable: No Constitutional: Reports: malaise Objective Objective Last 24 Hour Vital Signs Date Time Temp Pulse Resp B/P (MAP) Pulse Ox O2 Delivery O2 Flow Rate FiO2 06/13/17 11:39 85 06/13/17 11:25 97.9 85 20 122/84 96 06/13/17 09:28 98.2 06/13/17 08:20 98.2 96 20 121/86 93 06/13/17 08:12 94 121/86 06/13/17 08:11 94 06/13/17 08:10 121/86 06/13/17 07:44 99 06/13/17 04:00 84 06/13/17 04:00 97.0 87 21 125/106 95 Room Air 06/13/17 00:00 85 06/13/17 00:00 97.3 70 21 121/59 96 Room Air 06/12/17 20:56 92 119/89 06/12/17 20:00 97.0 87 20 126/87 99 Room Air 2.0 94 20 06/12/17 20:00 97.0 87 20 126/87 Room Air 20 06/12/17 20:00 84 06/12/17 16:15 96.3 94 20 124/76 99 06/12/17 16:03 150 06/12/17 15:51 99 Intake and Output 06/13/17 06/14/17 19:00 07:00 Intake Total 470 ml Output Total 1000 ml Balance -530 ml Intake Oral 360 ml IV Total 110 ml Output Urine Total 1000 ml Laboratory Tests 06/12/17 14:50: Total Protein (PEP) [Pending], Albumin (PEP) [Pending], Globulin (PEP) [Pending] , Albumin/Globulin Ratio [Pending], Ncimi-3-Ujsuyneiu [Pending], Alpha-2- Globulins [Pending], Beta Globulins [Pending], Beta Gamma Globulin [Pending], PEP Abnormal Protein Bands [Pending], Protein Electrophoresis Interpret [Pending ] 06/13/17 01:15: Urine Total Protein [Pending], Urine Albumin (%) [Pending], Urine Alpha-1- Globulins (%) [Pending], Urine Thoes-7-Lghcncigu (%) [Pending], Urine Beta- Globulin (%) [Pending], Urine Gamma Globulin (%) [Pending], Ur Protein Electrophoresis M-Mono [Pending], Urine Protein Electrophoresis Intrp [Pending] 06/13/17 07:30: Albumin/Globulin Ratio 0.6L, White Blood Count 7.0, Red Blood Count 5.48, Hemoglobin 13.5L, Hematocrit 44.5, Mean Corpuscular Volume 81, Mean Corpuscular Hemoglobin 24.6L, Mean Corpuscular Hemoglobin Concent 30.3L, Red Cell Distribution Width 20.9H, Platelet Count 227, Mean Platelet Volume 9.5, Neutrophils (%) (Auto) 64.9, Lymphocytes (%) (Auto) 25.7, Monocytes (%) (Auto) 6.9, Eosinophils (%) (Auto) 1.5, Basophils (%) (Auto) 1.1, Sodium Level 145, Potassium Level 3.4L, Chloride Level 107, Carbon Dioxide Level 30, Anion Gap 9, Blood Urea Nitrogen 9, Creatinine 1.2, Estimat Glomerular Filtration Rate > 60, Glucose Level 93, Hemoglobin A1c 8.0H, Uric Acid 6.4, Calcium Level 8.2L, Phosphorus Level 2.8, Magnesium Level 2.0, Iron Level 51, Total Iron Binding Capacity 275, Percent Iron Saturation 19, Unsaturated Iron Binding 224, Ferritin 48, Total Bilirubin 2.3H, Direct Bilirubin 1.5H, Gamma Glutamyl Transpeptidase 294H, Aspartate Amino Transf (AST/SGOT) 18, Alanine Aminotransferase (ALT/SGPT) 9L, Alkaline Phosphatase 119H, Ammonia 30, Troponin I 0.227H, C-Reactive Protein, Quantitative 4.3H, Pro-B-Type Natriuretic Peptide 7099H, Total Protein 6.4, Albumin 2.5L, Globulin 3.9, Triglycerides Level 84, Cholesterol Level 110, LDL Cholesterol 77, HDL Cholesterol 23L, Cholesterol/HDL Ratio 4.8H, Vitamin B12 Level 1473H, Folate 19.2 Height (Feet): 5 Height (Inches): 7.00 Weight (Pounds): 198 General Appearance: no apparent distress Respiratory/Chest: decreased breath sounds Abdomen: soft Objective PE not changed RENNY POWER Jun 13, 2017 14:37
[2017-06-13] MEDS: Vancomycin 1.5 GM/D5W 250ML IVPB SCH (15:06)
[2017-06-13] MEDS ORDERED: NS 500ML ONE (15:32)
[2017-06-13] MEDS ORDERED: Tubing IV Secondary IV ONE (15:32)
--- NOTE | 2017-06-13 15:36 | GI Progress Note ---
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 SNOMED: 83248181, 406260228 (2) Weakness ICD Codes: R53.1 - Weakness SNOMED: 07904781 (3) Hypoalbuminemia ICD Codes: E88.09 - Other disorders of plasma-protein metabolism, not elsewhere classified SNOMED: 972672486 (4) Edema ICD Codes: R60.9 - Edema, unspecified SNOMED: 830663949, 506419892 (5) Ascites ICD Codes: R18.8 - Other ascites SNOMED: 639219392 (6) CHF (congestive heart failure) ICD Codes: I50.9 - Heart failure, unspecified SNOMED: 95507036 Qualifiers: Qualified Codes: I50.9 - Heart failure, unspecified (7) Non-compliance with treatment ICD Codes: Z91.19 - Patient's noncompliance with other medical treatment and regimen SNOMED: 1450709 (8) Abnormal LFTs ICD Codes: R79.89 - Other specified abnormal findings of blood chemistry SNOMED: 453349563 (9) Iron deficiency ICD Codes: E61.1 - Iron deficiency SNOMED: 19809840 Status: unchanged Status Narrative Discussed with Dr. Hinds. Assessment/Plan defer GI procedures given elevated troponin levels >> patient refuses EGD/ colonoscopy hepatitis panel >> negative iron deficiency >> venofer fu abdominal U/S cardiac diet DM mgmt pain mgmt monitor LFTs electrolyte correction fu labs Subjective Gastrointestinal/Abdominal: Reports: abdominal pain Objective Last 24 Hour Vital Signs Date Time Temp Pulse Resp B/P (MAP) Pulse Ox O2 Delivery O2 Flow Rate FiO2 06/13/17 11:39 85 06/13/17 11:25 97.9 85 20 122/84 96 06/13/17 09:28 98.2 06/13/17 08:20 98.2 96 20 121/86 93 06/13/17 08:12 94 121/86 06/13/17 08:11 94 06/13/17 08:10 121/86 06/13/17 07:44 99 06/13/17 04:00 84 06/13/17 04:00 97.0 87 21 125/106 95 Room Air 06/13/17 00:00 85 06/13/17 00:00 97.3 70 21 121/59 96 Room Air 06/12/17 20:56 92 119/89 06/12/17 20:00 97.0 87 20 126/87 99 Room Air 2.0 94 20 06/12/17 20:00 97.0 87 20 126/87 Room Air 20 06/12/17 20:00 84 06/12/17 16:15 96.3 94 20 124/76 99 06/12/17 16:03 150 06/12/17 15:51 99 Intake and Output 06/13/17 06/14/17 19:00 07:00 Intake Total 470 ml Output Total 1000 ml Balance -530 ml Intake Oral 360 ml IV Total 110 ml Output Urine Total 1000 ml Laboratory Tests Test 06/13/17 01:15 06/13/17 07:30 Urine Total Protein Pending Urine Albumin (%) Pending Urine Mqwdh-8-Lppgamauh (%) Pending Urine Rljbp-1-Fysnnzkcp (%) Pending Urine Beta-Globulin (%) Pending Urine Gamma Globulin (%) Pending Ur Protein Electrophoresis M-Mono Pending Urine Protein Electrophoresis Intrp Pending White Blood Count 7.0 K/UL (4.8-10.8) Red Blood Count 5.48 M/UL (4.70-6.10) Hemoglobin 13.5 G/DL (14.2-18.0) L Hematocrit 44.5 % (42.0-52.0) Mean Corpuscular Volume 81 FL (80-99) Mean Corpuscular Hemoglobin 24.6 PG (27.0-31.0) L Mean Corpuscular Hemoglobin Concent 30.3 G/DL (32.0-36.0) L Red Cell Distribution Width 20.9 % (11.6-14.8) H Platelet Count 227 K/UL (150-450) Mean Platelet Volume 9.5 FL (6.5-10.1) Neutrophils (%) (Auto) 64.9 % (45.0-75.0) Lymphocytes (%) (Auto) 25.7 % (20.0-45.0) Monocytes (%) (Auto) 6.9 % (1.0-10.0) Eosinophils (%) (Auto) 1.5 % (0.0-3.0) Basophils (%) (Auto) 1.1 % (0.0-2.0) Sodium Level 145 MMOL/L (136-145) Potassium Level 3.4 MMOL/L (3.5-5.1) L Chloride Level 107 MMOL/L (98-107) Carbon Dioxide Level 30 MMOL/L (21-32) Anion Gap 9 mmol/L (5-15) Blood Urea Nitrogen 9 mg/dL (7-18) Creatinine 1.2 MG/DL (0.55-1.30) Estimat Glomerular Filtration Rate > 60 mL/min (>60) Glucose Level 93 MG/DL (74-106) Hemoglobin A1c 8.0 % (4.3-6.0) H Uric Acid 6.4 MG/DL (2.6-7.2) Calcium Level 8.2 MG/DL (8.5-10.1) L Phosphorus Level 2.8 MG/DL (2.5-4.9) Magnesium Level 2.0 MG/DL (1.8-2.4) Iron Level 51 ug/dL (50-175) Total Iron Binding Capacity 275 ug/dL (250-450) Percent Iron Saturation 19 % (15-50) Unsaturated Iron Binding 224 ug/dL (112-346) Ferritin 48 NG/ML (8-388) Total Bilirubin 2.3 MG/DL (0.2-1.0) H Direct Bilirubin 1.5 MG/DL (0.0-0.3) H Gamma Glutamyl Transpeptidase 294 U/L (5-85) H Aspartate Amino Transf (AST/SGOT) 18 U/L (15-37) Alanine Aminotransferase (ALT/SGPT) 9 U/L (12-78) L Alkaline Phosphatase 119 U/L (46-116) H Ammonia 30 umol/L (11-32) Troponin I 0.227 ng/mL (0.000-0.056) C-Reactive Protein, Quantitative 4.3 mg/dL (0.00-0.90) H Pro-B-Type Natriuretic Peptide 7099 pg/mL (0-125) H Total Protein 6.4 G/DL (6.4-8.2) Albumin 2.5 G/DL (3.4-5.0) L Globulin 3.9 g/dL Albumin/Globulin Ratio 0.6 (1.0-2.7) L Triglycerides Level 84 MG/DL (30-150) Cholesterol Level 110 MG/DL (< 200) LDL Cholesterol 77 mg/dL (<100) HDL Cholesterol 23 MG/DL (40-60) L Cholesterol/HDL Ratio 4.8 (3.3-4.4) H Vitamin B12 Level 1473 PG/ML (193-986) H Folate 19.2 NG/ML (8.6-58.9) Height (Feet): 5 Height (Inches): 7.00 Weight (Pounds): 198 General Appearance: WD/WN, no apparent distress, alert Cardiovascular: normal rate Respiratory/Chest: normal breath sounds, no respiratory distress Abdominal Exam: normal bowel sounds, non tender, soft Extremities: normal range of motion, non-tender Marissa Schneider N.P. Jun 13, 2017 15:36
[2017-06-13 15:45] VITALS: BP 123/82
--- NOTE | 2017-06-13 19:02 | Consultation ---
DATE OF CONSULTATION: 06/13/2017 PAIN MANAGEMENT CONSULTATION CONSULTING PHYSICIAN: Aga Wei M.D. REFERRING PHYSICIAN: Joanna Keller M.D. PHYSICIAN NETWORK ENGINEER ADMINISTRATOR: Hermelindo Alicea CHIEF COMPLAINT: Abdominal pain and bilateral lower extremity pain. HISTORY OF PRESENT ILLNESS: This is a 61-year-old male who has been seen on the telemetry floor of [facility] for initial comprehensive pain management consultation. The patient has been complaining of pain in his abdominal area and in bilateral lower extremity, found to have ascites, being seen by track mechanic at this time. He is also complaining of bilateral lower extremity pain. He was found to have ulcers. He was seen by infectious disease for cellulitis and was started on Midland 5/325 one tablet every 6 hours as needed for pain with minimal pain relief. Due to this, we were consulted so that the patient would have adequate pain control while here in the hospital. The patient was started on morphine 1 mg IV every 4 hours as needed, which he has been having reduction of pain level and he has no new complaints. PAST MEDICAL HISTORY: Congestive heart failure, diabetes, chronic kidney disease, hypertension, pulmonary hypertension, and hypoalbuminemia. ALLERGIES: No known drug allergies. MEDICATIONS: Allopurinol, Coreg, digoxin, Lasix, gabapentin, lisinopril, pantoprazole, Midland, Zofran, NovoLog, and Humulin. SOCIAL HISTORY: He is smoking, a smoker of tobacco. Denies alcohol or drug use. REVIEW OF SYSTEMS: Denies rash, fever, chills, sweating, dizziness, drowsiness, sore throat, or change in his weight. No nausea, vomiting, diarrhea, or blood in the stool or urine. No bowel or bladder incontinence. No dysuria. He is complaining of abdominal pain and bilateral lower extremity pain. PHYSICAL EXAMINATION: GENERAL: Alert, awake, and oriented. VITAL SIGNS: Blood pressure 121/86, heart rate 96, O2 saturation is 92%, respiratory rate 20, and temperature is 98.2 degrees Fahrenheit. Height is 5 feet 7 inches. Weight is 198 pounds. HEENT: PERRLA. NECK: Range of motion is full in all directions. No tenderness. No adenopathy. LUNGS: Decreased breath sounds bilaterally. HEART: Regular. ABDOMEN: Obese with tenderness to palpation. BACK: Range of motion is decreased in flexion and extension. No tenderness to paraspinal muscles, trapezius or rhomboid muscles. EXTREMITIES: Upper extremity range of motion is full in all directions. Motor is intact. No cyanosis. No clubbing. No edema. Sensory is intact. Reflexes are not obtainable. No adenopathy. Lower extremity range of motion is decreased due to the patient's pain and condition. Bandage was applied to bilateral lower extremity, tenderness to palpation. Sensory is reduced. Reflexes are not obtainable. No adenopathy. ASSESSMENT AND PLAN: This is a 61-year-old male with abdominal pain, ascites, bilateral lower extremity pain, and bilateral lower extremity ulcers. The patient will be continued on morphine and Midland as needed. The patient was discussed with Dr. Wei and Dr. Wei concurred. We will follow the patient. Thank you very much for the courtesy of this consultation. Aga Wei M.D. KATHY Alicea DR: THOMPSON JOB#: [id number] CC: ANAHY
--- NOTE | 2017-06-13 19:58 | Cardiology Progress Note ---
Assessment/Plan Assessment/Plan 1. Four chamber dilated cardiomyopathy with increased intra-cardiac filling pressure. Afterload treatment with ACEI is ongoing and should be optimized. 2. Acute systolic and diastolic CHF, continue lisinopril, aldactone and digoxin. Will continue with heart failure medication optimization. 3. Severe pulmonary HTN due to the left CHF. 4. Nonsustained ventricular tachycardia. Magnesium level at 2.0. Refused AICD in the past. 5. Diabetes mellitus. Subjective Subjective Sinus rhythm at 89 with VPCs. Had another episode of NSVT. Objective Last 24 Hour Vital Signs Date Time Temp Pulse Resp B/P (MAP) Pulse Ox O2 Delivery O2 Flow Rate FiO2 06/13/17 16:14 88 06/13/17 15:45 98.4 99 20 123/82 92 06/13/17 15:36 97.9 06/13/17 11:39 85 06/13/17 11:25 97.9 85 20 122/84 96 06/13/17 08:20 98.2 96 20 121/86 93 06/13/17 08:12 94 121/86 06/13/17 08:11 94 06/13/17 08:10 121/86 06/13/17 07:44 99 06/13/17 04:00 84 06/13/17 04:00 97.0 87 21 125/106 95 Room Air 06/13/17 00:00 85 06/13/17 00:00 97.3 70 21 121/59 96 Room Air 06/12/17 20:56 92 119/89 06/12/17 20:00 97.0 87 20 126/87 99 Room Air 2.0 94 20 06/12/17 20:00 97.0 87 20 126/87 Room Air 20 06/12/17 20:00 84 Intake and Output 06/13/17 06/14/17 19:00 07:00 Intake Total 470 ml Output Total 1400 ml Balance -930 ml Intake Oral 360 ml IV Total 110 ml Output Urine Total 1400 ml # Bowel Movements 1 Laboratory Tests Test 06/13/17 01:15 06/13/17 07:30 Urine Total Protein Pending Urine Albumin (%) Pending Urine Rcufv-1-Mzwebhjsn (%) Pending Urine Rqxux-7-Rciioczsx (%) Pending Urine Beta-Globulin (%) Pending Urine Gamma Globulin (%) Pending Ur Protein Electrophoresis M-Mono Pending Urine Protein Electrophoresis Intrp Pending White Blood Count 7.0 K/UL (4.8-10.8) Red Blood Count 5.48 M/UL (4.70-6.10) Hemoglobin 13.5 G/DL (14.2-18.0) L Hematocrit 44.5 % (42.0-52.0) Mean Corpuscular Volume 81 FL (80-99) Mean Corpuscular Hemoglobin 24.6 PG (27.0-31.0) L Mean Corpuscular Hemoglobin Concent 30.3 G/DL (32.0-36.0) L Red Cell Distribution Width 20.9 % (11.6-14.8) H Platelet Count 227 K/UL (150-450) Mean Platelet Volume 9.5 FL (6.5-10.1) Neutrophils (%) (Auto) 64.9 % (45.0-75.0) Lymphocytes (%) (Auto) 25.7 % (20.0-45.0) Monocytes (%) (Auto) 6.9 % (1.0-10.0) Eosinophils (%) (Auto) 1.5 % (0.0-3.0) Basophils (%) (Auto) 1.1 % (0.0-2.0) Sodium Level 145 MMOL/L (136-145) Potassium Level 3.4 MMOL/L (3.5-5.1) L Chloride Level 107 MMOL/L (98-107) Carbon Dioxide Level 30 MMOL/L (21-32) Anion Gap 9 mmol/L (5-15) Blood Urea Nitrogen 9 mg/dL (7-18) Creatinine 1.2 MG/DL (0.55-1.30) Estimat Glomerular Filtration Rate > 60 mL/min (>60) Glucose Level 93 MG/DL (74-106) Hemoglobin A1c 8.0 % (4.3-6.0) H Uric Acid 6.4 MG/DL (2.6-7.2) Calcium Level 8.2 MG/DL (8.5-10.1) L Phosphorus Level 2.8 MG/DL (2.5-4.9) Magnesium Level 2.0 MG/DL (1.8-2.4) Iron Level 51 ug/dL (50-175) Total Iron Binding Capacity 275 ug/dL (250-450) Percent Iron Saturation 19 % (15-50) Unsaturated Iron Binding 224 ug/dL (112-346) Ferritin 48 NG/ML (8-388) Total Bilirubin 2.3 MG/DL (0.2-1.0) H Direct Bilirubin 1.5 MG/DL (0.0-0.3) H Gamma Glutamyl Transpeptidase 294 U/L (5-85) H Aspartate Amino Transf (AST/SGOT) 18 U/L (15-37) Alanine Aminotransferase (ALT/SGPT) 9 U/L (12-78) L Alkaline Phosphatase 119 U/L (46-116) H Ammonia 30 umol/L (11-32) Troponin I 0.227 ng/mL (0.000-0.056) C-Reactive Protein, Quantitative 4.3 mg/dL (0.00-0.90) H Pro-B-Type Natriuretic Peptide 7099 pg/mL (0-125) H Total Protein 6.4 G/DL (6.4-8.2) Albumin 2.5 G/DL (3.4-5.0) L Globulin 3.9 g/dL Albumin/Globulin Ratio 0.6 (1.0-2.7) L Triglycerides Level 84 MG/DL (30-150) Cholesterol Level 110 MG/DL (< 200) LDL Cholesterol 77 mg/dL (<100) HDL Cholesterol 23 MG/DL (40-60) L Cholesterol/HDL Ratio 4.8 (3.3-4.4) H Vitamin B12 Level 1473 PG/ML (193-986) H Folate 19.2 NG/ML (8.6-58.9) Microbiology Date/Time Source Procedure Growth Status 06/11/17 19:00 Nasal Nares MRSA Culture - Final Staphylococcus Aureus - Mrsa Complete 06/11/17 19:00 Leg Left Gram Stain - Final Resulted 06/11/17 19:00 Wound Culture - Preliminary Staphylococcus Aureus Resulted Objective HEENT: Atraumatic and normocephalic. ENT, pupils are equal, round, and reactive to light and accommodation. Conjunctival pallor is seen. Neck: JVP is elevated at about 15 cm. No carotid bruit. Carotid upstrokes 2+ bilaterally. Cardiovascular: Normal S1, S2. Regular rate and rhythm. A 2/6 midsystolic murmur at the left sternal border. LUNGS: Clear to auscultation bilaterally. Abdomen: Distended. Possible ascites. No hepatosplenomegaly. Positive bowel sounds. Extremities: 1+ bilateral lower extremity edema. EMILY COMBS Jun 13, 2017 19:58
[2017-06-13 20:00] VITALS: BP 134/74
--- NOTE | 2017-06-13 20:57 | General Progress Note ---
Assessment/Plan Problem List: (1) CHF (congestive heart failure) ICD Codes: I50.9 - Heart failure, unspecified SNOMED: 48804330 Qualifiers: Qualified Codes: I50.9 - Heart failure, unspecified (2) Ascites ICD Codes: R18.8 - Other ascites SNOMED: 363493352 (3) Edema ICD Codes: R60.9 - Edema, unspecified SNOMED: 740270201, 385540555 (4) Non-compliance with treatment ICD Codes: Z91.19 - Patient's noncompliance with other medical treatment and regimen SNOMED: 6201202 (5) Iron deficiency ICD Codes: E61.1 - Iron deficiency SNOMED: 27739021 (6) Weakness ICD Codes: R53.1 - Weakness SNOMED: 11419460 (7) Hypokalemia ICD Codes: E87.6 - Hypokalemia SNOMED: 38316688, 990751363 Status: progressing Assessment/Plan chf improving ascites chronic pain edema afebrile vitals stable improving Subjective ROS Limited/Unobtainable: Yes Allergies: Coded Allergies: No Known Allergies (Unverified , 04/04/17) Objective Last 24 Hour Vital Signs Date Time Temp Pulse Resp B/P (MAP) Pulse Ox O2 Delivery O2 Flow Rate FiO2 06/13/17 20:00 97.0 89 20 134/74 96 06/13/17 16:14 88 06/13/17 15:45 98.4 99 20 123/82 92 06/13/17 15:36 97.9 06/13/17 11:39 85 06/13/17 11:25 97.9 85 20 122/84 96 06/13/17 08:20 98.2 96 20 121/86 93 06/13/17 08:12 94 121/86 06/13/17 08:11 94 06/13/17 08:10 121/86 06/13/17 07:44 99 06/13/17 04:00 84 06/13/17 04:00 97.0 87 21 125/106 95 Room Air 06/13/17 00:00 85 06/13/17 00:00 97.3 70 21 121/59 96 Room Air Intake and Output 06/13/17 06/14/17 19:00 07:00 Intake Total 470 ml Output Total 1400 ml Balance -930 ml Intake Oral 360 ml IV Total 110 ml Output Urine Total 1400 ml # Bowel Movements 1 Laboratory Tests 06/13/17 01:15: Urine Total Protein [Pending], Urine Albumin (%) [Pending], Urine Alpha-1- Globulins (%) [Pending], Urine Pfzbi-5-Bobllgeei (%) [Pending], Urine Beta- Globulin (%) [Pending], Urine Gamma Globulin (%) [Pending], Ur Protein Electrophoresis M-Mono [Pending], Urine Protein Electrophoresis Intrp [Pending] 06/13/17 07:30: White Blood Count 7.0, Red Blood Count 5.48, Hemoglobin 13.5L, Hematocrit 44.5, Mean Corpuscular Volume 81, Mean Corpuscular Hemoglobin 24.6L, Mean Corpuscular Hemoglobin Concent 30.3L, Red Cell Distribution Width 20.9H, Platelet Count 227 , Mean Platelet Volume 9.5, Neutrophils (%) (Auto) 64.9, Lymphocytes (%) (Auto) 25.7, Monocytes (%) (Auto) 6.9, Eosinophils (%) (Auto) 1.5, Basophils (%) (Auto ) 1.1, Sodium Level 145, Potassium Level 3.4L, Chloride Level 107, Carbon Dioxide Level 30, Anion Gap 9, Blood Urea Nitrogen 9, Creatinine 1.2, Estimat Glomerular Filtration Rate > 60, Glucose Level 93, Hemoglobin A1c 8.0H, Uric Acid 6.4, Calcium Level 8.2L, Phosphorus Level 2.8, Magnesium Level 2.0, Iron Level 51, Total Iron Binding Capacity 275, Percent Iron Saturation 19, Unsaturated Iron Binding 224, Ferritin 48, Total Bilirubin 2.3H, Direct Bilirubin 1.5H, Gamma Glutamyl Transpeptidase 294H, Aspartate Amino Transf (AST/ SGOT) 18, Alanine Aminotransferase (ALT/SGPT) 9L, Alkaline Phosphatase 119H, Ammonia 30, Troponin I 0.227H, C-Reactive Protein, Quantitative 4.3H, Pro-B- Type Natriuretic Peptide 7099H, Total Protein 6.4, Albumin 2.5L, Globulin 3.9, Albumin/Globulin Ratio 0.6L, Triglycerides Level 84, Cholesterol Level 110, LDL Cholesterol 77, HDL Cholesterol 23L, Cholesterol/HDL Ratio 4.8H, Vitamin B12 Level 1473H, Folate 19.2 Height (Feet): 5 Height (Inches): 7.00 Weight (Pounds): 198 General Appearance: confused Joanna Keller MD Jun 13, 2017 20:57
[2017-06-13] MEDS ORDERED: Iron Sucrose 100 MG in NS 55 ML IV SCH (21:00)
--- NOTE | 2017-06-13 21:16 | Consultation ---
DATE OF CONSULTATION: 06/12/2017 CARDIOLOGY CONSULTATION REFERRING PHYSICIAN: Joanna Keller M.D. REASON FOR CONSULTATION: Management of acute on chronic heart failure. HISTORY OF PRESENT ILLNESS: The patient is a very unfortunate 61-year-old gentleman, who was brought in by EMS with complaints of weakness, shortness of breath with activities, scrotal edema. The patient states that the he has been noncompliant with his heart failure medication including Lasix. His cardiac history is significant for history of severe cardiomyopathy with history of congestive heart failure, recently admitted to this hospital, ejection fraction approximately 10%, and history of severe pulmonary hypertension due to left heart failure, history of nonsustained ventricular tachycardia, he refused AICD offered by Dr. Solano in the past. Initial electrocardiogram on arrival to the hospital with sinus rhythm rate of 95 with frequent supraventricular premature complexes as well as premature ventricular complexes. His chest x-ray was significant for interstitial edema, right-sided pleural effusion consistent with congestive heart failure. Initial troponin level was also elevated. ProBNP was 10,849. The patient was admitted to telemetry for further evaluation and management. PAST MEDICAL HISTORY: 1. History of four-chamber dilated cardiomyopathy. 2. History of chronic systolic and diastolic heart failure. 3. Multiple hospitalizations for acute on chronic congestive heart failure. 4. History of diabetes mellitus. PAST SURGICAL HISTORY: None. MEDICATIONS: He is noncompliant with medications. List of medications, however, is as follows: Allopurinol 300 mg p.o. daily, Coreg 3.125 mg twice daily, digoxin 125 mcg p.o. daily, furosemide 40 mg p.o. daily, gabapentin 100 mg p.o. twice daily, [place] 5/325 mg one tablet q.6 h. p.r.n. pain, NovoLog insulin, Humalog insulin, lisinopril 5 mg p.o. daily, as needed for nausea and vomiting, pantoprazole 40 mg p.o. daily, and potassium chloride 20 mEq p.o. daily. ALLERGIES: No known drug allergies. SOCIAL HISTORY: No history of tobacco, alcohol, or illicit drug use. Lives at home. REVIEW OF SYSTEMS: A 12-system review done essentially negative except what mentioned in the history of present illness. PHYSICAL EXAMINATION: GENERAL: The patient is a very unfortunate 61-year-old gentleman, in no apparent respiratory distress, alert and oriented x3. VITAL SIGNS: Blood pressure at time of arrival to the hospital was 109/73, pulse of 99, respirations 28, O2 saturation 98%, and temperature 97.2 degrees Fahrenheit. HEENT: Atraumatic and normocephalic. Anicteric. Pupils are equal, round, and reactive to light and accommodation. Extraocular muscles intact. NECK: JVP elevated above 50 centimeter. No carotid bruit. Carotid upstrokes 2+ bilaterally. CARDIOVASCULAR: Normal S1 and S2. Positive S3. A 2/6 midsystolic murmur at left sternal border. PMI is at fourth intercostal space at the midclavicular. LUNGS: Basilar crackles in both lungs. ABDOMEN: Soft, nontender, and nondistended. No hepatosplenomegaly. Positive bowel sounds. EXTREMITIES: There is 1+ bilateral lower extremity edema. LABORATORY AND DIAGNOSTIC DATA: WBC 6.8, hemoglobin 14.9, hematocrit 49.5, platelet count 254. Sodium 144, potassium 3.2, chloride 107, bicarbonate 30, BUN of 12, creatinine 1.2, and glucose 140. Calcium is 8.4. Troponin I is 0.243. ProBNP is 10,849. A 12-lead electrocardiogram shows sinus rhythm at rate of 95 with premature supraventricular complexes, occasional premature ventricular complexes, low voltage QRS, and anterior infarct, age indeterminate. Chest x-ray showed interstitial edema, right-sided pleural effusion, right basilar airspace consolidation, most likely of represent congestive heart failure, right-sided pneumonia also possibility. ASSESSMENT AND PLAN: The patient is a very unfortunate 61-year-old gentleman, who is seen in Cardiology consultation at request of Dr. Keller. 1. Acute on chronic systolic heart failure. Apparently, the patient is noncompliant with the guideline directed medical therapy. We will place the patient back on carvedilol 6.25 mg twice daily and will add spironolactone 25 mg daily. He will be continued on lisinopril and digoxin as well. We will obtain daily creatinine and potassium levels. 2. Severe pulmonary hypertension. 3. Most likely nonischemic cardiomyopathy. A 2D echocardiography from March 2017 had shown left ventricular ejection fraction of about 10% to 15%, severe biatrial enlargement, severe right ventricular enlargement, right atrial pressure of approximately 20 mmHg, severe mitral regurgitation, and right ventricular systolic pressure approximately 70% to 75%. 4. History of diabetes mellitus. 5. History of nonsustained ventricular tachycardia in view of structural heart abnormality. The patient will require AICD implantation to prevent sudden cardiac , however, he has refused multiple times in the past when offered to him. 6. We will try to keep the magnesium level above 2.5 and potassium of above 4. I would like to thank, Dr. Keller, for the courtesy of this consultation. Usman Clifford M.D. DR: RONNIE JOB#: [id number] CC:
[2017-06-14 00:01] VITALS: BP 101/65
[2017-06-14] MEDS: Morphine Sulfate 2mg/ml Inj IVP PRN ×4 (03:32→21:32)
[2017-06-14 04:00] VITALS: BP 121/65
[2017-06-14] MEDS: NovoLOG Insulin Flexpen SUBQ SCH ×4 (06:23→21:00)
--- NOTE | 2017-06-14 08:42 | General Progress Note ---
Assessment/Plan Assessment/Plan (1) Abdominal pain (2) Ascites (3) B/L LE pain (4) B/L LE ulcers Pt will be continued on [place] and Morphine D/w Dr. Wei and he concurred. Subjective Date patient seen: Jun 14, 2017 Time patient seen: 07:00 - am Allergies: Coded Allergies: No Known Allergies (Unverified , 04/04/17) Subjective REVIEW OF SYSTEMS: Denies rash, fever, chills, sweating, dizziness, drowsiness, sore throat, or change in his weight. No nausea, vomiting, diarrhea, or blood in the stool or urine. No bowel or bladder incontinence. No dysuria. He is complaining of abdominal pain and bilateral lower extremity pain. SUBJECTIVE: Patient is in bed no signs if pain or distress. Pain has been tolerated on the Morphine and [place]. Objective Last 24 Hour Vital Signs Date Time Temp Pulse Resp B/P (MAP) Pulse Ox O2 Delivery O2 Flow Rate FiO2 06/14/17 04:00 96.6 80 20 121/65 93 Room Air 06/14/17 04:00 81 06/14/17 00:01 97.0 83 20 101/65 94 Room Air 06/14/17 00:00 81 06/13/17 21:30 89 143/78 06/13/17 20:33 Room Air 21 06/13/17 20:00 97.0 89 20 134/74 96 06/13/17 20:00 94 06/13/17 16:14 88 06/13/17 15:45 98.4 99 20 123/82 92 06/13/17 15:36 97.9 06/13/17 11:39 85 06/13/17 11:25 97.9 85 20 122/84 96 Height (Feet): 5 Height (Inches): 7.00 Weight (Pounds): 191 Objective GENERAL: Alert, awake, and oriented. HEENT: PERRLA. NECK: Range of motion is full in all directions. No tenderness. No adenopathy. LUNGS: Decreased breath sounds bilaterally. HEART: Regular. ABDOMEN: Obese with tenderness to palpation. BACK: Range of motion is decreased in flexion and extension. No tenderness to paraspinal muscles, trapezius or rhomboid muscles. EXTREMITIES: No cyanosis. No clubbing. KAREN WIN PTanya Jun 14, 2017 08:42
--- NOTE | 2017-06-14 08:45 | General Progress Note ---
Assessment/Plan Problem List: (1) CHF (congestive heart failure) ICD Codes: I50.9 - Heart failure, unspecified SNOMED: 77807338 Qualifiers: Qualified Codes: I50.9 - Heart failure, unspecified (2) Ascites ICD Codes: R18.8 - Other ascites SNOMED: 283828400 (3) Edema ICD Codes: R60.9 - Edema, unspecified SNOMED: 152028157, 813767973 (4) Non-compliance with treatment ICD Codes: Z91.19 - Patient's noncompliance with other medical treatment and regimen SNOMED: 4986534 (5) Iron deficiency ICD Codes: E61.1 - Iron deficiency SNOMED: 88837554 (6) Weakness ICD Codes: R53.1 - Weakness SNOMED: 36691269 (7) Hypokalemia ICD Codes: E87.6 - Hypokalemia SNOMED: 68018240, 686544866 Status: progressing Assessment/Plan chf improving ascites chronic pain edema he said he cant take care of himself and no one can take care of him will place dc planning order Subjective ROS Limited/Unobtainable: Yes Allergies: Coded Allergies: No Known Allergies (Unverified , 04/04/17) Objective Last 24 Hour Vital Signs Date Time Temp Pulse Resp B/P (MAP) Pulse Ox O2 Delivery O2 Flow Rate FiO2 06/14/17 04:00 96.6 80 20 121/65 93 Room Air 06/14/17 04:00 81 06/14/17 00:01 97.0 83 20 101/65 94 Room Air 06/14/17 00:00 81 06/13/17 21:30 89 143/78 06/13/17 20:33 Room Air 21 06/13/17 20:00 97.0 89 20 134/74 96 06/13/17 20:00 94 06/13/17 16:14 88 06/13/17 15:45 98.4 99 20 123/82 92 06/13/17 15:36 97.9 06/13/17 11:39 85 06/13/17 11:25 97.9 85 20 122/84 96 Height (Feet): 5 Height (Inches): 7.00 Weight (Pounds): 191 Neck: supple Cardiovascular: normal rate Respiratory/Chest: lungs clear Abdomen: soft Joanna Keller MD Jun 14, 2017 08:45
[2017-06-14 08:48] VITALS: BP 125/85
--- NOTE | 2017-06-14 10:06 | General Progress Note ---
Assessment/Plan Assessment/Plan ASSESSMENT AND RECOMMENDATIONS: 1. Failure to thrive, likely secondary to decreased p.o. intake. Gastrointestinal Service evaluated the patient. Continue to closely monitor. No evidence of malignancy. Prior imaging has been reviewed. --> has declined egd/colonoscopies before 2. Protein-albumin dissociation. spep and upep to be reviewed and can be followed as outpatient 3. Anemia 2/2 iron deficiency --> on iron 4. Morbid obesity. 5. Pulmonary hypertension. 6. Pneumonia, on antibiotics as needed --> ID eval as needed 7. Gout. I appreciate the consultation. Subjective Constitutional: Reports: no symptoms HEENT: Reports: no symptoms Cardiovascular: Reports: no symptoms Respiratory: Reports: no symptoms Gastrointestinal/Abdominal: Reports: no symptoms Genitourinary: Reports: no symptoms Neurologic/Psychiatric: Reports: no symptoms Endocrine: Reports: no symptoms Hematologic/Lymphatic: Reports: anemia Allergies: Coded Allergies: No Known Allergies (Unverified , 04/04/17) Subjective stable, no events to report, on iron Objective Last 24 Hour Vital Signs Date Time Temp Pulse Resp B/P (MAP) Pulse Ox O2 Delivery O2 Flow Rate FiO2 06/14/17 08:48 97.0 85 20 125/85 94 06/14/17 04:00 96.6 80 20 121/65 93 Room Air 06/14/17 04:00 81 06/14/17 00:01 97.0 83 20 101/65 94 Room Air 06/14/17 00:00 81 06/13/17 21:30 89 143/78 06/13/17 20:33 Room Air 21 06/13/17 20:00 97.0 89 20 134/74 96 06/13/17 20:00 94 06/13/17 16:14 88 06/13/17 15:45 98.4 99 20 123/82 92 06/13/17 15:36 97.9 06/13/17 11:39 85 06/13/17 11:25 97.9 85 20 122/84 96 Height (Feet): 5 Height (Inches): 7.00 Weight (Pounds): 191 General Appearance: no apparent distress EENT: TMs normal Neck: supple Cardiovascular: regular rhythm Respiratory/Chest: normal breath sounds Abdomen: soft Extremities: non-tender Edema: 1+ Leg (L), 1+ Leg (R) Edema: mild edema Neurologic: alert Skin: warm/dry Kevin Benson Jun 14, 2017 10:06
--- NOTE | 2017-06-14 10:12 | GI Progress Note ---
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 SNOMED: 42291470, 160256215 (2) Weakness ICD Codes: R53.1 - Weakness SNOMED: 90297318 (3) Hypoalbuminemia ICD Codes: E88.09 - Other disorders of plasma-protein metabolism, not elsewhere classified SNOMED: 680815171 (4) Edema ICD Codes: R60.9 - Edema, unspecified SNOMED: 903649834, 582082172 (5) Ascites ICD Codes: R18.8 - Other ascites SNOMED: 074046452 (6) CHF (congestive heart failure) ICD Codes: I50.9 - Heart failure, unspecified SNOMED: 12441494 Qualifiers: Qualified Codes: I50.9 - Heart failure, unspecified (7) Non-compliance with treatment ICD Codes: Z91.19 - Patient's noncompliance with other medical treatment and regimen SNOMED: 1817673 (8) Abnormal LFTs ICD Codes: R79.89 - Other specified abnormal findings of blood chemistry SNOMED: 598218665 (9) Iron deficiency ICD Codes: E61.1 - Iron deficiency SNOMED: 38051113 Status: stable Status Narrative Discussed with Dr. Hinds. Assessment/Plan defer GI procedures given elevated troponin levels >> patient refuses EGD/ colonoscopy hepatitis panel >> negative iron deficiency >> venofer fu abdominal U/S cardiac diet DM mgmt pain mgmt monitor LFTs electrolyte correction fu labs Subjective Gastrointestinal/Abdominal: Reports: abdominal pain Objective Last 24 Hour Vital Signs Date Time Temp Pulse Resp B/P (MAP) Pulse Ox O2 Delivery O2 Flow Rate FiO2 06/14/17 08:48 97.0 85 20 125/85 94 06/14/17 04:00 96.6 80 20 121/65 93 Room Air 06/14/17 04:00 81 06/14/17 00:01 97.0 83 20 101/65 94 Room Air 06/14/17 00:00 81 06/13/17 21:30 89 143/78 06/13/17 20:33 Room Air 21 06/13/17 20:00 97.0 89 20 134/74 96 06/13/17 20:00 94 06/13/17 16:14 88 06/13/17 15:45 98.4 99 20 123/82 92 06/13/17 15:36 97.9 06/13/17 11:39 85 06/13/17 11:25 97.9 85 20 122/84 96 Height (Feet): 5 Height (Inches): 7.00 Weight (Pounds): 191 General Appearance: WD/WN, no apparent distress, alert Cardiovascular: normal rate Respiratory/Chest: normal breath sounds, no respiratory distress Abdominal Exam: normal bowel sounds, non tender, soft Extremities: normal range of motion, non-tender Marissa Schneider N.P. Jun 14, 2017 10:12
[2017-06-14] MEDS: Spironolactone 25mg tab ORAL SCH (10:19)
[2017-06-14] MEDS: Carvedilol 6.25mg Tab ORAL SCH (10:20)
[2017-06-14] MEDS: Lisinopril 2.5mg tab ORAL SCH (10:21)
[2017-06-14] MEDS: Digoxin 0.125mg tab ORAL SCH (10:23)
--- NOTE | 2017-06-14 10:43 | Infectious Diseases Prog Note ---
Assessment/Plan Assessment/Plan A; Cellulitis/ ulcers of legs CHF, cardiomyopathy Ascites DM MRSA colonization P: Continue Vancomycin will f/u abdominal US for ascites Subjective ROS Limited/Unobtainable: No Constitutional: Reports: no symptoms Respiratory: Reports: no symptoms Gastrointestinal/Abdominal: Reports: other - pain Musculoskeletal: Reports: pain Allergies: Coded Allergies: No Known Allergies (Unverified , 04/04/17) Objective Vital Signs Last 24 Hour Vital Signs Date Time Temp Pulse Resp B/P (MAP) Pulse Ox O2 Delivery O2 Flow Rate FiO2 06/14/17 10:23 85 06/14/17 10:21 125/85 06/14/17 10:20 85 125/85 06/14/17 08:48 97.0 85 20 125/85 94 06/14/17 04:00 96.6 80 20 121/65 93 Room Air 06/14/17 04:00 81 06/14/17 00:01 97.0 83 20 101/65 94 Room Air 06/14/17 00:00 81 06/13/17 21:30 89 143/78 06/13/17 20:33 Room Air 21 06/13/17 20:00 97.0 89 20 134/74 96 06/13/17 20:00 94 06/13/17 16:14 88 06/13/17 15:45 98.4 99 20 123/82 92 06/13/17 15:36 97.9 06/13/17 11:39 85 06/13/17 11:25 97.9 85 20 122/84 96 Height (Feet): 5 Height (Inches): 7.00 Weight (Pounds): 191 General Appearance: no acute distress HEENT: mucous membranes moist Respiratory/Chest: lungs clear Cardiovascular: normal rate Abdomen: distended, other - ascites Extremities: no edema Neurologic/Psychiatric: alert, oriented x 3, responsive Microbiology Date/Time Source Procedure Growth Status 06/11/17 19:00 Nasal Nares MRSA Culture - Final Staphylococcus Aureus - Mrsa Complete 06/11/17 19:00 Leg Left Gram Stain - Final Resulted 06/11/17 19:00 Wound Culture - Preliminary Staphylococcus Aureus - Mrsa Resulted Current Medications Medications (Trade) Dose Ordered Sig/Reuben Route PRN Reason Start Time Stop Time Status Last Admin Dose Admin Acetaminophen/ Hydrocodone Bitart ([place] 5/325) 1 tab Q6H PRN ORAL for pain 1-5 06/12/17 22:00 06/19/17 21:59 Allopurinol (Allopurinol) 300 mg DAILY ORAL 06/12/17 09:00 07/12/17 08:59 06/14/17 10:20 Carvedilol (Coreg) 12.5 mg EVERY 12 HOURS ORAL 06/13/17 21:00 07/13/17 20:59 06/14/17 10:20 Dextrose (Dextrose 50%) STAT PRN IV Hypoglycemia 06/11/17 17:00 07/11/17 16:59 Digoxin (Lanoxin) 0.125 mg DAILY ORAL 06/11/17 18:00 07/11/17 17:59 06/14/17 10:23 Furosemide (Lasix) 40 mg EVERY 12 HOURS IV 06/12/17 14:45 07/12/17 14:44 06/14/17 10:23 Gabapentin (Neurontin) 100 mg BID ORAL 06/11/17 18:00 07/11/17 17:59 06/14/17 10:27 Insulin Aspart (NovoLOG) BEFORE MEALS AND HS SUBQ 06/11/17 21:00 07/11/17 20:59 06/13/17 21:28 Iron Sucrose 100 mg/Sodium Chloride 60 ml @ 240 mls/hr BEDTIME IV 06/13/17 21:00 06/17/17 21:14 06/13/17 21:24 Lisinopril (Zestril) 5 mg DAILY ORAL 06/11/17 18:00 07/11/17 17:59 06/14/17 10:21 Morphine Sulfate (Morphine Sulfate) 1 mg Q4H PRN IVP For Pain 6-10 06/12/17 17:00 06/19/17 16:59 06/14/17 09:15 Ondansetron HCl (Zofran) 4 mg Q6H PRN IVP Nausea & Vomiting 06/11/17 17:00 07/11/17 16:59 Pantoprazole (Protonix) 40 mg DAILY ORAL 06/12/17 09:00 07/12/17 08:59 06/14/17 10:23 Potassium Chloride (K-Dur) 40 meq BID ORAL 06/13/17 18:00 07/13/17 17:59 06/14/17 10:22 Quetiapine Fumarate (SEROquel) 50 mg Q6H PRN ORAL Agitation 06/12/17 12:15 07/12/17 12:14 Spironolactone (Aldactone) 25 mg DAILY ORAL 06/12/17 14:45 07/12/17 14:44 06/14/17 10:19 Vancomycin HCl (Vanco rx to dose) 1 ea DAILY PRN MISC Per rx protocol 06/13/17 13:45 07/13/17 13:44 Vancomycin HCl/ Dextrose 250 ml @ 125 mls/hr Q24H IVPB 06/13/17 14:00 06/18/17 13:59 06/13/17 15:06 RETA OROZCO Jun 14, 2017 10:43
[2017-06-14] MEDS ORDERED: Tubing IV Secondary IV ONE (10:55)
--- NOTE | 2017-06-14 11:03 | Diagnostic Imaging Report ---
Indication: Abdominal distention and abnormal liver function tests Technique: Ortiz-scale and duplex images of the upper abdomen were obtained Comparison: 04/05/2017 Findings: There is a small amount of ascites fluid. Gallbladder is filled with sludge, as previously. Previously demonstrated small calculi are not evident on this exam. No wall thickening nor pericholecystic fluid. Sonographic Leary's sign is negative. Common bile duct measures 5 mm in diameter. No intrahepatic biliary ductal dilatation. Liver is enlarged, demonstrates normal echogenicity, no focal abnormality. Portal vein and hepatic veins are patent. Pancreas is unremarkable. Spleen is unremarkable. Left kidney measures 11 cm in length. Right kidney measures 10.4 cm length. Both kidneys demonstrate normal echogenicity. There is no hydronephrosis. No focal abnormality . Non-aneurysmal abdominal aorta . There is a right pleural effusion. Compared to the prior exam, the ascites is a new finding Impression: Gallbladder sludge. Previously demonstrated small gallbladder calculi are not currently visible, likely sonographically occult currently Negative for dilated ducts Hepatomegaly, also previously reported Right pleural effusion, also previously reported Ascites. This is a new finding
--- NOTE | 2017-06-14 11:31 | Nephrology Progress Note ---
Assessment/Plan Problem List: (1) Diabetic nephropathy (2) Hypokalemia (3) CHF (congestive heart failure) (4) Hypoalbuminemia Assessment Nephropathy 3+ Proteinuria, K low Dm, Nephropathy, High A1c h/o HyperUrecemia h/o High LFTs Cardiomyopathy with EjFx of 15% Plan Plan: Optimize cardiac status Allopurinol- dig , [place] I , Lasix as needed K supplement as needed Monitor renal parameters flomax per orders Subjective ROS Limited/Unobtainable: No Constitutional: Reports: malaise Objective Objective Last 24 Hour Vital Signs Date Time Temp Pulse Resp B/P (MAP) Pulse Ox O2 Delivery O2 Flow Rate FiO2 06/14/17 10:23 85 06/14/17 10:21 125/85 06/14/17 10:20 85 125/85 06/14/17 08:48 97.0 85 20 125/85 94 06/14/17 04:00 96.6 80 20 121/65 93 Room Air 06/14/17 04:00 81 06/14/17 00:01 97.0 83 20 101/65 94 Room Air 06/14/17 00:00 81 06/13/17 21:30 89 143/78 06/13/17 20:33 Room Air 21 06/13/17 20:00 97.0 89 20 134/74 96 06/13/17 20:00 94 06/13/17 16:14 88 06/13/17 15:45 98.4 99 20 123/82 92 06/13/17 15:36 97.9 06/13/17 11:39 85 Height (Feet): 5 Height (Inches): 7.00 Weight (Pounds): 191 General Appearance: no apparent distress Objective PE not changed RENNY POWER Jun 14, 2017 11:31
--- NOTE | 2017-06-14 12:40 | Pulmonology Progress Note ---
Assessment/Plan Assessment/Plan 1. Congestive heart failure with pulmonary interstitial edema, effusion. 2. Morbid obesity. 3. Diabetes. 4. Hypertension. 5. Pulmonary hypertension. 6. Consider sleep apnea in view of his morbid obesity and pulmonary hypertension. 7. Gout. 8. Pneumonia? no significant ascites on US, some GB sludge, pleural effusion no need for tap at present cont rx CHF Subjective Respiratory: Denies: shortness of breath Allergies: Coded Allergies: No Known Allergies (Unverified , 04/04/17) Objective Last 24 Hour Vital Signs Date Time Temp Pulse Resp B/P (MAP) Pulse Ox O2 Delivery O2 Flow Rate FiO2 06/14/17 10:23 85 06/14/17 10:21 125/85 06/14/17 10:20 85 125/85 06/14/17 08:48 97.0 85 20 125/85 94 06/14/17 04:00 96.6 80 20 121/65 93 Room Air 06/14/17 04:00 81 06/14/17 00:01 97.0 83 20 101/65 94 Room Air 06/14/17 00:00 81 06/13/17 21:30 89 143/78 06/13/17 20:33 Room Air 21 06/13/17 20:00 97.0 89 20 134/74 96 06/13/17 20:00 94 06/13/17 16:14 88 06/13/17 15:45 98.4 99 20 123/82 92 06/13/17 15:36 97.9 General Appearance: no acute distress Respiratory/Chest: decreased breath sounds Cardiovascular: normal rate Microbiology Date/Time Source Procedure Growth Status 06/11/17 19:00 Nasal Nares MRSA Culture - Final Staphylococcus Aureus - Mrsa Complete 06/11/17 19:00 Leg Left Gram Stain - Final Resulted 06/11/17 19:00 Wound Culture - Preliminary Staphylococcus Aureus - Mrsa Resulted Current Medications Medications (Trade) Dose Ordered Sig/Reuben Route PRN Reason Start Time Stop Time Status Last Admin Dose Admin Acetaminophen/ Hydrocodone Bitart ([place] 5/325) 1 tab Q6H PRN ORAL for pain 1-5 06/12/17 22:00 06/19/17 21:59 Allopurinol (Allopurinol) 300 mg DAILY ORAL 06/12/17 09:00 07/12/17 08:59 06/14/17 10:20 Carvedilol (Coreg) 12.5 mg EVERY 12 HOURS ORAL 06/13/17 21:00 07/13/17 20:59 06/14/17 10:20 Dextrose (Dextrose 50%) STAT PRN IV Hypoglycemia 06/11/17 17:00 07/11/17 16:59 Digoxin (Lanoxin) 0.125 mg DAILY ORAL 06/11/17 18:00 07/11/17 17:59 06/14/17 10:23 Furosemide (Lasix) 40 mg EVERY 12 HOURS IV 06/12/17 14:45 07/12/17 14:44 06/14/17 10:23 Gabapentin (Neurontin) 100 mg BID ORAL 06/11/17 18:00 07/11/17 17:59 06/14/17 10:27 Insulin Aspart (NovoLOG) BEFORE MEALS AND HS SUBQ 06/11/17 21:00 07/11/17 20:59 06/13/17 21:28 Iron Sucrose 100 mg/Sodium Chloride 60 ml @ 240 mls/hr BEDTIME IV 06/13/17 21:00 06/17/17 21:14 06/13/17 21:24 Lisinopril (Zestril) 5 mg DAILY ORAL 06/11/17 18:00 07/11/17 17:59 06/14/17 10:21 Morphine Sulfate (Morphine Sulfate) 1 mg Q4H PRN IVP For Pain 6-10 06/12/17 17:00 06/19/17 16:59 06/14/17 09:15 Ondansetron HCl (Zofran) 4 mg Q6H PRN IVP Nausea & Vomiting 06/11/17 17:00 07/11/17 16:59 Pantoprazole (Protonix) 40 mg DAILY ORAL 06/12/17 09:00 07/12/17 08:59 06/14/17 10:23 Potassium Chloride (K-Dur) 40 meq BID ORAL 06/13/17 18:00 07/13/17 17:59 06/14/17 10:22 Quetiapine Fumarate (SEROquel) 50 mg Q6H PRN ORAL Agitation 06/12/17 12:15 07/12/17 12:14 Spironolactone (Aldactone) 25 mg DAILY ORAL 06/12/17 14:45 07/12/17 14:44 06/14/17 10:19 Vancomycin HCl (Vanco rx to dose) 1 ea DAILY PRN MISC Per rx protocol 06/13/17 13:45 07/13/17 13:44 Vancomycin HCl/ Dextrose 250 ml @ 125 mls/hr Q24H IVPB 06/13/17 14:00 06/18/17 13:59 06/13/17 15:06 OWEN MCDANIEL Jun 14, 2017 12:40
[2017-06-14 15:42] VITALS: BP 134/82
[2017-06-14] MEDS: Vancomycin 1.5 GM/D5W 250ML IVPB SCH (17:05)
[2017-06-14 20:00] VITALS: BP 123/76
[2017-06-14] MEDS ORDERED: Norco 5mg/325mg tab ORAL PRN (21:00)
[2017-06-14] MEDS: Iron Sucrose 100 MG in NS 55 ML IV SCH (21:15)
[2017-06-14] MEDS: Carvedilol 12.5mg tab ORAL SCH (22:18)
[2017-06-15] VITALS (7 sets, daily range): BP systolic 111–130; BP diastolic 53–80
[2017-06-15 06:09] LABS: A/G RATIO 0.9 (0.7-1.7); ABNORMAL PROTEIN BAND 1 Not Observed g/dL (Not Observed); ALBUMIN 2.6 g/dL (2.9-4.4); ALPHA-1 GLOBULIN 0.2 g/dL (0.0-0.4); ALPHA-2 GLOBULIN 0.5 g/dL (0.4-1.0); BETA GLOBULIN 1.1 g/dL (0.7-1.3); GLOBULIN, TOTAL 2.9 g/dL (2.2-3.9); TOTAL PROTEIN 5.5 g/dL (6.0-8.5)
[2017-06-15] MEDS: NovoLOG Insulin Flexpen SUBQ SCH ×4 (06:30→20:57)
[2017-06-15 08:14] LABS: ALBUMIN 61.5 % (.); ALPHA-2 GLOB URINE 9.3 % (.); BETA GLOBULIN URINE 12.6 % (.); GAMMA GLOBULIN URINE 8.4 % (.)
--- NOTE | 2017-06-15 08:15 | General Progress Note ---
Assessment/Plan Assessment/Plan (1) Abdominal pain (2) Ascites (3) B/L LE pain (4) B/L LE ulcers Pt will be continued on [place] and Morphine D/w Dr. Wei and he concurred. Subjective Date patient seen: Jun 15, 2017 Time patient seen: 07:00 - am Allergies: Coded Allergies: No Known Allergies (Unverified , 04/04/17) Subjective REVIEW OF SYSTEMS: Denies rash, fever, chills, sweating, dizziness, drowsiness, sore throat, or change in his weight. No nausea, vomiting, diarrhea, or blood in the stool or urine. No bowel or bladder incontinence. No dysuria. He is complaining of abdominal pain and bilateral lower extremity pain. SUBJECTIVE: Patient reports that he continues to have severe pain which has been tolerated on the Morphine and [place] which he uses as needed. Objective Last 24 Hour Vital Signs Date Time Temp Pulse Resp B/P (MAP) Pulse Ox O2 Delivery O2 Flow Rate FiO2 06/15/17 07:48 97.6 83 20 117/74 95 Room Air 06/15/17 04:42 Room Air 06/15/17 04:00 97.9 73 21 130/76 98 06/15/17 00:00 98.2 79 21 127/80 98 06/15/17 00:00 Room Air 06/14/17 22:18 87 123/76 06/14/17 22:02 98.4 06/14/17 20:00 98.4 87 21 123/76 96 06/14/17 20:00 Room Air 06/14/17 15:42 97.7 86 20 134/82 94 06/14/17 12:00 89 06/14/17 10:23 85 06/14/17 10:21 125/85 06/14/17 10:20 85 125/85 06/14/17 08:48 97.0 85 20 125/85 94 Height (Feet): 5 Height (Inches): 7.00 Weight (Pounds): 187 Objective GENERAL: Alert, awake, and oriented. HEENT: PERRLA. NECK: Range of motion is full in all directions. No tenderness. No adenopathy. LUNGS: Decreased breath sounds bilaterally. HEART: Regular. ABDOMEN: Obese with tenderness to palpation. BACK: Range of motion is decreased in flexion and extension. No tenderness to paraspinal muscles, trapezius or rhomboid muscles. EXTREMITIES: No cyanosis. No clubbing. KAREN WIN Jun 15, 2017 08:15
[2017-06-15] MEDS: Digoxin 0.125mg tab ORAL SCH (09:00)
[2017-06-15] MEDS: Spironolactone 25mg tab ORAL SCH (09:00)
[2017-06-15] MEDS: Morphine Sulfate 2mg/ml Inj IVP PRN ×3 (09:00→20:53)
[2017-06-15] MEDS: Lisinopril 2.5mg tab ORAL SCH (09:00)
[2017-06-15] MEDS: Carvedilol 12.5mg tab ORAL SCH ×3 (09:00→21:00)
--- NOTE | 2017-06-15 10:34 | Infectious Diseases Prog Note ---
Assessment/Plan Assessment/Plan A; Cellulitis/ ulcers of legs CHF, cardiomyopathy Ascites, small DM MRSA colonization Diarrhea P: Continue Vancomycin check for C. difficile Subjective ROS Limited/Unobtainable: No Constitutional: Reports: no symptoms Respiratory: Reports: no symptoms Cardiovascular: Reports: no symptoms Gastrointestinal/Abdominal: Reports: diarrhea Allergies: Coded Allergies: No Known Allergies (Unverified , 04/04/17) Objective Vital Signs Last 24 Hour Vital Signs Date Time Temp Pulse Resp B/P (MAP) Pulse Ox O2 Delivery O2 Flow Rate FiO2 06/15/17 09:00 117/74 06/15/17 09:00 83 06/15/17 09:00 83 117/74 06/15/17 07:48 97.6 83 20 117/74 95 Room Air 06/15/17 04:42 Room Air 06/15/17 04:00 97.9 73 21 130/76 98 06/15/17 00:00 98.2 79 21 127/80 98 06/15/17 00:00 Room Air 06/14/17 22:18 87 123/76 06/14/17 22:02 98.4 06/14/17 20:00 98.4 87 21 123/76 96 06/14/17 20:00 Room Air 06/14/17 15:42 97.7 86 20 134/82 94 06/14/17 12:00 89 Height (Feet): 5 Height (Inches): 7.00 Weight (Pounds): 187 General Appearance: no acute distress HEENT: mucous membranes moist Respiratory/Chest: lungs clear Cardiovascular: normal rate Abdomen: distended Extremities: other - edema of legs Skin: ulcers, other - legs Neurologic/Psychiatric: alert, oriented x 3, responsive Current Medications Medications (Trade) Dose Ordered Sig/Reuben Route PRN Reason Start Time Stop Time Status Last Admin Dose Admin Acetaminophen/ Hydrocodone Bitart ([place] 5/325) 1 tab Q6H PRN ORAL for pain 1-5 06/14/17 21:00 06/19/17 20:59 Allopurinol (Allopurinol) 300 mg DAILY ORAL 06/15/17 09:00 07/12/17 08:59 06/15/17 09:00 Carvedilol (Coreg) 12.5 mg EVERY 12 HOURS ORAL 06/14/17 21:30 1/4/18 21:29 06/15/17 09:00 Dextrose (Dextrose 50%) STAT PRN IV Hypoglycemia 06/14/17 21:00 07/14/17 20:59 Digoxin (Lanoxin) 0.125 mg DAILY ORAL 06/15/17 09:00 07/11/17 17:59 06/15/17 09:00 Furosemide (Lasix) 40 mg EVERY 12 HOURS IV 06/14/17 21:30 07/12/17 21:29 06/15/17 09:00 Gabapentin (Neurontin) 100 mg BID ORAL 06/15/17 09:00 07/11/17 17:59 06/15/17 09:00 Insulin Aspart (NovoLOG) BEFORE MEALS AND HS SUBQ 06/14/17 21:00 07/11/17 20:59 Iron Sucrose 100 mg/Sodium Chloride 60 ml @ 240 mls/hr BEDTIME IV 06/14/17 21:15 06/17/17 21:01 06/14/17 21:15 Lisinopril (Zestril) 5 mg DAILY ORAL 06/15/17 09:00 07/11/17 17:59 06/15/17 09:00 Morphine Sulfate (Morphine Sulfate) 1 mg Q4H PRN IVP For Pain 6-10 06/14/17 21:00 06/19/17 16:59 06/14/17 21:32 Ondansetron HCl (Zofran) 4 mg Q6H PRN IVP Nausea & Vomiting 06/14/17 21:00 07/11/17 20:59 Pantoprazole (Protonix) 40 mg DAILY ORAL 06/15/17 09:00 07/12/17 08:59 06/15/17 09:00 Potassium Chloride (K-Dur) 40 meq BID ORAL 06/15/17 09:00 07/13/17 17:59 Quetiapine Fumarate (SEROquel) 50 mg Q6H PRN ORAL Agitation 06/14/17 21:00 07/14/17 20:59 Spironolactone (Aldactone) 25 mg DAILY ORAL 06/15/17 09:00 07/12/17 14:44 06/15/17 09:00 Vancomycin HCl (Vanco rx to dose) 1 ea DAILYPRN PRN MISC Per rx protocol 06/14/17 21:00 07/14/17 20:59 Vancomycin HCl/ Dextrose 250 ml @ 125 mls/hr Q24H IVPB 06/15/17 14:00 06/18/17 13:59 RETA OROZCO Jun 15, 2017 10:34
--- NOTE | 2017-06-15 11:02 | GI Progress Note ---
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 SNOMED: 56519730, 862895074 (2) Weakness ICD Codes: R53.1 - Weakness SNOMED: 78833343 (3) Hypoalbuminemia ICD Codes: E88.09 - Other disorders of plasma-protein metabolism, not elsewhere classified SNOMED: 339231479 (4) Edema ICD Codes: R60.9 - Edema, unspecified SNOMED: 242187912, 117175228 (5) Ascites ICD Codes: R18.8 - Other ascites SNOMED: 107087989 (6) CHF (congestive heart failure) ICD Codes: I50.9 - Heart failure, unspecified SNOMED: 37797286 Qualifiers: Qualified Codes: I50.9 - Heart failure, unspecified (7) Non-compliance with treatment ICD Codes: Z91.19 - Patient's noncompliance with other medical treatment and regimen SNOMED: 5606355 (8) Abnormal LFTs ICD Codes: R79.89 - Other specified abnormal findings of blood chemistry SNOMED: 517431534 (9) Iron deficiency ICD Codes: E61.1 - Iron deficiency SNOMED: 99683300 Status: stable, unchanged Status Narrative Discussed with Dr. Hinds. Assessment/Plan patient refuses GI procedures hepatitis panel >> negative iron deficiency >> venofer fu abdominal U/S >> new finding of ascites >> cont diuresis cardiac diet DM mgmt pain mgmt monitor LFTs electrolyte correction PT/OT fu labs Subjective Gastrointestinal/Abdominal: Reports: abdomen distended, abdominal pain Objective Last 24 Hour Vital Signs Date Time Temp Pulse Resp B/P (MAP) Pulse Ox O2 Delivery O2 Flow Rate FiO2 06/15/17 09:00 117/74 06/15/17 09:00 83 06/15/17 09:00 83 117/74 06/15/17 07:48 97.6 83 20 117/74 95 Room Air 06/15/17 04:42 Room Air 06/15/17 04:00 97.9 73 21 130/76 98 06/15/17 00:00 98.2 79 21 127/80 98 06/15/17 00:00 Room Air 06/14/17 22:18 87 123/76 06/14/17 22:02 98.4 06/14/17 20:00 98.4 87 21 123/76 96 06/14/17 20:00 Room Air 06/14/17 15:42 97.7 86 20 134/82 94 06/14/17 12:00 89 Height (Feet): 5 Height (Inches): 7.00 Weight (Pounds): 187 General Appearance: WD/WN, no apparent distress, alert Cardiovascular: normal rate Respiratory/Chest: normal breath sounds, no respiratory distress Abdominal Exam: normal bowel sounds, non tender, soft, distended - ascites, ascites Extremities: normal range of motion, non-tender Objective generalized weakness Marissa Schneider N.P. Jun 15, 2017 11:02
--- NOTE | 2017-06-15 11:10 | General Progress Note ---
Assessment/Plan Assessment/Plan ASSESSMENT AND RECOMMENDATIONS: 1. Failure to thrive, likely secondary to decreased p.o. intake. Gastrointestinal Service evaluated the patient. Continue to closely monitor. No evidence of malignancy. Prior imaging has been reviewed. --> has declined egd/colonoscopies before 2. Protein-albumin dissociation. spep and upep to be reviewed and can be followed as outpatient 3. Anemia 2/2 iron deficiency --> on iron 4. Morbid obesity. 5. Pulmonary hypertension. 6. Pneumonia, on antibiotics as needed --> ID eval as needed 7. Gout. Subjective Allergies: Coded Allergies: No Known Allergies (Unverified , 04/04/17) All Systems: reviewed and negative except above Subjective stable, resting in bed Objective Last 24 Hour Vital Signs Date Time Temp Pulse Resp B/P (MAP) Pulse Ox O2 Delivery O2 Flow Rate FiO2 06/15/17 09:00 117/74 06/15/17 09:00 83 06/15/17 09:00 83 117/74 06/15/17 07:48 97.6 83 20 117/74 95 Room Air 06/15/17 04:42 Room Air 06/15/17 04:00 97.9 73 21 130/76 98 06/15/17 00:00 98.2 79 21 127/80 98 06/15/17 00:00 Room Air 06/14/17 22:18 87 123/76 06/14/17 22:02 98.4 06/14/17 20:00 98.4 87 21 123/76 96 06/14/17 20:00 Room Air 06/14/17 15:42 97.7 86 20 134/82 94 06/14/17 12:00 89 Height (Feet): 5 Height (Inches): 7.00 Weight (Pounds): 187 General Appearance: no apparent distress EENT: normal ENT inspection Neck: normal alignment Cardiovascular: normal peripheral pulses Neurologic: no motor/sensory deficits Skin: normal pigmentation Kevin Benson Jun 15, 2017 11:10
[2017-06-15] MEDS ORDERED: Vancomycin 1.5gm/D5W 250ml 250 ML IVPB SCH (14:00)
--- NOTE | 2017-06-15 15:53 | Cardiology Progress Note ---
Assessment/Plan Assessment/Plan 1. Four chamber dilated cardiomyopathy with increased intra-cardiac filling pressure. 2. Acute systolic and diastolic CHF, increase lisinopril to 10mg daily, continue coreg, furosemide, aldactone and digoxin. Non-compliant with medication. 3. Nonsustained ventricular tachycardia. Magnesium level at 2.0. Refused AICD in the past. 4. Diabetes mellitus. Subjective Subjective Transferred to the med-surg unit. No cardiac events. Refusing to take his meds. Objective Last 24 Hour Vital Signs Date Time Temp Pulse Resp B/P (MAP) Pulse Ox O2 Delivery O2 Flow Rate FiO2 06/15/17 11:24 97.8 81 20 123/80 Room Air 06/15/17 09:00 117/74 06/15/17 09:00 83 06/15/17 09:00 83 117/74 06/15/17 07:48 97.6 83 20 117/74 95 Room Air 06/15/17 04:42 Room Air 06/15/17 04:00 97.9 73 21 130/76 98 06/15/17 00:00 98.2 79 21 127/80 98 06/15/17 00:00 Room Air 06/14/17 22:18 87 123/76 06/14/17 22:02 98.4 06/14/17 20:00 98.4 87 21 123/76 96 06/14/17 20:00 Room Air Intake and Output 06/15/17 06/16/17 19:00 07:00 Intake Total 600 ml Output Total 500 ml Balance 100 ml Intake Oral 600 ml Output Urine Total 500 ml # Bowel Movements 5 2D Echo: Four chamber DCM, Global LV hypokinesia, LVEF ~10%, Sev MR, RVSP 69 mmHg Objective HEENT: Atraumatic and normocephalic. ENT, pupils are equal, round, and reactive to light and accommodation. Conjunctival pallor is seen. Neck: JVP is elevated at about 15 cm. No carotid bruit. Carotid upstrokes 2+ bilaterally. Cardiovascular: Normal S1, S2. Regular rate and rhythm. A 2/6 midsystolic murmur at the left sternal border. LUNGS: Clear to auscultation bilaterally. Abdomen: Distended. Possible ascites. No hepatosplenomegaly. Positive bowel sounds. Extremities: 1+ bilateral lower extremity edema. EMILY COMBS Jun 15, 2017 15:53
--- NOTE | 2017-06-15 16:43 | Nephrology Progress Note ---
Assessment/Plan Problem List: (1) Diabetic nephropathy (2) Hypokalemia (3) CHF (congestive heart failure) (4) Hypoalbuminemia Assessment Nephropathy 3+ Proteinuria, K low Dm, Nephropathy, High A1c h/o HyperUrecemia h/o High LFTs Cardiomyopathy with EjFx of 15% Plan Plan: Optimize cardiac status Allopurinol- dig , Uche I , Lasix as needed K supplement as needed Monitor renal parameters flomax per orders Subjective ROS Limited/Unobtainable: No Constitutional: Reports: malaise Objective Objective Last 24 Hour Vital Signs Date Time Temp Pulse Resp B/P (MAP) Pulse Ox O2 Delivery O2 Flow Rate FiO2 06/15/17 11:24 97.8 81 20 123/80 Room Air 06/15/17 09:00 117/74 06/15/17 09:00 83 06/15/17 09:00 83 117/74 06/15/17 07:48 97.6 83 20 117/74 95 Room Air 06/15/17 04:42 Room Air 06/15/17 04:00 97.9 73 21 130/76 98 06/15/17 00:00 98.2 79 21 127/80 98 06/15/17 00:00 Room Air 06/14/17 22:18 87 123/76 06/14/17 22:02 98.4 06/14/17 20:00 98.4 87 21 123/76 96 06/14/17 20:00 Room Air Intake and Output 06/15/17 06/16/17 19:00 07:00 Intake Total 600 ml Output Total 500 ml Balance 100 ml Intake Oral 600 ml Output Urine Total 500 ml # Bowel Movements 5 Height (Feet): 5 Height (Inches): 7.00 Weight (Pounds): 187 General Appearance: no apparent distress Objective PE not changed RENNY POWER Jun 15, 2017 16:43
--- NOTE | 2017-06-15 17:13 | Pulmonology Progress Note ---
Assessment/Plan Assessment/Plan 1. Congestive heart failure with pulmonary interstitial edema, effusion. 2. Morbid obesity. 3. Diabetes. 4. Hypertension. 5. Pulmonary hypertension. 6. Consider sleep apnea in view of his morbid obesity and pulmonary hypertension. 7. Gout. c/o diarrhea c diff pdg cont rx CHF no active pulm problems, will see prn Subjective Respiratory: Denies: shortness of breath Gastrointestinal/Abdominal: Reports: diarrhea Allergies: Coded Allergies: No Known Allergies (Unverified , 04/04/17) Objective Last 24 Hour Vital Signs Date Time Temp Pulse Resp B/P (MAP) Pulse Ox O2 Delivery O2 Flow Rate FiO2 06/15/17 11:24 97.8 81 20 123/80 Room Air 06/15/17 09:00 117/74 06/15/17 09:00 83 06/15/17 09:00 83 117/74 06/15/17 07:48 97.6 83 20 117/74 95 Room Air 06/15/17 04:42 Room Air 06/15/17 04:00 97.9 73 21 130/76 98 06/15/17 00:00 98.2 79 21 127/80 98 06/15/17 00:00 Room Air 06/14/17 22:18 87 123/76 06/14/17 22:02 98.4 06/14/17 20:00 98.4 87 21 123/76 96 06/14/17 20:00 Room Air Intake and Output 06/15/17 06/16/17 19:00 07:00 Intake Total 600 ml Output Total 500 ml Balance 100 ml Intake Oral 600 ml Output Urine Total 500 ml # Bowel Movements 5 General Appearance: no acute distress HEENT: atraumatic Respiratory/Chest: lungs clear Cardiovascular: normal rate Abdomen: soft, non tender Current Medications Medications (Trade) Dose Ordered Sig/Reuben Route PRN Reason Start Time Stop Time Status Last Admin Dose Admin Acetaminophen/ Hydrocodone Bitart ([place] 5/325) 1 tab Q6H PRN ORAL for pain 1-5 06/14/17 21:00 06/19/17 20:59 Allopurinol (Allopurinol) 300 mg DAILY ORAL 06/15/17 09:00 07/12/17 08:59 06/15/17 09:00 Carvedilol (Coreg) 12.5 mg EVERY 12 HOURS ORAL 06/14/17 21:30 07/13/17 21:29 06/15/17 09:00 Dextrose (Dextrose 50%) STAT PRN IV Hypoglycemia 06/14/17 21:00 07/14/17 20:59 Digoxin (Lanoxin) 0.125 mg DAILY ORAL 06/15/17 09:00 07/11/17 17:59 06/15/17 09:00 Furosemide (Lasix) 40 mg EVERY 12 HOURS IV 06/14/17 21:30 07/12/17 21:29 06/15/17 09:00 Gabapentin (Neurontin) 100 mg BID ORAL 06/15/17 09:00 07/11/17 17:59 06/15/17 09:00 Insulin Aspart (NovoLOG) BEFORE MEALS AND HS SUBQ 06/14/17 21:00 07/11/17 20:59 Iron Sucrose 100 mg/Sodium Chloride 60 ml @ 240 mls/hr BEDTIME IV 06/14/17 21:15 06/17/17 21:01 06/14/17 21:15 Lisinopril (Zestril) 5 mg DAILY ORAL 06/15/17 09:00 07/11/17 17:59 06/15/17 09:00 Morphine Sulfate (Morphine Sulfate) 1 mg Q4H PRN IVP For Pain 6-10 06/14/17 21:00 06/19/17 16:59 06/15/17 14:59 Ondansetron HCl (Zofran) 4 mg Q6H PRN IVP Nausea & Vomiting 06/14/17 21:00 07/11/17 20:59 Pantoprazole (Protonix) 40 mg DAILY ORAL 06/15/17 09:00 07/12/17 08:59 06/15/17 09:00 Potassium Chloride (K-Dur) 40 meq BID ORAL 06/15/17 09:00 07/13/17 17:59 Quetiapine Fumarate (SEROquel) 50 mg Q6H PRN ORAL Agitation 06/14/17 21:00 07/14/17 20:59 Spironolactone (Aldactone) 25 mg DAILY ORAL 06/15/17 09:00 07/12/17 14:44 06/15/17 09:00 Vancomycin HCl (Vanco rx to dose) 1 ea DAILYPRN PRN MISC Per rx protocol 06/14/17 21:00 07/14/17 20:59 Vancomycin HCl/ Dextrose 250 ml @ 125 mls/hr Q24H IVPB 06/15/17 14:00 06/18/17 13:59 06/15/17 14:45 OWEN MCDANIEL Jun 15, 2017 17:13
[2017-06-15] MEDS ORDERED: Dyna-Hex 2% Top Sol 2oz TOPIC SCH (20:00)
[2017-06-15] MEDS: Iron Sucrose 100 MG in NS 55 ML IV SCH (20:52)
--- NOTE | 2017-06-15 20:58 | General Progress Note ---
Assessment/Plan Problem List: (1) CHF (congestive heart failure) ICD Codes: I50.9 - Heart failure, unspecified SNOMED: 97218387 Qualifiers: Qualified Codes: I50.9 - Heart failure, unspecified (2) Ascites ICD Codes: R18.8 - Other ascites SNOMED: 351890674 (3) Edema ICD Codes: R60.9 - Edema, unspecified SNOMED: 663101705, 684052688 (4) Non-compliance with treatment ICD Codes: Z91.19 - Patient's noncompliance with other medical treatment and regimen SNOMED: 6277903 (5) Iron deficiency ICD Codes: E61.1 - Iron deficiency SNOMED: 72712932 (6) Weakness ICD Codes: R53.1 - Weakness SNOMED: 94109065 (7) Hypokalemia ICD Codes: E87.6 - Hypokalemia SNOMED: 43747480, 354829308 Status: progressing Assessment/Plan chf improving ascites no change reviewed chart and meds and labs edema he said he cant take care of himself and no one can take care of him w Subjective ROS Limited/Unobtainable: Yes Allergies: Coded Allergies: No Known Allergies (Unverified , 04/04/17) Objective Last 24 Hour Vital Signs Date Time Temp Pulse Resp B/P (MAP) Pulse Ox O2 Delivery O2 Flow Rate FiO2 06/15/17 20:52 86 111/53 06/15/17 19:42 98.2 86 20 111/53 97 Room Air 06/15/17 16:00 98.2 88 20 128/71 92 06/15/17 11:24 97.8 81 20 123/80 Room Air 06/15/17 09:00 117/74 06/15/17 09:00 83 06/15/17 09:00 83 117/74 06/15/17 07:48 97.6 83 20 117/74 95 Room Air 06/15/17 04:42 Room Air 06/15/17 04:00 97.9 73 21 130/76 98 06/15/17 00:00 98.2 79 21 127/80 98 06/15/17 00:00 Room Air 06/14/17 22:18 87 123/76 06/14/17 22:02 98.4 Intake and Output 06/15/17 06/16/17 19:00 07:00 Intake Total 740 ml Output Total 500 ml Balance 240 ml Intake Oral 740 ml Output Urine Total 500 ml # Voids 4 # Bowel Movements 8 Height (Feet): 5 Height (Inches): 7.00 Weight (Pounds): 187 Joanna Keller MD Jun 15, 2017 20:58
[2017-06-16 00:41] VITALS: BP 101/58
[2017-06-16 04:11] VITALS: BP 121/66
[2017-06-16] MEDS: Morphine Sulfate 2mg/ml Inj IVP PRN ×4 (04:43→20:56)
[2017-06-16] MEDS: NovoLOG Insulin Flexpen SUBQ SCH ×4 (06:08→20:57)
[2017-06-16 08:00] VITALS: BP 124/71
--- NOTE | 2017-06-16 09:14 | General Progress Note ---
Assessment/Plan Assessment/Plan (1) Abdominal pain (2) Ascites (3) B/L LE pain (4) B/L LE ulcers Pt will be continued on [place] and Morphine D/w Dr. Wei and he concurred. Subjective Date patient seen: Jun 16, 2017 Time patient seen: 07:00 - am Allergies: Coded Allergies: No Known Allergies (Unverified , 04/04/17) Subjective REVIEW OF SYSTEMS: Denies rash, fever, chills, sweating, dizziness, drowsiness, sore throat, or change in his weight. No nausea, vomiting, diarrhea, or blood in the stool or urine. No bowel or bladder incontinence. No dysuria. He is complaining of abdominal pain and bilateral lower extremity pain. SUBJECTIVE: Patient continues to c/o severe pain in his abdominal area and legs. The pain can reach a 10/10 and goes away with the morphine. He has no new complaints at this time. Objective Last 24 Hour Vital Signs Date Time Temp Pulse Resp B/P (MAP) Pulse Ox O2 Delivery O2 Flow Rate FiO2 06/16/17 08:00 97.0 85 18 124/71 93 Room Air 06/16/17 05:13 98.2 06/16/17 04:42 97 Room Air 06/16/17 04:11 98.2 91 20 121/66 97 Room Air 06/16/17 00:42 97 Room Air 06/16/17 00:41 98.2 103 20 101/58 97 Room Air 06/15/17 21:00 86 126/67 06/15/17 20:45 126/67 06/15/17 20:00 97 Room Air 06/15/17 19:42 98.2 86 20 111/53 97 Room Air 06/15/17 16:00 98.2 88 20 128/71 92 06/15/17 11:24 97.8 81 20 123/80 Room Air Height (Feet): 5 Height (Inches): 7.00 Weight (Pounds): 178 Objective GENERAL: Alert, awake, and oriented. HEENT: PERRLA. NECK: Range of motion is full in all directions. No tenderness. No adenopathy. LUNGS: Decreased breath sounds bilaterally. HEART: Regular. ABDOMEN: Obese with tenderness to palpation. BACK: Range of motion is decreased in flexion and extension. No tenderness to paraspinal muscles, trapezius or rhomboid muscles. EXTREMITIES: No cyanosis. No clubbing. KAREN WIN Jun 16, 2017 09:14
[2017-06-16] MEDS: Carvedilol 12.5mg tab ORAL SCH ×2 (09:29→20:57)
[2017-06-16] MEDS: Lisinopril 2.5mg tab ORAL SCH (09:30)
[2017-06-16] MEDS: Digoxin 0.125mg tab ORAL SCH (09:30)
[2017-06-16] MEDS: Spironolactone 25mg tab ORAL SCH (09:30)
--- NOTE | 2017-06-16 11:07 | Infectious Diseases Prog Note ---
Assessment/Plan Assessment/Plan A; Cellulitis/ ulcers of legs CHF, cardiomyopathy Ascites, small DM MRSA colonization Diarrhea P: Continue Vancomycin C. difficile is negative Subjective ROS Limited/Unobtainable: Yes Allergies: Coded Allergies: No Known Allergies (Unverified , 04/04/17) Objective Vital Signs Last 24 Hour Vital Signs Date Time Temp Pulse Resp B/P (MAP) Pulse Ox O2 Delivery O2 Flow Rate FiO2 06/16/17 09:30 124/71 06/16/17 09:30 85 06/16/17 09:29 85 124/71 06/16/17 08:00 97.0 85 18 124/71 93 Room Air 06/16/17 05:13 98.2 06/16/17 04:42 97 Room Air 06/16/17 04:11 98.2 91 20 121/66 97 Room Air 06/16/17 00:42 97 Room Air 06/16/17 00:41 98.2 103 20 101/58 97 Room Air 06/15/17 21:00 86 126/67 06/15/17 20:45 126/67 06/15/17 20:00 97 Room Air 06/15/17 19:42 98.2 86 20 111/53 97 Room Air 06/15/17 16:00 98.2 88 20 128/71 92 06/15/17 11:24 97.8 81 20 123/80 Room Air Height (Feet): 5 Height (Inches): 7.00 Weight (Pounds): 178 General Appearance: no acute distress HEENT: mucous membranes moist Respiratory/Chest: lungs clear Cardiovascular: normal rate Abdomen: distended Extremities: other - edema of legs Skin: ulcers, other - legs Neurologic/Psychiatric: other - sleeping Microbiology Date/Time Source Procedure Growth Status 06/15/17 16:00 Stool Clostridium difficile Toxin Assay - Final Complete Current Medications Medications (Trade) Dose Ordered Sig/Reuben Route PRN Reason Start Time Stop Time Status Last Admin Dose Admin Acetaminophen/ Hydrocodone Bitart ([place] 5/325) 1 tab Q6H PRN ORAL for pain 1-5 06/14/17 21:00 06/19/17 20:59 Allopurinol (Allopurinol) 300 mg DAILY ORAL 06/15/17 09:00 07/12/17 08:59 06/16/17 09:29 Carvedilol (Coreg) 12.5 mg EVERY 12 HOURS ORAL 06/14/17 21:30 07/13/17 21:29 06/16/17 09:29 Dextrose (Dextrose 50%) STAT PRN IV Hypoglycemia 06/14/17 21:00 07/14/17 20:59 Digoxin (Lanoxin) 0.125 mg DAILY ORAL 06/15/17 09:00 07/11/17 17:59 06/16/17 09:30 Furosemide (Lasix) 40 mg EVERY 12 HOURS IV 06/14/17 21:30 07/12/17 21:29 06/16/17 09:31 Gabapentin (Neurontin) 100 mg BID ORAL 06/15/17 09:00 07/11/17 17:59 06/16/17 09:30 Insulin Aspart (NovoLOG) BEFORE MEALS AND HS SUBQ 06/14/17 21:00 07/11/17 20:59 Iron Sucrose 100 mg/Sodium Chloride 60 ml @ 240 mls/hr BEDTIME IV 06/14/17 21:15 06/17/17 21:01 06/15/17 20:52 Lisinopril (Zestril) 5 mg DAILY ORAL 06/15/17 09:00 07/11/17 17:59 06/16/17 09:30 Morphine Sulfate (Morphine Sulfate) 1 mg Q4H PRN IVP For Pain 6-10 06/14/17 21:00 06/19/17 16:59 06/16/17 09:35 Ondansetron HCl (Zofran) 4 mg Q6H PRN IVP Nausea & Vomiting 06/14/17 21:00 07/11/17 20:59 Pantoprazole (Protonix) 40 mg DAILY ORAL 06/15/17 09:00 07/12/17 08:59 06/16/17 09:30 Potassium Chloride (K-Dur) 40 meq BID ORAL 06/15/17 09:00 07/13/17 17:59 06/16/17 09:31 Quetiapine Fumarate (SEROquel) 50 mg Q6H PRN ORAL Agitation 06/14/17 21:00 07/14/17 20:59 Spironolactone (Aldactone) 25 mg DAILY ORAL 06/15/17 09:00 07/12/17 14:44 06/16/17 09:30 Vancomycin HCl (Vanco rx to dose) 1 ea DAILYPRN PRN MISC Per rx protocol 06/14/17 21:00 07/14/17 20:59 Vancomycin HCl/ Dextrose 250 ml @ 125 mls/hr Q24H IVPB 06/15/17 14:00 06/18/17 13:59 06/15/17 14:45 RETA OROZCO Jun 16, 2017 11:07
[2017-06-16 12:00] VITALS: BP 117/86
--- NOTE | 2017-06-16 13:11 | Nephrology Progress Note ---
Assessment/Plan Problem List: (1) Diabetic nephropathy (2) Hypokalemia (3) CHF (congestive heart failure) (4) Hypoalbuminemia Assessment Nephropathy 3+ Proteinuria, K low Dm, Nephropathy, High A1c h/o HyperUrecemia h/o High LFTs Cardiomyopathy with EjFx of 15% Plan Plan: Optimize cardiac status Allopurinol- dig , Uche I , Lasix as needed K supplement as needed Monitor renal parameters flomax per orders Subjective ROS Limited/Unobtainable: No Constitutional: Reports: malaise Objective Objective Last 24 Hour Vital Signs Date Time Temp Pulse Resp B/P (MAP) Pulse Ox O2 Delivery O2 Flow Rate FiO2 06/16/17 10:05 97.0 06/16/17 09:30 124/71 06/16/17 09:30 85 06/16/17 09:29 85 124/71 06/16/17 08:00 97.0 85 18 124/71 93 Room Air 06/16/17 04:42 97 Room Air 06/16/17 04:11 98.2 91 20 121/66 97 Room Air 06/16/17 00:42 97 Room Air 06/16/17 00:41 98.2 103 20 101/58 97 Room Air 06/15/17 21:00 86 126/67 06/15/17 20:45 126/67 06/15/17 20:00 97 Room Air 06/15/17 19:42 98.2 86 20 111/53 97 Room Air 06/15/17 16:00 98.2 88 20 128/71 92 Height (Feet): 5 Height (Inches): 7.00 Weight (Pounds): 178 General Appearance: no apparent distress Objective PE not changed RENNY POWER Jun 16, 2017 13:11
--- NOTE | 2017-06-16 14:34 | GI Progress Note ---
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 SNOMED: 46427672, 985339049 (2) Weakness ICD Codes: R53.1 - Weakness SNOMED: 63940470 (3) Hypoalbuminemia ICD Codes: E88.09 - Other disorders of plasma-protein metabolism, not elsewhere classified SNOMED: 243511716 (4) Edema ICD Codes: R60.9 - Edema, unspecified SNOMED: 008429223, 880649182 (5) Ascites ICD Codes: R18.8 - Other ascites SNOMED: 378735698 (6) CHF (congestive heart failure) ICD Codes: I50.9 - Heart failure, unspecified SNOMED: 20738530 Qualifiers: Qualified Codes: I50.9 - Heart failure, unspecified (7) Non-compliance with treatment ICD Codes: Z91.19 - Patient's noncompliance with other medical treatment and regimen SNOMED: 4556295 (8) Abnormal LFTs ICD Codes: R79.89 - Other specified abnormal findings of blood chemistry SNOMED: 887569896 (9) Iron deficiency ICD Codes: E61.1 - Iron deficiency SNOMED: 54688978 Status: stable, unchanged Status Narrative Discussed with Dr. Hinds. Assessment/Plan patient refuses GI procedures hepatitis panel >> negative iron deficiency >> venofer cdiff negative fu abdominal U/S >> new finding of ascites cont PO diuresis cardiac diet DM mgmt pain mgmt monitor LFTs electrolyte correction PT/OT fu labs Subjective Gastrointestinal/Abdominal: Reports: abdominal pain Objective Last 24 Hour Vital Signs Date Time Temp Pulse Resp B/P (MAP) Pulse Ox O2 Delivery O2 Flow Rate FiO2 06/16/17 12:00 97.7 85 20 117/86 91 06/16/17 10:05 97.0 06/16/17 09:30 124/71 06/16/17 09:30 85 06/16/17 09:29 85 124/71 06/16/17 08:00 97.0 85 18 124/71 93 Room Air 06/16/17 04:42 97 Room Air 06/16/17 04:11 98.2 91 20 121/66 97 Room Air 06/16/17 00:42 97 Room Air 06/16/17 00:41 98.2 103 20 101/58 97 Room Air 06/15/17 21:00 86 126/67 06/15/17 20:45 126/67 06/15/17 20:00 97 Room Air 06/15/17 19:42 98.2 86 20 111/53 97 Room Air 06/15/17 16:00 98.2 88 20 128/71 92 Microbiology Date/Time Source Procedure Growth Status 06/15/17 16:00 Stool Clostridium difficile Toxin Assay - Final Complete Height (Feet): 5 Height (Inches): 7.00 Weight (Pounds): 178 General Appearance: WD/WN, no apparent distress, alert Cardiovascular: normal rate Respiratory/Chest: normal breath sounds, no respiratory distress Abdominal Exam: normal bowel sounds, non tender, soft Extremities: normal range of motion, non-tender Objective generalized weakness Marissa Schneider N.P. Jun 16, 2017 14:34
[2017-06-16] MEDS: Doxycycline 100mg in D5W 110ml IV SCH (14:36)
[2017-06-16 16:00] VITALS: BP 121/91
--- NOTE | 2017-06-16 17:05 | General Progress Note ---
Assessment/Plan Assessment/Plan ASSESSMENT AND RECOMMENDATIONS: 1. Failure to thrive, likely secondary to decreased p.o. intake. Gastrointestinal Service evaluated the patient. Continue to closely monitor. No evidence of malignancy. Prior imaging has been reviewed. --> has declined egd/colonoscopies before 2. Protein-albumin dissociation. spep and upep to be reviewed and can be followed as outpatient 3. Anemia 2/2 iron deficiency --> on iron but refusing blood draws. 4. Morbid obesity. 5. Pulmonary hypertension. 6. Pneumonia, on antibiotics as needed --> ID eval as needed 7. Gout. Subjective Allergies: Coded Allergies: No Known Allergies (Unverified , 04/04/17) All Systems: reviewed and negative except above Subjective no events overnight Objective Last 24 Hour Vital Signs Date Time Temp Pulse Resp B/P (MAP) Pulse Ox O2 Delivery O2 Flow Rate FiO2 06/16/17 15:18 97.7 06/16/17 12:00 97.7 85 20 117/86 91 06/16/17 09:30 124/71 06/16/17 09:30 85 06/16/17 09:29 85 124/71 06/16/17 08:00 97.0 85 18 124/71 93 Room Air 06/16/17 04:42 97 Room Air 06/16/17 04:11 98.2 91 20 121/66 97 Room Air 06/16/17 00:42 97 Room Air 06/16/17 00:41 98.2 103 20 101/58 97 Room Air 06/15/17 21:00 86 126/67 06/15/17 20:45 126/67 06/15/17 20:00 97 Room Air 06/15/17 19:42 98.2 86 20 111/53 97 Room Air Intake and Output 06/16/17 06/17/17 19:00 07:00 Intake Total 250 ml Balance 250 ml Intake Oral 250 ml # Voids 3 Height (Feet): 5 Height (Inches): 7.00 Weight (Pounds): 178 General Appearance: no apparent distress EENT: normal ENT inspection Neck: normal alignment Extremities: non-tender Skin: warm/dry Kevin Benson Jun 16, 2017 17:05
--- NOTE | 2017-06-16 17:31 | General Progress Note ---
Assessment/Plan Problem List: (1) CHF (congestive heart failure) ICD Codes: I50.9 - Heart failure, unspecified SNOMED: 17886789 Qualifiers: Qualified Codes: I50.9 - Heart failure, unspecified (2) Ascites ICD Codes: R18.8 - Other ascites SNOMED: 714652041 (3) Edema ICD Codes: R60.9 - Edema, unspecified SNOMED: 783229503, 532419249 (4) Non-compliance with treatment ICD Codes: Z91.19 - Patient's noncompliance with other medical treatment and regimen SNOMED: 2501644 (5) Iron deficiency ICD Codes: E61.1 - Iron deficiency SNOMED: 95352253 (6) Weakness ICD Codes: R53.1 - Weakness SNOMED: 90244754 (7) Hypokalemia ICD Codes: E87.6 - Hypokalemia SNOMED: 74223560, 970232931 Assessment/Plan chf improving ascites abdominal pain chronic pain needs placement afebrile Subjective ROS Limited/Unobtainable: Yes Allergies: Coded Allergies: No Known Allergies (Unverified , 04/04/17) Objective Last 24 Hour Vital Signs Date Time Temp Pulse Resp B/P (MAP) Pulse Ox O2 Delivery O2 Flow Rate FiO2 06/16/17 16:00 96.3 83 20 121/91 94 06/16/17 15:18 97.7 06/16/17 12:00 97.7 85 20 117/86 91 06/16/17 09:30 124/71 06/16/17 09:30 85 06/16/17 09:29 85 124/71 06/16/17 08:00 97.0 85 18 124/71 93 Room Air 06/16/17 04:42 97 Room Air 06/16/17 04:11 98.2 91 20 121/66 97 Room Air 06/16/17 00:42 97 Room Air 06/16/17 00:41 98.2 103 20 101/58 97 Room Air 06/15/17 21:00 86 126/67 06/15/17 20:45 126/67 06/15/17 20:00 97 Room Air 06/15/17 19:42 98.2 86 20 111/53 97 Room Air Intake and Output 06/16/17 06/17/17 19:00 07:00 Intake Total 730 ml Balance 730 ml Intake Oral 730 ml # Voids 6 Height (Feet): 5 Height (Inches): 7.00 Weight (Pounds): 178 Joanna Keller MD Jun 16, 2017 17:31
--- NOTE | 2017-06-16 18:40 | Cardiology Progress Note ---
Assessment/Plan Assessment/Plan 1. Four chamber dilated cardiomyopathy with increased intra-cardiac filling pressure. 2. Acute systolic and diastolic CHF, increase lisinopril to 10mg daily, continue coreg, furosemide, aldactone and digoxin. Non-compliant with medication. 3. Nonsustained ventricular tachycardia. Magnesium level at 2.0. Refused AICD in the past. 4. Diabetes mellitus. Subjective Subjective No cardiac events. Objective Last 24 Hour Vital Signs Date Time Temp Pulse Resp B/P (MAP) Pulse Ox O2 Delivery O2 Flow Rate FiO2 06/16/17 16:00 96.3 83 20 121/91 94 06/16/17 15:18 97.7 06/16/17 12:00 97.7 85 20 117/86 91 06/16/17 09:30 124/71 06/16/17 09:30 85 06/16/17 09:29 85 124/71 06/16/17 08:00 97.0 85 18 124/71 93 Room Air 06/16/17 04:42 97 Room Air 06/16/17 04:11 98.2 91 20 121/66 97 Room Air 06/16/17 00:42 97 Room Air 06/16/17 00:41 98.2 103 20 101/58 97 Room Air 06/15/17 21:00 86 126/67 06/15/17 20:45 126/67 06/15/17 20:00 97 Room Air 06/15/17 19:42 98.2 86 20 111/53 97 Room Air Intake and Output 06/16/17 06/17/17 19:00 07:00 Intake Total 730 ml Balance 730 ml Intake Oral 730 ml # Voids 6 2D Echo: Four chamber DCM, Global LV hypokinesia, LVEF ~10%, Sev MR, RVSP 69 mmHg Microbiology Date/Time Source Procedure Growth Status 06/15/17 16:00 Stool Clostridium difficile Toxin Assay - Final Complete Objective HEENT: Atraumatic and normocephalic. ENT, pupils are equal, round, and reactive to light and accommodation. Conjunctival pallor is seen. Neck: JVP is elevated at about 15 cm. No carotid bruit. Carotid upstrokes 2+ bilaterally. Cardiovascular: Normal S1, S2. Regular rate and rhythm. A 2/6 midsystolic murmur at the left sternal border. LUNGS: Clear to auscultation bilaterally. Abdomen: Distended. Possible ascites. No hepatosplenomegaly. Positive bowel sounds. Extremities: 1+ bilateral lower extremity edema. EMILY COMBS Jun 16, 2017 18:40
[2017-06-16 20:00] VITALS: BP 115/78
[2017-06-16] MEDS: Iron Sucrose 100 MG in NS 55 ML IV SCH (20:58)
--- NOTE | 2017-06-16 23:30 | Progress Note ---
DATE: 06/16/2017 SUBJECTIVE: The patient continues to be cooperative, irritable, has poor insight and judgment into his mental condition. He is uncooperative with the examination. He is very demanding and difficult to cooperative with the staff. MENTAL STATUS EXAMINATION: The patient is alert and oriented to times, self, place, and situation he is in. Mood is irritable. Affect is constricted. Congruent with mood. Thought process is concrete. Thought content, no suicidal or homicidal ideation. ASSESSMENT: Mood disorder, rule out schizophrenia. PLAN: The patient will be continued on risperidone 2 mg at bedtime. James Schofield M.D. DR: Graciela JOB#: [id number] CC:
[2017-06-17] VITALS: BP 116/80
--- NOTE | 2017-06-17 | Consultation ---
DATE OF CONSULTATION: 06/16/2017 HISTORY OF PRESENT ILLNESS: The patient is a 61-year-old male with a history of depression, anxiety and depressive symptoms who has been admitted to the hospital for medical stabilization. The patient was seen on 06/15/2017. The patient is uncooperative and irritable. He is having poor insight and judgment into his mental condition. He has been uncooperative and easily agitated. PAST PSYCHIATRIC HISTORY: He denies any psychiatric history. He has poor insight and judgment into his mental condition. PAST MEDICAL HISTORY: Please see medical records. ALLERGIES: No known drug allergies. SUBSTANCE HISTORY: No known history of illicit drug use or alcohol. ASSESSMENT: AXIS I Mood disorder, rule out schizophrenia. AXIS II Deferred. AXIS III As above. AXIS IV As above. PLAN: 1. The patient will be started on risperidone 2 mg at bedtime. 2. Provide the patient with supportive therapy and reality orientation. James Schofield M.D. DR: HARDIK JOB#: [id number] CC:
[2017-06-17] MEDS: Doxycycline 100mg in D5W 110ml IV SCH ×3 (01:02→20:30)
[2017-06-17] MEDS: Morphine Sulfate 2mg/ml Inj IVP PRN ×4 (01:02→20:26)
[2017-06-17 04:00] VITALS: BP 117/80
[2017-06-17] MEDS: NovoLOG Insulin Flexpen SUBQ SCH ×4 (06:30→20:31)
[2017-06-17 07:21] LABS: BASOPHILS % (AUTO) 0.4 % (0.0-2.0); EOSINOPHILS % (AUTO) 1.5 % (0.0-3.0); LYMPHOCYTES % (AUTO) 29.3 % (20.0-45.0); MEAN CORPUSCULAR HEMOGLOBIN 24.8 PG (27.0-31.0); MEAN CORPUSCULAR VOLUME 80 FL (80-99); MEAN PLATELET VOLUME 10.3 FL (6.5-10.1); MONOCYTES % (AUTO) 8.9 % (1.0-10.0); NEUTROPHILS % (AUTO) 59.9 % (45.0-75.0); PLATELET COUNT 217 K/UL (150-450); RED BLOOD COUNT 5.45 M/UL (4.70-6.10); RED CELL DISTRIBUTION WIDTH 21.7 % (11.6-14.8); WHITE BLOOD COUNT 5.8 K/UL (4.8-10.8)
--- NOTE | 2017-06-17 07:59 | General Progress Note ---
Assessment/Plan Problem List: (1) CHF (congestive heart failure) ICD Codes: I50.9 - Heart failure, unspecified SNOMED: 18765932 Qualifiers: Qualified Codes: I50.9 - Heart failure, unspecified (2) Ascites ICD Codes: R18.8 - Other ascites SNOMED: 980982358 (3) Abnormal LFTs ICD Codes: R79.89 - Other specified abnormal findings of blood chemistry SNOMED: 123224675 (4) Non-compliance with treatment ICD Codes: Z91.19 - Patient's noncompliance with other medical treatment and regimen SNOMED: 6863608 (5) Diabetic nephropathy ICD Codes: E11.21 - Type 2 diabetes mellitus with diabetic nephropathy SNOMED: 89255878, 843187400 (6) Iron deficiency ICD Codes: E61.1 - Iron deficiency SNOMED: 57517316 Assessment/Plan patient refuses GI procedures hepatitis panel >> negative iron deficiency >> venofer cdiff negative fu abdominal U/S >> new finding of ascites cont PO diuresis cardiac diet DM mgmt pain mgmt monitor LFTs electrolyte correction PT/OT fu labs Subjective ROS Limited/Unobtainable: Yes Allergies: Coded Allergies: No Known Allergies (Unverified , 04/04/17) Subjective no event over night Objective Last 24 Hour Vital Signs Date Time Temp Pulse Resp B/P (MAP) Pulse Ox O2 Delivery O2 Flow Rate FiO2 06/17/17 04:00 97.7 83 18 117/80 95 Room Air 06/17/17 00:00 97.1 85 20 116/80 96 Room Air 06/16/17 20:57 87 115/78 06/16/17 20:00 97.3 87 20 115/78 95 Room Air 06/16/17 16:00 96.3 83 20 121/91 94 06/16/17 15:18 97.7 06/16/17 12:00 97.7 85 20 117/86 91 06/16/17 09:30 124/71 06/16/17 09:30 85 06/16/17 09:29 85 124/71 06/16/17 08:00 97.0 85 18 124/71 93 Room Air Laboratory Tests 06/17/17 05:25: White Blood Count 5.8, Red Blood Count 5.45, Hemoglobin 13.5L, Hematocrit 43.6, Mean Corpuscular Volume 80, Mean Corpuscular Hemoglobin 24.8L, Mean Corpuscular Hemoglobin Concent 31.0L, Red Cell Distribution Width 21.7H, Platelet Count 217 , Mean Platelet Volume 10.3H, Neutrophils (%) (Auto) 59.9, Lymphocytes (%) (Auto ) 29.3, Monocytes (%) (Auto) 8.9, Eosinophils (%) (Auto) 1.5, Basophils (%) ( Auto) 0.4, Pro-B-Type Natriuretic Peptide 8093H Height (Feet): 5 Height (Inches): 7.00 Weight (Pounds): 177 General Appearance: no apparent distress EENT: normal ENT inspection Neck: supple Cardiovascular: normal rate Respiratory/Chest: decreased breath sounds Abdomen: normal bowel sounds, non tender, soft Extremities: non-tender YUDI HANNA Jun 17, 2017 07:59
[2017-06-17 08:00] VITALS: BP 114/76
--- NOTE | 2017-06-17 08:57 | Nephrology Progress Note ---
Assessment/Plan Problem List: (1) Diabetic nephropathy (2) Hypokalemia (3) CHF (congestive heart failure) (4) Hypoalbuminemia Assessment Nephropathy 3+ Proteinuria, K low Dm, Nephropathy, High A1c h/o HyperUrecemia h/o High LFTs Cardiomyopathy with EjFx of 15% Plan Plan: no chemistry from yesterday and today will do stat labs Optimize cardiac status Allopurinol- dig , Uche I , Lasix as needed K supplement as needed Monitor renal parameters flomax per orders Subjective ROS Limited/Unobtainable: No Constitutional: Reports: malaise Objective Objective Last 24 Hour Vital Signs Date Time Temp Pulse Resp B/P (MAP) Pulse Ox O2 Delivery O2 Flow Rate FiO2 06/17/17 04:00 97.7 83 18 117/80 95 Room Air 06/17/17 00:00 97.1 85 20 116/80 96 Room Air 06/16/17 20:57 87 115/78 06/16/17 20:00 97.3 87 20 115/78 95 Room Air 06/16/17 16:00 96.3 83 20 121/91 94 06/16/17 15:18 97.7 06/16/17 12:00 97.7 85 20 117/86 91 06/16/17 09:30 124/71 06/16/17 09:30 85 06/16/17 09:29 85 124/71 Laboratory Tests 06/17/17 05:25: White Blood Count 5.8, Red Blood Count 5.45, Hemoglobin 13.5L, Hematocrit 43.6, Mean Corpuscular Volume 80, Mean Corpuscular Hemoglobin 24.8L, Mean Corpuscular Hemoglobin Concent 31.0L, Red Cell Distribution Width 21.7H, Platelet Count 217 , Mean Platelet Volume 10.3H, Neutrophils (%) (Auto) 59.9, Lymphocytes (%) (Auto ) 29.3, Monocytes (%) (Auto) 8.9, Eosinophils (%) (Auto) 1.5, Basophils (%) ( Auto) 0.4, Pro-B-Type Natriuretic Peptide 8093H Height (Feet): 5 Height (Inches): 7.00 Weight (Pounds): 177 General Appearance: no apparent distress Objective PE not changed RENNY POWER Jun 17, 2017 08:57
[2017-06-17] MEDS: Lisinopril 10mg tab ORAL SCH ×2 (09:00→10:02)
[2017-06-17] MEDS: Digoxin 0.125mg tab ORAL SCH ×2 (09:00→10:03)
[2017-06-17] MEDS: Spironolactone 25mg tab ORAL SCH ×2 (09:00→10:01)
[2017-06-17] MEDS: Carvedilol 12.5mg tab ORAL SCH ×3 (09:00→20:31)
[2017-06-17 09:47] LABS: MAGNESIUM 1.7 MG/DL (1.8-2.4); PHOSPHORUS 2.7 MG/DL (2.5-4.9)
--- NOTE | 2017-06-17 11:23 | Infectious Diseases Prog Note ---
"Assessment/Plan Assessment/Plan antibiotics : vancomycin iv A 1. leg cellulitis | ulcers with MRSA 2. MRSA nasal colonization 3. DM 4. CHF P 1. continue iv vancomycin 2. will follow up cultures Subjective ROS Limited/Unobtainable: Yes Allergies: Coded Allergies: No Known Allergies (Unverified , 04/04/17) Objective Vital Signs Last 24 Hour Vital Signs Date Time Temp Pulse Resp B/P (MAP) Pulse Ox O2 Delivery O2 Flow Rate FiO2 06/17/17 10:34 97.7 06/17/17 10:07 83 117/80 06/17/17 08:00 97.3 58 18 114/76 91 06/17/17 04:00 97.7 83 18 117/80 95 Room Air 06/17/17 00:00 97.1 85 20 116/80 96 Room Air 06/16/17 20:57 87 115/78 06/16/17 20:00 97.3 87 20 115/78 95 Room Air 06/16/17 16:00 96.3 83 20 121/91 94 06/16/17 12:00 97.7 85 20 117/86 91 Height (Feet): 5 Height (Inches): 7.00 Weight (Pounds): 177 Respiratory/Chest: lungs clear Cardiovascular: normal rate, regular rhythm, no gallop/murmur Abdomen: soft, non tender Extremities: no edema Microbiology Date/Time Source Procedure Growth Status 06/15/17 16:00 Stool Clostridium difficile Toxin Assay - Final Complete Laboratory Tests Test 06/17/17 05:25 06/17/17 06:51 06/17/17 09:32 White Blood Count 5.8 K/UL (4.8-10.8) Red Blood Count 5.45 M/UL (4.70-6.10) Hemoglobin 13.5 G/DL (14.2-18.0) L Hematocrit 43.6 % (42.0-52.0) Mean Corpuscular Volume 80 FL (80-99) Mean Corpuscular Hemoglobin 24.8 PG (27.0-31.0) L Mean Corpuscular Hemoglobin Concent 31.0 G/DL (32.0-36.0) L Red Cell Distribution Width 21.7 % (11.6-14.8) H Platelet Count 217 K/UL (150-450) Mean Platelet Volume 10.3 FL (6.5-10.1) H Neutrophils (%) (Auto) 59.9 % (45.0-75.0) Lymphocytes (%) (Auto) 29.3 % (20.0-45.0) Monocytes (%) (Auto) 8.9 % (1.0-10.0) Eosinophils (%) (Auto) 1.5 % (0.0-3.0) Basophils (%) (Auto) 0.4 % (0.0-2.0) Pro-B-Type Natriuretic Peptide 8093 pg/mL (0-125) H Uric Acid 6.0 MG/DL (2.6-7.2) Phosphorus Level 2.7 MG/DL (2.5-4.9) Magnesium Level 1.7 MG/DL (1.8-2.4) L Sodium Level Pending Potassium Level Pending Chloride Level Pending Carbon Dioxide Level Pending Blood Urea Nitrogen Pending Creatinine Pending Estimat Glomerular Filtration Rate Pending Glucose Level Pending Calcium Level Pending Total Bilirubin Pending Aspartate Amino Transf (AST/SGOT) Pending Alanine Aminotransferase (ALT/SGPT) Pending Alkaline Phosphatase Pending Total Protein Pending Albumin Pending Globulin Pending CHEPE DOS SANTOS Jun 17, 2017 11:23"
[2017-06-17 11:35] LABS: ANION GAP 11 mmol/L (5-15); CALCIUM 8.5 MG/DL (8.5-10.1); CARBON DIOXIDE 28 MMOL/L (21-32); CHLORIDE 110 MMOL/L (98-107); CREATININE 1.1 MG/DL (0.55-1.30); GLOMERULAR FILTRATION RATE > 60 mL/min (>60); POTASSIUM 3.1 MMOL/L (3.5-5.1); SODIUM 149 MMOL/L (136-145)
[2017-06-17 11:45] LABS: ALANINE AMINOTRANSFERASE 9 U/L (12-78); ALBUMIN/GLOBULIN RATIO 0.7 (1.0-2.7); ASPARTATE AMINO TRANSFERASE 19 U/L (15-37)
[2017-06-17 11:46] LABS: BILIRUBIN,DIRECT 0.9 MG/DL (0.0-0.3)
[2017-06-17 12:00] VITALS: BP 118/74
--- NOTE | 2017-06-17 13:25 | General Progress Note ---
Assessment/Plan Problem List: (1) CHF (congestive heart failure) ICD Codes: I50.9 - Heart failure, unspecified SNOMED: 25373893 Qualifiers: Qualified Codes: I50.9 - Heart failure, unspecified (2) Ascites ICD Codes: R18.8 - Other ascites SNOMED: 653449485 (3) Edema ICD Codes: R60.9 - Edema, unspecified SNOMED: 811380766, 372428980 (4) Non-compliance with treatment ICD Codes: Z91.19 - Patient's noncompliance with other medical treatment and regimen SNOMED: 2627679 (5) Iron deficiency ICD Codes: E61.1 - Iron deficiency SNOMED: 11876902 (6) Weakness ICD Codes: R53.1 - Weakness SNOMED: 97275598 (7) Hypokalemia ICD Codes: E87.6 - Hypokalemia SNOMED: 30203457, 966497270 Status: progressing Assessment/Plan chf improving ascites abdominal pain chronic pain needs placement reviewed chart and labs and meds Subjective ROS Limited/Unobtainable: Yes Allergies: Coded Allergies: No Known Allergies (Unverified , 04/04/17) Objective Last 24 Hour Vital Signs Date Time Temp Pulse Resp B/P (MAP) Pulse Ox O2 Delivery O2 Flow Rate FiO2 06/17/17 10:34 97.7 06/17/17 10:07 83 117/80 06/17/17 08:00 97.3 58 18 114/76 91 06/17/17 04:00 97.7 83 18 117/80 95 Room Air 06/17/17 00:00 97.1 85 20 116/80 96 Room Air 06/16/17 20:57 87 115/78 06/16/17 20:00 97.3 87 20 115/78 95 Room Air 06/16/17 16:00 96.3 83 20 121/91 94 Laboratory Tests 06/17/17 05:25: White Blood Count 5.8, Red Blood Count 5.45, Hemoglobin 13.5L, Hematocrit 43.6, Mean Corpuscular Volume 80, Mean Corpuscular Hemoglobin 24.8L, Mean Corpuscular Hemoglobin Concent 31.0L, Red Cell Distribution Width 21.7H, Platelet Count 217 , Mean Platelet Volume 10.3H, Neutrophils (%) (Auto) 59.9, Lymphocytes (%) (Auto ) 29.3, Monocytes (%) (Auto) 8.9, Eosinophils (%) (Auto) 1.5, Basophils (%) ( Auto) 0.4, Pro-B-Type Natriuretic Peptide 8093H 06/17/17 06:51: Uric Acid 6.0, Phosphorus Level 2.7, Magnesium Level 1.7L 06/17/17 09:32: Sodium Level 149H, Potassium Level 3.1L, Chloride Level 110H, Carbon Dioxide Level 28, Anion Gap 11, Blood Urea Nitrogen 8, Creatinine 1.1, Estimat Glomerular Filtration Rate > 60, Glucose Level 82, Calcium Level 8.5, Total Bilirubin 1.7H, Direct Bilirubin 0.9H, Aspartate Amino Transf (AST/SGOT) 19, Alanine Aminotransferase (ALT/SGPT) 9L, Alkaline Phosphatase 104, Total Protein 6.0L, Albumin 2.4L, Globulin 3.6, Albumin/Globulin Ratio 0.7L Height (Feet): 5 Height (Inches): 7.00 Weight (Pounds): 177 Neck: supple Cardiovascular: normal rate Respiratory/Chest: lungs clear Joanna Keller MD Jun 17, 2017 13:24
[2017-06-17 16:15] VITALS: BP 127/53
[2017-06-17 20:00] VITALS: BP 109/67
[2017-06-17] MEDS: Iron Sucrose 100 MG in NS 55 ML IV SCH (20:30)
--- NOTE | 2017-06-17 21:21 | General Progress Note ---
Assessment/Plan Assessment/Plan ASSESSMENT AND RECOMMENDATIONS: 1. Failure to thrive, likely secondary to decreased p.o. intake. Gastrointestinal Service evaluated the patient. Continue to closely monitor. No evidence of malignancy. Prior imaging has been reviewed. --> has declined egd/colonoscopies before 2. Protein-albumin dissociation. spep and upep to be reviewed and can be followed as outpatient 3. Anemia, very mild. Iron dc'd. 4. Morbid obesity. 5. Pulmonary hypertension. 6. Pneumonia, on antibiotics as needed --> ID eval as needed 7. Gout. Subjective Allergies: Coded Allergies: No Known Allergies (Unverified , 04/04/17) All Systems: reviewed and negative except above Subjective no events overnight Objective Last 24 Hour Vital Signs Date Time Temp Pulse Resp B/P (MAP) Pulse Ox O2 Delivery O2 Flow Rate FiO2 06/17/17 20:31 80 109/67 06/17/17 20:00 97.7 80 21 109/67 95 06/17/17 17:08 98.3 06/17/17 16:15 98.3 66 20 127/53 97 Room Air 06/17/17 15:19 97.7 06/17/17 12:00 Room Air 06/17/17 12:00 98.0 62 18 118/74 93 06/17/17 08:00 97.3 58 18 114/76 91 06/17/17 08:00 Room Air 06/17/17 04:00 97.7 83 18 117/80 95 Room Air 06/17/17 00:00 97.1 85 20 116/80 96 Room Air Intake and Output 06/17/17 06/18/17 19:00 07:00 Intake Total 960 ml Balance 960 ml Intake Oral 960 ml # Voids 6 # Bowel Movements 1 Laboratory Tests 06/17/17 05:25: White Blood Count 5.8, Red Blood Count 5.45, Hemoglobin 13.5L, Hematocrit 43.6, Mean Corpuscular Volume 80, Mean Corpuscular Hemoglobin 24.8L, Mean Corpuscular Hemoglobin Concent 31.0L, Red Cell Distribution Width 21.7H, Platelet Count 217 , Mean Platelet Volume 10.3H, Neutrophils (%) (Auto) 59.9, Lymphocytes (%) (Auto ) 29.3, Monocytes (%) (Auto) 8.9, Eosinophils (%) (Auto) 1.5, Basophils (%) ( Auto) 0.4, Pro-B-Type Natriuretic Peptide 8093H 06/17/17 06:51: Uric Acid 6.0, Phosphorus Level 2.7, Magnesium Level 1.7L 06/17/17 09:32: Sodium Level 149H, Potassium Level 3.1L, Chloride Level 110H, Carbon Dioxide Level 28, Anion Gap 11, Blood Urea Nitrogen 8, Creatinine 1.1, Estimat Glomerular Filtration Rate > 60, Glucose Level 82, Calcium Level 8.5, Total Bilirubin 1.7H, Direct Bilirubin 0.9H, Aspartate Amino Transf (AST/SGOT) 19, Alanine Aminotransferase (ALT/SGPT) 9L, Alkaline Phosphatase 104, Total Protein 6.0L, Albumin 2.4L, Globulin 3.6, Albumin/Globulin Ratio 0.7L Height (Feet): 5 Height (Inches): 7.00 Weight (Pounds): 177 General Appearance: no apparent distress EENT: normal ENT inspection Neck: normal alignment Cardiovascular: normal peripheral pulses Edema: mild edema Kevin Benson Jun 17, 2017 21:21
--- NOTE | 2017-06-17 23:58 | Cardiology Progress Note ---
Assessment/Plan Assessment/Plan 1. Four chamber dilated cardiomyopathy with increased intra-cardiac filling pressure. 2. Acute systolic and diastolic CHF,non-compliant with medication. Will make an attempt to optimize GDMT. 3. Nonsustained ventricular tachycardia, keep magnesium >2.5, K >4.0, Refused AICD in the past. 4. Diabetes mellitus. Subjective Subjective No cardiac events. Refusing selective medications and labs. Objective Last 24 Hour Vital Signs Date Time Temp Pulse Resp B/P (MAP) Pulse Ox O2 Delivery O2 Flow Rate FiO2 06/17/17 20:31 80 109/67 06/17/17 20:00 97.7 80 21 109/67 95 06/17/17 17:08 98.3 06/17/17 16:15 98.3 66 20 127/53 97 Room Air 06/17/17 15:19 97.7 06/17/17 12:00 Room Air 06/17/17 12:00 98.0 62 18 118/74 93 06/17/17 08:00 97.3 58 18 114/76 91 06/17/17 08:00 Room Air 06/17/17 04:00 97.7 83 18 117/80 95 Room Air 06/17/17 00:00 97.1 85 20 116/80 96 Room Air Intake and Output 06/17/17 06/18/17 19:00 07:00 Intake Total 960 ml Balance 960 ml Intake Oral 960 ml # Voids 6 # Bowel Movements 1 2D Echo: Four chamber DCM, Global LV hypokinesia, LVEF ~10%, Sev MR, RVSP 69 mmHg Laboratory Tests Test 06/17/17 05:25 06/17/17 06:51 06/17/17 09:32 White Blood Count 5.8 K/UL (4.8-10.8) Red Blood Count 5.45 M/UL (4.70-6.10) Hemoglobin 13.5 G/DL (14.2-18.0) L Hematocrit 43.6 % (42.0-52.0) Mean Corpuscular Volume 80 FL (80-99) Mean Corpuscular Hemoglobin 24.8 PG (27.0-31.0) L Mean Corpuscular Hemoglobin Concent 31.0 G/DL (32.0-36.0) L Red Cell Distribution Width 21.7 % (11.6-14.8) H Platelet Count 217 K/UL (150-450) Mean Platelet Volume 10.3 FL (6.5-10.1) H Neutrophils (%) (Auto) 59.9 % (45.0-75.0) Lymphocytes (%) (Auto) 29.3 % (20.0-45.0) Monocytes (%) (Auto) 8.9 % (1.0-10.0) Eosinophils (%) (Auto) 1.5 % (0.0-3.0) Basophils (%) (Auto) 0.4 % (0.0-2.0) Pro-B-Type Natriuretic Peptide 8093 pg/mL (0-125) H Uric Acid 6.0 MG/DL (2.6-7.2) Phosphorus Level 2.7 MG/DL (2.5-4.9) Magnesium Level 1.7 MG/DL (1.8-2.4) L Sodium Level 149 MMOL/L (136-145) H Potassium Level 3.1 MMOL/L (3.5-5.1) L Chloride Level 110 MMOL/L (98-107) H Carbon Dioxide Level 28 MMOL/L (21-32) Anion Gap 11 mmol/L (5-15) Blood Urea Nitrogen 8 mg/dL (7-18) Creatinine 1.1 MG/DL (0.55-1.30) Estimat Glomerular Filtration Rate > 60 mL/min (>60) Glucose Level 82 MG/DL (74-106) Calcium Level 8.5 MG/DL (8.5-10.1) Total Bilirubin 1.7 MG/DL (0.2-1.0) H Direct Bilirubin 0.9 MG/DL (0.0-0.3) H Aspartate Amino Transf (AST/SGOT) 19 U/L (15-37) Alanine Aminotransferase (ALT/SGPT) 9 U/L (12-78) L Alkaline Phosphatase 104 U/L (46-116) Total Protein 6.0 G/DL (6.4-8.2) L Albumin 2.4 G/DL (3.4-5.0) L Globulin 3.6 g/dL Albumin/Globulin Ratio 0.7 (1.0-2.7) L Microbiology Date/Time Source Procedure Growth Status 06/15/17 16:00 Stool Clostridium difficile Toxin Assay - Final Complete Objective HEENT: Atraumatic and normocephalic. ENT, pupils are equal, round, and reactive to light and accommodation. Conjunctival pallor is seen. Neck: JVP is elevated at about 15 cm. No carotid bruit. Carotid upstrokes 2+ bilaterally. Cardiovascular: Normal S1, S2. Regular rate and rhythm. A 2/6 midsystolic murmur at the left sternal border. LUNGS: Clear to auscultation bilaterally. Abdomen: Distended. Possible ascites. No hepatosplenomegaly. Positive bowel sounds. Extremities: 1+ bilateral lower extremity edema. EMILY COMBS Jun 17, 2017 23:58
[2017-06-18] VITALS: BP 108/79
[2017-06-18 04:00] VITALS: BP 116/80
[2017-06-18] MEDS: NovoLOG Insulin Flexpen SUBQ SCH ×4 (06:30→21:00)
--- NOTE | 2017-06-18 06:53 | General Progress Note ---
Assessment/Plan Problem List: (1) CHF (congestive heart failure) ICD Codes: I50.9 - Heart failure, unspecified SNOMED: 26997900 Qualifiers: Qualified Codes: I50.9 - Heart failure, unspecified (2) Ascites ICD Codes: R18.8 - Other ascites SNOMED: 149674604 (3) Abnormal LFTs ICD Codes: R79.89 - Other specified abnormal findings of blood chemistry SNOMED: 450849983 (4) Non-compliance with treatment ICD Codes: Z91.19 - Patient's noncompliance with other medical treatment and regimen SNOMED: 2041974 (5) Diabetic nephropathy ICD Codes: E11.21 - Type 2 diabetes mellitus with diabetic nephropathy SNOMED: 77825274, 229377543 (6) Iron deficiency ICD Codes: E61.1 - Iron deficiency SNOMED: 74623052 Assessment/Plan patient refuses GI procedures hepatitis panel >> negative iron deficiency >> venofer cdiff negative fu abdominal U/S >> new finding of ascites cont PO diuresis cardiac diet DM mgmt pain mgmt monitor LFTs electrolyte correction PT/OT fu labs Subjective ROS Limited/Unobtainable: Yes Allergies: Coded Allergies: No Known Allergies (Unverified , 04/04/17) Subjective no event over night refusing oral meds Objective Last 24 Hour Vital Signs Date Time Temp Pulse Resp B/P (MAP) Pulse Ox O2 Delivery O2 Flow Rate FiO2 06/18/17 04:00 97.8 80 21 116/80 94 06/18/17 00:00 97.7 87 21 108/79 95 06/17/17 20:31 80 109/67 06/17/17 20:00 97.7 80 21 109/67 95 06/17/17 17:08 98.3 06/17/17 16:15 98.3 66 20 127/53 97 Room Air 06/17/17 15:19 97.7 06/17/17 12:00 Room Air 06/17/17 12:00 98.0 62 18 118/74 93 06/17/17 08:00 97.3 58 18 114/76 91 06/17/17 08:00 Room Air Laboratory Tests 06/17/17 09:32: Sodium Level 149H, Potassium Level 3.1L, Chloride Level 110H, Carbon Dioxide Level 28, Anion Gap 11, Blood Urea Nitrogen 8, Creatinine 1.1, Estimat Glomerular Filtration Rate > 60, Glucose Level 82, Calcium Level 8.5, Total Bilirubin 1.7H, Direct Bilirubin 0.9H, Aspartate Amino Transf (AST/SGOT) 19, Alanine Aminotransferase (ALT/SGPT) 9L, Alkaline Phosphatase 104, Total Protein 6.0L, Albumin 2.4L, Globulin 3.6, Albumin/Globulin Ratio 0.7L Height (Feet): 5 Height (Inches): 7.00 Weight (Pounds): 177 General Appearance: alert EENT: normal ENT inspection Neck: supple Cardiovascular: normal rate Respiratory/Chest: lungs clear Abdomen: normal bowel sounds, non tender, soft Extremities: non-tender YUDI HANNA Jun 18, 2017 06:53
[2017-06-18 08:00] VITALS: BP 119/65
[2017-06-18] MEDS: Carvedilol 12.5mg tab ORAL SCH ×2 (09:00→21:38)
[2017-06-18] MEDS: Spironolactone 25mg tab ORAL SCH (09:00)
[2017-06-18] MEDS: Doxycycline 100mg in D5W 110ml IV SCH ×2 (09:00→21:38)
[2017-06-18] MEDS: Lisinopril 10mg tab ORAL SCH (09:00)
[2017-06-18] MEDS: Digoxin 0.125mg tab ORAL SCH (09:00)
[2017-06-18] MEDS: Morphine Sulfate 2mg/ml Inj IVP PRN ×3 (09:09→21:41)
--- NOTE | 2017-06-18 10:51 | Infectious Diseases Prog Note ---
Assessment/Plan Assessment/Plan A; Cellulitis/ ulcers of legs CHF, cardiomyopathy Ascites, small DM MRSA colonization Diarrhea P: Continue Doxycycline C. difficile is negative Subjective ROS Limited/Unobtainable: Yes Allergies: Coded Allergies: No Known Allergies (Unverified , 04/04/17) Objective Vital Signs Last 24 Hour Vital Signs Date Time Temp Pulse Resp B/P (MAP) Pulse Ox O2 Delivery O2 Flow Rate FiO2 06/18/17 08:00 97.0 97 20 119/65 100 06/18/17 04:00 97.8 80 21 116/80 94 06/18/17 00:00 97.7 87 21 108/79 95 06/17/17 20:31 80 109/67 06/17/17 20:00 97.7 80 21 109/67 95 06/17/17 17:08 98.3 06/17/17 16:15 98.3 66 20 127/53 97 Room Air 06/17/17 15:19 97.7 06/17/17 12:00 Room Air 06/17/17 12:00 98.0 62 18 118/74 93 Height (Feet): 5 Height (Inches): 7.00 Weight (Pounds): 176 General Appearance: no acute distress HEENT: mucous membranes moist Respiratory/Chest: lungs clear Cardiovascular: normal rate Abdomen: distended Extremities: other - edema of legs Skin: ulcers Neurologic/Psychiatric: other - sleeping Microbiology Date/Time Source Procedure Growth Status 06/15/17 16:00 Stool Clostridium difficile Toxin Assay - Final Complete Current Medications Medications (Trade) Dose Ordered Sig/Reuben Route PRN Reason Start Time Stop Time Status Last Admin Dose Admin Acetaminophen/ Hydrocodone Bitart ([place] 5/325) 1 tab Q6H PRN ORAL for pain 1-5 06/14/17 21:00 06/19/17 20:59 06/17/17 16:09 Allopurinol (Allopurinol) 300 mg DAILY ORAL 06/15/17 09:00 07/12/17 08:59 06/16/17 09:29 Carvedilol (Coreg) 12.5 mg EVERY 12 HOURS ORAL 06/14/17 21:30 07/13/17 21:29 06/16/17 20:57 Dextrose (Dextrose 50%) STAT PRN IV Hypoglycemia 06/14/17 21:00 1/5/18 20:59 Digoxin (Lanoxin) 0.125 mg DAILY ORAL 06/15/17 09:00 07/11/17 17:59 06/16/17 09:30 Doxycycline Hyclate 100 mg/ Dextrose 110 ml @ 110 mls/hr Q12HR IV 06/16/17 14:00 06/23/17 13:59 06/17/17 20:30 Furosemide (Lasix) 40 mg EVERY 12 HOURS IV 06/14/17 21:30 07/12/17 21:29 06/17/17 20:32 Gabapentin (Neurontin) 100 mg BID ORAL 06/15/17 09:00 07/11/17 17:59 06/16/17 18:04 Insulin Aspart (NovoLOG) BEFORE MEALS AND HS SUBQ 06/14/17 21:00 07/11/17 20:59 06/17/17 16:46 Lisinopril (Zestril) 10 mg DAILY ORAL 06/17/17 09:00 07/17/17 08:59 Morphine Sulfate (Morphine Sulfate) 1 mg Q4H PRN IVP For Pain -06/14/17 21:00 06/19/17 16:59 06/18/17 09:53 Ondansetron HCl (Zofran) 4 mg Q6H PRN IVP Nausea & Vomiting 06/14/17 21:00 07/11/17 20:59 Pantoprazole (Protonix) 40 mg DAILY ORAL 06/15/17 09:00 07/12/17 08:59 06/16/17 09:30 Potassium Chloride (K-Dur) 40 meq BID ORAL 06/15/17 09:00 07/13/17 17:59 06/17/17 09:00 Quetiapine Fumarate (SEROquel) 50 mg Q6H PRN ORAL Agitation 06/14/17 21:00 07/14/17 20:59 06/17/17 16:06 Spironolactone (Aldactone) 25 mg DAILY ORAL 06/15/17 09:00 07/12/17 14:44 06/16/17 09:30 RETA OROZCO Jun 18, 2017 10:51
--- NOTE | 2017-06-18 11:10 | Nephrology Progress Note ---
Assessment/Plan Problem List: (1) Diabetic nephropathy (2) Hypokalemia (3) CHF (congestive heart failure) (4) Hypoalbuminemia Assessment Nephropathy 3+ Proteinuria, K low Dm, Nephropathy, High A1c h/o HyperUrecemia h/o High LFTs Cardiomyopathy with EjFx of 15% Plan Plan: k supplement as needed Optimize cardiac status Allopurinol- dig , Uche I , Lasix as needed K supplement as needed Monitor renal parameters flomax per orders Subjective ROS Limited/Unobtainable: No Constitutional: Reports: malaise, other - un coaporative Objective Objective Last 24 Hour Vital Signs Date Time Temp Pulse Resp B/P (MAP) Pulse Ox O2 Delivery O2 Flow Rate FiO2 06/18/17 08:00 97.0 97 20 119/65 100 06/18/17 04:00 97.8 80 21 116/80 94 06/18/17 00:00 97.7 87 21 108/79 95 06/17/17 20:31 80 109/67 06/17/17 20:00 97.7 80 21 109/67 95 06/17/17 17:08 98.3 06/17/17 16:15 98.3 66 20 127/53 97 Room Air 06/17/17 15:19 97.7 06/17/17 12:00 Room Air 06/17/17 12:00 98.0 62 18 118/74 93 Height (Feet): 5 Height (Inches): 7.00 Weight (Pounds): 176 General Appearance: no apparent distress Objective PE not changed RENNY POWER Jun 18, 2017 11:10
[2017-06-18 12:00] VITALS: BP 128/71
--- NOTE | 2017-06-18 12:52 | General Progress Note ---
Assessment/Plan Assessment/Plan ASSESSMENT AND RECOMMENDATIONS: 1. Failure to thrive, likely secondary to decreased p.o. intake. Continue to closely monitor. No evidence of malignancy. Prior imaging has been reviewed. 2. Protein-albumin dissociation. spep and upep to be reviewed and can be followed as outpatient 3. Anemia, very mild. Iron dc'd. 4. MRSA colonization. ID following 5. Pulmonary hypertension. Subjective Allergies: Coded Allergies: No Known Allergies (Unverified , 04/04/17) All Systems: reviewed and negative except above Subjective NAD Objective Last 24 Hour Vital Signs Date Time Temp Pulse Resp B/P (MAP) Pulse Ox O2 Delivery O2 Flow Rate FiO2 06/18/17 10:23 97.0 06/18/17 08:00 97.0 97 20 119/65 100 06/18/17 04:00 97.8 80 21 116/80 94 06/18/17 00:00 97.7 87 21 108/79 95 06/17/17 20:31 80 109/67 06/17/17 20:00 97.7 80 21 109/67 95 06/17/17 17:08 98.3 06/17/17 16:15 98.3 66 20 127/53 97 Room Air Height (Feet): 5 Height (Inches): 7.00 Weight (Pounds): 176 General Appearance: no apparent distress EENT: normal ENT inspection Neck: non-tender, normal alignment Neurologic: lead former II-XII grossly normal Skin: warm/dry Kevin Benson Jun 18, 2017 12:52
--- NOTE | 2017-06-18 15:09 | General Progress Note ---
Assessment/Plan Assessment/Plan (1) Abdominal pain (2) Ascites (3) B/L LE pain (4) B/L LE ulcers Pt will be continued on [place] and Morphine D/w Dr. Wei and he concurred. Subjective Date patient seen: Jun 18, 2017 Time patient seen: 01:15 - p Allergies: Coded Allergies: No Known Allergies (Unverified , 04/04/17) Subjective REVIEW OF SYSTEMS: Denies rash, fever, chills, sweating, dizziness, drowsiness, sore throat, or change in his weight. No nausea, vomiting, diarrhea, or blood in the stool or urine. No bowel or bladder incontinence. No dysuria. He is complaining of abdominal pain and bilateral lower extremity pain. SUBJECTIVE: Patient reports that his pain has been reduced on the morphine and [place]. He has no new complaints. He is in bed and shows no signs of pain or distress at this time. Objective Last 24 Hour Vital Signs Date Time Temp Pulse Resp B/P (MAP) Pulse Ox O2 Delivery O2 Flow Rate FiO2 06/18/17 12:00 97.7 95 18 128/71 06/18/17 10:23 97.0 06/18/17 08:00 97.0 97 20 119/65 100 06/18/17 04:00 97.8 80 21 116/80 94 06/18/17 00:00 97.7 87 21 108/79 95 06/17/17 20:31 80 109/67 06/17/17 20:00 97.7 80 21 109/67 95 06/17/17 17:08 98.3 06/17/17 16:15 98.3 66 20 127/53 97 Room Air Height (Feet): 5 Height (Inches): 7.00 Weight (Pounds): 176 Objective GENERAL: Alert, awake, and oriented. HEENT: PERRLA. NECK: Range of motion is full in all directions. No tenderness. No adenopathy. LUNGS: Decreased breath sounds bilaterally. HEART: Regular. ABDOMEN: Obese with tenderness to palpation. BACK: Range of motion is decreased in flexion and extension. No tenderness to paraspinal muscles, trapezius or rhomboid muscles. EXTREMITIES: No cyanosis. No clubbing. KAREN WIN Jun 18, 2017 15:09
[2017-06-18 16:00] VITALS: BP 131/73
[2017-06-18 20:00] VITALS: BP 133/95
--- NOTE | 2017-06-18 20:30 | General Progress Note ---
Assessment/Plan Problem List: (1) CHF (congestive heart failure) ICD Codes: I50.9 - Heart failure, unspecified SNOMED: 80047768 Qualifiers: Qualified Codes: I50.9 - Heart failure, unspecified (2) Ascites ICD Codes: R18.8 - Other ascites SNOMED: 033790793 (3) Edema ICD Codes: R60.9 - Edema, unspecified SNOMED: 551995025, 241601576 (4) Non-compliance with treatment ICD Codes: Z91.19 - Patient's noncompliance with other medical treatment and regimen SNOMED: 6090593 (5) Iron deficiency ICD Codes: E61.1 - Iron deficiency SNOMED: 41349673 (6) Weakness ICD Codes: R53.1 - Weakness SNOMED: 12324401 (7) Hypokalemia ICD Codes: E87.6 - Hypokalemia SNOMED: 16349308, 130835260 Status: progressing Assessment/Plan chf r/o cirrhosis afebrile check lytes reviewed chart and labs and meds Subjective ROS Limited/Unobtainable: Yes Allergies: Coded Allergies: No Known Allergies (Unverified , 04/04/17) Objective Last 24 Hour Vital Signs Date Time Temp Pulse Resp B/P (MAP) Pulse Ox O2 Delivery O2 Flow Rate FiO2 06/18/17 16:00 98.0 90 20 131/73 98 06/18/17 12:00 97.7 95 18 128/71 06/18/17 10:23 97.0 06/18/17 08:00 97.0 97 20 119/65 100 06/18/17 04:00 97.8 80 21 116/80 94 06/18/17 00:00 97.7 87 21 108/79 95 06/17/17 20:31 80 109/67 Intake and Output 06/18/17 06/19/17 19:00 07:00 # Voids 5 Height (Feet): 5 Height (Inches): 7.00 Weight (Pounds): 176 Joanna Keller MD Jun 18, 2017 20:30
[2017-06-19] VITALS (7 sets, daily range): BP systolic 20–129; BP diastolic 51–95
[2017-06-19] MEDS: Morphine Sulfate 2mg/ml Inj IVP PRN ×4 (02:50→22:49)
[2017-06-19] MEDS: NovoLOG Insulin Flexpen SUBQ SCH ×4 (06:12→20:51)
--- NOTE | 2017-06-19 08:19 | General Progress Note ---
Assessment/Plan Assessment/Plan (1) Abdominal pain (2) Ascites (3) B/L LE pain (4) B/L LE ulcers Pt will be continued on [place] and Morphine D/w Dr. Wei and he concurred. Subjective Date patient seen: Jun 19, 2017 Time patient seen: 07:00 - am Allergies: Coded Allergies: No Known Allergies (Unverified , 04/04/17) Subjective REVIEW OF SYSTEMS: Denies rash, fever, chills, sweating, dizziness, drowsiness, sore throat, or change in his weight. No nausea, vomiting, diarrhea, or blood in the stool or urine. No bowel or bladder incontinence. No dysuria. He is complaining of abdominal pain and bilateral lower extremity pain. SUBJECTIVE: Patient is in bed no signs of pain or distress. His pain has been reduced on the Morphine as needed. The pain is at a moderate level at this time. Objective Last 24 Hour Vital Signs Date Time Temp Pulse Resp B/P (MAP) Pulse Ox O2 Delivery O2 Flow Rate FiO2 06/19/17 04:00 Room Air 06/19/17 04:00 97.9 98 21 124/76 95 06/19/17 00:00 98.1 97 22 126/76 98 06/19/17 00:00 Room Air 06/18/17 21:38 95 133/95 06/18/17 20:00 Room Air 06/18/17 20:00 98.2 95 21 133/95 94 06/18/17 16:00 98.0 90 20 131/73 98 06/18/17 12:00 97.7 95 18 128/71 06/18/17 10:23 97.0 Height (Feet): 5 Height (Inches): 7.00 Weight (Pounds): 174 Objective GENERAL: Alert, awake, and oriented. HEENT: PERRLA. NECK: Range of motion is full in all directions. No tenderness. No adenopathy. LUNGS: Decreased breath sounds bilaterally. HEART: Regular. ABDOMEN: Obese with tenderness to palpation. BACK: Range of motion is decreased in flexion and extension. No tenderness to paraspinal muscles, trapezius or rhomboid muscles. EXTREMITIES: No cyanosis. No clubbing. KAREN WIN Jun 19, 2017 08:19
[2017-06-19] MEDS ORDERED: Norco 5mg/325mg tab ORAL PRN (08:30)
[2017-06-19] MEDS: Carvedilol 12.5mg tab ORAL SCH ×2 (09:47→20:50)
[2017-06-19] MEDS: Lisinopril 10mg tab ORAL SCH (09:47)
[2017-06-19] MEDS: Spironolactone 25mg tab ORAL SCH (09:48)
[2017-06-19] MEDS: Doxycycline 100mg in D5W 110ml IV SCH ×2 (09:48→20:50)
[2017-06-19] MEDS: Digoxin 0.125mg tab ORAL SCH (09:48)
--- NOTE | 2017-06-19 10:21 | Nephrology Progress Note ---
Assessment/Plan Problem List: (1) Diabetic nephropathy (2) Hypokalemia (3) CHF (congestive heart failure) (4) Hypoalbuminemia Assessment Nephropathy 3+ Proteinuria, K low Dm, Nephropathy, High A1c h/o HyperUrecemia h/o High LFTs Cardiomyopathy with EjFx of 15% Plan Plan: no labs k supplement as needed Optimize cardiac status Allopurinol- dig , Uche I , Lasix as needed K supplement as needed Monitor renal parameters flomax per orders Subjective ROS Limited/Unobtainable: No Constitutional: Reports: malaise, other - un coaporative Objective Objective Last 24 Hour Vital Signs Date Time Temp Pulse Resp B/P (MAP) Pulse Ox O2 Delivery O2 Flow Rate FiO2 06/19/17 09:48 94 06/19/17 09:47 129/91 06/19/17 09:47 94 129/91 06/19/17 08:00 97.5 94 20 129/91 93 06/19/17 04:00 Room Air 06/19/17 04:00 97.9 98 21 124/76 95 06/19/17 00:00 98.1 97 22 126/76 98 06/19/17 00:00 Room Air 06/18/17 21:38 95 133/95 06/18/17 20:00 Room Air 06/18/17 20:00 98.2 95 21 133/95 94 06/18/17 16:00 98.0 90 20 131/73 98 06/18/17 12:00 97.7 95 18 128/71 06/18/17 10:23 97.0 Height (Feet): 5 Height (Inches): 7.00 Weight (Pounds): 174 General Appearance: no apparent distress Objective PE not changed RENNY POWER Jun 19, 2017 10:21
--- NOTE | 2017-06-19 11:17 | GI Progress Note ---
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 SNOMED: 91559067, 752258006 (2) Weakness ICD Codes: R53.1 - Weakness SNOMED: 23724359 (3) Hypoalbuminemia ICD Codes: E88.09 - Other disorders of plasma-protein metabolism, not elsewhere classified SNOMED: 162475518 (4) Edema ICD Codes: R60.9 - Edema, unspecified SNOMED: 439423323, 618032029 (5) Ascites ICD Codes: R18.8 - Other ascites SNOMED: 328082785 (6) CHF (congestive heart failure) ICD Codes: I50.9 - Heart failure, unspecified SNOMED: 27868713 Qualifiers: Qualified Codes: I50.9 - Heart failure, unspecified (7) Non-compliance with treatment ICD Codes: Z91.19 - Patient's noncompliance with other medical treatment and regimen SNOMED: 0977762 (8) Abnormal LFTs ICD Codes: R79.89 - Other specified abnormal findings of blood chemistry SNOMED: 207289848 (9) Iron deficiency ICD Codes: E61.1 - Iron deficiency SNOMED: 45581569 Status: unchanged Status Narrative Discussed with Dr. Hinds. Assessment/Plan patient refuses GI procedures hepatitis panel >> negative iron deficiency >> venofer cdiff negative fu abdominal U/S >> new finding of ascites refused paracentesis >> cont PO diuresis cardiac diet DM mgmt pain mgmt monitor LFTs electrolyte correction PT/OT fu labs Subjective Subjective refuse labs refusing care Objective Last 24 Hour Vital Signs Date Time Temp Pulse Resp B/P (MAP) Pulse Ox O2 Delivery O2 Flow Rate FiO2 06/19/17 10:19 97.5 06/19/17 09:48 94 06/19/17 09:47 129/91 06/19/17 09:47 94 129/91 06/19/17 08:00 97.5 94 20 129/91 93 06/19/17 04:00 Room Air 06/19/17 04:00 97.9 98 21 124/76 95 06/19/17 00:00 98.1 97 22 126/76 98 06/19/17 00:00 Room Air 06/18/17 21:38 95 133/95 06/18/17 20:00 Room Air 06/18/17 20:00 98.2 95 21 133/95 94 06/18/17 16:00 98.0 90 20 131/73 98 06/18/17 12:00 97.7 95 18 128/71 Intake and Output 06/19/17 06/20/17 19:00 07:00 # Bowel Movements 1 Height (Feet): 5 Height (Inches): 7.00 Weight (Pounds): 174 General Appearance: WD/WN, no apparent distress, alert Cardiovascular: normal rate Respiratory/Chest: normal breath sounds, no respiratory distress Abdominal Exam: normal bowel sounds, non tender, soft Objective generalized weakness Marissa Schneider N.P. Jun 19, 2017 11:17
--- NOTE | 2017-06-19 13:38 | Infectious Diseases Prog Note ---
Assessment/Plan Assessment/Plan A; Cellulitis/ ulcers of legs CHF, cardiomyopathy Ascites, small DM MRSA colonization Diarrhea P: Continue Doxycycline C. difficile is negative Subjective ROS Limited/Unobtainable: Yes Allergies: Coded Allergies: No Known Allergies (Unverified , 04/04/17) Objective Vital Signs Last 24 Hour Vital Signs Date Time Temp Pulse Resp B/P (MAP) Pulse Ox O2 Delivery O2 Flow Rate FiO2 06/19/17 12:00 96.8 87 20 20/95 95 06/19/17 10:19 97.5 06/19/17 09:48 94 06/19/17 09:47 129/91 06/19/17 09:47 94 129/91 06/19/17 08:00 97.5 94 20 129/91 93 06/19/17 04:00 Room Air 06/19/17 04:00 97.9 98 21 124/76 95 06/19/17 00:00 98.1 97 22 126/76 98 06/19/17 00:00 Room Air 06/18/17 21:38 95 133/95 06/18/17 20:00 Room Air 06/18/17 20:00 98.2 95 21 133/95 94 06/18/17 16:00 98.0 90 20 131/73 98 Height (Feet): 5 Height (Inches): 7.00 Weight (Pounds): 174 General Appearance: no acute distress HEENT: mucous membranes moist Respiratory/Chest: lungs clear Cardiovascular: normal rate Abdomen: soft, non tender Extremities: other - edema of legs Skin: ulcers, other - legs Current Medications Medications (Trade) Dose Ordered Sig/Reuben Route PRN Reason Start Time Stop Time Status Last Admin Dose Admin Acetaminophen/ Hydrocodone Bitart ([place] 5/325) 1 tab Q6H PRN ORAL for pain 1-5 06/19/17 08:30 06/24/17 08:29 Allopurinol (Allopurinol) 300 mg DAILY ORAL 06/15/17 09:00 07/12/17 08:59 06/19/17 09:47 Carvedilol (Coreg) 12.5 mg EVERY 12 HOURS ORAL 06/14/17 21:30 07/13/17 21:29 06/19/17 09:47 Dextrose (Dextrose 50%) STAT PRN IV Hypoglycemia 06/14/17 21:00 07/14/17 20:59 Digoxin (Lanoxin) 0.125 mg DAILY ORAL 06/15/17 09:00 07/11/17 17:59 06/19/17 09:48 Doxycycline Hyclate 100 mg/ Dextrose 110 ml @ 110 mls/hr Q12HR IV 06/16/17 14:00 06/23/17 13:59 06/19/17 09:48 Furosemide (Lasix) 40 mg EVERY 12 HOURS IV 06/14/17 21:30 07/12/17 21:29 06/19/17 09:47 Gabapentin (Neurontin) 100 mg BID ORAL 06/15/17 09:00 07/11/17 17:59 06/19/17 09:48 Insulin Aspart (NovoLOG) BEFORE MEALS AND HS SUBQ 06/14/17 21:00 07/11/17 20:59 06/17/17 16:46 Lisinopril (Zestril) 10 mg DAILY ORAL 06/17/17 09:00 07/17/17 08:59 06/19/17 09:47 Morphine Sulfate (Morphine Sulfate) 1 mg Q4H PRN IVP For Pain 12-1706/19/17 09:00 06/23/17 08:59 06/19/17 09:49 Ondansetron HCl (Zofran) 4 mg Q6H PRN IVP Nausea & Vomiting 06/14/17 21:00 07/11/17 20:59 Pantoprazole (Protonix) 40 mg DAILY ORAL 06/15/17 09:00 07/12/17 08:59 06/19/17 09:00 Potassium Chloride (K-Dur) 40 meq BID ORAL 06/15/17 09:00 07/13/17 17:59 06/19/17 09:47 Quetiapine Fumarate (SEROquel) 50 mg Q6H PRN ORAL Agitation 06/14/17 21:00 07/14/17 20:59 06/19/17 02:49 Spironolactone (Aldactone) 25 mg DAILY ORAL 06/15/17 09:00 07/12/17 14:44 06/19/17 09:48 RETA OROZCO Jun 19, 2017 13:38
--- NOTE | 2017-06-19 14:46 | Wound Nurse Progress Note ---
Wound RN Progress Note Wound Consult reassessment #1 Left and right lower legs with full and partial thickness open scattered wounds. etiology unknown- upon reassessment noted good progress wound beds remain pink/red in color.no further deterioration present. #2 Perineal open wound etiology unknown -pt refused to have this site assessed , explained risks and benefits still refused. -Recommendation -Local wound care per protocol -Keep clean and dry -Turn and reposition -Optimize nutrition -Low air loss SPR mattress -Offload both heels -Heel protector on both heels -Assess and f/u accordingly for any changes KYLEE MTICHELL Jun 19, 2017 14:46
--- NOTE | 2017-06-19 16:37 | General Progress Note ---
Assessment/Plan Status: stable, progressing Assessment/Plan mood d/o less irritable cont current meds Subjective Date patient seen: Jun 19, 2017 Neurologic/Psychiatric: Reports: anxiety, depressed, emotional problems Allergies: Coded Allergies: No Known Allergies (Unverified , 04/04/17) Objective Last 24 Hour Vital Signs Date Time Temp Pulse Resp B/P (MAP) Pulse Ox O2 Delivery O2 Flow Rate FiO2 06/19/17 16:28 97.5 06/19/17 16:00 97.5 87 20 93/51 92 06/19/17 12:00 96.8 87 20 103/73 95 06/19/17 09:48 94 06/19/17 09:47 129/91 06/19/17 09:47 94 129/91 06/19/17 08:00 97.5 94 20 129/91 93 06/19/17 04:00 Room Air 06/19/17 04:00 97.9 98 21 124/76 95 06/19/17 00:00 98.1 97 22 126/76 98 06/19/17 00:00 Room Air 06/18/17 21:38 95 133/95 06/18/17 20:00 Room Air 06/18/17 20:00 98.2 95 21 133/95 94 Intake and Output 06/19/17 06/20/17 19:00 07:00 # Bowel Movements 1 Height (Feet): 5 Height (Inches): 7.00 Weight (Pounds): 174 General Appearance: no apparent distress, alert Neurologic: alert, oriented x 3, responsive, normal mood/affect James Schofield M.D. Jun 19, 2017 16:37
[2017-06-19] MEDS ORDERED: Tubing IV Secondary IV ONE (16:52)
[2017-06-19] MEDS ORDERED: NS 500ML ONE (16:52)
--- NOTE | 2017-06-19 20:07 | General Progress Note ---
Assessment/Plan Problem List: (1) CHF (congestive heart failure) ICD Codes: I50.9 - Heart failure, unspecified SNOMED: 91076783 Qualifiers: Qualified Codes: I50.9 - Heart failure, unspecified (2) Ascites ICD Codes: R18.8 - Other ascites SNOMED: 275567337 (3) Edema ICD Codes: R60.9 - Edema, unspecified SNOMED: 906070816, 240690736 (4) Non-compliance with treatment ICD Codes: Z91.19 - Patient's noncompliance with other medical treatment and regimen SNOMED: 7094264 (5) Iron deficiency ICD Codes: E61.1 - Iron deficiency SNOMED: 69702119 (6) Weakness ICD Codes: R53.1 - Weakness SNOMED: 48224677 (7) Hypokalemia ICD Codes: E87.6 - Hypokalemia SNOMED: 68258787, 641007950 Status: progressing Assessment/Plan chf cirhosis afebrile needs placement chronic pain no sob Subjective ROS Limited/Unobtainable: Yes Allergies: Coded Allergies: No Known Allergies (Unverified , 04/04/17) Objective Last 24 Hour Vital Signs Date Time Temp Pulse Resp B/P (MAP) Pulse Ox O2 Delivery O2 Flow Rate FiO2 06/19/17 17:00 88 105/66 06/19/17 16:28 97.5 06/19/17 16:00 97.5 87 20 93/51 92 06/19/17 12:00 96.8 87 20 103/73 95 06/19/17 09:48 94 06/19/17 09:47 129/91 06/19/17 09:47 94 129/91 06/19/17 08:00 97.5 94 20 129/91 93 06/19/17 04:00 Room Air 06/19/17 04:00 97.9 98 21 124/76 95 06/19/17 00:00 98.1 97 22 126/76 98 06/19/17 00:00 Room Air 06/18/17 21:38 95 133/95 Intake and Output 06/19/17 06/20/17 19:00 07:00 Intake Total 860 ml Balance 860 ml Intake Oral 860 ml # Voids 9 # Bowel Movements 5 Height (Feet): 5 Height (Inches): 7.00 Weight (Pounds): 174 Joanna Keller MD Jun 19, 2017 20:07
--- NOTE | 2017-06-19 20:43 | General Progress Note ---
Assessment/Plan Assessment/Plan ASSESSMENT AND RECOMMENDATIONS: 1. Failure to thrive, likely secondary to decreased p.o. intake. Continue to closely monitor. No evidence of malignancy. Prior imaging has been reviewed. 2. Protein-albumin dissociation. spep and upep to be reviewed and can be followed as outpatient 3. Anemia, very mild. Iron dc'd. 4. MRSA colonization. ID following 5. Pulmonary hypertension. Subjective Allergies: Coded Allergies: No Known Allergies (Unverified , 04/04/17) All Systems: reviewed and negative except above Subjective refusing labs Objective Last 24 Hour Vital Signs Date Time Temp Pulse Resp B/P (MAP) Pulse Ox O2 Delivery O2 Flow Rate FiO2 06/19/17 17:00 88 105/66 06/19/17 16:28 97.5 06/19/17 16:00 97.5 87 20 93/51 92 06/19/17 12:00 96.8 87 20 103/73 95 06/19/17 09:48 94 06/19/17 09:47 129/91 06/19/17 09:47 94 129/91 06/19/17 08:00 97.5 94 20 129/91 93 06/19/17 04:00 Room Air 06/19/17 04:00 97.9 98 21 124/76 95 06/19/17 00:00 98.1 97 22 126/76 98 06/19/17 00:00 Room Air 06/18/17 21:38 95 133/95 Intake and Output 06/19/17 06/20/17 19:00 07:00 Intake Total 860 ml Balance 860 ml Intake Oral 860 ml # Voids 9 # Bowel Movements 5 Height (Feet): 5 Height (Inches): 7.00 Weight (Pounds): 174 General Appearance: no apparent distress EENT: normal ENT inspection Neck: normal alignment Cardiovascular: normal peripheral pulses Abdomen: non tender 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
[2017-06-20] VITALS: BP 119/67
[2017-06-20 04:00] VITALS: BP 121/79
[2017-06-20] MEDS: Morphine Sulfate 2mg/ml Inj IVP PRN ×3 (04:33→21:08)
[2017-06-20] MEDS: NovoLOG Insulin Flexpen SUBQ SCH ×4 (06:30→21:00)
--- NOTE | 2017-06-20 08:10 | General Progress Note ---
Assessment/Plan Assessment/Plan (1) Abdominal pain (2) Ascites (3) B/L LE pain (4) B/L LE ulcers Pt will be continued on [place] and Morphine D/w Dr. Wei and he concurred. Subjective Date patient seen: Jun 20, 2017 Time patient seen: 07:00 - am Allergies: Coded Allergies: No Known Allergies (Unverified , 04/04/17) Subjective REVIEW OF SYSTEMS: Denies rash, fever, chills, sweating, dizziness, drowsiness, sore throat, or change in his weight. No nausea, vomiting, diarrhea, or blood in the stool or urine. No bowel or bladder incontinence. No dysuria. He is complaining of abdominal pain and bilateral lower extremity pain. SUBJECTIVE: Patient is in bed reports that his pain continues to reach a 10/10 at times and reduced to a 5/10 on the Morphine and [place]. He has no new complaints at this time. Objective Last 24 Hour Vital Signs Date Time Temp Pulse Resp B/P (MAP) Pulse Ox O2 Delivery O2 Flow Rate FiO2 06/20/17 05:03 98.2 06/20/17 04:00 92 Room Air 06/20/17 04:00 98.2 87 21 121/79 92 06/20/17 00:00 93 Room Air 06/20/17 00:00 98.2 71 21 119/67 93 06/19/17 20:50 79 100/75 06/19/17 20:00 98 Room Air 06/19/17 20:00 98.1 79 21 100/75 98 06/19/17 17:00 88 105/66 06/19/17 16:00 97.5 87 20 93/51 92 06/19/17 12:00 96.8 87 20 103/73 95 06/19/17 09:48 94 06/19/17 09:47 129/91 06/19/17 09:47 94 129/91 Height (Feet): 5 Height (Inches): 7.00 Weight (Pounds): 172 Objective GENERAL: Alert, awake, and oriented. HEENT: PERRLA. NECK: Range of motion is full in all directions. No tenderness. No adenopathy. LUNGS: Decreased breath sounds bilaterally. HEART: Regular. ABDOMEN: Obese with tenderness to palpation. BACK: Range of motion is decreased in flexion and extension. No tenderness to paraspinal muscles, trapezius or rhomboid muscles. EXTREMITIES: No cyanosis. No clubbing. KAREN WIN Jun 20, 2017 08:10
[2017-06-20 08:24] VITALS: BP 109/61
[2017-06-20] MEDS: Spironolactone 50mg tab ORAL SCH (08:40)
[2017-06-20] MEDS: Doxycycline 100mg in D5W 110ml IV SCH (08:40)
[2017-06-20] MEDS: Digoxin 0.125mg tab ORAL SCH ×2 (08:41→09:00)
[2017-06-20] MEDS: Carvedilol 12.5mg tab ORAL SCH ×2 (08:42→21:07)
[2017-06-20] MEDS: Lisinopril 10mg tab ORAL SCH (08:42)
[2017-06-20 11:40] VITALS: BP 111/75
--- NOTE | 2017-06-20 12:23 | Nephrology Progress Note ---
Assessment/Plan Problem List: (1) Diabetic nephropathy (2) Hypokalemia (3) CHF (congestive heart failure) (4) Hypoalbuminemia Assessment Nephropathy 3+ Proteinuria, K low Dm, Nephropathy, High A1c h/o HyperUrecemia h/o High LFTs Cardiomyopathy with EjFx of 15% Plan Plan: no labs uncoaporative k supplement as needed Optimize cardiac status Allopurinol- dig , Uche I , Lasix as needed K supplement as needed Monitor renal parameters flomax per orders Subjective ROS Limited/Unobtainable: No Constitutional: Reports: malaise Objective Objective Last 24 Hour Vital Signs Date Time Temp Pulse Resp B/P (MAP) Pulse Ox O2 Delivery O2 Flow Rate FiO2 06/20/17 11:40 97.6 87 19 111/75 96 Room Air 06/20/17 08:42 109/61 06/20/17 08:42 86 109/61 06/20/17 08:24 97.5 86 19 109/61 95 Room Air 06/20/17 05:03 98.2 06/20/17 04:00 92 Room Air 06/20/17 04:00 98.2 87 21 121/79 92 06/20/17 00:00 93 Room Air 06/20/17 00:00 98.2 71 21 119/67 93 06/19/17 20:50 79 100/75 06/19/17 20:00 98 Room Air 06/19/17 20:00 98.1 79 21 100/75 98 06/19/17 17:00 88 105/66 06/19/17 16:00 97.5 87 20 93/51 92 Height (Feet): 5 Height (Inches): 7.00 Weight (Pounds): 172 General Appearance: no apparent distress Objective PE not changed RENNY POWER Jun 20, 2017 12:23
--- NOTE | 2017-06-20 13:12 | GI Progress Note ---
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 SNOMED: 16854952, 160589889 (2) Weakness ICD Codes: R53.1 - Weakness SNOMED: 42976877 (3) Hypoalbuminemia ICD Codes: E88.09 - Other disorders of plasma-protein metabolism, not elsewhere classified SNOMED: 325989795 (4) Edema ICD Codes: R60.9 - Edema, unspecified SNOMED: 695713795, 429123132 (5) Ascites ICD Codes: R18.8 - Other ascites SNOMED: 579567129 (6) CHF (congestive heart failure) ICD Codes: I50.9 - Heart failure, unspecified SNOMED: 02571943 Qualifiers: Qualified Codes: I50.9 - Heart failure, unspecified (7) Non-compliance with treatment ICD Codes: Z91.19 - Patient's noncompliance with other medical treatment and regimen SNOMED: 8766765 (8) Abnormal LFTs ICD Codes: R79.89 - Other specified abnormal findings of blood chemistry SNOMED: 904282238 (9) Iron deficiency ICD Codes: E61.1 - Iron deficiency SNOMED: 65625307 Status: unchanged Status Narrative Discussed with Dr. Hinds. Assessment/Plan patient refuses GI procedures hepatitis panel >> negative iron deficiency >> venofer cdiff negative fu abdominal U/S >> new finding of ascites refused paracentesis >> cont PO diuresis cardiac diet DM mgmt pain mgmt monitor LFTs electrolyte correction PT/OT fu labs Subjective Subjective refuse labs refusing care refused paracentesis Objective Last 24 Hour Vital Signs Date Time Temp Pulse Resp B/P (MAP) Pulse Ox O2 Delivery O2 Flow Rate FiO2 06/20/17 11:40 97.6 87 19 111/75 96 Room Air 06/20/17 08:42 109/61 06/20/17 08:42 86 109/61 06/20/17 08:24 97.5 86 19 109/61 95 Room Air 06/20/17 05:03 98.2 06/20/17 04:00 92 Room Air 06/20/17 04:00 98.2 87 21 121/79 92 06/20/17 00:00 93 Room Air 06/20/17 00:00 98.2 71 21 119/67 93 06/19/17 20:50 79 100/75 06/19/17 20:00 98 Room Air 06/19/17 20:00 98.1 79 21 100/75 98 06/19/17 17:00 88 105/66 06/19/17 16:00 97.5 87 20 93/51 92 Height (Feet): 5 Height (Inches): 7.00 Weight (Pounds): 172 General Appearance: WD/WN, no apparent distress, alert Cardiovascular: normal rate Respiratory/Chest: normal breath sounds, no respiratory distress Abdominal Exam: normal bowel sounds, non tender, soft, distended, ascites Extremities: normal range of motion, non-tender Objective generalized weakness Marissa Schneider N.P. Jun 20, 2017 13:12
--- NOTE | 2017-06-20 13:39 | General Progress Note ---
Assessment/Plan Assessment/Plan ASSESSMENT AND RECOMMENDATIONS: #. Medical noncompliance. Pt refusing labs and procedures #. Failure to thrive, likely secondary to decreased p.o. intake. Continue to closely monitor. No evidence of malignancy. Prior imaging has been reviewed. #. Protein-albumin dissociation. spep and upep to be reviewed and can be followed as outpatient #. Anemia, very mild. Iron dc'd. #. MRSA colonization. ID following #. Pulmonary hypertension. Subjective Allergies: Coded Allergies: No Known Allergies (Unverified , 04/04/17) All Systems: reviewed and negative except above Subjective refusing labs and procedures Objective Last 24 Hour Vital Signs Date Time Temp Pulse Resp B/P (MAP) Pulse Ox O2 Delivery O2 Flow Rate FiO2 06/20/17 11:40 97.6 87 19 111/75 96 Room Air 06/20/17 08:42 109/61 06/20/17 08:42 86 109/61 06/20/17 08:24 97.5 86 19 109/61 95 Room Air 06/20/17 05:03 98.2 06/20/17 04:00 92 Room Air 06/20/17 04:00 98.2 87 21 121/79 92 06/20/17 00:00 93 Room Air 06/20/17 00:00 98.2 71 21 119/67 93 06/19/17 20:50 79 100/75 06/19/17 20:00 98 Room Air 06/19/17 20:00 98.1 79 21 100/75 98 06/19/17 17:00 88 105/66 06/19/17 16:00 97.5 87 20 93/51 92 Height (Feet): 5 Height (Inches): 7.00 Weight (Pounds): 172 General Appearance: no apparent distress EENT: normal ENT inspection Cardiovascular: normal peripheral pulses 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
--- NOTE | 2017-06-20 14:37 | Infectious Diseases Prog Note ---
Assessment/Plan Assessment/Plan A; Cellulitis/ ulcers of legs CHF, cardiomyopathy Ascites, small DM MRSA colonization Diarrhea P: Continue Doxycycline C. difficile is negative Subjective ROS Limited/Unobtainable: No Constitutional: Reports: no symptoms Respiratory: Reports: no symptoms Cardiovascular: Reports: no symptoms Gastrointestinal/Abdominal: Reports: no symptoms Allergies: Coded Allergies: No Known Allergies (Unverified , 04/04/17) Objective Vital Signs Last 24 Hour Vital Signs Date Time Temp Pulse Resp B/P (MAP) Pulse Ox O2 Delivery O2 Flow Rate FiO2 06/20/17 11:40 97.6 87 19 111/75 96 Room Air 06/20/17 08:42 109/61 06/20/17 08:42 86 109/61 06/20/17 08:24 97.5 86 19 109/61 95 Room Air 06/20/17 05:03 98.2 06/20/17 04:00 92 Room Air 06/20/17 04:00 98.2 87 21 121/79 92 06/20/17 00:00 93 Room Air 06/20/17 00:00 98.2 71 21 119/67 93 06/19/17 20:50 79 100/75 06/19/17 20:00 98 Room Air 06/19/17 20:00 98.1 79 21 100/75 98 06/19/17 17:00 88 105/66 06/19/17 16:00 97.5 87 20 93/51 92 Height (Feet): 5 Height (Inches): 7.00 Weight (Pounds): 172 General Appearance: no acute distress HEENT: mucous membranes moist Respiratory/Chest: lungs clear Cardiovascular: normal rate Abdomen: distended Extremities: other - decreased edema more in left leg Skin: ulcers, other - in left legs are healing Neurologic/Psychiatric: alert, responsive Current Medications Medications (Trade) Dose Ordered Sig/Reuben Route PRN Reason Start Time Stop Time Status Last Admin Dose Admin Acetaminophen/ Hydrocodone Bitart ([place] 5/325) 1 tab Q6H PRN ORAL for pain 1-5 06/19/17 08:30 06/24/17 08:29 06/20/17 09:53 Allopurinol (Allopurinol) 300 mg DAILY ORAL 06/15/17 09:00 07/12/17 08:59 06/19/17 09:47 Carvedilol (Coreg) 12.5 mg EVERY 12 HOURS ORAL 06/14/17 21:30 07/13/17 21:29 06/19/17 09:47 Dextrose (Dextrose 50%) STAT PRN IV Hypoglycemia 06/14/17 21:00 07/14/17 20:59 Digoxin (Lanoxin) 0.125 mg DAILY ORAL 06/15/17 09:00 07/11/17 17:59 06/19/17 09:48 Doxycycline Hyclate 100 mg/ Dextrose 110 ml @ 110 mls/hr Q12HR IV 06/16/17 14:00 06/23/17 13:59 06/20/17 08:40 Furosemide (Lasix) 40 mg EVERY 12 HOURS IV 06/14/17 21:30 07/12/17 21:29 06/20/17 08:40 Gabapentin (Neurontin) 100 mg BID ORAL 06/15/17 09:00 07/11/17 17:59 06/19/17 09:48 Insulin Aspart (NovoLOG) BEFORE MEALS AND HS SUBQ 06/14/17 21:00 07/11/17 20:59 06/20/17 12:07 Lisinopril (Zestril) 10 mg DAILY ORAL 06/17/17 09:00 07/17/17 08:59 06/19/17 09:47 Morphine Sulfate (Morphine Sulfate) 1 mg Q4H PRN IVP For Pain 6-10 06/19/17 09:00 06/23/17 08:59 06/20/17 04:33 Ondansetron HCl (Zofran) 4 mg Q6H PRN IVP Nausea & Vomiting 06/14/17 21:00 07/11/17 20:59 Pantoprazole (Protonix) 40 mg DAILY ORAL 06/15/17 09:00 07/12/17 08:59 06/19/17 09:00 Potassium Chloride (K-Dur) 40 meq BID ORAL 06/15/17 09:00 07/13/17 17:59 06/19/17 09:47 Quetiapine Fumarate (SEROquel) 50 mg Q6H PRN ORAL Agitation 06/14/17 21:00 07/14/17 20:59 06/19/17 02:49 Spironolactone (Aldactone) 100 mg DAILY ORAL 06/20/17 09:00 07/20/17 08:59 06/20/17 08:40 RETA OROZCO Jun 20, 2017 14:36
[2017-06-20 15:55] VITALS: BP 188/79
[2017-06-20] MEDS ORDERED: Tubing IV Secondary IV ONE (18:51)
[2017-06-20 20:00] VITALS: BP 135/89
--- NOTE | 2017-06-20 20:43 | General Progress Note ---
Assessment/Plan Problem List: (1) CHF (congestive heart failure) ICD Codes: I50.9 - Heart failure, unspecified SNOMED: 96089680 Qualifiers: Qualified Codes: I50.9 - Heart failure, unspecified (2) Ascites ICD Codes: R18.8 - Other ascites SNOMED: 646687763 (3) Edema ICD Codes: R60.9 - Edema, unspecified SNOMED: 010434246, 083661690 (4) Non-compliance with treatment ICD Codes: Z91.19 - Patient's noncompliance with other medical treatment and regimen SNOMED: 2686074 (5) Iron deficiency ICD Codes: E61.1 - Iron deficiency SNOMED: 85521882 (6) Weakness ICD Codes: R53.1 - Weakness SNOMED: 30001776 (7) Hypokalemia ICD Codes: E87.6 - Hypokalemia SNOMED: 25399753, 223330491 Status: progressing Assessment/Plan chf cirhosis afebrile needs safe place reviewed chart and labs Subjective ROS Limited/Unobtainable: Yes Allergies: Coded Allergies: No Known Allergies (Unverified , 04/04/17) Objective Last 24 Hour Vital Signs Date Time Temp Pulse Resp B/P (MAP) Pulse Ox O2 Delivery O2 Flow Rate FiO2 06/20/17 15:55 97.5 98 20 188/79 97 Room Air 06/20/17 11:40 97.6 87 19 111/75 96 Room Air 06/20/17 08:42 109/61 06/20/17 08:42 86 109/61 06/20/17 08:24 97.5 86 19 109/61 95 Room Air 06/20/17 05:03 98.2 06/20/17 04:00 92 Room Air 06/20/17 04:00 98.2 87 21 121/79 92 06/20/17 00:00 93 Room Air 06/20/17 00:00 98.2 71 21 119/67 93 06/19/17 20:50 79 100/75 Intake and Output 06/20/17 06/21/17 19:00 07:00 Intake Total 620 ml Output Total 600 ml Balance 20 ml Intake Oral 620 ml Output Urine Total 600 ml Height (Feet): 5 Height (Inches): 7.00 Weight (Pounds): 172 Respiratory/Chest: lungs clear Abdomen: soft Hadadz,Ali MD Jun 20, 2017 20:43
--- NOTE | 2017-06-20 22:43 | General Progress Note ---
Assessment/Plan Status: stable Assessment/Plan mood d/o less irritable cont current meds seroquel 50mg qhs Subjective Date patient seen: Jun 20, 2017 Neurologic/Psychiatric: Reports: anxiety, depressed, emotional problems Allergies: Coded Allergies: No Known Allergies (Unverified , 04/04/17) Subjective tht pt cont to irritable and agitated at times Objective Last 24 Hour Vital Signs Date Time Temp Pulse Resp B/P (MAP) Pulse Ox O2 Delivery O2 Flow Rate FiO2 06/20/17 21:38 97.5 06/20/17 21:07 98 188/79 06/20/17 15:55 97.5 98 20 188/79 97 Room Air 06/20/17 11:40 97.6 87 19 111/75 96 Room Air 06/20/17 08:42 109/61 06/20/17 08:42 86 109/61 06/20/17 08:24 97.5 86 19 109/61 95 Room Air 06/20/17 04:00 92 Room Air 06/20/17 04:00 98.2 87 21 121/79 92 06/20/17 00:00 93 Room Air 06/20/17 00:00 98.2 71 21 119/67 93 Intake and Output 06/20/17 06/21/17 19:00 07:00 Intake Total 620 ml Output Total 600 ml Balance 20 ml Intake Oral 620 ml Output Urine Total 600 ml Height (Feet): 5 Height (Inches): 7.00 Weight (Pounds): 172 General Appearance: no apparent distress, alert Neurologic: alert, oriented x 3, responsive, depressed affect James Schofield M.D. Jun 20, 2017 22:43
[2017-06-21] VITALS: BP 128/96
[2017-06-21] MEDS: Morphine Sulfate 2mg/ml Inj IVP PRN ×4 (02:29→22:02)
[2017-06-21 04:00] VITALS: BP 126/91
[2017-06-21] MEDS: NovoLOG Insulin Flexpen SUBQ SCH ×4 (06:20→21:00)
[2017-06-21 08:00] VITALS: BP 115/81
--- NOTE | 2017-06-21 08:15 | General Progress Note ---
Assessment/Plan Assessment/Plan (1) Abdominal pain (2) Ascites (3) B/L LE pain (4) B/L LE ulcers Pt will be continued on [place] and Morphine D/w Dr. Wei and he concurred. Subjective Date patient seen: Jun 21, 2017 Time patient seen: 07:00 - am Allergies: Coded Allergies: No Known Allergies (Unverified , 04/04/17) Subjective REVIEW OF SYSTEMS: Denies rash, fever, chills, sweating, dizziness, drowsiness, sore throat, or change in his weight. No nausea, vomiting, diarrhea, or blood in the stool or urine. No bowel or bladder incontinence. No dysuria. He is complaining of abdominal pain and bilateral lower extremity pain. SUBJECTIVE: Patient reports no changes in his pain however it has been tolerated on the medications. Objective Last 24 Hour Vital Signs Date Time Temp Pulse Resp B/P (MAP) Pulse Ox O2 Delivery O2 Flow Rate FiO2 06/21/17 04:00 94 Room Air 06/21/17 04:00 97.8 85 18 126/91 94 06/21/17 03:05 97.7 06/21/17 00:00 97.7 88 18 128/96 94 06/21/17 00:00 94 Room Air 06/20/17 21:07 98 188/79 06/20/17 20:00 97.6 98 22 135/89 98 06/20/17 20:00 98 Room Air 06/20/17 15:55 97.5 98 20 188/79 97 Room Air 06/20/17 11:40 97.6 87 19 111/75 96 Room Air 06/20/17 08:42 109/61 06/20/17 08:42 86 109/61 06/20/17 08:24 97.5 86 19 109/61 95 Room Air Height (Feet): 5 Height (Inches): 7.00 Weight (Pounds): 173 Objective GENERAL: Alert, awake, and oriented. HEENT: PERRLA. NECK: Range of motion is full in all directions. No tenderness. No adenopathy. LUNGS: Decreased breath sounds bilaterally. HEART: Regular. ABDOMEN: Obese with tenderness to palpation. BACK: Range of motion is decreased in flexion and extension. No tenderness to paraspinal muscles, trapezius or rhomboid muscles. EXTREMITIES: No cyanosis. No clubbing. ZEDNER,KAREN N. P.A. Jun 21, 2017 08:15
[2017-06-21] MEDS: Spironolactone 50mg tab ORAL SCH (09:22)
[2017-06-21] MEDS: Digoxin 0.125mg tab ORAL SCH (09:24)
[2017-06-21] MEDS: Lisinopril 10mg tab ORAL SCH (09:25)
[2017-06-21] MEDS: Carvedilol 12.5mg tab ORAL SCH (09:25)
--- NOTE | 2017-06-21 11:12 | GI Progress Note ---
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 SNOMED: 51095930, 645540863 (2) Weakness ICD Codes: R53.1 - Weakness SNOMED: 29338219 (3) Hypoalbuminemia ICD Codes: E88.09 - Other disorders of plasma-protein metabolism, not elsewhere classified SNOMED: 831006214 (4) Edema ICD Codes: R60.9 - Edema, unspecified SNOMED: 827309634, 731005043 (5) Ascites ICD Codes: R18.8 - Other ascites SNOMED: 018610179 (6) CHF (congestive heart failure) ICD Codes: I50.9 - Heart failure, unspecified SNOMED: 27496699 Qualifiers: Qualified Codes: I50.9 - Heart failure, unspecified (7) Non-compliance with treatment ICD Codes: Z91.19 - Patient's noncompliance with other medical treatment and regimen SNOMED: 1732903 (8) Abnormal LFTs ICD Codes: R79.89 - Other specified abnormal findings of blood chemistry SNOMED: 896080973 (9) Iron deficiency ICD Codes: E61.1 - Iron deficiency SNOMED: 80011815 Status: stable Status Narrative Discussed with Dr. Hinds. Assessment/Plan patient refuses GI procedures refused paracentesis hepatitis panel >> negative iron deficiency >> venofer cdiff negative abdominal U/S >> new finding of ascites okay for DC per GI standpoint cont PO diuresis cardiac diet DM mgmt pain mgmt monitor LFTs electrolyte correction PT/OT fu labs Subjective Subjective refuse labs refusing care refused paracentesis Objective Last 24 Hour Vital Signs Date Time Temp Pulse Resp B/P (MAP) Pulse Ox O2 Delivery O2 Flow Rate FiO2 06/21/17 09:25 115/81 06/21/17 09:25 86 115/81 06/21/17 09:24 86 06/21/17 08:00 97.9 86 18 115/81 96 06/21/17 04:00 94 Room Air 06/21/17 04:00 97.8 85 18 126/91 94 06/21/17 03:05 97.7 06/21/17 00:00 97.7 88 18 128/96 94 06/21/17 00:00 94 Room Air 06/20/17 21:07 98 188/79 06/20/17 20:00 97.6 98 22 135/89 98 06/20/17 20:00 98 Room Air 06/20/17 15:55 97.5 98 20 188/79 97 Room Air 06/20/17 11:40 97.6 87 19 111/75 96 Room Air Height (Feet): 5 Height (Inches): 7.00 Weight (Pounds): 173 General Appearance: WD/WN, no apparent distress, alert Cardiovascular: normal rate Respiratory/Chest: normal breath sounds, no respiratory distress Abdominal Exam: normal bowel sounds, non tender, soft, distended, ascites Extremities: normal range of motion, non-tender Objective generalized weakness Marissa Schneider N.P. Jun 21, 2017 11:12
--- NOTE | 2017-06-21 11:29 | Infectious Diseases Prog Note ---
Assessment/Plan Assessment/Plan A; Cellulitis/ ulcers of legs CHF, cardiomyopathy Ascites, small DM MRSA colonization Diarrhea P: Continue Doxycycline Subjective ROS Limited/Unobtainable: Yes Allergies: Coded Allergies: No Known Allergies (Unverified , 04/04/17) Objective Vital Signs Last 24 Hour Vital Signs Date Time Temp Pulse Resp B/P (MAP) Pulse Ox O2 Delivery O2 Flow Rate FiO2 06/21/17 09:25 115/81 06/21/17 09:25 86 115/81 06/21/17 09:24 86 06/21/17 08:00 97.9 86 18 115/81 96 06/21/17 04:00 94 Room Air 06/21/17 04:00 97.8 85 18 126/91 94 06/21/17 03:05 97.7 06/21/17 00:00 97.7 88 18 128/96 94 06/21/17 00:00 94 Room Air 06/20/17 21:07 98 188/79 06/20/17 20:00 97.6 98 22 135/89 98 06/20/17 20:00 98 Room Air 06/20/17 15:55 97.5 98 20 188/79 97 Room Air 06/20/17 11:40 97.6 87 19 111/75 96 Room Air Height (Feet): 5 Height (Inches): 7.00 Weight (Pounds): 173 General Appearance: no acute distress HEENT: mucous membranes moist Respiratory/Chest: lungs clear Cardiovascular: normal rate Abdomen: soft, non tender Extremities: other - decreased edema Skin: ulcers, other - improving Neurologic/Psychiatric: other - sleeping Current Medications Medications (Trade) Dose Ordered Sig/Reuben Route PRN Reason Start Time Stop Time Status Last Admin Dose Admin Acetaminophen/ Hydrocodone Bitart ([place] 5/325) 1 tab Q6H PRN ORAL for pain 1-5 06/19/17 08:30 06/24/17 08:29 06/20/17 09:53 Allopurinol (Allopurinol) 300 mg DAILY ORAL 06/15/17 09:00 07/12/17 08:59 06/21/17 09:22 Carvedilol (Coreg) 12.5 mg EVERY 12 HOURS ORAL 06/14/17 21:30 07/13/17 21:29 06/21/17 09:25 Dextrose (Dextrose 50%) STAT PRN IV Hypoglycemia 06/14/17 21:00 07/14/17 20:59 Digoxin (Lanoxin) 0.125 mg DAILY ORAL 06/15/17 09:00 07/11/17 17:59 06/21/17 09:24 Doxycycline Monohydrate (Vibramycin) 100 mg EVERY 12 HOURS ORAL 06/20/17 21:00 06/27/17 20:59 06/21/17 09:25 Furosemide (Lasix) 40 mg EVERY 12 HOURS IV 06/14/17 21:30 07/12/17 21:29 06/21/17 09:21 Gabapentin (Neurontin) 100 mg BID ORAL 06/15/17 09:00 07/11/17 17:59 06/21/17 09:24 Insulin Aspart (NovoLOG) BEFORE MEALS AND HS SUBQ 06/14/17 21:00 07/11/17 20:59 06/20/17 12:07 Lisinopril (Zestril) 10 mg DAILY ORAL 06/17/17 09:00 07/17/17 08:59 06/21/17 09:25 Morphine Sulfate (Morphine Sulfate) 1 mg Q4H PRN IVP For Pain 6-06/19/17 09:00 06/23/17 08:59 06/21/17 09:26 Ondansetron HCl (Zofran) 4 mg Q6H PRN IVP Nausea & Vomiting 06/14/17 21:00 07/11/17 20:59 Pantoprazole (Protonix) 40 mg DAILY ORAL 06/15/17 09:00 07/12/17 08:59 06/21/17 09:25 Potassium Chloride (K-Dur) 40 meq BID ORAL 06/15/17 09:00 07/13/17 17:59 06/21/17 09:22 Quetiapine Fumarate (SEROquel) 50 mg BEDTIME ORAL 06/21/17 21:00 07/21/17 20:59 Quetiapine Fumarate (SEROquel) 50 mg Q6H PRN ORAL Agitation 06/14/17 21:00 07/14/17 20:59 06/19/17 02:49 Spironolactone (Aldactone) 100 mg DAILY ORAL 06/20/17 09:00 07/20/17 08:59 06/21/17 09:22 RETA OROZCO Jun 21, 2017 11:29
[2017-06-21 12:00] VITALS: BP 120/84
--- NOTE | 2017-06-21 12:11 | Nephrology Progress Note ---
Assessment/Plan Problem List: (1) Diabetic nephropathy (2) Hypokalemia (3) CHF (congestive heart failure) (4) Hypoalbuminemia Assessment Nephropathy 3+ Proteinuria, K low Dm, Nephropathy, High A1c h/o HyperUrecemia h/o High LFTs Cardiomyopathy with EjFx of 15% Plan Plan: no labs uncoaporative k supplement as needed Optimize cardiac status Allopurinol- dig , Uche I , Lasix as needed K supplement as needed Monitor renal parameters flomax per orders Subjective ROS Limited/Unobtainable: No Objective Objective Last 24 Hour Vital Signs Date Time Temp Pulse Resp B/P (MAP) Pulse Ox O2 Delivery O2 Flow Rate FiO2 06/21/17 09:25 115/81 06/21/17 09:25 86 115/81 06/21/17 09:24 86 06/21/17 08:00 97.9 86 18 115/81 96 06/21/17 04:00 94 Room Air 06/21/17 04:00 97.8 85 18 126/91 94 06/21/17 03:05 97.7 06/21/17 00:00 97.7 88 18 128/96 94 06/21/17 00:00 94 Room Air 06/20/17 21:07 98 188/79 06/20/17 20:00 97.6 98 22 135/89 98 06/20/17 20:00 98 Room Air 06/20/17 15:55 97.5 98 20 188/79 97 Room Air Height (Feet): 5 Height (Inches): 7.00 Weight (Pounds): 173 General Appearance: no apparent distress Objective PE not changed RENNY POWER Jun 21, 2017 12:11
--- NOTE | 2017-06-21 13:25 | General Progress Note ---
Assessment/Plan Problem List: (1) CHF (congestive heart failure) ICD Codes: I50.9 - Heart failure, unspecified SNOMED: 28186112 Qualifiers: Qualified Codes: I50.9 - Heart failure, unspecified (2) Ascites ICD Codes: R18.8 - Other ascites SNOMED: 549125665 (3) Edema ICD Codes: R60.9 - Edema, unspecified SNOMED: 124988514, 572610380 (4) Non-compliance with treatment ICD Codes: Z91.19 - Patient's noncompliance with other medical treatment and regimen SNOMED: 2449704 (5) Iron deficiency ICD Codes: E61.1 - Iron deficiency SNOMED: 13288840 (6) Weakness ICD Codes: R53.1 - Weakness SNOMED: 69699571 (7) Hypokalemia ICD Codes: E87.6 - Hypokalemia SNOMED: 19935496, 703644627 Status: progressing Assessment/Plan chf cirhosis afebrile needs safe place gave dc order safety placement per case manger Subjective ROS Limited/Unobtainable: Yes Allergies: Coded Allergies: No Known Allergies (Unverified , 04/04/17) Objective Last 24 Hour Vital Signs Date Time Temp Pulse Resp B/P (MAP) Pulse Ox O2 Delivery O2 Flow Rate FiO2 06/21/17 12:00 98.0 88 18 120/84 97 06/21/17 09:25 115/81 06/21/17 09:25 86 115/81 06/21/17 09:24 86 06/21/17 08:00 97.9 86 18 115/81 96 06/21/17 04:00 94 Room Air 06/21/17 04:00 97.8 85 18 126/91 94 06/21/17 03:05 97.7 06/21/17 00:00 97.7 88 18 128/96 94 06/21/17 00:00 94 Room Air 06/20/17 21:07 98 188/79 06/20/17 20:00 97.6 98 22 135/89 98 06/20/17 20:00 98 Room Air 06/20/17 15:55 97.5 98 20 188/79 97 Room Air Height (Feet): 5 Height (Inches): 7.00 Weight (Pounds): 173 Joanna Keller MD Jun 21, 2017 13:25
--- NOTE | 2017-06-21 14:10 | General Progress Note ---
Assessment/Plan Assessment/Plan ASSESSMENT AND RECOMMENDATIONS: #. Medical noncompliance. Pt refusing labs and procedures #. Failure to thrive, likely secondary to decreased p.o. intake. Continue to closely monitor. No evidence of malignancy. Prior imaging has been reviewed. #. Protein-albumin dissociation. spep and upep to be reviewed and can be followed as outpatient #. Anemia, very mild. Iron dc'd. #. MRSA colonization. ID following #. Pulmonary hypertension. Subjective Allergies: Coded Allergies: No Known Allergies (Unverified , 04/04/17) All Systems: reviewed and negative except above Subjective refusing labs and procedures Objective Last 24 Hour Vital Signs Date Time Temp Pulse Resp B/P (MAP) Pulse Ox O2 Delivery O2 Flow Rate FiO2 06/21/17 12:00 98.0 88 18 120/84 97 06/21/17 09:25 115/81 06/21/17 09:25 86 115/81 06/21/17 09:24 86 06/21/17 08:00 97.9 86 18 115/81 96 06/21/17 04:00 94 Room Air 06/21/17 04:00 97.8 85 18 126/91 94 06/21/17 03:05 97.7 06/21/17 00:00 97.7 88 18 128/96 94 06/21/17 00:00 94 Room Air 06/20/17 21:07 98 188/79 06/20/17 20:00 97.6 98 22 135/89 98 06/20/17 20:00 98 Room Air 06/20/17 15:55 97.5 98 20 188/79 97 Room Air Height (Feet): 5 Height (Inches): 7.00 Weight (Pounds): 173 General Appearance: no apparent distress EENT: normal ENT inspection Neck: normal alignment Cardiovascular: normal peripheral pulses 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
[2017-06-21 16:00] VITALS: BP 127/82
[2017-06-21 20:00] VITALS: BP 108/67
--- NOTE | 2017-06-21 20:44 | Cardiology Progress Note ---
Assessment/Plan Assessment/Plan 1. Four chamber dilated cardiomyopathy with increased intra-cardiac filling pressure. 2. Acute systolic and diastolic CHF,non-compliant with medication. Will make an attempt to optimize GDMT. 3. Nonsustained ventricular tachycardia, keep magnesium >2.5, K >4.0, Refused AICD in the past. 4. Diabetes mellitus. Subjective Subjective No cardiac events. Objective Last 24 Hour Vital Signs Date Time Temp Pulse Resp B/P (MAP) Pulse Ox O2 Delivery O2 Flow Rate FiO2 06/21/17 16:00 97.6 82 18 127/82 96 06/21/17 12:00 98.0 88 18 120/84 97 06/21/17 09:25 115/81 06/21/17 09:25 86 115/81 06/21/17 09:24 86 06/21/17 08:00 97.9 86 18 115/81 96 06/21/17 04:00 94 Room Air 06/21/17 04:00 97.8 85 18 126/91 94 06/21/17 03:05 97.7 06/21/17 00:00 97.7 88 18 128/96 94 06/21/17 00:00 94 Room Air 06/20/17 21:07 98 188/79 Intake and Output 06/21/17 06/22/17 19:00 07:00 Intake Total 820 ml Balance 820 ml Intake Oral 820 ml # Voids 5 # Bowel Movements 1 2D Echo: Four chamber DCM, Global LV hypokinesia, LVEF ~10%, Sev MR, RVSP 69 mmHg Objective HEENT: Atraumatic and normocephalic. ENT, pupils are equal, round, and reactive to light and accommodation. Conjunctival pallor is seen. Neck: JVP is elevated at about 15 cm. No carotid bruit. Carotid upstrokes 2+ bilaterally. Cardiovascular: Normal S1, S2. Regular rate and rhythm. A 2/6 midsystolic murmur at the left sternal border. LUNGS: Clear to auscultation bilaterally. Abdomen: Distended. Possible ascites. No hepatosplenomegaly. Positive bowel sounds. Extremities: 1+ bilateral lower extremity edema. EMILY COMBS Jun 21, 2017 20:44
[2017-06-21] MEDS ORDERED: Depakote ER 500mg tab ORAL SCH (21:00)
[2017-06-21] MEDS: Carvedilol 25mg Tab ORAL SCH (22:00)
[2017-06-22] VITALS: BP 117/52
[2017-06-22] MEDS: Morphine Sulfate 2mg/ml Inj IVP PRN ×2 (03:46→14:45)
[2017-06-22 04:11] VITALS: BP 100/69
[2017-06-22] MEDS: NovoLOG Insulin Flexpen SUBQ SCH ×3 (06:30→16:30)
[2017-06-22 08:00] VITALS: BP 121/72
--- NOTE | 2017-06-22 08:52 | General Progress Note ---
Assessment/Plan Assessment/Plan (1) Abdominal pain (2) Ascites (3) B/L LE pain (4) B/L LE ulcers Pt will be continued on Howard and Morphine D/w Dr. Wei and he concurred. Subjective Date patient seen: Jun 22, 2017 Time patient seen: 07:00 - am Allergies: Coded Allergies: No Known Allergies (Unverified , 04/04/17) Subjective REVIEW OF SYSTEMS: Denies rash, fever, chills, sweating, dizziness, drowsiness, sore throat, or change in his weight. No nausea, vomiting, diarrhea, or blood in the stool or urine. No bowel or bladder incontinence. No dysuria. He is complaining of abdominal pain and bilateral lower extremity pain. SUBJECTIVE: Patient is in bed no signs of pain or distress. He reports that the pain has been tolerated well on the Morphine and Howard. Patient has no new complaints. Objective Last 24 Hour Vital Signs Date Time Temp Pulse Resp B/P (MAP) Pulse Ox O2 Delivery O2 Flow Rate FiO2 06/22/17 08:00 97.0 84 18 121/72 97 06/22/17 04:11 97.7 80 18 100/69 93 06/22/17 00:00 97.8 87 18 117/52 93 06/21/17 22:00 98 108/67 06/21/17 20:00 97.3 98 18 108/67 93 06/21/17 16:00 97.6 82 18 127/82 96 06/21/17 12:00 98.0 88 18 120/84 97 06/21/17 09:25 115/81 06/21/17 09:25 86 115/81 06/21/17 09:24 86 Height (Feet): 5 Height (Inches): 7.00 Weight (Pounds): 175 Objective GENERAL: Alert, awake, and oriented. HEENT: PERRLA. NECK: Range of motion is full in all directions. No tenderness. No adenopathy. LUNGS: Decreased breath sounds bilaterally. HEART: Regular. ABDOMEN: Obese with tenderness to palpation. BACK: Range of motion is decreased in flexion and extension. No tenderness to paraspinal muscles, trapezius or rhomboid muscles. EXTREMITIES: No cyanosis. No clubbing. KAREN WIN Jun 22, 2017 08:52
[2017-06-22] MEDS: Spironolactone 50mg tab ORAL SCH (09:00)
[2017-06-22] MEDS: Lisinopril 10mg tab ORAL SCH (09:00)
[2017-06-22] MEDS: Carvedilol 25mg Tab ORAL SCH (09:00)
[2017-06-22] MEDS: Digoxin 0.125mg tab ORAL SCH (09:00)
--- NOTE | 2017-06-22 10:30 | Infectious Diseases Prog Note ---
Assessment/Plan Assessment/Plan A; Cellulitis treated ulcers of legs, improving CHF, cardiomyopathy Ascites, small DM MRSA colonization P: Discontinue Doxycycline Observe off antibiotic Subjective ROS Limited/Unobtainable: Yes Neurologic: Reports: confusion Musculoskeletal: Reports: pain, other - in left leg Allergies: Coded Allergies: No Known Allergies (Unverified , 04/04/17) Objective Vital Signs Last 24 Hour Vital Signs Date Time Temp Pulse Resp B/P (MAP) Pulse Ox O2 Delivery O2 Flow Rate FiO2 06/22/17 09:00 84 121/72 06/22/17 09:00 121/72 06/22/17 09:00 84 06/22/17 08:00 97.0 84 18 121/72 97 06/22/17 04:11 97.7 80 18 100/69 93 06/22/17 00:00 97.8 87 18 117/52 93 06/21/17 22:00 98 108/67 06/21/17 20:00 97.3 98 18 108/67 93 06/21/17 16:00 97.6 82 18 127/82 96 06/21/17 12:00 98.0 88 18 120/84 97 Height (Feet): 5 Height (Inches): 7.00 Weight (Pounds): 175 General Appearance: no acute distress HEENT: mucous membranes moist Respiratory/Chest: lungs clear Cardiovascular: normal rate Abdomen: distended Extremities: other - edema of legs decreased Skin: ulcers, other - in left leg Current Medications Medications (Trade) Dose Ordered Sig/Reuben Route PRN Reason Start Time Stop Time Status Last Admin Dose Admin Acetaminophen/ Hydrocodone Bitart ([place] 5/325) 1 tab Q6H PRN ORAL for pain 1-5 06/19/17 08:30 06/24/17 08:29 06/20/17 09:53 Allopurinol (Allopurinol) 300 mg DAILY ORAL 06/15/17 09:00 07/12/17 08:59 06/21/17 09:22 Carvedilol (Coreg) 25 mg EVERY 12 HOURS ORAL 06/21/17 21:30 07/21/17 21:29 06/21/17 22:00 Dextrose (Dextrose 50%) STAT PRN IV Hypoglycemia 06/14/17 21:00 07/14/17 20:59 Digoxin (Lanoxin) 0.125 mg DAILY ORAL 06/15/17 09:00 07/11/17 17:59 06/21/17 09:24 Divalproex Sodium (Depakote ER) 1,000 mg BEDTIME ORAL 06/21/17 21:00 07/21/17 20:59 06/21/17 22:00 Doxycycline Monohydrate (Vibramycin) 100 mg EVERY 12 HOURS ORAL 06/20/17 21:00 06/27/17 20:59 06/21/17 21:59 Furosemide (Lasix) 40 mg EVERY 12 HOURS IV 06/14/17 21:30 07/12/17 21:29 06/21/17 22:00 Gabapentin (Neurontin) 100 mg BID ORAL 06/15/17 09:00 07/11/17 17:59 06/21/17 09:24 Insulin Aspart (NovoLOG) BEFORE MEALS AND HS SUBQ 06/14/17 21:00 07/11/17 20:59 06/20/17 12:07 Lisinopril (Zestril) 10 mg DAILY ORAL 06/17/17 09:00 07/17/17 08:59 06/21/17 09:25 Morphine Sulfate (Morphine Sulfate) 1 mg Q4H PRN IVP For Pain 606/19/17 09:00 06/23/17 08:59 06/22/17 03:46 Ondansetron HCl (Zofran) 4 mg Q6H PRN IVP Nausea & Vomiting 06/14/17 21:00 07/11/17 20:59 Pantoprazole (Protonix) 40 mg DAILY ORAL 06/15/17 09:00 07/12/17 08:59 06/21/17 09:25 Potassium Chloride (K-Dur) 40 meq BID ORAL 06/15/17 09:00 07/13/17 17:59 06/21/17 09:22 Risperidone (RisperDAL) 3 mg BEDTIME ORAL 06/21/17 21:00 07/21/17 20:59 06/21/17 22:10 Spironolactone (Aldactone) 100 mg DAILY ORAL 06/20/17 09:00 07/20/17 08:59 06/21/17 09:22 RETA OROZCO Jun 22, 2017 10:30
--- NOTE | 2017-06-22 10:53 | GI Progress Note ---
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 SNOMED: 31536221, 428197606 (2) Weakness ICD Codes: R53.1 - Weakness SNOMED: 80132287 (3) Hypoalbuminemia ICD Codes: E88.09 - Other disorders of plasma-protein metabolism, not elsewhere classified SNOMED: 161356150 (4) Edema ICD Codes: R60.9 - Edema, unspecified SNOMED: 437774780, 692300410 (5) Ascites ICD Codes: R18.8 - Other ascites SNOMED: 897809964 (6) CHF (congestive heart failure) ICD Codes: I50.9 - Heart failure, unspecified SNOMED: 24878414 Qualifiers: Qualified Codes: I50.9 - Heart failure, unspecified (7) Non-compliance with treatment ICD Codes: Z91.19 - Patient's noncompliance with other medical treatment and regimen SNOMED: 2811884 (8) Abnormal LFTs ICD Codes: R79.89 - Other specified abnormal findings of blood chemistry SNOMED: 159301732 (9) Iron deficiency ICD Codes: E61.1 - Iron deficiency SNOMED: 04508636 Status: stable, unchanged Status Narrative Discussed with Dr. Hinds. Assessment/Plan patient refuses GI procedures refused paracentesis hepatitis panel >> negative iron deficiency >> venofer cdiff negative abdominal U/S >> new finding of ascites okay for DC per GI standpoint cont PO diuresis cardiac diet DM mgmt pain mgmt monitor LFTs electrolyte correction PT/OT fu labs Subjective Subjective refuse labs refusing care refused paracentesis Objective Last 24 Hour Vital Signs Date Time Temp Pulse Resp B/P (MAP) Pulse Ox O2 Delivery O2 Flow Rate FiO2 06/22/17 09:00 84 121/72 06/22/17 09:00 121/72 06/22/17 09:00 84 06/22/17 08:00 97.0 84 18 121/72 97 06/22/17 04:11 97.7 80 18 100/69 93 06/22/17 00:00 97.8 87 18 117/52 93 06/21/17 22:00 98 108/67 06/21/17 20:00 97.3 98 18 108/67 93 06/21/17 16:00 97.6 82 18 127/82 96 12/13/17 12:00 98.0 88 18 120/84 97 Height (Feet): 5 Height (Inches): 7.00 Weight (Pounds): 175 General Appearance: WD/WN, no apparent distress, alert, thin Cardiovascular: normal rate Respiratory/Chest: normal breath sounds, no respiratory distress Abdominal Exam: normal bowel sounds, non tender, soft, distended, ascites Extremities: normal range of motion, non-tender Objective generalized weakness Marissa Schneider N.P. Jun 22, 2017 10:53
--- NOTE | 2017-06-22 14:16 | Nephrology Progress Note ---
Assessment/Plan Problem List: (1) Diabetic nephropathy (2) Hypokalemia (3) CHF (congestive heart failure) (4) Hypoalbuminemia Assessment Nephropathy 3+ Proteinuria, K low Dm, Nephropathy, High A1c h/o HyperUrecemia h/o High LFTs Cardiomyopathy with EjFx of 15% Plan Plan: no labs uncoaporative k supplement as needed Optimize cardiac status Allopurinol- dig , Uche I , Lasix as needed K supplement as needed Monitor renal parameters flomax per orders Subjective ROS Limited/Unobtainable: No Objective Objective Last 24 Hour Vital Signs Date Time Temp Pulse Resp B/P (MAP) Pulse Ox O2 Delivery O2 Flow Rate FiO2 06/22/17 09:00 84 121/72 06/22/17 09:00 121/72 06/22/17 09:00 84 06/22/17 08:00 97.0 84 18 121/72 97 06/22/17 04:11 97.7 80 18 100/69 93 06/22/17 00:00 97.8 87 18 117/52 93 06/21/17 22:00 98 108/67 06/21/17 20:00 97.3 98 18 108/67 93 06/21/17 16:00 97.6 82 18 127/82 96 Height (Feet): 5 Height (Inches): 7.00 Weight (Pounds): 175 General Appearance: no apparent distress Objective PE not changed RENNY POWER Jun 22, 2017 14:16
[2017-06-22 16:00] VITALS: BP 105/71
--- NOTE | 2017-06-23 17:09 | Discharge Summary ---
Discharge Summary Hospital Course Date of Admission Jun 11, 2017 at 15:39 Date of Discharge Jun 22, 2017 at 17:13 Admitting Diagnosis weakness/SOB HPI Manish Baker is a 61 year old male who was admitted on Jun 11, 2017 at 15:39 for Weakness; Shortness Of Breath Hospital Course [id number] Discharge Discharge Disposition Patient was discharged to Home with Home Health(06) Discharge Diagnoses: Viola Garibay NP Jun 23, 2017 17:09
--- NOTE | 2017-06-24 01:32 | Discharge Summary 2 SIG ---
DATE OF ADMISSION: 06/11/2017 DATE OF DISCHARGE: 06/22/2017 CONSULTANTS: 1. Carroll Hinds M.D. 2. Jose E Solorzano M.D. 3. Jarad Sandoval M.D. 4. Aga Wei M.D. 5. Usman Clifford M.D. 6. Kevin Benson M.D. 7. James Schofield M.D. 8. Rajinder Chan M.D. BRIEF HOSPITAL COURSE: The patient is a 61-year-old male with history of severe cardiomyopathy, congestive heart failure, diabetes mellitus, chronic kidney disease, hypertension, pulmonary hypertension, hypoalbuminemia, and abnormal LFTs, presented to ED from home. He was brought in by EMS for complaints of unable to walk and lack of strength. He was just recently at the retirement and has not taken his medications including Lasix and [place]. He was complaining of increased scrotal swelling and weakness to the lower extremities. On evaluation at ED, there was no focal neurological deficit on neurologic exam. Blood work revealed no leukocytosis, however, BNP was 10,849 and potassium was 3.2. Troponin was elevated to 0.2. He was then admitted to telemetry for elevated troponin and CHF. He had diabetic nephropathy. A1c was 8. Renal function was monitored. He was given Lasix and YOGESH inhibitors. Potassium supplementation was given. He complained of pain and was seen by silo painter. He was given [place] and morphine. He had wounds on his lower extremities and scrotal area, suspect cellulitis. He was started on Ancef, which was eventually changed to vancomycin. GI was consulted for evaluation of abdominal distention. The patient had elevated LFTs concerning for possible cholecystitis and refused HIDA scan or CT of the abdomen and pelvis. The patient refused endoscopy. Abdominal ultrasound was done that showed gallbladder sludge, previously demonstrated gallbladder calculi, not currently visible. Negative for dilated ducts. The patient had ascites, which is a new finding. He was continued on diureses and was seen by Dr. Clifford. The patient is noncompliant with medications and has severe cardiomyopathy with EF approximately 10%, so he was recommended AICD in the past, however, he refused. EKG on arrival to the hospital showed sinus rhythm with frequent PVCs as well as supraventricular premature complexes. He was noncompliant with guideline directed medical therapy. He was placed on carvedilol 6.25 mg b.i.d. and Aldactone 25 mg daily. He had an echocardiogram done in March 2017 that showed EF of 10% to 15% with severe biatrial enlargement, severe right ventricular enlargement, right atrial pressure of approximately 20 mmHg, severe mitral regurgitation, and right ventricular systolic pressure of approximately 70% to 75%. He had an episode of nonsustained ventricular tachycardia. He was given both magnesium and potassium supplements. He had failure to thrive and decreased p.o. intake, however, there was no evidence of malignancy. He had a protein and albumin dissociation. Workup for multiple myeloma done. SPEP and UPEP results pending. He had been refusing laboratories and has been noncompliant with care. Antibiotic was eventually switched to doxycycline. He had some psychiatric issues and mood disorder. He was given Seroquel and Risperdal with Depakote 1000 mg nightly. He had a difficult placement as prior retirement refused to take him back. He was referred to multiple nursing homes, however, was not able to be placed. He was eventually discharged home with son with home health. FINAL DIAGNOSES: 1. Acute systolic and diastolic heart failure in exacerbation and noncompliance with medication. 2. Four-chamber dilated cardiomyopathy with increased intracardiac filling pressures. 3. Nonsustained ventricular tachycardia, refused automatic implanted cardioverter-defibrillator in the past. 4. Diabetes mellitus, out of control. 5. Diabetes mellitus with diabetic nephropathy. 6. Hypokalemia. 7. Hypoalbuminemia. 8. Ascites, refused paracentesis. 9. Iron deficiency. 10. Lower extremity cellulitis/ulcers of legs. 11. Methicillin-resistant Staphylococcus aureus colonization. 12. Mood disorder. 13. Generalized weakness. 14. Edema. 15. Right and left lower leg with full and partial thickness open scattered wounds and peroneal open wound, etiology unknown, present on admission. DISPOSITION: The patient was discharged home with home health. DISCHARGE MEDICATIONS: Refer to medication list. FOLLOWUP: Follow up with PMD as outpatient. Ali Hadadz, M.D. I have been assigned to dictate discharge summary on this account and I was not involved in the patient's management. Viola Garibay N.P. DR: Elva JOB#: [id number] CC:
== END 2017-06-22 17:13 | disposition home health service (06) | DRG 194 ==
LOC: EMR 14:02 → EDBEDREQ 15:22 → 2E 15:39 → 4E 06-14 20:29
DX: I13.0 Hypertensive heart and chronic kidney disease with heart failure and stage 1 through stage 4 chronic kidney disease, or unspecified chronic kidney disease (principal); I47.2 Ventricular tachycardia; R18.8 Other ascites; E11.21 Type 2 diabetes mellitus with diabetic nephropathy; I42.0 Dilated cardiomyopathy; E11.65 Type 2 diabetes mellitus with hyperglycemia; I27.20 Pulmonary hypertension, unspecified; I50.43 Acute on chronic combined systolic (congestive) and diastolic (congestive) heart failure; L03.115 Cellulitis of right lower limb; E88.09 Other disorders of plasma-protein metabolism, not elsewhere classified; E87.6 Hypokalemia; R53.1 Weakness; Z79.4 Long term (current) use of insulin; G89.4 Chronic pain syndrome; Z91.14 Patient's other noncompliance with medication regimen; E61.1 Iron deficiency; L03.116 Cellulitis of left lower limb; E11.22 Type 2 diabetes mellitus with diabetic chronic kidney disease; N18.9 Chronic kidney disease, unspecified; L97.929 Non-pressure chronic ulcer of unspecified part of left lower leg with unspecified severity; L97.919 Non-pressure chronic ulcer of unspecified part of right lower leg with unspecified severity; Z22.322 Carrier or suspected carrier of Methicillin resistant Staphylococcus aureus; F39 Unspecified mood [affective] disorder; Z87.891 Personal history of nicotine dependence; Z91.19 Patient's noncompliance with other medical treatment and regimen; N50.89 Other specified disorders of the male genital organs; E66.01 Morbid (severe) obesity due to excess calories
CPT/HCPCS: 36415; 71010; 76700; 80053; 80061; 80307; 81003; 82140; 82248; 82550; 82553; 82607; 82728; 82746; 82962; 82977; 83036; 83540; 83550; 83735; 83880; 84100; 84165; 84484; 84550; 85025; 86140; 87070; 87081; 87181; 87205; 87324; 93005; 93970; 99285; J1815; J3490; J8499